=== PATIENT | male | born 1965 | race Caucasian/White ===

== ENCOUNTER 2017-03-12 02:18 | Emergency (ER) | payer MEDICAID ==
[~2017-03-12] VITALS: Ht 170.2 cm; Wt 90.7 kg
[2017-03-12] MEDS ORDERED: ATENOLOL50 MG ORAL (02:27)
--- NOTE | 2017-03-12 02:27 | Emergency Room Report ---
History of Present Illness General Chief Complaint: Chest Pain Source: Patient, EMS Present Illness HPI Is a 51-year-old male who has a history of alcohol abuse. He also said he has a history of SVT with frequent occurrence. Has been to the hospital multiple times. He presents with chief complaint of chest pain in SVT. He said he is having SVT now he rated moderate show he is in sinus rhythm. Pain is sharp. No syncope. No diaphoresis. No exertional component. He is allergic to aspirin. Is not on any medication. Allergies: Coded Allergies: ASPIRIN (Verified Allergy, Unknown, 03/12/17) Patient History Past Medical History: see triage record, old chart reviewed Past Surgical History: other Pertinent Family History: none Social History: Reports: alcohol use Immunizations: other Reviewed Nursing Documentation: PMH: Agreed, PSxH: Agreed Review of Systems Eye: Denies: eye pain, blurred vision ENT: Denies: ear pain, nose congestion, throat swelling Respiratory: Denies: cough, shortness of breath Cardiovascular: Reports: chest pain, palpitations Gastrointestinal: Denies: abdominal pain, diarrhea, nausea, vomiting Musculoskeletal: Denies: back pain, joint pain Skin: Denies: rash Neurological: Denies: headache, numbness Endocrine: Denies: increased thirst, increased urine Hematologic/Lymphatic: Denies: easy bruising All Other Systems: negative except mentioned in HPI Physical Exam Vital Signs Date Time Temp Pulse Resp B/P (MAP) Pulse Ox O2 Delivery O2 Flow Rate FiO2 03/12/17 02:17 98.4 99 18 145/70 99 Room Air vitals with high blood pressure Sp02 EP Interpretation: reviewed, normal General Appearance: well appearing, no apparent distress, alert, other - unkempted Head: normocephalic, atraumatic Eyes: bilateral eye PERRL, bilateral eye EOMI ENT: hearing grossly normal, normal pharynx Neck: full range of motion, supple, no meningismus Respiratory: chest non-tender, lungs clear, normal breath sounds Cardiovascular #1: regular rate, rhythm, no murmur Gastrointestinal: normal bowel sounds, non tender, no mass, no organomegaly, no bruit, non-distended Musculoskeletal: back normal, gait/station normal, normal range of motion Psychiatric: mood/affect normal Skin: warm/dry Medical Decision Making Diagnostic Impression: Primary Impression: Chest pain Qualified Codes: R07.9 - Chest pain, unspecified Additional Impressions: Alcohol abuse Palpitations ER Course Patient with atypical chest pain and palpitation. We'll put him on a beta durga. No evidence of ACS, PE, dissection to name a few. EKG Diagnostic Results Rate: normal Rhythm: NSR ST Segments: no acute changes Rhythm Strip Diag. Results Rhythm Strip Time: 02:26 EP Interpretation: yes Rate: 90 Rhythm: NSR, no PVC's, no ectopy Last Vital Signs Date Time Temp Pulse Resp B/P (MAP) Pulse Ox O2 Delivery O2 Flow Rate FiO2 03/12/17 02:17 98.4 99 18 145/70 99 Room Air Status: improved Disposition: HOME, SELF-CARE Condition: Stable Scripts Atenolol* (TENORMIN*) 50 Mg Tablet 25 MG ORAL DAILY, #30 TAB Prov: ALINE GOLD M.D. 03/12/17 Patient Instructions: Nonspecific Chest Pain Additional Instructions: Take your medication. Followup with your Dr. in 7 days. If symptom worsen. ALINE GOLD M.D. Mar 12, 2017 02:27
[2017-03-12 02:38] VITALS: BP 141/82
[2017-03-12 03:57] VITALS: BP 132/80
[2017-03-12 04:04] VITALS: BP 132/80
--- NOTE | 2017-03-22 13:58 | Cardiology Report ---
APPROVED REPORT EKG Measurement Heart [id number] Normal sinus rhythm Right bundle branch block Abnormal ECG
[2017-04-11] MEDS ORDERED: UNOBMED (01:13)
== END 2017-03-12 04:09 | disposition home or self-care (01) ==
LOC: EDBD 02:18 → EMR 03:22
DX: R07.89 Other chest pain (principal); R00.2 Palpitations; F10.10 Alcohol abuse, uncomplicated; Z88.6 Allergy status to analgesic agent
CPT/HCPCS: 84484; 93005; 99283

== ENCOUNTER 2017-03-16 01:23 | Emergency (ER) | payer MEDICAID ==
[~2017-03-16] VITALS: Ht 172.7 cm; Wt 113.4 kg
[~2017-03-16 01:23] MED LIST: ATENOLOL50 MG ORAL
[2017-03-16 01:52] VITALS: BP 148/76
--- NOTE | 2017-03-16 01:58 | Emergency Room Report ---
History of Present Illness General Chief Complaint: Palpitations Source: Patient Present Illness HPI Is a 51-year-old male who is homeless. Also history of alcohol abuse. He presents with chief complaint of SVT. He said he get frequent SVT. He told EMS that he had a CT. Per EMS heart rate was in the 60s. Patient denies any fever chills denies any nausea vomiting. Last alcohol was earlier today. EMS said they found a beer can next to him. No other complaint. per EMS, this is a frequent complaint. He's been to [facility] multiple times. Allergies: Coded Allergies: ASPIRIN (Verified Allergy, Unknown, 03/12/17) Patient History Past Medical History: see triage record, old chart reviewed Past Surgical History: none Pertinent Family History: none Social History: Reports: alcohol use Immunizations: other Reviewed Nursing Documentation: PMH: Agreed, PSxH: Agreed Review of Systems Eye: Denies: eye pain, blurred vision ENT: Denies: ear pain, nose congestion, throat swelling Respiratory: Denies: cough, shortness of breath Cardiovascular: Reports: palpitations, Denies: chest pain Gastrointestinal: Denies: abdominal pain, diarrhea, nausea, vomiting Musculoskeletal: Denies: back pain, joint pain Skin: Denies: rash Neurological: Denies: headache, numbness Endocrine: Denies: increased thirst, increased urine Hematologic/Lymphatic: Denies: easy bruising All Other Systems: negative except mentioned in HPI Physical Exam Vital Signs Date Time Temp Pulse Resp B/P (MAP) Pulse Ox O2 Delivery O2 Flow Rate FiO2 03/16/17 01:23 98.1 63 16 150/80 95 Room Air vitals normal Sp02 EP Interpretation: reviewed, normal General Appearance: well appearing, no apparent distress, alert, other - Unkempt Head: normocephalic, atraumatic Eyes: bilateral eye PERRL, bilateral eye EOMI ENT: hearing grossly normal, normal pharynx Neck: full range of motion, supple, no meningismus Respiratory: chest non-tender, lungs clear, normal breath sounds Cardiovascular #1: regular rate, rhythm, no murmur Gastrointestinal: normal bowel sounds, non tender, no mass, no organomegaly, no bruit, non-distended Musculoskeletal: back normal, gait/station normal, normal range of motion Psychiatric: mood/affect normal Skin: warm/dry Medical Decision Making Diagnostic Impression: Primary Impression: Palpitations ER Course Patient presents with chief complaint of SVT. He's been in sinus rhythm here. No evidence of SVT. I suspect is more anxiety related. We'll discharge home. Last Vital Signs Date Time Temp Pulse Resp B/P (MAP) Pulse Ox O2 Delivery O2 Flow Rate FiO2 03/16/17 01:52 98.1 80 18 148/76 97 Room Air Status: unchanged Disposition: HOME, SELF-CARE Condition: Stable Patient Instructions: Palpitations Additional Instructions: followup with your DrYuriy in 7 days. Return if worse. ALINE GOLD M.D. Mar 16, 2017 01:58
[2017-03-16 02:17] VITALS: BP 143/70
== END 2017-03-16 02:19 | disposition home or self-care (01) ==
LOC: EDBD 01:23 → EMR 01:25
DX: R00.2 Palpitations (principal); Z88.6 Allergy status to analgesic agent; F10.10 Alcohol abuse, uncomplicated; Z59.0 Homelessness
CPT/HCPCS: 99283

== ENCOUNTER 2017-04-08 10:25 | Emergency (ER) | payer MEDICAID ==
[~2017-04-08] VITALS: Ht 175.3 cm; Wt 99.8 kg
[2017-04-08 10:33] VITALS: BP 115/88
[2017-04-08] MEDS ORDERED: LORazepam Inj 2mg/ml 1ml IM ONE (11:15)
--- NOTE | 2017-04-08 11:59 | Diagnostic Imaging Report ---
Indications: Seizures Technique: Spiral acquisitions obtained through the brain. Angled axial and coronal 5 x 5 mm slices were reconstructed. Total dose length product 1534.43 mGycm. CTDI vol(s) 70.38 mGy. Dose reduction achieved using automated exposure control Comparison: None. Findings: There is some image degradation due to motion artifact at the skull bases. No acute intracranial hemorrhage or edema, mass effect, or midline shift. There is very mild prominence to the ventricles and extra axial CSF spaces. Intact calvarium. Visualized orbits and sinuses are unremarkable. Impression: Mild cerebral volume loss, somewhat out of proportion to patient's age Negative for acute intracranial bleed or mass effect. The CT scanner at [facility] is accredited by the [employer] and the scans are performed using protocols designed to limit radiation exposure to as low as reasonably achievable to attain images of sufficient resolution adequate for diagnostic evaluation.
[2017-04-08 12:46] VITALS: BP 101/67
[2017-04-08 14:00] VITALS: BP 103/64
[2017-04-08 15:30] VITALS: BP 113/72
--- NOTE | 2017-04-08 21:35 | Emergency Room Report ---
History of Present Illness General Chief Complaint: Seizure Source: EMS (Rehan Chanel M.D.) Source: Patient (DAYNA NAGEL M.D.) Present Illness HPI 51-year-old male presents ED for evaluation. Patient brought in by EMS. witnessed seizure today. Patient is well-known EMS. Notes history of alcohol abuse. Upon arrival patient is lethargic, sleeping. No signs of distress. Unable to provide any additional history. No other aggravating or relieving factors. No other associated symptoms (DAYNA NAGEL M.D.) Allergies: Coded Allergies: ASPIRIN (Verified Allergy, Unknown, 03/12/17) Patient History Past Medical History: none Past Surgical History: none Pertinent Family History: none Social History: Reports: alcohol use, Denies: smoking, drug use Immunizations: UTD Reviewed Nursing Documentation: PMH: Agreed, PSxH: Agreed (DAYNA NAGEL M.D.) Nursing Documentation-PMH Past Medical History: No History, Except For Hx Seizures: Yes (Rehan Chanel M.D.) Review of Systems All Other Systems: limited (DAYNA NAGEL M.D.) Physical Exam Vital Signs Date Time Temp Pulse Resp B/P (MAP) Pulse Ox O2 Delivery O2 Flow Rate FiO2 04/08/17 10:21 97.4 66 16 112/96 99 Room Air 97.3 (Rehan Chanel M.D.) Sp02 EP Interpretation: reviewed, normal General Appearance: no apparent distress, GCS 15, non-toxic, lethargic, obese Head: normocephalic, atraumatic Eyes: bilateral eye normal inspection, bilateral eye PERRL ENT: hearing grossly normal, normal pharynx, no angioedema, normal voice Neck: full range of motion, supple/symm/no masses Respiratory: chest non-tender, lungs clear, normal breath sounds, speaking full sentences Cardiovascular #1: regular rate, rhythm, no edema Cardiovascular #2: 2+ carotid (R), 2+ carotid (L), 2+ radial (R), 2+ radial (L) , 2+ dorsalis pedis (R), 2+ dorsalis pedis (L) Gastrointestinal: normal bowel sounds, non tender, soft, non-distended, no guarding, no rebound Rectal: deferred Genitourinary: normal inspection, no CVA tenderness Musculoskeletal: back normal, gait/station normal, normal range of motion, non- tender Neurologic: other - lethargic Psychiatric: other - lethargic Reflexes: 3+ bicep (R), 3+ bicep (L), 3+ tricep (R), 3+ tricep (L), 3+ knee (R) , 3+ knee (L) Skin: normal color, no rash, warm/dry, well hydrated Lymphatic: no adenopathy (DAYNA NAGEL M.D.) Medical Decision Making Diagnostic Impression: Primary Impression: Alcohol intoxication Qualified Codes: F10.920 - Alcohol use, unspecified with intoxication, uncomplicated Additional Impressions: Seizure Body lice ER Course Please see above note by Dr. Nagel. Patient allowed to sleep. Found to have body lice by RNs. Elimite ordered and applied. Evaluated fully by me as he requests a crutch to help him. He states he has never been on antiseizure medication. States he uses alcohol daily and gets shaky if not drinking. He states he is unsteady on his feet and needs a crutch. Denies back pain or injury, prior stroke of other condition causing weakness. No tremor when examined. No lethargy. Unsteady gait but in a manner in which the patient prevents himself from falling. Strength 5/5 LE. Sensory fully intact. Cerebellar intact. Patient given Thiamine IM. Provided with crutches. No signs of withdrawal at this time. Requests to leave ED. Patient stable for outpatient observation and treatment. (Rehan Chanel M.D.) ER Course Hospital Course 51-year-old male presents to ED status post EtOH intoxication. seizure Clinical course Patient placed on stretcher. After initial history and physical I ordered CT head. Given Ativan here at patient appears somewhat tremulous. Likely alcohol withdrawal. CT head negative Patient allowed to sleep. My assessment shows no evidence of SI/HI requiring psychiatric evaluation. Patient allowed to rest in now awake alert oriented x3. ambulating without difficulty. Diagnosis - ETOH intoxication, seizure stable and discharged to home. Followup with PMD. Return to ED if symptoms recur or worsen (DAYNA NAGEL M.D.) CT/MRI/US Diagnostic Results CT/MRI/US Diagnostic Results : Imaging Test Ordered: CT Head Impression no acute process (DAYNA NAGEL M.D.) Last Vital Signs Date Time Temp Pulse Resp B/P (MAP) Pulse Ox O2 Delivery O2 Flow Rate FiO2 04/08/17 22:20 78 14 115/70 100 04/08/17 15:30 Room Air 04/08/17 14:00 98.1 98.1 Status: improved (Rehan Chanel M.D.) Status: improved (DAYNA NAGEL M.D.) Disposition: HOME, SELF-CARE Condition: Improved Scripts Multivitamins* (MULTIVITAMINS*) 1 Each Tablet 1 TAB ORAL DAILY, #60 TAB 0 Refills Prov: Rehan Chanel M.D. 04/08/17 Permethrin* (ELIMITE*) 60 Gm Cream..g. 1 APPLIC TOPIC ONCE, #60 GM 0 Refills Apply cream from head to toe in 1 week; leave on for 8-14 hours before washing off with water Prov: Rehan Chanel M.D. 04/08/17 Referrals: NOT CHOSEN PRISCILLA/,REFERRING (PCP) Rehan Chanel M.D. Apr 08, 2017 21:34 DAYNA NAGEL M.D. Apr 09, 2017 06:53
[2017-04-08] MEDS ORDERED: MULTIVITAMINS1 EAC2 ORAL (21:37)
[2017-04-08] MEDS ORDERED: PERMETHRIN60 GM TOPIC (21:37)
[2017-04-08 22:20] VITALS: BP 115/70
[2017-04-09] MEDS ORDERED: Thiamine HCl 100mg/ml 2 ml Inj IM SCH (09:00)
[2017-04-11] MEDS ORDERED: UNOBMED (01:13)
== END 2017-04-08 22:00 | disposition home or self-care (01) ==
LOC: EDBD 10:25 → EMR 10:45
DX: F10.129 Alcohol abuse with intoxication, unspecified (principal); G40.909 Epilepsy, unspecified, not intractable, without status epilepticus; B85.1 Pediculosis due to Pediculus humanus corporis; Z88.6 Allergy status to analgesic agent
CPT/HCPCS: 70450; 96372; 99284

== ENCOUNTER 2017-04-11 01:16 | Inpatient (IN) | payer MEDICAID ==
[~2017-04-11] VITALS: Ht 170.2 cm; Wt 112.5 kg
[2017-04-11] VITALS (26 sets, daily range): BP systolic 82–124; BP diastolic 43–97
[~2017-04-11 01:16] MED LIST changes: +MULTIVITAMINS1 EAC2 ORAL; +PERMETHRIN60 GM TOPIC; +UNOBMED
[2017-04-11] MEDS ORDERED: LORazepam Inj 2mg/ml 1ml IV ONE ×2 (02:00→05:00)
[2017-04-11 02:02] LABS: HEMATOCRIT 39.1 % (42.0-52.0); HEMOGLOBIN 13.7 G/DL (14.2-18.0); MEAN CORPUSCULAR VOLUME 103 FL (80-99); PLATELET COUNT 141 K/UL (150-450); RED CELL DISTRIBUTION WIDTH 12.7 % (11.6-14.8)
[2017-04-11 02:03] LABS: WHITE BLOOD COUNT 22.8 K/UL (4.8-10.8)
[2017-04-11 02:14] LABS: ANION GAP 27 mmol/L (5-15); BLOOD UREA NITROGEN 77 mg/dL (7-18); CARBON DIOXIDE 22 MMOL/L (21-32); CHLORIDE 100 MMOL/L (98-107); CREATININE 5.3 MG/DL (0.55-1.30); POTASSIUM 4.1 MMOL/L (3.5-5.1); SODIUM 149 MMOL/L (136-145)
[2017-04-11] MEDS ORDERED: Haloperidol 5mg/ml Inj IM ONE (02:15)
[2017-04-11] MEDS ORDERED: DiphenhydrAMINE 50mg/ml Inj IVP ONE (02:15)
[2017-04-11 02:26] LABS: ALANINE AMINOTRANSFERASE 299 U/L (12-78); ALBUMIN 2.8 G/DL (3.4-5.0); ALBUMIN/GLOBULIN RATIO 0.7 (1.0-2.7); ALKALINE PHOSPHATASE 291 U/L (46-116); ASPARTATE AMINO TRANSFERASE 464 U/L (15-37)
[2017-04-11 02:27] LABS: BILIRUBIN,DIRECT 12.5 MG/DL (0.0-0.3)
--- NOTE | 2017-04-11 02:32 | Emergency Room Report ---
History of Present Illness General Chief Complaint: Altered Level of Consciousness Source: EMS Present Illness HPI 59-year-old male, unknown past medical history, found on street. EMS reportedly has seen the patient on the street, he was drinking, para cans everywhere. A bystander called 911 in the evening, he was brought into the ER. Patient only moaning, not cooperating, agitated. No history is able to be obtained Allergies: Coded Allergies: No Known Allergies (Unverified , 04/11/17) Patient History Past Medical History: see triage record Past Surgical History: none Pertinent Family History: none Reviewed Nursing Documentation: PMH: Agreed, PSxH: Agreed Review of Systems All Other Systems: limited Physical Exam Sp02 EP Interpretation: reviewed, normal General Appearance: other - Very disheveled middle-aged male, moaning, not cooperative Head: normocephalic, atraumatic Eyes: bilateral eye normal inspection, bilateral eye PERRL, bilateral eye EOMI ENT: normal pharynx Neck: supple, no meningismus Respiratory: lungs clear, normal breath sounds, no respiratory distress, no retraction, no wheezing, chest symmetrical Cardiovascular #1: regular rate, rhythm, normal capillary refill, bradycardia Cardiovascular #2: 2+ radial (R), 2+ radial (L) Gastrointestinal: other - soft, no grimace deep palpation Genitourinary: no CVA tenderness Musculoskeletal: normal inspection, back normal, normal range of motion, non- tender Neurologic: other - moans and moves ext spont. not ff commands Psychiatric: other - altered Skin: other - +lice/mites on entire body with rash Procedures Critical Care Time Critical Care Time 40 minutes of CC time 59-year-old male, altered, found in street VS: bradycardiac, hypothermic Airway patent. Not hypoxic. PLAN: IV access, labs, lactate, troponin, Blood/Urine Cx, Abx, IVF Anticipate admission to ICU CC time also includes review of labs, review of EMR, discussion with family and paperwork from SNF, d/w hospitalist CC could include dosing of pressors, additional Abx CC time does not include procedures Lumbar Puncture Consent: Emergent Location: L4-L5 Anesthesia: 1% Lidocaine Volume Anesthetic (ccs): 2 Prep: bedadine Needle Size: 2 1/2 CSF: clear Post-Procedure: recumbent position Attempts: One Complications: none Patient Tolerated: Well Medical Decision Making Diagnostic Impression: Primary Impression: Altered level of consciousness Additional Impressions: Elevated LFTs Hyperbilirubinemia Renal failure Bradycardia Hypothermia Severe sepsis UTI (urinary tract infection) Lice infestation ER Course 59-year-old male, unknown past medical history presenting with altered mental status DDX: Intoxication Electrolyte disturbance, ACS, infection, UTI, pneumonia Plan: Obtain labs, ua, EKG, CXR CT head ER course: Patient is moaning, agitated, Ativan given haldol benadryl given patient as unable to obtain labs/imaging found to have elevated LFTs, hyperbilirubinemia multiple lice found in axilla/clothes of patient WBC 22 - broad spec abx given to patient lactate elevated --- given 2L fluid CT head negative LP performed - clear colored csf pt also with severe hypothermia - blankets and bairhugger placed on patient. has been bradycardic but normal BP although patient has been altered, he has been protecting his airway -- not hypoxic, not tachypneic. Sepsis Re-examination Time: 5 AM VS: Temp 86 HR 55 BP 91/49 RR 15 CVS: RRR Respiratory: Lungs clear bilaterally Peripheral pulses: 2+ radial Capillary refill: <2 seconds Skin exam: warm, dry, no rash, not mottled Signed out to Dr Black -pls follow up CSF results. already got abx. Disposition: Patient is to be admitted to ICU D/W hospitalist Dr Wyman covering Dr berrios Please note that this Emergency Department Report was dictated using [employer] professor technology software, occasionally this can lead to erroneous entry secondary to interpretation by the dictation equipment. EKG Diagnostic Results EP Interpretation: Yes Rate: bradycardic Rhythm: NSR ST Segments: sinus bradycardia, T wave inversion in V ASA given to patient: No Rhythm Strip EP Interpretation: Yes Rate: 50 Rhythm: NSR, no PVCs, no ectopy Chest X-ray CXR: Ordered: Yes 1 view Indication: Altered mental status EP interpretation: Yes Interpretation: very rotated No consolidation, no effusion, no PTX, no acute cardiopulmonary disease Impression: No acute disease Electronically signed by Penny Gibson MD Laboratory Tests Test 04/11/17 01:30 04/11/17 02:30 04/11/17 03:00 04/11/17 03:20 White Blood Count 22.8 K/UL (4.8-10.8) *H Red Blood Count 3.80 M/UL (4.70-6.10) L Hemoglobin 13.7 G/DL (14.2-18.0) L Hematocrit 39.1 % (42.0-52.0) L Mean Corpuscular Volume 103 FL (80-99) H Mean Corpuscular Hemoglobin 36.0 PG (27.0-31.0) H Mean Corpuscular Hemoglobin Concent 35.0 G/DL (32.0-36.0) Red Cell Distribution Width 12.7 % (11.6-14.8) Platelet Count 141 K/UL (150-450) L Mean Platelet Volume 11.2 FL (6.5-10.1) H Neutrophils (%) (Auto) % (45.0-75.0) Lymphocytes (%) (Auto) % (20.0-45.0) Monocytes (%) (Auto) % (1.0-10.0) Eosinophils (%) (Auto) % (0.0-3.0) Basophils (%) (Auto) % (0.0-2.0) Differential Total Cells Counted 100 Neutrophils % (Manual) 86 % (45-75) H Lymphocytes % (Manual) 7 % (20-45) L Monocytes % (Manual) 7 % (1-10) Eosinophils % (Manual) 0 % (0-3) Basophils % (Manual) 0 % (0-2) Band Neutrophils 0 % (0-8) Platelet Estimate Decreased L Platelet Morphology Normal Anisocytosis 1+ Macrocytosis 1+ Prothrombin Time 13.1 SEC (9.30-11.50) H Prothrombin Time INR 1.2 (0.9-1.1) H PTT 26 SEC (23-33) Sodium Level 149 MMOL/L (136-145) H Potassium Level 4.1 MMOL/L (3.5-5.1) Chloride Level 100 MMOL/L (98-107) Carbon Dioxide Level 22 MMOL/L (21-32) Anion Gap 27 mmol/L (5-15) H Blood Urea Nitrogen 77 mg/dL (7-18) H Creatinine 5.3 MG/DL (0.55-1.30) H Estimate Glomerular Filtration Rate 11.1 mL/min (>60) Glucose Level 122 MG/DL (74-106) H Calcium Level 11.0 MG/DL (8.5-10.1) H Total Bilirubin 16.0 MG/DL (0.2-1.0) H Direct Bilirubin 12.5 MG/DL (0.0-0.3) H Aspartate Amino Transferase (AST) 464 U/L (15-37) H Alanine Aminotransferase (ALT) 299 U/L (12-78) H Alkaline Phosphatase 291 U/L (46-116) H Total Creatine Kinase 324 U/L (26-308) H Troponin I 0.000 ng/mL (0.000-0.056) Pro-B-Type Natriuretic Peptide 180 pg/mL (0-125) H Total Protein 6.9 G/DL (6.4-8.2) Albumin 2.8 G/DL (3.4-5.0) L Globulin 4.1 g/dL Albumin/Globulin Ratio 0.7 (1.0-2.7) L Salicylates Level < 0.2 ug/mL (2.8-20) L Acetaminophen Level < 2 MCG/ML (10-30) L Serum Alcohol < 3 mg/dL Lactic Acid Level 14.20 mmol/L (0.66-2.22) H Ammonia 27 umol/L (11-32) Urine Color Brown Urine Appearance Slightly cloudy Urine pH 5 (4.5-8.0) Urine Specific [place] 1.020 (1.005-1.035) Urine Protein 2+ (NEGATIVE) H Urine Glucose (UA) 1+ (NEGATIVE) H Urine Ketones 1+ (NEGATIVE) H Urine Occult Blood 3+ (NEGATIVE) H Urine Nitrite Negative (NEGATIVE) Urine Bilirubin 3+ (NEGATIVE) H Urine Ictotest Negative Urine Urobilinogen 12 MG/DL (0.0-1.0) H Urine Leukocyte Esterase 1+ (NEGATIVE) H Urine RBC 2-4 /HPF (0 - 0) H Urine WBC 10-15 /HPF (0 - 0) H Urine Squamous Epithelial Cells Moderate /LPF (NONE/OCC) H Urine Amorphous Sediment Few /LPF (NONE) H Urine Bacteria Moderate /HPF (NONE) H Urine Hyaline Casts 2-4 /LPF (NONE) H Urine Mucus Few /LPF (NONE/OCC) H Urine Opiates Screen Negative (NEGATIVE) Urine Barbiturates Screen Negative (NEGATIVE) Phencyclidine (PCP) Screen Negative (NEGATIVE) Urine Amphetamines Screen Negative (NEGATIVE) Urine Benzodiazepines Screen Negative (NEGATIVE) Urine Cocaine Screen Negative (NEGATIVE) Urine Marijuana (THC) Screen Negative (NEGATIVE) Test 04/11/17 05:20 04/11/17 05:40 04/11/17 14:35 04/11/17 18:30 Lactic Acid Level 6.10 mmol/L (0.66-2.22) H 3.90 mmol/L (0.66-2.22) H CSF Appearance Clear CSF Color Yellowish CSF WBC 0 /CU MM (0-5) CSF RBC 124 /CU MM CSF Neutrophils % % CSF Lymphocytes % % CSF Monocytes % % CSF Crenated Cells 0 % CSF Glucose 84 mg/dL (50-80) H CSF Total Protein 52 MG/DL (15-45) H White Blood Count 9.7 K/UL (4.8-10.8) # Red Blood Count 2.57 M/UL (4.70-6.10) L Hemoglobin 9.3 G/DL (14.2-18.0) #L Hematocrit 25.3 % (42.0-52.0) #L Mean Corpuscular Volume 99 FL (80-99) Mean Corpuscular Hemoglobin 36.3 PG (27.0-31.0) H Mean Corpuscular Hemoglobin Concent 36.8 G/DL (32.0-36.0) H Red Cell Distribution Width 12.1 % (11.6-14.8) Platelet Count 100 K/UL (150-450) L Mean Platelet Volume 11.7 FL (6.5-10.1) H Neutrophils (%) (Auto) % (45.0-75.0) Lymphocytes (%) (Auto) % (20.0-45.0) Monocytes (%) (Auto) % (1.0-10.0) Eosinophils (%) (Auto) % (0.0-3.0) Basophils (%) (Auto) % (0.0-2.0) Differential Total Cells Counted 100 Neutrophils % (Manual) 88 % (45-75) H Lymphocytes % (Manual) 4 % (20-45) L Monocytes % (Manual) 1 % (1-10) Eosinophils % (Manual) 0 % (0-3) Basophils % (Manual) 0 % (0-2) Band Neutrophils 7 % (0-8) Nucleated Red Blood Cells 7 /100 WBC Platelet Estimate Decreased L Platelet Morphology Normal Polychromasia 1+ Macrocytosis 1+ Erythrocyte Sedimentation Rate 65 MM/HR (0-20) H Urine Color Brown Urine Appearance Cloudy Urine pH 5 (4.5-8.0) Urine Specific [place] 1.020 (1.005-1.035) Urine Protein 2+ (NEGATIVE) H Urine Glucose (UA) 1+ (NEGATIVE) H Urine Ketones 1+ (NEGATIVE) H Urine Occult Blood 3+ (NEGATIVE) H Urine Nitrite Negative (NEGATIVE) Urine Bilirubin 3+ (NEGATIVE) H Urine Ictotest Positive Urine Urobilinogen 8 MG/DL (0.0-1.0) H Urine Leukocyte Esterase 1+ (NEGATIVE) H Urine RBC 0-2 /HPF (0 - 0) H Urine WBC 15-20 /HPF (0 - 0) H Urine Squamous Epithelial Cells Moderate /LPF (NONE/OCC) H Urine Amorphous Sediment Few /LPF (NONE) H Urine Bacteria Many /HPF (NONE) H Urine Eosinophils None seen Urine Osmolality 384 mOsm/kg (429-449) L Urine Random Sodium 17 MEQ/L (20-110) L Urine Random Chloride 27 mmol/L (55-125) L Urine Potassium Timed 54 mmol/L (12-62) Sodium Level 150 MMOL/L (136-145) H Potassium Level 2.2 MMOL/L (3.5-5.1) *L Chloride Level 108 MMOL/L (98-107) H Carbon Dioxide Level 26 MMOL/L (21-32) Anion Gap 15 mmol/L (5-15) Blood Urea Nitrogen 69 mg/dL (7-18) H Creatinine 4.5 MG/DL (0.55-1.30) H Estimate Glomerular Filtration Rate 13.4 mL/min (>60) Glucose Level 110 MG/DL (74-106) H Osmolality 324 mOsm/kg (297-317) H Uric Acid 16.2 MG/DL (2.6-7.2) H Calcium Level 7.9 MG/DL (8.5-10.1) #L Phosphorus Level 6.0 MG/DL (2.5-4.9) H Magnesium Level 2.0 MG/DL (1.8-2.4) Total Bilirubin 11.2 MG/DL (0.2-1.0) H Direct Bilirubin 9.2 MG/DL (0.0-0.3) H Gamma Glutamyl Transpeptidase 828 U/L (5-85) H Aspartate Amino Transferase (AST) 339 U/L (15-37) H Alanine Aminotransferase (ALT) 189 U/L (12-78) H Alkaline Phosphatase 167 U/L (46-116) H Lactate Dehydrogenase 399 U/L (81-234) H Total Creatine Kinase 216 U/L (26-308) C-Reactive Protein, Quantitative 9.3 mg/dL (0.00-0.90) H Total Protein 4.8 G/DL (6.4-8.2) #L Albumin 2.3 G/DL (3.4-5.0) L Globulin 2.5 g/dL Albumin/Globulin Ratio 0.9 (1.0-2.7) L Free Thyroxine 0.98 NG/DL (0.76-1.46) Test 04/12/17 03:45 White Blood Count 12.0 K/UL (4.8-10.8) H Red Blood Count 2.54 M/UL (4.70-6.10) L Hemoglobin 9.0 G/DL (14.2-18.0) L Hematocrit 24.9 % (42.0-52.0) L Mean Corpuscular Volume 98 FL (80-99) Mean Corpuscular Hemoglobin 35.4 PG (27.0-31.0) H Mean Corpuscular Hemoglobin Concent 36.2 G/DL (32.0-36.0) H Red Cell Distribution Width 12.5 % (11.6-14.8) Platelet Count 108 K/UL (150-450) L Mean Platelet Volume 12.0 FL (6.5-10.1) H Neutrophils (%) (Auto) % (45.0-75.0) Lymphocytes (%) (Auto) % (20.0-45.0) Monocytes (%) (Auto) % (1.0-10.0) Eosinophils (%) (Auto) % (0.0-3.0) Basophils (%) (Auto) % (0.0-2.0) Neutrophils % (Manual) Pending Lymphocytes % (Manual) Pending Platelet Estimate Pending Platelet Morphology Pending Sodium Level 144 MMOL/L (136-145) Potassium Level 2.7 MMOL/L (3.5-5.1) *L Chloride Level 104 MMOL/L (98-107) Carbon Dioxide Level 24 MMOL/L (21-32) Anion Gap 15 mmol/L (5-15) Blood Urea Nitrogen 69 mg/dL (7-18) H Creatinine 5.2 MG/DL (0.55-1.30) H Estimate Glomerular Filtration Rate 11.4 mL/min (>60) Glucose Level 216 MG/DL (74-106) #H Lactic Acid Level 2.80 mmol/L (0.66-2.22) H Uric Acid 15.7 MG/DL (2.6-7.2) H Calcium Level 7.1 MG/DL (8.5-10.1) L Phosphorus Level 4.7 MG/DL (2.5-4.9) Magnesium Level 1.5 MG/DL (1.8-2.4) L Total Bilirubin 11.3 MG/DL (0.2-1.0) H Direct Bilirubin 9.4 MG/DL (0.0-0.3) H Gamma Glutamyl Transpeptidase 682 U/L (5-85) H Aspartate Amino Transferase (AST) 313 U/L (15-37) H Alanine Aminotransferase (ALT) 166 U/L (12-78) H Alkaline Phosphatase 144 U/L (46-116) H Total Creatine Kinase 307 U/L (26-308) Troponin I 0.007 ng/mL (0.000-0.056) Pro-B-Type Natriuretic Peptide 1734 pg/mL (0-125) H Total Protein 4.6 G/DL (6.4-8.2) L Albumin 1.9 G/DL (3.4-5.0) L Globulin 2.7 g/dL Albumin/Globulin Ratio 0.7 (1.0-2.7) L Triglycerides Level 244 MG/DL (30-150) H Cholesterol Level 160 MG/DL (< 200) LDL Cholesterol 127 mg/dL (<100) H HDL Cholesterol 8 MG/DL (40-60) L Cholesterol/HDL Ratio 20.0 (3.3-4.4) H Vitamin B12 Level 6440 PG/ML (193-986) H Thyroid Stimulating Hormone (TSH) 1.104 uiU/mL (0.358-3.740) CT/MRI/US Diagnostic Results CT/MRI/US Diagnostic Results : Imaging Test Ordered: CT head Impression CT HEAD: There is no evidence of acute intracranial hemorrhage or mass effect. No midline shift. Ventricular volumes are within normal limits. No abnormal extra-axial fluid collections. No acute osseous abnormality. Paranasal sinuses and mastoid air cells are normally pneumatized. Disposition: ADMITTED INPATIENT Condition: Critical Penny Gibson M.D. Apr 11, 2017 02:32
[2017-04-11 02:45] LABS: INR 1.2 (0.9-1.1)
[2017-04-11] MEDS ORDERED: Piperacillin/Tazobactam 3.375 GM in NS 55 ML IV ONE (03:30)
[2017-04-11] MEDS ORDERED: Vancomycin 1.5gm/D5W 250ml 250 ML IVPB ONE (03:30)
[2017-04-11] MEDS ORDERED: Zosyn 3.375gm inj ONE (03:40)
[2017-04-11 03:41] LABS: APPEARANCE,URINE SLIGHTLY CLOUDY; BILIRUBIN, URINE 3+ (NEGATIVE); COLOR,URINE BROWN; GLUCOSE, URINE (UA) 1+ (NEGATIVE); KETONES,URINE 1+ (NEGATIVE); LEUKOCYTE ESTERASE ,URINE 1+ (NEGATIVE); NITRITE,URINE NEGATIVE (NEGATIVE); PH,URINE 5 (4.5-8.0); PROTEIN,URINE 2+ (NEGATIVE); UROBILINOGEN,URINE 12 MG/DL (0.0-1.0)
[2017-04-11 06:17] LABS: CREATINE KINASE 324 U/L (26-308)
--- NOTE | 2017-04-11 07:57 | Emergency Room Report ---
History of Present Illness General Chief Complaint: Altered Level of Consciousness Source: EMS Present Illness Allergies: Coded Allergies: No Known Allergies (Unverified , 04/11/17) Physical Exam Vital Signs Date Time Temp Pulse Resp B/P (MAP) Pulse Ox O2 Delivery O2 Flow Rate FiO2 04/11/17 02:00 65 12 110/62 99 04/11/17 03:00 85.2 85.2 04/11/17 07:14 Room Air Procedures Critical Care Time Critical Care Time CC time 60min Critical care time endorsed for this patient for sepsis, septic shock, renal/ liver failure Please note, patient remained in the ED for 4 hours of my ED shift because of staff shortage in the ER and required constant monitoring and evaluation. Critical care time includes review of laboratory tests, imaging, review of EMR, review of paperwork from SNF (if available), discussion with patient and family (if available), review of code status/POLS (if available). Critical care time also likely includes assessment of fluid status, stabilization of vital signs, assessing volume responsiveness, considering of pressors. Critical care time does not include any procedures which are documented elsewhere in this EMR. Medical Decision Making Diagnostic Impression: Primary Impression: Altered level of consciousness Additional Impressions: Lice infestation Bradycardia Hyperbilirubinemia Hypothermia Severe sepsis Renal failure Elevated LFTs UTI (urinary tract infection) Hypotension ER Course Received signout from Dr Gibson at 615am Patient's BP continued to trend downward BP 82/63, however MAP >65 Bradycardia improved with increased temp - now ~60HR Received 2 L NS but no fluid output so far [place] was not placed however no urine incontinence noted Will place [place], give additional fluid Likely profoundly dehydrated. has put out only 270cc in 7 hours after 3L NS patient still very dehydrated Will give additional 2L LR As of 1027am, BP 122/97, HR 67 after 5 total L of IVF Rhythm Strip Diag. Results EP Interpretation: yes Rate: 59 Rhythm: NSR, no PVC's, no ectopy Last Vital Signs Date Time Temp Pulse Resp B/P (MAP) Pulse Ox O2 Delivery O2 Flow Rate FiO2 04/11/17 07:46 88.0 57 14 92/63 100 Room Air 88.0 Status: improved Disposition: ADMITTED INPATIENT Condition: Critical Referrals: NOT CHOSEN IPA/,REFERRING (PCP) CELESTINO NASSAR M.D. Apr 11, 2017 07:57
--- NOTE | 2017-04-11 08:09 | Diagnostic Imaging Report ---
Indication: Altered mental status Technique: Continuous helical CT scanning of the head was performed without intravenous contrast material. Axial and coronal 5 mm sections were generated. Dose: Total Dose Length Product - DLP [address] Dose Index - CTDIvol(s) 70.38 mGy. Automated exposure control was utilized for dose reduction. Comparison:None. Findings: The ventricular system is normal in size and configuration. Is mild prominence of cortical sulci. There is no shift of midline structures. No abnormal extra-axial fluid collections are noted. There is no evidence of intracerebral bleeding. No other abnormal high or low density areas are noted within the brain. Impression: Normal atrophy. Otherwise normal CT scan of the head without contrast material. The above report is concordant with preliminary reading by [facility] with minor difference. The CT scanner at [facility] is accredited by the [employer] and the scans are performed using protocols designed to limit radiation exposure to as low as reasonably achievable to attain images of sufficient resolution adequate for diagnostic evaluation.
--- NOTE | 2017-04-11 09:16 | Diagnostic Imaging Report ---
Indication: Chest pain Technique: XRAY Chest 1v Comparison: None. Findings: The patient has taken a poor inspiration and is considerably rotated. The cardiomediastinal silhouette is normal. The lungs are clear. There is no evidence of pleural fluid. The bony structures are unremarkable. Impression: Poor inspiratory rotated chest. Otherwise grossly negative.
[2017-04-11] MEDS ORDERED: LR 1000ml 1,000 ML IV STA ×2 (09:18→09:19)
[2017-04-11] MEDS ORDERED: D5 1/2NS 1,000 ML IV SCH (10:00)
[2017-04-11] MEDS ORDERED: Albuterol/Ipratropium 3ml neb HHN PRN (10:30)
[2017-04-11] MEDS ORDERED: Miralax 17gm pkt ORAL PRN (10:30)
[2017-04-11] MEDS ORDERED: Nitroglycerin Subl 0.4mg tab SL PRN (10:30)
[2017-04-11] MEDS ORDERED: Morphine Sulfate 2mg/ml Inj IVP PRN (10:30)
[2017-04-11] MEDS: Cefepime HCl 2 GM in D5W 110 ML IV SCH (11:45)
--- NOTE | 2017-04-11 11:47 | Consultation ---
Consult Note Consult Note asked to eval for renal failure 59-year-old male, unknown past medical history, found on street. EMS reportedly has seen the patient on the street, he was drinking, para cans everywhere. A bystander called 911 in the evening, he was brought into the ER. Patient only moaning, not cooperating, agitated. No history is able to be obtained seen in ER Discussed with MD and RN data reviewed examined + Ascitis Assessment/Plan Acute renal failure ? Underlying CKD Low BP , Septic Shock Acute encephalopathy Lice infestation High LFTs and Jaundice HypoThermia UTI Fluids Protonix Antibiotics NPO Monitor renal parameters avoid Nephrotoxics ANTON LIZAMA Apr 11, 2017 11:47
[2017-04-11] MEDS ORDERED: Pantoprazole Inj IVP ONE (12:00)
[2017-04-11] MEDS ORDERED: Hydromorphone 0.5mg/0.5ml inj IVP PRN (12:00)
[2017-04-11] MEDS ORDERED: Haloperidol 5mg/ml Inj IM PRN (12:00)
[2017-04-11] MEDS: D5NS 1,000 ML IV SCH ×2 (12:14→18:54)
--- NOTE | 2017-04-11 12:24 | Infectious Diseases Prog Note ---
Assessment/Plan Assessment/Plan Full consult dictated: A) 1) sepsis, shock, leukocytosis, hypothermia, ? uti, ams 2) doubt meningitis with 0 wbc on LP 3) chest x-ray negative P) 1) zosyn and vancomycin 2) check cultures, labs and chest x-ray 3) may need further imagin 4) thank you Subjective Allergies: Coded Allergies: No Known Allergies (Unverified , 04/11/17) Objective Vital Signs Last 24 Hour Vital Signs Date Time Temp Pulse Resp B/P (MAP) Pulse Ox O2 Delivery O2 Flow Rate FiO2 04/11/17 11:43 91.1 80 22 94/48 96 Room Air 91.1 04/11/17 10:42 91.1 70 21 124/96 99 Room Air 91.1 04/11/17 10:13 91.1 66 17 122/97 99 Room Air 91.1 04/11/17 10:03 91.1 66 19 95/60 98 Room Air 91.1 04/11/17 09:37 91.1 76 25 95/60 99 Room Air 91.1 04/11/17 09:04 88.0 57 19 94/55 99 Room Air 88.0 04/11/17 08:26 88.0 57 12 82/63 100 Room Air 88.0 04/11/17 07:46 88.0 57 14 92/63 100 Room Air 88.0 04/11/17 07:14 88.0 51 14 95/63 100 Room Air 88.0 04/11/17 06:10 86.2 50 15 103/80 100 86.2 04/11/17 05:00 85.9 44 15 91/49 10 85.9 04/11/17 04:00 85.8 52 13 100/58 99 85.8 04/11/17 03:00 85.2 58 14 105/61 99 85.2 04/11/17 02:00 65 12 110/62 99 Height (Feet): 5 Height (Inches): 7.00 Weight (Pounds): 160 Microbiology Date/Time Source Procedure Growth Status 04/11/17 05:40 Cerebral Spinal Fluid Gram Stain - Final Resulted 04/11/17 05:40 Cerebral Spinal Fluid CSF Culture Pending Resulted Laboratory Tests Test 04/11/17 01:30 04/11/17 02:30 04/11/17 03:00 04/11/17 03:20 White Blood Count 22.8 K/UL (4.8-10.8) *H Red Blood Count 3.80 M/UL (4.70-6.10) L Hemoglobin 13.7 G/DL (14.2-18.0) L Hematocrit 39.1 % (42.0-52.0) L Mean Corpuscular Volume 103 FL (80-99) H Mean Corpuscular Hemoglobin 36.0 PG (27.0-31.0) H Mean Corpuscular Hemoglobin Concent 35.0 G/DL (32.0-36.0) Red Cell Distribution Width 12.7 % (11.6-14.8) Platelet Count 141 K/UL (150-450) L Mean Platelet Volume 11.2 FL (6.5-10.1) H Neutrophils (%) (Auto) % (45.0-75.0) Lymphocytes (%) (Auto) % (20.0-45.0) Monocytes (%) (Auto) % (1.0-10.0) Eosinophils (%) (Auto) % (0.0-3.0) Basophils (%) (Auto) % (0.0-2.0) Differential Total Cells Counted 100 Neutrophils % (Manual) 86 % (45-75) H Lymphocytes % (Manual) 7 % (20-45) L Monocytes % (Manual) 7 % (1-10) Eosinophils % (Manual) 0 % (0-3) Basophils % (Manual) 0 % (0-2) Band Neutrophils 0 % (0-8) Platelet Estimate Decreased L Platelet Morphology Normal Anisocytosis 1+ Macrocytosis 1+ Prothrombin Time 13.1 SEC (9.30-11.50) H Prothromb Time International Ratio 1.2 (0.9-1.1) H Activated Partial Thromboplast Time 26 SEC (23-33) Sodium Level 149 MMOL/L (136-145) H Potassium Level 4.1 MMOL/L (3.5-5.1) Chloride Level 100 MMOL/L (98-107) Carbon Dioxide Level 22 MMOL/L (21-32) Anion Gap 27 mmol/L (5-15) H Blood Urea Nitrogen 77 mg/dL (7-18) H Creatinine 5.3 MG/DL (0.55-1.30) H Estimat Glomerular Filtration Rate 11.1 mL/min (>60) Glucose Level 122 MG/DL (74-106) H Calcium Level 11.0 MG/DL (8.5-10.1) H Total Bilirubin 16.0 MG/DL (0.2-1.0) H Direct Bilirubin 12.5 MG/DL (0.0-0.3) H Aspartate Amino Transf (AST/SGOT) 464 U/L (15-37) H Alanine Aminotransferase (ALT/SGPT) 299 U/L (12-78) H Alkaline Phosphatase 291 U/L (46-116) H Total Creatine Kinase 324 U/L (26-308) H Troponin I 0.000 ng/mL (0.000-0.056) Pro-B-Type Natriuretic Peptide 180 pg/mL (0-125) H Total Protein 6.9 G/DL (6.4-8.2) Albumin 2.8 G/DL (3.4-5.0) L Globulin 4.1 g/dL Albumin/Globulin Ratio 0.7 (1.0-2.7) L Salicylates Level < 0.2 ug/mL (2.8-20) L Acetaminophen Level < 2 MCG/ML (10-30) L Serum Alcohol < 3 mg/dL Lactic Acid Level 14.20 mmol/L (0.66-2.22) H Ammonia 27 umol/L (11-32) Urine Color Brown Urine Appearance Slightly cloudy Urine pH 5 (4.5-8.0) Urine Specific [place] 1.020 (1.005-1.035) Urine Protein 2+ (NEGATIVE) H Urine Glucose (UA) 1+ (NEGATIVE) H Urine Ketones 1+ (NEGATIVE) H Urine Occult Blood 3+ (NEGATIVE) H Urine Nitrite Negative (NEGATIVE) Urine Bilirubin 3+ (NEGATIVE) H Urine Ictotest Negative Urine Urobilinogen 12 MG/DL (0.0-1.0) H Urine Leukocyte Esterase 1+ (NEGATIVE) H Urine RBC 2-4 /HPF (0 - 0) H Urine WBC 10-15 /HPF (0 - 0) H Urine Squamous Epithelial Cells Moderate /LPF (NONE/OCC) H Urine Amorphous Sediment Few /LPF (NONE) H Urine Bacteria Moderate /HPF (NONE) H Urine Hyaline Casts 2-4 /LPF (NONE) H Urine Mucus Few /LPF (NONE/OCC) H Urine Opiates Screen Negative (NEGATIVE) Urine Barbiturates Screen Negative (NEGATIVE) Phencyclidine (PCP) Screen Negative (NEGATIVE) Urine Amphetamines Screen Negative (NEGATIVE) Urine Benzodiazepines Screen Negative (NEGATIVE) Urine Cocaine Screen Negative (NEGATIVE) Urine Marijuana (THC) Screen Negative (NEGATIVE) Test 04/11/17 05:20 04/11/17 05:40 Lactic Acid Level 6.10 mmol/L (0.66-2.22) H CSF Appearance Clear CSF Color Yellowish CSF WBC 0 /CU MM (0-5) CSF RBC 124 /CU MM CSF Neutrophils % % CSF Lymphocytes % % CSF Monocytes % % CSF Crenated Cells 0 % CSF Glucose 84 mg/dL (50-80) H CSF Total Protein 52 MG/DL (15-45) H Current Medications Medications (Trade) Dose Ordered Sig/Jocelyne Route PRN Reason Start Time Stop Time Status Last Admin Dose Admin Acetaminophen (Tylenol) 650 mg Q4H PRN ORAL fever>100.5 04/11/17 10:30 05/11/17 10:29 Albumin Human 500 ml @ 0 mls/hr Q0M ONCE IV 04/11/17 12:30 04/11/17 12:31 04/11/17 12:15 Albuterol/ Ipratropium (Albuterol/ Ipratropium) 3 ml Q4H PRN HHN Shortness of Breath 04/11/17 10:30 04/16/17 10:29 Cefepime HCl 2 gm/ Dextrose 110 ml @ 220 mls/hr DAILY IV 04/11/17 12:00 04/18/17 11:59 04/11/17 11:45 Dextrose (Dextrose 50%) STAT PRN IV Hypoglycemia 04/11/17 10:30 05/11/17 10:29 Dextrose/Sodium Chloride 1,000 ml @ 150 mls/hr Q6H40M IV 04/11/17 12:00 05/11/17 11:59 04/11/17 12:14 Haloperidol Lactate (Haldol) 5 mg Q4H PRN IM Agitation 04/11/17 12:00 05/11/17 11:59 Heparin Sodium (Porcine) (Heparin 5000 units/ml) 5,000 units EVERY 12 HOURS SUBQ 04/11/17 21:00 05/11/17 20:59 Hydromorphone HCl (Dilaudid) 0.5 mg Q4H PRN IVP For Pain 04/11/17 12:00 04/18/17 11:59 Nitroglycerin (Ntg) 0.4 mg Q5M PRN SL Prn Chest Pain 04/11/17 10:30 05/11/17 10:29 Ondansetron HCl (Zofran) 4 mg Q6H PRN IVP Nausea & Vomiting 04/11/17 10:30 05/11/17 10:29 Vancomycin HCl (Vanco rx to dose) 1 ea DAILY PRN MISC . 04/11/17 11:30 05/11/17 11:29 NAHUN SAGE Apr 11, 2017 12:24
[2017-04-11] MEDS: LR 1000ml 1,000 ML IV SCH ×3 (14:00→17:51)
[2017-04-11 15:00] LABS: HEMATOCRIT 25.3 % (42.0-52.0); HEMOGLOBIN 9.3 G/DL (14.2-18.0); MEAN CORPUSCULAR VOLUME 99 FL (80-99); PLATELET COUNT 100 K/UL (150-450); RED BLOOD COUNT 2.57 M/UL (4.70-6.10); RED CELL DISTRIBUTION WIDTH 12.1 % (11.6-14.8); WHITE BLOOD COUNT 9.7 K/UL (4.8-10.8)
[2017-04-11 15:17] LABS: APPEARANCE,URINE CLOUDY; BILIRUBIN, URINE 3+ (NEGATIVE); COLOR,URINE BROWN; GLUCOSE, URINE (UA) 1+ (NEGATIVE); KETONES,URINE 1+ (NEGATIVE); LEUKOCYTE ESTERASE ,URINE 1+ (NEGATIVE); NITRITE,URINE NEGATIVE (NEGATIVE); PH,URINE 5 (4.5-8.0); PROTEIN,URINE 2+ (NEGATIVE); UROBILINOGEN,URINE 8 MG/DL (0.0-1.0)
--- NOTE | 2017-04-11 15:19 | Cardiac Electrophysiology PN ---
Subjective Subjective [id number] Objective Last 24 Hour Vital Signs Date Time Temp Pulse Resp B/P (MAP) Pulse Ox O2 Delivery O2 Flow Rate FiO2 04/11/17 14:56 97.7 94 29 97/50 99 Room Air 97.7 04/11/17 13:57 97.7 95 34 84/43 97 Room Air 97.7 04/11/17 12:28 91.1 86 23 88/48 99 Room Air 91.1 04/11/17 11:43 91.1 80 22 94/48 96 Room Air 91.1 04/11/17 10:42 91.1 70 21 124/96 99 Room Air 91.1 04/11/17 10:13 91.1 66 17 122/97 99 Room Air 91.1 04/11/17 10:03 91.1 66 19 95/60 98 Room Air 91.1 04/11/17 09:37 91.1 76 25 95/60 99 Room Air 91.1 04/11/17 09:04 88.0 57 19 94/55 99 Room Air 88.0 04/11/17 08:26 88.0 57 12 82/63 100 Room Air 88.0 04/11/17 07:46 88.0 57 14 92/63 100 Room Air 88.0 04/11/17 07:14 88.0 51 14 95/63 100 Room Air 88.0 04/11/17 06:10 86.2 50 15 103/80 100 86.2 04/11/17 05:00 85.9 44 15 91/49 10 85.9 04/11/17 04:00 85.8 52 13 100/58 99 85.8 04/11/17 03:00 85.2 58 14 105/61 99 85.2 04/11/17 02:00 65 12 110/62 99 Intake and Output 04/10/17 04/11/17 19:00 07:00 Intake Total 2305 ml Output Total 75 ml Balance 2230 ml Intake IV Total 2305 ml Output Urine Total 75 ml Laboratory Tests Test 04/11/17 01:30 04/11/17 02:30 04/11/17 03:00 04/11/17 03:20 White Blood Count 22.8 K/UL (4.8-10.8) *H Red Blood Count 3.80 M/UL (4.70-6.10) L Hemoglobin 13.7 G/DL (14.2-18.0) L Hematocrit 39.1 % (42.0-52.0) L Mean Corpuscular Volume 103 FL (80-99) H Mean Corpuscular Hemoglobin 36.0 PG (27.0-31.0) H Mean Corpuscular Hemoglobin Concent 35.0 G/DL (32.0-36.0) Red Cell Distribution Width 12.7 % (11.6-14.8) Platelet Count 141 K/UL (150-450) L Mean Platelet Volume 11.2 FL (6.5-10.1) H Neutrophils (%) (Auto) % (45.0-75.0) Lymphocytes (%) (Auto) % (20.0-45.0) Monocytes (%) (Auto) % (1.0-10.0) Eosinophils (%) (Auto) % (0.0-3.0) Basophils (%) (Auto) % (0.0-2.0) Differential Total Cells Counted 100 Neutrophils % (Manual) 86 % (45-75) H Lymphocytes % (Manual) 7 % (20-45) L Monocytes % (Manual) 7 % (1-10) Eosinophils % (Manual) 0 % (0-3) Basophils % (Manual) 0 % (0-2) Band Neutrophils 0 % (0-8) Platelet Estimate Decreased L Platelet Morphology Normal Anisocytosis 1+ Macrocytosis 1+ Prothrombin Time 13.1 SEC (9.30-11.50) H Prothromb Time International Ratio 1.2 (0.9-1.1) H Activated Partial Thromboplast Time 26 SEC (23-33) Sodium Level 149 MMOL/L (136-145) H Potassium Level 4.1 MMOL/L (3.5-5.1) Chloride Level 100 MMOL/L (98-107) Carbon Dioxide Level 22 MMOL/L (21-32) Anion Gap 27 mmol/L (5-15) H Blood Urea Nitrogen 77 mg/dL (7-18) H Creatinine 5.3 MG/DL (0.55-1.30) H Estimat Glomerular Filtration Rate 11.1 mL/min (>60) Glucose Level 122 MG/DL (74-106) H Calcium Level 11.0 MG/DL (8.5-10.1) H Total Bilirubin 16.0 MG/DL (0.2-1.0) H Direct Bilirubin 12.5 MG/DL (0.0-0.3) H Aspartate Amino Transf (AST/SGOT) 464 U/L (15-37) H Alanine Aminotransferase (ALT/SGPT) 299 U/L (12-78) H Alkaline Phosphatase 291 U/L (46-116) H Total Creatine Kinase 324 U/L (26-308) H Troponin I 0.000 ng/mL (0.000-0.056) Pro-B-Type Natriuretic Peptide 180 pg/mL (0-125) H Total Protein 6.9 G/DL (6.4-8.2) Albumin 2.8 G/DL (3.4-5.0) L Globulin 4.1 g/dL Albumin/Globulin Ratio 0.7 (1.0-2.7) L Salicylates Level < 0.2 ug/mL (2.8-20) L Acetaminophen Level < 2 MCG/ML (10-30) L Serum Alcohol < 3 mg/dL Lactic Acid Level 14.20 mmol/L (0.66-2.22) H Ammonia 27 umol/L (11-32) Urine Color Brown Urine Appearance Slightly cloudy Urine pH 5 (4.5-8.0) Urine Specific [place] 1.020 (1.005-1.035) Urine Protein 2+ (NEGATIVE) H Urine Glucose (UA) 1+ (NEGATIVE) H Urine Ketones 1+ (NEGATIVE) H Urine Occult Blood 3+ (NEGATIVE) H Urine Nitrite Negative (NEGATIVE) Urine Bilirubin 3+ (NEGATIVE) H Urine Ictotest Negative Urine Urobilinogen 12 MG/DL (0.0-1.0) H Urine Leukocyte Esterase 1+ (NEGATIVE) H Urine RBC 2-4 /HPF (0 - 0) H Urine WBC 10-15 /HPF (0 - 0) H Urine Squamous Epithelial Cells Moderate /LPF (NONE/OCC) H Urine Amorphous Sediment Few /LPF (NONE) H Urine Bacteria Moderate /HPF (NONE) H Urine Hyaline Casts 2-4 /LPF (NONE) H Urine Mucus Few /LPF (NONE/OCC) H Urine Opiates Screen Negative (NEGATIVE) Urine Barbiturates Screen Negative (NEGATIVE) Phencyclidine (PCP) Screen Negative (NEGATIVE) Urine Amphetamines Screen Negative (NEGATIVE) Urine Benzodiazepines Screen Negative (NEGATIVE) Urine Cocaine Screen Negative (NEGATIVE) Urine Marijuana (THC) Screen Negative (NEGATIVE) Test 04/11/17 05:20 04/11/17 05:40 04/11/17 14:35 Lactic Acid Level 6.10 mmol/L (0.66-2.22) H CSF Appearance Clear CSF Color Yellowish CSF WBC 0 /CU MM (0-5) CSF RBC 124 /CU MM CSF Neutrophils % % CSF Lymphocytes % % CSF Monocytes % % CSF Crenated Cells 0 % CSF Glucose 84 mg/dL (50-80) H CSF Total Protein 52 MG/DL (15-45) H White Blood Count Pending Red Blood Count Pending Hemoglobin Pending Hematocrit Pending Mean Corpuscular Volume Pending Mean Corpuscular Hemoglobin Pending Mean Corpuscular Hemoglobin Concent Pending Red Cell Distribution Width Pending Platelet Count Pending Mean Platelet Volume Pending Neutrophils (%) (Auto) Pending Lymphocytes (%) (Auto) Pending Monocytes (%) (Auto) Pending Eosinophils (%) (Auto) Pending Basophils (%) (Auto) Pending Erythrocyte Sedimentation Rate Pending Urine Color Pending Urine Appearance Pending Urine pH Pending Urine Specific [place] Pending Urine Protein Pending Urine Glucose (UA) Pending Urine Ketones Pending Urine Occult Blood Pending Urine Nitrite Pending Urine Bilirubin Pending Urine Urobilinogen Pending Urine Leukocyte Esterase Pending Urine RBC Pending Urine WBC Pending Urine Squamous Epithelial Cells Pending Urine Bacteria Pending Urine Eosinophils Pending Urine Osmolality Pending Urine Random Sodium Pending Urine Random Chloride Pending Urine Potassium Timed Pending Sodium Level Pending Potassium Level Pending Chloride Level Pending Carbon Dioxide Level Pending Blood Urea Nitrogen Pending Creatinine Pending Estimat Glomerular Filtration Rate Pending Glucose Level Pending Osmolality Pending Uric Acid Pending Calcium Level Pending Phosphorus Level Pending Magnesium Level Pending Total Bilirubin Pending Gamma Glutamyl Transpeptidase Pending Aspartate Amino Transf (AST/SGOT) Pending Alanine Aminotransferase (ALT/SGPT) Pending Alkaline Phosphatase Pending Lactate Dehydrogenase Pending Total Creatine Kinase Pending C-Reactive Protein, Quantitative Pending Total Protein Pending Albumin Pending Globulin Pending Free Thyroxine Pending Microbiology Date/Time Source Procedure Growth Status 04/11/17 05:40 Cerebral Spinal Fluid Gram Stain - Final Resulted 2/25/18 05:40 Cerebral Spinal Fluid CSF Culture Pending Resulted ERIC CLAYTON Apr 11, 2017 15:19
[2017-04-11 15:36] LABS: ALANINE AMINOTRANSFERASE 189 U/L (12-78); ALBUMIN 2.3 G/DL (3.4-5.0); ALBUMIN/GLOBULIN RATIO 0.9 (1.0-2.7); ALKALINE PHOSPHATASE 167 U/L (46-116); ANION GAP 15 mmol/L (5-15); ASPARTATE AMINO TRANSFERASE 339 U/L (15-37); BILIRUBIN,TOTAL 11.2 MG/DL (0.2-1.0); BLOOD UREA NITROGEN 69 mg/dL (7-18); CALCIUM 7.9 MG/DL (8.5-10.1); CARBON DIOXIDE 26 MMOL/L (21-32); CHLORIDE 108 MMOL/L (98-107); CREATINE KINASE 216 U/L (26-308); CREATININE 4.5 MG/DL (0.55-1.30); PHOSPHORUS 5.8 MG/DL (2.5-4.9); SODIUM 150 MMOL/L (136-145)
[2017-04-11 15:39] LABS: POTASSIUM 2.2 MMOL/L (3.5-5.1)
[2017-04-11 15:41] LABS: BILIRUBIN,DIRECT 9.2 MG/DL (0.0-0.3)
--- NOTE | 2017-04-11 15:50 | Cardiology Report ---
APPROVED REPORT EKG Measurement Heart [id number] VA 134P [id number] Marked sinus bradycardia Nonspecific intraventricular block Possible Right ventricular hypertrophy Lateral infarct, age undetermined T wave abnormality, consider inferior ischemia T wave abnormality, consider anterior ischemia Abnormal ECG
[2017-04-11] MEDS ORDERED: Potassium Chloride 10 MEQ in NS 110 ML IVPB SCH (16:00)
--- NOTE | 2017-04-11 16:50 | History & Physical ---
History and Physical History & Physicial Patient seen and examined. Full H&P to follow. CT head negative. LP negative. Assessment: - septic shock with multiorgan failure - altered mental status - pediculosis capitus - UTI - homelessness Plan: ID and cardiology consulted. Pulmonology consulted for ICU management. continue IV abx f/u blood cultures, urine culture. continue IVF, maintain MAP > 65. pressors/ albumin prn. Transfer to ICU. keep in isolation. Marissa Sosa N.P. Apr 11, 2017 16:50
--- NOTE | 2017-04-11 19:15 | Consultation ---
DATE OF CONSULTATION: 04/11/2017 CARDIOLOGY CONSULTATION CONSULTING PHYSICIAN: Donato Alexis M.D. REFERRING PHYSICIAN: Guillermo Pina M.D. REASON FOR CONSULTATION: Bradycardia and hypotension. HISTORY OF PRESENT ILLNESS: The patient is a 59-year-old male with unknown past medical history, found on the street. The EMS found the patient on the street he was drinking. A bystander called 911 and he was brought to the emergency room. The patient was only moaning and was not cooperative, and was agitated. Subsequently in the emergency room, the patient underwent lumbar puncture, was evaluated by Dr. Lezama from ID perspective, and it was felt that meningitis was unlikely. In the emergency room, the patient was bradycardic with heart rate of 44 and was hypothermic. The patient also had T-wave abnormalities suggestive of inferior and anterior wall ischemia. PAST MEDICAL HISTORY: Unknown. MEDICATIONS: Unknown. SOCIAL HISTORY: The patient was found on the street. No further information is available. FAMILY HISTORY: Unknown. REVIEW OF SYSTEMS: Cannot be obtained as the patient is still altered in the emergency room. PHYSICAL EXAMINATION: VITAL SIGNS: Blood pressure was 84/43 and currently 97/50, pulse is 94, respirations 29, and temperature is 97.2 and initially was 91.1. HEAD AND NECK: Shows no JVD. LUNGS: Coarse rhonchi. CARDIOVASCULAR: Shows regular S1 and S2 with no gallop. ABDOMEN: Soft. EXTREMITIES: A 1+ pitting edema. LABORATORY DATA: Show white count of 22.8, hemoglobin is 13.7, hematocrit 39.1, and platelet count 141,000. BNP is 130. Lactic acid is 14. Sodium 149, potassium 4.1, BUN of 77, creatinine 5.3, and glucose of 122. Troponin is negative. ASSESSMENT AND PLAN: 1. Bradycardia. The heart rate is improved. Most likely, secondary to hypothermia and sepsis. 2. Ischemia on the EKG. Repeat EKG and get an echocardiogram and completely rule out [place] protocol. 3. Sepsis with white count of 23,000, on IV antibiotic per Dr. Lezama. 4. Altered mental status. LP was performed. Meningitis unlikely per Dr. Lezama. It is of note that the patient's serum alcohol, acetaminophen, and salicylate was negative. Urine-tox screen was also negative. 5. Renal failure. BUN of 77 and creatinine 5.3, already evaluated by Dr. Duval. 6. Septic shock. Currently, the patient's blood pressure is ranging in the 90s, currently off pressors. 7. Lice infestation. 8. UTI. Thank you very much for allowing me to participate in the care of this patient. Please do not hesitate to contact me for any questions regarding my evaluation. Donato Alexis M.D. DR: Analy JOB#: [id number] CC:
--- NOTE | 2017-04-11 20:56 | Pulmonolgy Critical Care Note ---
Critical Care - Asmt/Plan Problems: (1) Multiple organ failure (2) Severe sepsis (3) Hypothermia (4) Renal failure (5) Hypotension (6) Alcohol abuse Respiratory: monitor respiratory rate, adjust FIO2 Cardiac: continue to monitor HR/BP Renal: F/U I&O, keep IV fluid Infectious Disease: check cultures Gastrointestinal: hold feedings Endocrine: monitor blood sugar Hematologic: monitor H/H, transfuse if hgb<8.5 Neurologic: PRN Ativan, PRN Morphine, keep patient comfortable Notes Reviewed: cardio Discussed with: nurses, consultants, other Critical Care - Objective Last 24 Hour Vital Signs Date Time Temp Pulse Resp B/P (MAP) Pulse Ox O2 Delivery O2 Flow Rate FiO2 04/11/17 20:35 83 04/11/17 20:00 83 04/11/17 19:21 96.6 80 21 106/54 100 Room Air 96.6 04/11/17 18:46 96.6 83 22 102/58 97 Room Air 96.6 04/11/17 17:45 96.6 84 22 106/66 98 Room Air 96.6 04/11/17 17:22 97.7 86 23 88/48 99 Room Air 97.7 04/11/17 15:53 97.7 90 22 110/50 97 Room Air 97.7 04/11/17 14:56 97.7 94 29 97/50 99 Room Air 97.7 04/11/17 13:57 97.7 95 34 84/43 97 Room Air 97.7 04/11/17 12:28 91.1 86 23 88/48 99 Room Air 91.1 04/11/17 11:43 91.1 80 22 94/48 96 Room Air 91.1 04/11/17 10:42 91.1 70 21 124/96 99 Room Air 91.1 04/11/17 10:13 91.1 66 17 122/97 99 Room Air 91.1 04/11/17 10:03 91.1 66 19 95/60 98 Room Air 91.1 04/11/17 09:37 91.1 76 25 95/60 99 Room Air 91.1 04/11/17 09:04 88.0 57 19 94/55 99 Room Air 88.0 04/11/17 08:26 88.0 57 12 82/63 100 Room Air 88.0 04/11/17 07:46 88.0 57 14 92/63 100 Room Air 88.0 04/11/17 07:14 88.0 51 14 95/63 100 Room Air 88.0 04/11/17 06:10 86.2 50 15 103/80 100 86.2 04/11/17 05:00 85.9 44 15 91/49 10 85.9 04/11/17 04:00 85.8 52 13 100/58 99 85.8 04/11/17 03:00 85.2 58 14 105/61 99 85.2 04/11/17 02:00 65 12 110/62 99 Status: obtunded Condition: critical HEENT: atraumatic Lungs: rales Heart: HR/BP unstable Abdomen: soft, active bowel sounds Extremities: no C/C/E, edema Decubiti: stage Micro: Microbiology Date/Time Source Procedure Growth Status 04/11/17 05:40 Cerebral Spinal Fluid Gram Stain - Final Resulted 04/11/17 05:40 Cerebral Spinal Fluid CSF Culture Pending Resulted Accucheck: 161 Critical Care - Subjective ROS Limited/Unobtainable: Yes ICU Day: 1 Interval Events: 59-year-old male, unknown past medical history, found on street. EMS reportedly has seen the patient on the street, he was drinking, para cans everywhere. A bystander called 911 in the evening, he was brought into the ER. Patient only moaning, not cooperating, agitated. He was hypothermic, in renal and liver failure. I&O: Intake and Output 04/10/17 04/11/17 19:00 07:00 Intake Total 2305 ml Output Total 75 ml Balance 2230 ml Intake IV Total 2305 ml Output Urine Total 75 ml BECK CEDENO Apr 11, 2017 20:49
[2017-04-11] MEDS: Heparin 5000 units/ml inj SUBQ SCH (21:00)
[2017-04-11] MEDS ORDERED: Cefepime HCl 2 GM in D5W 110 ML IV SCH (21:00)
[2017-04-11] MEDS ORDERED: Potassium Chloride 40 MEQ in Sodium Chloride 500ML 550 ML IVPB ONE (22:00)
--- NOTE | 2017-04-11 23:29 | History and Physical ---
History of Present Illness General Date patient seen: Apr 11, 2017 Time patient seen: 16:55 Reason for Hospitalization: Altered Level of Consciousness Present Illness HPI male approximately in his 60s was brought in from the streets by EMS for altered mental status. Patient was noted to have beer cans around him on the street. Patient was noted to be severely hypothermic with temp of 88 deg F. Also was noted to be hypotensive with systolic 80s and bradycardic in the 50s. CXR was unremarkable and UA was minimally remarkable for UTI. Urine tox and ethanol level were unremarkable. Lactic acid was 14 upon admission and WBC 22. Cr 5 and AST/ALT enzymes elevated. Patient was also noted to have lice infestation. Patient was started on IVF, empiric IV antibiotics, and albumin infusion to support blood pressure given no central line for pressors at this time. Patient remains acutely altered and only responds to painful stimuli. Allergies: Coded Allergies: No Known Allergies (Unverified , 04/11/17) Medication History Miscellaneous Medications Unable to Obtain Medications (Unable To Obtain Meds), (Reported) Patient History Limited by: medical condition History Provided By: Medical Record, EMS Healthcare decision maker N Resuscitation status Advanced Directive on File Review of Systems ROS Narrative unable to be obtained due to medical condition Physical Exam General Appearance: other - altered, responsive to painful stimuli, groans and open eyes occasionally HEENT: normocephalic, atraumatic, other - [place] pupils, nonreactive Neck: non-tender, normal alignment, supple Respiratory/Chest: chest wall non-tender, lungs clear, normal breath sounds Cardiovascular/Chest: normal peripheral pulses, normal rate, regular rhythm Abdomen: normal bowel sounds, non tender, soft Neurologic: other - no motor deficits. responds to painful stimuli Last 24 Hour Vital Signs Date Time Temp Pulse Resp B/P (MAP) Pulse Ox O2 Delivery O2 Flow Rate FiO2 04/11/17 23:00 96 18 104/51 95 Room Air 04/11/17 22:00 87 15 97/54 97 Room Air 04/11/17 21:00 81 16 94/54 97 Room Air 04/11/17 20:35 83 04/11/17 20:00 95.6 83 18 91/53 97 Room Air 95.6 04/11/17 20:00 83 04/11/17 19:21 96.6 80 21 106/54 100 Room Air 96.6 04/11/17 18:46 96.6 83 22 102/58 97 Room Air 96.6 04/11/17 17:45 96.6 84 22 106/66 98 Room Air 96.6 04/11/17 17:22 97.7 86 23 88/48 99 Room Air 97.7 04/11/17 15:53 97.7 90 22 110/50 97 Room Air 97.7 04/11/17 14:56 97.7 94 29 97/50 99 Room Air 97.7 04/11/17 13:57 97.7 95 34 84/43 97 Room Air 97.7 04/11/17 12:28 91.1 86 23 88/48 99 Room Air 91.1 04/11/17 11:43 91.1 80 22 94/48 96 Room Air 91.1 04/11/17 10:42 91.1 70 21 124/96 99 Room Air 91.1 04/11/17 10:13 91.1 66 17 122/97 99 Room Air 91.1 04/11/17 10:03 91.1 66 19 95/60 98 Room Air 91.1 04/11/17 09:37 91.1 76 25 95/60 99 Room Air 91.1 04/11/17 09:04 88.0 57 19 94/55 99 Room Air 88.0 04/11/17 08:26 88.0 57 12 82/63 100 Room Air 88.0 04/11/17 07:46 88.0 57 14 92/63 100 Room Air 88.0 04/11/17 07:14 88.0 51 14 95/63 100 Room Air 88.0 04/11/17 06:10 86.2 50 15 103/80 100 86.2 04/11/17 05:00 85.9 44 15 91/49 10 85.9 04/11/17 04:00 85.8 52 13 100/58 99 85.8 04/11/17 03:00 85.2 58 14 105/61 99 85.2 04/11/17 02:00 65 12 110/62 99 Intake and Output 04/10/17 04/11/17 19:00 07:00 Intake Total 2305 ml Output Total 75 ml Balance 2230 ml Intake IV Total 2305 ml Output Urine Total 75 ml Laboratory Tests Test 04/11/17 01:30 04/11/17 02:30 04/11/17 03:00 04/11/17 03:20 White Blood Count 22.8 K/UL (4.8-10.8) *H Red Blood Count 3.80 M/UL (4.70-6.10) L Hemoglobin 13.7 G/DL (14.2-18.0) L Hematocrit 39.1 % (42.0-52.0) L Mean Corpuscular Volume 103 FL (80-99) H Mean Corpuscular Hemoglobin 36.0 PG (27.0-31.0) H Mean Corpuscular Hemoglobin Concent 35.0 G/DL (32.0-36.0) Red Cell Distribution Width 12.7 % (11.6-14.8) Platelet Count 141 K/UL (150-450) L Mean Platelet Volume 11.2 FL (6.5-10.1) H Neutrophils (%) (Auto) % (45.0-75.0) Lymphocytes (%) (Auto) % (20.0-45.0) Monocytes (%) (Auto) % (1.0-10.0) Eosinophils (%) (Auto) % (0.0-3.0) Basophils (%) (Auto) % (0.0-2.0) Differential Total Cells Counted 100 Neutrophils % (Manual) 86 % (45-75) H Lymphocytes % (Manual) 7 % (20-45) L Monocytes % (Manual) 7 % (1-10) Eosinophils % (Manual) 0 % (0-3) Basophils % (Manual) 0 % (0-2) Band Neutrophils 0 % (0-8) Platelet Estimate Decreased L Platelet Morphology Normal Anisocytosis 1+ Macrocytosis 1+ Prothrombin Time 13.1 SEC (9.30-11.50) H Prothromb Time International Ratio 1.2 (0.9-1.1) H Activated Partial Thromboplast Time 26 SEC (23-33) Sodium Level 149 MMOL/L (136-145) H Potassium Level 4.1 MMOL/L (3.5-5.1) Chloride Level 100 MMOL/L (98-107) Carbon Dioxide Level 22 MMOL/L (21-32) Anion Gap 27 mmol/L (5-15) H Blood Urea Nitrogen 77 mg/dL (7-18) H Creatinine 5.3 MG/DL (0.55-1.30) H Estimat Glomerular Filtration Rate 11.1 mL/min (>60) Glucose Level 122 MG/DL (74-106) H Calcium Level 11.0 MG/DL (8.5-10.1) H Total Bilirubin 16.0 MG/DL (0.2-1.0) H Direct Bilirubin 12.5 MG/DL (0.0-0.3) H Aspartate Amino Transf (AST/SGOT) 464 U/L (15-37) H Alanine Aminotransferase (ALT/SGPT) 299 U/L (12-78) H Alkaline Phosphatase 291 U/L (46-116) H Total Creatine Kinase 324 U/L (26-308) H Troponin I 0.000 ng/mL (0.000-0.056) Pro-B-Type Natriuretic Peptide 180 pg/mL (0-125) H Total Protein 6.9 G/DL (6.4-8.2) Albumin 2.8 G/DL (3.4-5.0) L Globulin 4.1 g/dL Albumin/Globulin Ratio 0.7 (1.0-2.7) L Salicylates Level < 0.2 ug/mL (2.8-20) L Acetaminophen Level < 2 MCG/ML (10-30) L Serum Alcohol < 3 mg/dL Lactic Acid Level 14.20 mmol/L (0.66-2.22) H Ammonia 27 umol/L (11-32) Urine Color Brown Urine Appearance Slightly cloudy Urine pH 5 (4.5-8.0) Urine Specific [place] 1.020 (1.005-1.035) Urine Protein 2+ (NEGATIVE) H Urine Glucose (UA) 1+ (NEGATIVE) H Urine Ketones 1+ (NEGATIVE) H Urine Occult Blood 3+ (NEGATIVE) H Urine Nitrite Negative (NEGATIVE) Urine Bilirubin 3+ (NEGATIVE) H Urine Ictotest Negative Urine Urobilinogen 12 MG/DL (0.0-1.0) H Urine Leukocyte Esterase 1+ (NEGATIVE) H Urine RBC 2-4 /HPF (0 - 0) H Urine WBC 10-15 /HPF (0 - 0) H Urine Squamous Epithelial Cells Moderate /LPF (NONE/OCC) H Urine Amorphous Sediment Few /LPF (NONE) H Urine Bacteria Moderate /HPF (NONE) H Urine Hyaline Casts 2-4 /LPF (NONE) H Urine Mucus Few /LPF (NONE/OCC) H Urine Opiates Screen Negative (NEGATIVE) Urine Barbiturates Screen Negative (NEGATIVE) Phencyclidine (PCP) Screen Negative (NEGATIVE) Urine Amphetamines Screen Negative (NEGATIVE) Urine Benzodiazepines Screen Negative (NEGATIVE) Urine Cocaine Screen Negative (NEGATIVE) Urine Marijuana (THC) Screen Negative (NEGATIVE) Test 04/11/17 05:20 04/11/17 05:40 04/11/17 14:35 04/11/17 18:30 Lactic Acid Level 6.10 mmol/L (0.66-2.22) H 3.90 mmol/L (0.66-2.22) H CSF Appearance Clear CSF Color Yellowish CSF WBC 0 /CU MM (0-5) CSF RBC 124 /CU MM CSF Neutrophils % % CSF Lymphocytes % % CSF Monocytes % % CSF Crenated Cells 0 % CSF Glucose 84 mg/dL (50-80) H CSF Total Protein 52 MG/DL (15-45) H White Blood Count 9.7 K/UL (4.8-10.8) # Red Blood Count 2.57 M/UL (4.70-6.10) L Hemoglobin 9.3 G/DL (14.2-18.0) #L Hematocrit 25.3 % (42.0-52.0) #L Mean Corpuscular Volume 99 FL (80-99) Mean Corpuscular Hemoglobin 36.3 PG (27.0-31.0) H Mean Corpuscular Hemoglobin Concent 36.8 G/DL (32.0-36.0) H Red Cell Distribution Width 12.1 % (11.6-14.8) Platelet Count 100 K/UL (150-450) L Mean Platelet Volume 11.7 FL (6.5-10.1) H Neutrophils (%) (Auto) % (45.0-75.0) Lymphocytes (%) (Auto) % (20.0-45.0) Monocytes (%) (Auto) % (1.0-10.0) Eosinophils (%) (Auto) % (0.0-3.0) Basophils (%) (Auto) % (0.0-2.0) Differential Total Cells Counted 100 Neutrophils % (Manual) 88 % (45-75) H Lymphocytes % (Manual) 4 % (20-45) L Monocytes % (Manual) 1 % (1-10) Eosinophils % (Manual) 0 % (0-3) Basophils % (Manual) 0 % (0-2) Band Neutrophils 7 % (0-8) Nucleated Red Blood Cells 7 /100 WBC Platelet Estimate Decreased L Platelet Morphology Normal Polychromasia 1+ Macrocytosis 1+ Erythrocyte Sedimentation Rate 65 MM/HR (0-20) H Urine Color Brown Urine Appearance Cloudy Urine pH 5 (4.5-8.0) Urine Specific [place] 1.020 (1.005-1.035) Urine Protein 2+ (NEGATIVE) H Urine Glucose (UA) 1+ (NEGATIVE) H Urine Ketones 1+ (NEGATIVE) H Urine Occult Blood 3+ (NEGATIVE) H Urine Nitrite Negative (NEGATIVE) Urine Bilirubin 3+ (NEGATIVE) H Urine Ictotest Positive Urine Urobilinogen 8 MG/DL (0.0-1.0) H Urine Leukocyte Esterase 1+ (NEGATIVE) H Urine RBC 0-2 /HPF (0 - 0) H Urine WBC 15-20 /HPF (0 - 0) H Urine Squamous Epithelial Cells Moderate /LPF (NONE/OCC) H Urine Amorphous Sediment Few /LPF (NONE) H Urine Bacteria Many /HPF (NONE) H Urine Eosinophils None seen Urine Osmolality 384 mOsm/kg (429-449) L Urine Random Sodium 17 MEQ/L (20-110) L Urine Random Chloride 27 mmol/L (55-125) L Urine Potassium Timed 54 mmol/L (12-62) Sodium Level 150 MMOL/L (136-145) H Potassium Level 2.2 MMOL/L (3.5-5.1) *L Chloride Level 108 MMOL/L (98-107) H Carbon Dioxide Level 26 MMOL/L (21-32) Anion Gap 15 mmol/L (5-15) Blood Urea Nitrogen 69 mg/dL (7-18) H Creatinine 4.5 MG/DL (0.55-1.30) H Estimat Glomerular Filtration Rate 13.4 mL/min (>60) Glucose Level 110 MG/DL (74-106) H Osmolality 324 mOsm/kg (297-317) H Uric Acid 16.2 MG/DL (2.6-7.2) H Calcium Level 7.9 MG/DL (8.5-10.1) #L Phosphorus Level 6.0 MG/DL (2.5-4.9) H Magnesium Level 2.0 MG/DL (1.8-2.4) Total Bilirubin 11.2 MG/DL (0.2-1.0) H Direct Bilirubin 9.2 MG/DL (0.0-0.3) H Gamma Glutamyl Transpeptidase 828 U/L (5-85) H Aspartate Amino Transf (AST/SGOT) 339 U/L (15-37) H Alanine Aminotransferase (ALT/SGPT) 189 U/L (12-78) H Alkaline Phosphatase 167 U/L (46-116) H Lactate Dehydrogenase 399 U/L (81-234) H Total Creatine Kinase 216 U/L (26-308) C-Reactive Protein, Quantitative 9.3 mg/dL (0.00-0.90) H Total Protein 4.8 G/DL (6.4-8.2) #L Albumin 2.3 G/DL (3.4-5.0) L Globulin 2.5 g/dL Albumin/Globulin Ratio 0.9 (1.0-2.7) L Free Thyroxine 0.98 NG/DL (0.76-1.46) Microbiology Date/Time Source Procedure Growth Status 04/11/17 05:40 Cerebral Spinal Fluid Gram Stain - Final Resulted 04/11/17 05:40 Cerebral Spinal Fluid CSF Culture Pending Resulted Height (Feet): 5 Height (Inches): 7.00 Weight (Pounds): 160 Medications Current Medications Medications (Trade) Dose Ordered Sig/Jocelyne Route PRN Reason Start Time Stop Time Status Last Admin Dose Admin Acetaminophen (Tylenol) 650 mg Q4H PRN ORAL fever>100.5 04/11/17 10:30 05/11/17 10:29 Albuterol/ Ipratropium (Albuterol/ Ipratropium) 3 ml Q4H PRN HHN Shortness of Breath 04/11/17 10:30 04/16/17 10:29 Cefepime HCl 2 gm/ Dextrose 110 ml @ 220 mls/hr DAILY IV 04/11/17 12:00 04/18/17 11:59 04/11/17 11:45 Dextrose (Dextrose 50%) STAT PRN IV Hypoglycemia 04/11/17 10:30 05/11/17 10:29 Dextrose/Sodium Chloride 1,000 ml @ 150 mls/hr Q6H40M IV 04/11/17 12:00 05/11/17 11:59 04/11/17 18:54 Haloperidol Lactate (Haldol) 5 mg Q4H PRN IM Agitation 04/11/17 12:00 05/11/17 11:59 Heparin Sodium (Porcine) (Heparin 5000 units/ml) 5,000 units EVERY 12 HOURS SUBQ 04/11/17 21:00 05/11/17 20:59 Hydromorphone HCl (Dilaudid) 0.5 mg Q4H PRN IVP For Pain 04/11/17 12:00 04/18/17 11:59 Metronidazole 100 ml @ 100 mls/hr Q8HR IVPB 04/11/17 14:00 04/18/17 13:59 04/11/17 14:00 Nitroglycerin (Ntg) 0.4 mg Q5M PRN SL Prn Chest Pain 04/11/17 10:30 05/11/17 10:29 Ondansetron HCl (Zofran) 4 mg Q6H PRN IVP Nausea & Vomiting 04/11/17 10:30 05/11/17 10:29 Potassium Chloride 40 meq/ Sodium Chloride 570 ml @ 142.5 mls/ hr ONCE ONCE IVPB 04/11/17 22:00 04/12/17 01:59 Vancomycin HCl (Vanco rx to dose) 1 ea DAILY PRN MISC . 04/11/17 11:30 05/11/17 11:29 Assessment/Plan Problem List: (1) Altered level of consciousness ICD Codes: R40.4 - Transient alteration of awareness SNOMED: 5576500 (2) Elevated LFTs ICD Codes: R79.89 - Other specified abnormal findings of blood chemistry SNOMED: 995657717, 939911014 (3) Bradycardia ICD Codes: R00.1 - Bradycardia, unspecified SNOMED: 34932753 (4) Hypothermia ICD Codes: T68.XXXA - Hypothermia, initial encounter SNOMED: 027817841 (5) Renal failure ICD Codes: N19 - Unspecified kidney failure SNOMED: 11828767 (6) UTI (urinary tract infection) ICD Codes: N39.0 - Urinary tract infection, site not specified SNOMED: 09480845 (7) Lice infestation ICD Codes: B85.2 - Pediculosis, unspecified SNOMED: 322909217 (8) Hypotension ICD Codes: I95.9 - Hypotension, unspecified SNOMED: 13363089 (9) Severe sepsis ICD Codes: A41.9 - Sepsis, unspecified organism; R65.20 - Severe sepsis without septic shock SNOMED: 71643406 (10) Hyperbilirubinemia ICD Codes: E80.6 - Other disorders of bilirubin metabolism SNOMED: 16763421 Status: not improved Assessment/Plan Admit to ICU keep in isolation pulmonology, cardiology, ID, nephrology consulted IV vancomycin and zosyn (04/11 - ) CT head negative. LP unremarkable continue warming measures to keep temp 36-38 deg C IVF pressors prn to keep MAP > 65 f/u blood and urine cultures trend Cr trend LFTs consider CT a/p Discussed with all consultants involved and RN Total time spent: 70 min >50% in care and coordination Marissa Sosa N.P. Apr 11, 2017 23:29
[2017-04-12] VITALS (24 sets, daily range): BP systolic 90–112; BP diastolic 40–69
[2017-04-12] MEDS ORDERED: Vancomycin 1 GM in D5W 275 ML IV SCH (00:30)
[2017-04-12] MEDS: D5NS 1,000 ML IV SCH ×3 (01:36→11:38)
[2017-04-12 04:05] LABS: HEMATOCRIT 24.9 % (42.0-52.0); MEAN CORPUSCULAR VOLUME 98 FL (80-99); PLATELET COUNT 108 K/UL (150-450); RED BLOOD COUNT 2.54 M/UL (4.70-6.10); RED CELL DISTRIBUTION WIDTH 12.5 % (11.6-14.8)
[2017-04-12 04:28] LABS: CREATINE KINASE 307 U/L (26-308); GAMMA GLUTAMYL TRANSPEPTIDASE 682 U/L (5-85); PHOSPHORUS 4.7 MG/DL (2.5-4.9)
[2017-04-12 04:34] LABS: ALANINE AMINOTRANSFERASE 166 U/L (12-78); ALBUMIN 1.9 G/DL (3.4-5.0); ALBUMIN/GLOBULIN RATIO 0.7 (1.0-2.7); ALKALINE PHOSPHATASE 144 U/L (46-116); ANION GAP 15 mmol/L (5-15); ASPARTATE AMINO TRANSFERASE 313 U/L (15-37); BILIRUBIN,TOTAL 11.3 MG/DL (0.2-1.0); BLOOD UREA NITROGEN 69 mg/dL (7-18); CALCIUM 7.1 MG/DL (8.5-10.1); CARBON DIOXIDE 24 MMOL/L (21-32); CHLORIDE 104 MMOL/L (98-107); CHOLESTEROL 160 MG/DL (< 200); CREATININE 5.2 MG/DL (0.55-1.30); HDL CHOLESTEROL 8 MG/DL (40-60); SODIUM 144 MMOL/L (136-145); TRIGLYCERIDES 244 MG/DL (30-150)
[2017-04-12 04:35] LABS: POTASSIUM 2.7 MMOL/L (3.5-5.1)
[2017-04-12 04:40] LABS: BILIRUBIN,DIRECT 9.4 MG/DL (0.0-0.3)
[2017-04-12] MEDS ORDERED: Hydrocortisone 100mg Inj IV ONE (07:00)
[2017-04-12] MEDS ORDERED: Haloperidol 5mg/ml Inj IM PRN (08:00)
[2017-04-12 08:09] LABS: % IRON SATURATION 62 % (15-50); IRON 62 ug/dL (50-175); TOTAL IRON BINDING CAPACITY 100 ug/dL (250-450)
[2017-04-12] MEDS: Pantoprazole Inj IVP SCH ×2 (08:17→20:33)
[2017-04-12] MEDS: Heparin 5000 units/ml inj SUBQ SCH ×2 (08:18→20:34)
[2017-04-12 08:26] LABS: FERRITIN > 2000 NG/ML (8-388)
[2017-04-12] MEDS ORDERED: Potassium Chloride 30 MEQ in Sodium Chloride 500ML 550 ML IVPB ONE (08:30)
[2017-04-12] MEDS: Cefepime HCl 2 GM in D5W 110 ML IV SCH (09:00)
[2017-04-12] MEDS ORDERED: Vitamin D 50,000 units cap ORAL SCH (09:00)
[2017-04-12] MEDS ORDERED: Cefepime HCl 2 GM in NS 110 ML IV SCH (09:00)
--- NOTE | 2017-04-12 10:18 | Diagnostic Imaging Report ---
Indication:Elevated Bun and Creatinine. Technique: Grayscale and duplex Doppler imaging of the kidneys performed. Comparison: None Findings: Study is limited by body habitus. The size, contour, and echogenicity of both kidneys are within normal limits. Right kidney 11.8 cm. Left kidney 10 seen. There is no hydronephrosis. The IVC and urinary bladder are unremarkable. IMPRESSION: Negative study. Somewhat limited evaluation
--- NOTE | 2017-04-12 10:21 | Pulmonolgy Critical Care Note ---
Critical Care - Asmt/Plan Problems: (1) Multiple organ failure (2) Severe sepsis (3) Hypothermia (4) Renal failure (5) Hypotension (6) Alcohol abuse Respiratory: monitor respiratory rate, adjust FIO2, CXR Cardiac: continue to monitor HR/BP Renal: F/U I&O, keep IV fluid Infectious Disease: check cultures Gastrointestinal: hold feedings Endocrine: monitor blood sugar Hematologic: monitor H/H, transfuse if hgb<8.5 Neurologic: PRN Morphine, keep patient comfortable Affect: PRN ativan Prophylaxis: Protonix Disposition: keep in ICU Notes Reviewed: cardio, renal Discussed with: nurses, consultants Critical Care - Objective Last 24 Hour Vital Signs Date Time Temp Pulse Resp B/P (MAP) Pulse Ox O2 Delivery O2 Flow Rate FiO2 04/12/17 07:00 99 28 106/40 95 Room Air 04/12/17 06:00 98 31 103/46 97 Room Air 04/12/17 05:00 100 29 95/51 96 Room Air 04/12/17 04:00 100 04/12/17 04:00 98.9 100 30 94/58 96 Room Air 98.9 04/12/17 03:00 100 32 92/47 95 Room Air 04/12/17 02:00 100 16 98/44 95 Room Air 04/12/17 01:00 100 18 91/47 96 Room Air 04/12/17 00:00 96 04/12/17 00:00 99.6 96 15 112/43 97 Room Air 99.6 04/11/17 23:00 96 18 104/51 95 Room Air 04/11/17 22:00 87 15 97/54 97 Room Air 04/11/17 21:00 81 16 94/54 97 Room Air 04/11/17 20:35 83 04/11/17 20:00 95.6 83 18 91/53 97 Room Air 95.6 04/11/17 20:00 83 04/11/17 19:55 96.6 80 21 106/54 100 Room Air 96.6 04/11/17 19:21 96.6 80 21 106/54 100 Room Air 96.6 04/11/17 18:46 96.6 83 22 102/58 97 Room Air 96.6 04/11/17 17:45 96.6 84 22 106/66 98 Room Air 96.6 04/11/17 17:22 97.7 86 23 88/48 99 Room Air 97.7 04/11/17 15:53 97.7 90 22 110/50 97 Room Air 97.7 04/11/17 14:56 97.7 94 29 97/50 99 Room Air 97.7 04/11/17 13:57 97.7 95 34 84/43 97 Room Air 97.7 04/11/17 12:28 91.1 86 23 88/48 99 Room Air 91.1 04/11/17 11:43 91.1 80 22 94/48 96 Room Air 91.1 04/11/17 10:42 91.1 70 21 124/96 99 Room Air 91.1 Status: obtunded Condition: critical HEENT: atraumatic Lungs: clear Heart: HR/BP stable Abdomen: soft, non-tender, active bowel sounds Extremities: edema Micro: Microbiology Date/Time Source Procedure Growth Status 04/11/17 02:45 Blood Blood Culture - Preliminary NO GROWTH AFTER 24 HOURS Resulted 04/11/17 02:30 Blood Blood Culture - Preliminary NO GROWTH AFTER 24 HOURS Resulted 04/11/17 05:40 Cerebral Spinal Fluid Gram Stain - Final Resulted 04/11/17 05:40 Cerebral Spinal Fluid CSF Culture Pending Resulted 04/11/17 14:35 Indwelling Cath Urine Culture - Preliminary NO GROWTH Resulted 04/11/17 03:20 Urine,Clean Catch Urine Culture - Preliminary Resulted Accucheck: 279 Critical Care - Subjective I&O: Intake and Output 04/11/17 04/12/17 19:00 07:00 Intake Total 5960 ml 3570.0 ml Output Total 250 ml 65 ml Balance 5710 ml 3505.0 ml Intake IV Total 5960 ml 3570.0 ml Output Urine Total 250 ml 65 ml CXR: no infiltrate Labs: Laboratory Tests Test 04/11/17 14:35 04/11/17 18:30 04/12/17 03:45 White Blood Count 9.7 K/UL (4.8-10.8) # 12.0 K/UL (4.8-10.8) H Red Blood Count 2.57 M/UL (4.70-6.10) L 2.54 M/UL (4.70-6.10) L Hemoglobin 9.3 G/DL (14.2-18.0) #L 9.0 G/DL (14.2-18.0) L Hematocrit 25.3 % (42.0-52.0) #L 24.9 % (42.0-52.0) L Mean Corpuscular Volume 99 FL (80-99) 98 FL (80-99) Mean Corpuscular Hemoglobin 36.3 PG (27.0-31.0) H 35.4 PG (27.0-31.0) H Mean Corpuscular Hemoglobin Concent 36.8 G/DL (32.0-36.0) H 36.2 G/DL (32.0-36.0) H Red Cell Distribution Width 12.1 % (11.6-14.8) 12.5 % (11.6-14.8) Platelet Count 100 K/UL (150-450) L 108 K/UL (150-450) L Mean Platelet Volume 11.7 FL (6.5-10.1) H 12.0 FL (6.5-10.1) H Neutrophils (%) (Auto) % (45.0-75.0) % (45.0-75.0) Lymphocytes (%) (Auto) % (20.0-45.0) % (20.0-45.0) Monocytes (%) (Auto) % (1.0-10.0) % (1.0-10.0) Eosinophils (%) (Auto) % (0.0-3.0) % (0.0-3.0) Basophils (%) (Auto) % (0.0-2.0) % (0.0-2.0) Differential Total Cells Counted 100 100 Neutrophils % (Manual) 88 % (45-75) H 92 % (45-75) H Lymphocytes % (Manual) 4 % (20-45) L 3 % (20-45) L Monocytes % (Manual) 1 % (1-10) 2 % (1-10) Eosinophils % (Manual) 0 % (0-3) 0 % (0-3) Basophils % (Manual) 0 % (0-2) 0 % (0-2) Band Neutrophils 7 % (0-8) 3 % (0-8) Nucleated Red Blood Cells 7 /100 WBC Platelet Estimate Decreased L Decreased L Platelet Morphology Normal Normal Polychromasia 1+ 1+ Macrocytosis 1+ Erythrocyte Sedimentation Rate 65 MM/HR (0-20) H Urine Color Brown Urine Appearance Cloudy Urine pH 5 (4.5-8.0) Urine Specific [place] 1.020 (1.005-1.035) Urine Protein 2+ (NEGATIVE) H Urine Glucose (UA) 1+ (NEGATIVE) H Urine Ketones 1+ (NEGATIVE) H Urine Occult Blood 3+ (NEGATIVE) H Urine Nitrite Negative (NEGATIVE) Urine Bilirubin 3+ (NEGATIVE) H Urine Ictotest Positive Urine Urobilinogen 8 MG/DL (0.0-1.0) H Urine Leukocyte Esterase 1+ (NEGATIVE) H Urine RBC 0-2 /HPF (0 - 0) H Urine WBC 15-20 /HPF (0 - 0) H Urine Squamous Epithelial Cells Moderate /LPF (NONE/OCC) H Urine Amorphous Sediment Few /LPF (NONE) H Urine Bacteria Many /HPF (NONE) H Urine Eosinophils None seen Urine Osmolality 384 mOsm/kg (429-449) L Urine Random Sodium 17 MEQ/L (20-110) L Urine Random Chloride 27 mmol/L (55-125) L Urine Potassium Timed 54 mmol/L (12-62) Sodium Level 150 MMOL/L (136-145) H 144 MMOL/L (136-145) Potassium Level 2.2 MMOL/L (3.5-5.1) *L 2.7 MMOL/L (3.5-5.1) *L Chloride Level 108 MMOL/L (98-107) H 104 MMOL/L (98-107) Carbon Dioxide Level 26 MMOL/L (21-32) 24 MMOL/L (21-32) Anion Gap 15 mmol/L (5-15) 15 mmol/L (5-15) Blood Urea Nitrogen 69 mg/dL (7-18) H 69 mg/dL (7-18) H Creatinine 4.5 MG/DL (0.55-1.30) H 5.2 MG/DL (0.55-1.30) H Estimat Glomerular Filtration Rate 13.4 mL/min (>60) 11.4 mL/min (>60) Glucose Level 110 MG/DL (74-106) H 216 MG/DL (74-106) #H Osmolality 324 mOsm/kg (297-317) H Uric Acid 16.2 MG/DL (2.6-7.2) H 15.7 MG/DL (2.6-7.2) H Calcium Level 7.9 MG/DL (8.5-10.1) #L 7.1 MG/DL (8.5-10.1) L Phosphorus Level 6.0 MG/DL (2.5-4.9) H 4.7 MG/DL (2.5-4.9) Magnesium Level 2.0 MG/DL (1.8-2.4) 1.5 MG/DL (1.8-2.4) L Total Bilirubin 11.2 MG/DL (0.2-1.0) H 11.3 MG/DL (0.2-1.0) H Direct Bilirubin 9.2 MG/DL (0.0-0.3) H 9.4 MG/DL (0.0-0.3) H Gamma Glutamyl Transpeptidase 828 U/L (5-85) H 682 U/L (5-85) H Aspartate Amino Transf (AST/SGOT) 339 U/L (15-37) H 313 U/L (15-37) H Alanine Aminotransferase (ALT/SGPT) 189 U/L (12-78) H 166 U/L (12-78) H Alkaline Phosphatase 167 U/L (46-116) H 144 U/L (46-116) H Lactate Dehydrogenase 399 U/L (81-234) H Total Creatine Kinase 216 U/L (26-308) 307 U/L (26-308) C-Reactive Protein, Quantitative 9.3 mg/dL (0.00-0.90) H 16.0 mg/dL (0.00-0.90) H Total Protein 4.8 G/DL (6.4-8.2) #L 4.6 G/DL (6.4-8.2) L Albumin 2.3 G/DL (3.4-5.0) L 1.9 G/DL (3.4-5.0) L Globulin 2.5 g/dL 2.7 g/dL Albumin/Globulin Ratio 0.9 (1.0-2.7) L 0.7 (1.0-2.7) L Free Thyroxine 0.98 NG/DL (0.76-1.46) Lactic Acid Level 3.90 mmol/L (0.66-2.22) H 2.80 mmol/L (0.66-2.22) H Hypochromasia 2+ Anisocytosis 1+ Spherocytes 2+ Iron Level 62 ug/dL (50-175) Total Iron Binding Capacity 100 ug/dL (250-450) L Percent Iron Saturation 62 % (15-50) H Unsaturated Iron Binding 38 ug/dL (112-346) L Ferritin > 2000 NG/ML (8-388) H Troponin I 0.007 ng/mL (0.000-0.056) Pro-B-Type Natriuretic Peptide 1734 pg/mL (0-125) H Triglycerides Level 244 MG/DL (30-150) H Cholesterol Level 160 MG/DL (< 200) LDL Cholesterol 127 mg/dL (<100) H HDL Cholesterol 8 MG/DL (40-60) L Cholesterol/HDL Ratio 20.0 (3.3-4.4) H Vitamin B12 Level 6440 PG/ML (193-986) H Folate 2.7 NG/ML (8.6-58.9) L Thyroid Stimulating Hormone (TSH) 1.104 uiU/mL (0.358-3.740) BECK CEDENO Apr 12, 2017 10:21
--- NOTE | 2017-04-12 10:44 | Nephrology Progress Note ---
Assessment/Plan Problem List: (1) Severe sepsis (2) Hypotension (3) Renal failure (4) Hypothermia (5) Elevated LFTs (6) Hyperbilirubinemia Assessment Acute renal failure ? Underlying CKD Low BP , Septic Shock Acute encephalopathy Lice infestation High LFTs and Jaundice HypoThermia UTI Plan steroids- Fluids Protonix Antibiotics NPO Monitor renal parameters avoid Nephrotoxics Objective Objective Last 24 Hour Vital Signs Date Time Temp Pulse Resp B/P (MAP) Pulse Ox O2 Delivery O2 Flow Rate FiO2 04/12/17 10:00 99 20 90/49 95 Room Air 04/12/17 09:00 98.7 100 25 102/45 95 Room Air 98.7 04/12/17 08:00 99 28 110/43 95 Room Air 04/12/17 08:00 96 04/12/17 07:00 99 28 106/40 95 Room Air 04/12/17 06:00 98 31 103/46 97 Room Air 04/12/17 05:00 100 29 95/51 96 Room Air 04/12/17 04:00 100 04/12/17 04:00 98.9 100 30 94/58 96 Room Air 98.9 04/12/17 03:00 100 32 92/47 95 Room Air 04/12/17 02:00 100 16 98/44 95 Room Air 04/12/17 01:00 100 18 91/47 96 Room Air 04/12/17 00:00 96 04/12/17 00:00 99.6 96 15 112/43 97 Room Air 99.6 04/11/17 23:00 96 18 104/51 95 Room Air 04/11/17 22:00 87 15 97/54 97 Room Air 04/11/17 21:00 81 16 94/54 97 Room Air 04/11/17 20:35 83 04/11/17 20:00 95.6 83 18 91/53 97 Room Air 95.6 04/11/17 20:00 83 04/11/17 19:55 96.6 80 21 106/54 100 Room Air 96.6 04/11/17 19:21 96.6 80 21 106/54 100 Room Air 96.6 04/11/17 18:46 96.6 83 22 102/58 97 Room Air 96.6 04/11/17 17:45 96.6 84 22 106/66 98 Room Air 96.6 04/11/17 17:22 97.7 86 23 88/48 99 Room Air 97.7 04/11/17 15:53 97.7 90 22 110/50 97 Room Air 97.7 04/11/17 14:56 97.7 94 29 97/50 99 Room Air 97.7 04/11/17 13:57 97.7 95 34 84/43 97 Room Air 97.7 04/11/17 12:28 91.1 86 23 88/48 99 Room Air 91.1 04/11/17 11:43 91.1 80 22 94/48 96 Room Air 91.1 Intake and Output 04/11/17 04/12/17 19:00 07:00 Intake Total 5960 ml 3570.0 ml Output Total 250 ml 65 ml Balance 5710 ml 3505.0 ml Intake IV Total 5960 ml 3570.0 ml Output Urine Total 250 ml 65 ml Laboratory Tests 04/11/17 14:35: White Blood Count 9.7#, Red Blood Count 2.57L, Hemoglobin 9.3#L, Hematocrit 25.3 #L, Mean Corpuscular Volume 99, Mean Corpuscular Hemoglobin 36.3H, Mean Corpuscular Hemoglobin Concent 36.8H, Red Cell Distribution Width 12.1, Platelet Count 100L, Mean Platelet Volume 11.7H, Neutrophils (%) (Auto) , Lymphocytes (%) (Auto) , Monocytes (%) (Auto) , Eosinophils (%) (Auto) , Basophils (%) (Auto) , Differential Total Cells Counted 100, Neutrophils % ( Manual) 88H, Lymphocytes % (Manual) 4L, Monocytes % (Manual) 1, Eosinophils % ( Manual) 0, Basophils % (Manual) 0, Band Neutrophils 7, Nucleated Red Blood Cells 7, Platelet Estimate DecreasedL, Platelet Morphology Normal, Polychromasia 1+, Macrocytosis 1+, Erythrocyte Sedimentation Rate 65H, Urine Color Brown, Urine Appearance Cloudy, Urine pH 5, Urine Specific [place] 1.020, Urine Protein 2+H, Urine Glucose (UA) 1+H, Urine Ketones 1+H, Urine Occult Blood 3+H, Urine Nitrite Negative, Urine Bilirubin 3+H, Urine Ictotest Positive , Urine Urobilinogen 8H, Urine Leukocyte Esterase 1+H, Urine RBC 0-2H, Urine WBC 15-20H, Urine Squamous Epithelial Cells ModerateH, Urine Amorphous Sediment FewH, Urine Bacteria ManyH, Urine Eosinophils None seen, Urine Osmolality 384L, Urine Random Sodium 17L, Urine Random Chloride 27L, Urine Potassium Timed 54, Sodium Level 150H, Potassium Level 2.2*L, Chloride Level 108H, Carbon Dioxide Level 26, Anion Gap 15, Blood Urea Nitrogen 69H, Creatinine 4.5H, Estimat Glomerular Filtration Rate 13.4, Glucose Level 110H, Osmolality 324H, Uric Acid 16.2H, Calcium Level 7.9#L, Phosphorus Level 6.0H, Magnesium Level 2.0, Total Bilirubin 11.2H, Direct Bilirubin 9.2H, Gamma Glutamyl Transpeptidase 828H, Aspartate Amino Transf (AST/SGOT) 339H, Alanine Aminotransferase (ALT/SGPT) 189H , Alkaline Phosphatase 167H, Lactate Dehydrogenase 399H, Total Creatine Kinase 216, C-Reactive Protein, Quantitative 9.3H, Total Protein 4.8#L, Albumin 2.3L, Globulin 2.5, Albumin/Globulin Ratio 0.9L, Free Thyroxine 0.98 04/11/17 18:30: Lactic Acid Level 3.90H 04/12/17 03:45: White Blood Count 12.0H, Red Blood Count 2.54L, Hemoglobin 9.0L, Hematocrit 24.9L, Mean Corpuscular Volume 98, Mean Corpuscular Hemoglobin 35.4H, Mean Corpuscular Hemoglobin Concent 36.2H, Red Cell Distribution Width 12.5, Platelet Count 108L, Mean Platelet Volume 12.0H, Neutrophils (%) (Auto) , Lymphocytes (%) (Auto) , Monocytes (%) (Auto) , Eosinophils (%) (Auto) , Basophils (%) (Auto) , Differential Total Cells Counted 100, Neutrophils % ( Manual) 92H, Lymphocytes % (Manual) 3L, Monocytes % (Manual) 2, Eosinophils % ( Manual) 0, Basophils % (Manual) 0, Band Neutrophils 3, Platelet Estimate DecreasedL, Platelet Morphology Normal, Polychromasia 1+, Sodium Level 144, Potassium Level 2.7*L, Chloride Level 104, Carbon Dioxide Level 24, Anion Gap 15 , Blood Urea Nitrogen 69H, Creatinine 5.2H, Estimat Glomerular Filtration Rate 11.4, Glucose Level 216#H, Uric Acid 15.7H, Calcium Level 7.1L, Phosphorus Level 4.7, Magnesium Level 1.5L, Total Bilirubin 11.3H, Direct Bilirubin 9.4H, Gamma Glutamyl Transpeptidase 682H, Aspartate Amino Transf (AST/SGOT) 313H, Alanine Aminotransferase (ALT/SGPT) 166H, Alkaline Phosphatase 144H, Total Creatine Kinase 307, C-Reactive Protein, Quantitative 16.0H, Total Protein 4.6L , Albumin 1.9L, Globulin 2.7, Albumin/Globulin Ratio 0.7L, Lactic Acid Level 2.80H, Hypochromasia 2+, Anisocytosis 1+, Spherocytes 2+, Iron Level 62, Total Iron Binding Capacity 100L, Percent Iron Saturation 62H, Unsaturated Iron Binding 38L, Ferritin > 2000H, Troponin I 0.007, Pro-B-Type Natriuretic Peptide 1734H, Triglycerides Level 244H, Cholesterol Level 160, LDL Cholesterol 127H, HDL Cholesterol 8L, Cholesterol/HDL Ratio 20.0H, Vitamin B12 Level 6440H, Folate 2.7L, Thyroid Stimulating Hormone (TSH) 1.104 Height (Feet): 5 Height (Inches): 7.00 Weight (Pounds): 233 General Appearance: no apparent distress Cardiovascular: tachycardia Respiratory/Chest: decreased breath sounds Abdomen: distended ANTON LIZAMA Apr 12, 2017 10:43
[2017-04-12] MEDS ORDERED: Solu-MEDROL 125mg Inj IVP ONE (10:45)
[2017-04-12 11:01] LABS: ANION GAP 14 mmol/L (5-15); BLOOD UREA NITROGEN 71 mg/dL (7-18); CALCIUM 6.8 MG/DL (8.5-10.1); CARBON DIOXIDE 23 MMOL/L (21-32); CHLORIDE 106 MMOL/L (98-107); CREATININE 5.8 MG/DL (0.55-1.30); POTASSIUM 2.8 MMOL/L (3.5-5.1); SODIUM 144 MMOL/L (136-145)
--- NOTE | 2017-04-12 12:58 | Diagnostic Imaging Report ---
Indication: Dyspnea Comparison: 04/11/2017 A single view chest radiograph was obtained. Findings: Lung volumes are low with basilar densities probably atelectasis. Pulmonary vascularity is mildly prominent. Heart size is slightly accentuated. IMPRESSION: No acute disease suspected accounting for lung volumes. Basilar atelectasis
--- NOTE | 2017-04-12 13:34 | Cardiac Electrophysiology PN ---
Assessment/Plan Assessment/Plan 1. Bradycardia. Due to hypothermia and sepsis. Resolved. 2. Ischemia on the EKG. Echocardiogram pending. 3. Sepsis with white count of 23,000, on IV antibiotic per Dr. Lezama. 4. Altered mental status. LP was performed. Meningitis unlikely per Dr. Lezama. It is of note that the patient's serum alcohol, acetaminophen, and salicylate was negative. Urine-tox screen was also negative. 5. Renal failure. BUN of 77 and creatinine 5.3, FU by Dr. Duval. 6. Septic shock. Currently, the patient's blood pressure is ranging in the 90s, Remains off pressors. 7. Lice infestation. 8. UTI. DW RN Subjective Subjective In ICU. Off pressors. In SR. In isolation. Told me his name is Hari Smith( couldn't spell it) Objective Last 24 Hour Vital Signs Date Time Temp Pulse Resp B/P (MAP) Pulse Ox O2 Delivery O2 Flow Rate FiO2 04/12/17 13:00 95 20 100/48 98 Room Air 04/12/17 12:00 98.0 99 25 108/55 99 Room Air 98.0 04/12/17 12:00 95 04/12/17 11:00 94 20 102/57 96 Room Air 04/12/17 10:00 99 20 90/49 95 Room Air 04/12/17 09:00 98.7 100 25 102/45 95 Room Air 98.7 04/12/17 08:00 99 28 110/43 95 Room Air 04/12/17 08:00 96 04/12/17 07:00 99 28 106/40 95 Room Air 04/12/17 06:00 98 31 103/46 97 Room Air 04/12/17 05:00 100 29 95/51 96 Room Air 04/12/17 04:00 100 04/12/17 04:00 98.9 100 30 94/58 96 Room Air 98.9 04/12/17 03:00 100 32 92/47 95 Room Air 04/12/17 02:00 100 16 98/44 95 Room Air 04/12/17 01:00 100 18 91/47 96 Room Air 04/12/17 00:00 96 04/12/17 00:00 99.6 96 15 112/43 97 Room Air 99.6 04/11/17 23:00 96 18 104/51 95 Room Air 04/11/17 22:00 87 15 97/54 97 Room Air 04/11/17 21:00 81 16 94/54 97 Room Air 04/11/17 20:35 83 04/11/17 20:00 95.6 83 18 91/53 97 Room Air 95.6 04/11/17 20:00 83 04/11/17 19:55 96.6 80 21 106/54 100 Room Air 96.6 04/11/17 19:21 96.6 80 21 106/54 100 Room Air 96.6 04/11/17 18:46 96.6 83 22 102/58 97 Room Air 96.6 04/11/17 17:45 96.6 84 22 106/66 98 Room Air 96.6 04/11/17 17:22 97.7 86 23 88/48 99 Room Air 97.7 04/11/17 15:53 97.7 90 22 110/50 97 Room Air 97.7 04/11/17 14:56 97.7 94 29 97/50 99 Room Air 97.7 04/11/17 13:57 97.7 95 34 84/43 97 Room Air 97.7 Intake and Output 04/11/17 04/12/17 19:00 07:00 Intake Total 5960 ml 3570.0 ml Output Total 250 ml 65 ml Balance 5710 ml 3505.0 ml Intake IV Total 5960 ml 3570.0 ml Output Urine Total 250 ml 65 ml Laboratory Tests Test 04/11/17 14:35 04/11/17 18:30 04/12/17 03:45 04/12/17 10:00 White Blood Count 9.7 K/UL (4.8-10.8) # 12.0 K/UL (4.8-10.8) H Red Blood Count 2.57 M/UL (4.70-6.10) L 2.54 M/UL (4.70-6.10) L Hemoglobin 9.3 G/DL (14.2-18.0) #L 9.0 G/DL (14.2-18.0) L Hematocrit 25.3 % (42.0-52.0) #L 24.9 % (42.0-52.0) L Mean Corpuscular Volume 99 FL (80-99) 98 FL (80-99) Mean Corpuscular Hemoglobin 36.3 PG (27.0-31.0) H 35.4 PG (27.0-31.0) H Mean Corpuscular Hemoglobin Concent 36.8 G/DL (32.0-36.0) H 36.2 G/DL (32.0-36.0) H Red Cell Distribution Width 12.1 % (11.6-14.8) 12.5 % (11.6-14.8) Platelet Count 100 K/UL (150-450) L 108 K/UL (150-450) L Mean Platelet Volume 11.7 FL (6.5-10.1) H 12.0 FL (6.5-10.1) H Neutrophils (%) (Auto) % (45.0-75.0) % (45.0-75.0) Lymphocytes (%) (Auto) % (20.0-45.0) % (20.0-45.0) Monocytes (%) (Auto) % (1.0-10.0) % (1.0-10.0) Eosinophils (%) (Auto) % (0.0-3.0) % (0.0-3.0) Basophils (%) (Auto) % (0.0-2.0) % (0.0-2.0) Differential Total Cells Counted 100 100 Neutrophils % (Manual) 88 % (45-75) H 92 % (45-75) H Lymphocytes % (Manual) 4 % (20-45) L 3 % (20-45) L Monocytes % (Manual) 1 % (1-10) 2 % (1-10) Eosinophils % (Manual) 0 % (0-3) 0 % (0-3) Basophils % (Manual) 0 % (0-2) 0 % (0-2) Band Neutrophils 7 % (0-8) 3 % (0-8) Nucleated Red Blood Cells 7 /100 WBC Platelet Estimate Decreased L Decreased L Platelet Morphology Normal Normal Polychromasia 1+ 1+ Macrocytosis 1+ Erythrocyte Sedimentation Rate 65 MM/HR (0-20) H Urine Color Brown Urine Appearance Cloudy Urine pH 5 (4.5-8.0) Urine Specific [place] 1.020 (1.005-1.035) Urine Protein 2+ (NEGATIVE) H Urine Glucose (UA) 1+ (NEGATIVE) H Urine Ketones 1+ (NEGATIVE) H Urine Occult Blood 3+ (NEGATIVE) H Urine Nitrite Negative (NEGATIVE) Urine Bilirubin 3+ (NEGATIVE) H Urine Ictotest Positive Urine Urobilinogen 8 MG/DL (0.0-1.0) H Urine Leukocyte Esterase 1+ (NEGATIVE) H Urine RBC 0-2 /HPF (0 - 0) H Urine WBC 15-20 /HPF (0 - 0) H Urine Squamous Epithelial Cells Moderate /LPF (NONE/OCC) H Urine Amorphous Sediment Few /LPF (NONE) H Urine Bacteria Many /HPF (NONE) H Urine Eosinophils None seen Urine Osmolality 384 mOsm/kg (429-449) L Urine Random Sodium 17 MEQ/L (20-110) L Urine Random Chloride 27 mmol/L (55-125) L Urine Potassium Timed 54 mmol/L (12-62) Sodium Level 150 MMOL/L (136-145) H 144 MMOL/L (136-145) 144 MMOL/L (136-145) Potassium Level 2.2 MMOL/L (3.5-5.1) *L 2.7 MMOL/L (3.5-5.1) *L 2.8 MMOL/L (3.5-5.1) L Chloride Level 108 MMOL/L (98-107) H 104 MMOL/L (98-107) 106 MMOL/L (98-107) Carbon Dioxide Level 26 MMOL/L (21-32) 24 MMOL/L (21-32) 23 MMOL/L (21-32) Anion Gap 15 mmol/L (5-15) 15 mmol/L (5-15) 14 mmol/L (5-15) Blood Urea Nitrogen 69 mg/dL (7-18) H 69 mg/dL (7-18) H 71 mg/dL (7-18) H Creatinine 4.5 MG/DL (0.55-1.30) H 5.2 MG/DL (0.55-1.30) H 5.8 MG/DL (0.55-1.30) H Estimat Glomerular Filtration Rate 13.4 mL/min (>60) 11.4 mL/min (>60) 10.0 mL/min (>60) Glucose Level 110 MG/DL (74-106) H 216 MG/DL (74-106) #H 268 MG/DL (74-106) H Osmolality 324 mOsm/kg (297-317) H Uric Acid 16.2 MG/DL (2.6-7.2) H 15.7 MG/DL (2.6-7.2) H Calcium Level 7.9 MG/DL (8.5-10.1) #L 7.1 MG/DL (8.5-10.1) L 6.8 MG/DL (8.5-10.1) L Phosphorus Level 6.0 MG/DL (2.5-4.9) H 4.7 MG/DL (2.5-4.9) Magnesium Level 2.0 MG/DL (1.8-2.4) 1.5 MG/DL (1.8-2.4) L Total Bilirubin 11.2 MG/DL (0.2-1.0) H 11.3 MG/DL (0.2-1.0) H Direct Bilirubin 9.2 MG/DL (0.0-0.3) H 9.4 MG/DL (0.0-0.3) H Gamma Glutamyl Transpeptidase 828 U/L (5-85) H 682 U/L (5-85) H Aspartate Amino Transf (AST/SGOT) 339 U/L (15-37) H 313 U/L (15-37) H Alanine Aminotransferase (ALT/SGPT) 189 U/L (12-78) H 166 U/L (12-78) H Alkaline Phosphatase 167 U/L (46-116) H 144 U/L (46-116) H Lactate Dehydrogenase 399 U/L (81-234) H Total Creatine Kinase 216 U/L (26-308) 307 U/L (26-308) C-Reactive Protein, Quantitative 9.3 mg/dL (0.00-0.90) H 16.0 mg/dL (0.00-0.90) H Total Protein 4.8 G/DL (6.4-8.2) #L 4.6 G/DL (6.4-8.2) L Albumin 2.3 G/DL (3.4-5.0) L 1.9 G/DL (3.4-5.0) L Globulin 2.5 g/dL 2.7 g/dL Albumin/Globulin Ratio 0.9 (1.0-2.7) L 0.7 (1.0-2.7) L Free Thyroxine 0.98 NG/DL (0.76-1.46) Lactic Acid Level 3.90 mmol/L (0.66-2.22) H 2.80 mmol/L (0.66-2.22) H 2.40 mmol/L (0.66-2.22) H Hypochromasia 2+ Anisocytosis 1+ Spherocytes 2+ Iron Level 62 ug/dL (50-175) Total Iron Binding Capacity 100 ug/dL (250-450) L Percent Iron Saturation 62 % (15-50) H Unsaturated Iron Binding 38 ug/dL (112-346) L Ferritin > 2000 NG/ML (8-388) H Troponin I 0.007 ng/mL (0.000-0.056) Pro-B-Type Natriuretic Peptide 1734 pg/mL (0-125) H Triglycerides Level 244 MG/DL (30-150) H Cholesterol Level 160 MG/DL (< 200) LDL Cholesterol 127 mg/dL (<100) H HDL Cholesterol 8 MG/DL (40-60) L Cholesterol/HDL Ratio 20.0 (3.3-4.4) H Vitamin B12 Level 6440 PG/ML (193-986) H Folate 2.7 NG/ML (8.6-58.9) L Thyroid Stimulating Hormone (TSH) 1.104 uiU/mL (0.358-3.740) Test 04/12/17 12:00 Lactic Acid Level 2.40 mmol/L (0.66-2.22) H Microbiology Date/Time Source Procedure Growth Status 04/11/17 02:45 Blood Blood Culture - Preliminary NO GROWTH AFTER 24 HOURS Resulted 04/11/17 02:30 Blood Blood Culture - Preliminary NO GROWTH AFTER 24 HOURS Resulted 04/11/17 05:40 Cerebral Spinal Fluid Gram Stain - Final Resulted 04/11/17 05:40 Cerebral Spinal Fluid CSF Culture - Preliminary NO GROWTH AFTER 24 HOURS Resulted 04/11/17 14:35 Indwelling Cath Urine Culture - Preliminary NO GROWTH Resulted 04/11/17 03:20 Urine,Clean Catch Urine Culture - Preliminary Resulted Objective HEAD AND NECK: Shows no JVD. LUNGS: Coarse rhonchi. CARDIOVASCULAR: Shows regular S1 and S2 with no gallop. ABDOMEN: Soft. EXTREMITIES: A 1+ pitting edema. ERIC CLAYTON Apr 12, 2017 13:33
[2017-04-12] MEDS ORDERED: Hydrocortisone 100mg Inj IV SCH (14:00)
[2017-04-12] MEDS ORDERED: Tubing IV Secondary IV ONE ×2 (14:58→15:30)
[2017-04-12] MEDS ORDERED: D5NS 1000ml IV ONE ×2 (14:58→15:30)
[2017-04-12] MEDS ORDERED: NS 275ml ONE (14:58)
--- NOTE | 2017-04-12 18:25 | Infectious Diseases Prog Note ---
Assessment/Plan Assessment/Plan Full consult dictated: A) 1) sepsis, shock, leukocytosis, hypothermia, ? uti, am, chest x-ray negative 2) doubt meningitis with 0 wbc on LP 3) chest x-ray negative P) 1) vancomycin, cefepime and flagyl 2) check cultures, labs and chest x-ray 3) may need further imagin 4) d/w Dr. Tai Subjective Allergies: Coded Allergies: ASPIRIN (Verified Allergy, Unknown, 03/12/17) Objective Vital Signs Last 24 Hour Vital Signs Date Time Temp Pulse Resp B/P (MAP) Pulse Ox O2 Delivery O2 Flow Rate FiO2 04/12/17 16:00 96 04/12/17 16:00 98.4 99 25 98/61 99 Room Air 98.4 04/12/17 15:00 99 25 102/60 99 Room Air 04/12/17 14:00 99 25 99/55 99 Room Air 04/12/17 13:00 95 20 100/48 98 Room Air 04/12/17 12:00 98.0 99 25 108/55 99 Room Air 98.0 04/12/17 12:00 95 04/12/17 11:00 94 20 102/57 96 Room Air 04/12/17 10:00 99 20 90/49 95 Room Air 04/12/17 09:00 98.7 100 25 102/45 95 Room Air 98.7 04/12/17 08:00 99 28 110/43 95 Room Air 04/12/17 08:00 96 04/12/17 07:00 99 28 106/40 95 Room Air 04/12/17 06:00 98 31 103/46 97 Room Air 04/12/17 05:00 100 29 95/51 96 Room Air 04/12/17 04:00 100 04/12/17 04:00 98.9 100 30 94/58 96 Room Air 98.9 04/12/17 03:00 100 32 92/47 95 Room Air 04/12/17 02:00 100 16 98/44 95 Room Air 04/12/17 01:00 100 18 91/47 96 Room Air 04/12/17 00:00 96 04/12/17 00:00 99.6 96 15 112/43 97 Room Air 99.6 04/11/17 23:00 96 18 104/51 95 Room Air 04/11/17 22:00 87 15 97/54 97 Room Air 04/11/17 21:00 81 16 94/54 97 Room Air 04/11/17 20:35 83 04/11/17 20:00 95.6 83 18 91/53 97 Room Air 95.6 04/11/17 20:00 83 04/11/17 19:55 96.6 80 21 106/54 100 Room Air 96.6 04/11/17 19:21 96.6 80 21 106/54 100 Room Air 96.6 04/11/17 18:46 96.6 83 22 102/58 97 Room Air 96.6 Height (Feet): 5 Height (Inches): 7.00 Weight (Pounds): 233 Microbiology Date/Time Source Procedure Growth Status 04/11/17 02:45 Blood Blood Culture - Preliminary NO GROWTH AFTER 24 HOURS Resulted 04/11/17 02:30 Blood Blood Culture - Preliminary NO GROWTH AFTER 24 HOURS Resulted 04/11/17 05:40 Cerebral Spinal Fluid Gram Stain - Final Resulted 04/11/17 05:40 Cerebral Spinal Fluid CSF Culture - Preliminary NO GROWTH AFTER 24 HOURS Resulted 04/11/17 14:35 Indwelling Cath Urine Culture - Preliminary NO GROWTH Resulted 04/11/17 03:20 Urine,Clean Catch Urine Culture - Preliminary Resulted Laboratory Tests Test 04/11/17 18:30 04/12/17 03:45 04/12/17 10:00 04/12/17 12:00 Lactic Acid Level 3.90 mmol/L (0.66-2.22) H 2.80 mmol/L (0.66-2.22) H 2.40 mmol/L (0.66-2.22) H 2.40 mmol/L (0.66-2.22) H White Blood Count 12.0 K/UL (4.8-10.8) H Red Blood Count 2.54 M/UL (4.70-6.10) L Hemoglobin 9.0 G/DL (14.2-18.0) L Hematocrit 24.9 % (42.0-52.0) L Mean Corpuscular Volume 98 FL (80-99) Mean Corpuscular Hemoglobin 35.4 PG (27.0-31.0) H Mean Corpuscular Hemoglobin Concent 36.2 G/DL (32.0-36.0) H Red Cell Distribution Width 12.5 % (11.6-14.8) Platelet Count 108 K/UL (150-450) L Mean Platelet Volume 12.0 FL (6.5-10.1) H Neutrophils (%) (Auto) % (45.0-75.0) Lymphocytes (%) (Auto) % (20.0-45.0) Monocytes (%) (Auto) % (1.0-10.0) Eosinophils (%) (Auto) % (0.0-3.0) Basophils (%) (Auto) % (0.0-2.0) Differential Total Cells Counted 100 Neutrophils % (Manual) 92 % (45-75) H Lymphocytes % (Manual) 3 % (20-45) L Monocytes % (Manual) 2 % (1-10) Eosinophils % (Manual) 0 % (0-3) Basophils % (Manual) 0 % (0-2) Band Neutrophils 3 % (0-8) Platelet Estimate Decreased L Platelet Morphology Normal Polychromasia 1+ Hypochromasia 2+ Anisocytosis 1+ Spherocytes 2+ Sodium Level 144 MMOL/L (136-145) 144 MMOL/L (136-145) Potassium Level 2.7 MMOL/L (3.5-5.1) *L 2.8 MMOL/L (3.5-5.1) L Chloride Level 104 MMOL/L (98-107) 106 MMOL/L (98-107) Carbon Dioxide Level 24 MMOL/L (21-32) 23 MMOL/L (21-32) Anion Gap 15 mmol/L (5-15) 14 mmol/L (5-15) Blood Urea Nitrogen 69 mg/dL (7-18) H 71 mg/dL (7-18) H Creatinine 5.2 MG/DL (0.55-1.30) H 5.8 MG/DL (0.55-1.30) H Estimat Glomerular Filtration Rate 11.4 mL/min (>60) 10.0 mL/min (>60) Glucose Level 216 MG/DL (74-106) #H 268 MG/DL (74-106) H Uric Acid 15.7 MG/DL (2.6-7.2) H Calcium Level 7.1 MG/DL (8.5-10.1) L 6.8 MG/DL (8.5-10.1) L Phosphorus Level 4.7 MG/DL (2.5-4.9) Magnesium Level 1.5 MG/DL (1.8-2.4) L Iron Level 62 ug/dL (50-175) Total Iron Binding Capacity 100 ug/dL (250-450) L Percent Iron Saturation 62 % (15-50) H Unsaturated Iron Binding 38 ug/dL (112-346) L Ferritin > 2000 NG/ML (8-388) H Total Bilirubin 11.3 MG/DL (0.2-1.0) H Direct Bilirubin 9.4 MG/DL (0.0-0.3) H Gamma Glutamyl Transpeptidase 682 U/L (5-85) H Aspartate Amino Transf (AST/SGOT) 313 U/L (15-37) H Alanine Aminotransferase (ALT/SGPT) 166 U/L (12-78) H Alkaline Phosphatase 144 U/L (46-116) H Total Creatine Kinase 307 U/L (26-308) Troponin I 0.007 ng/mL (0.000-0.056) C-Reactive Protein, Quantitative 16.0 mg/dL (0.00-0.90) H Pro-B-Type Natriuretic Peptide 1734 pg/mL (0-125) H Total Protein 4.6 G/DL (6.4-8.2) L Albumin 1.9 G/DL (3.4-5.0) L Globulin 2.7 g/dL Albumin/Globulin Ratio 0.7 (1.0-2.7) L Triglycerides Level 244 MG/DL (30-150) H Cholesterol Level 160 MG/DL (< 200) LDL Cholesterol 127 mg/dL (<100) H HDL Cholesterol 8 MG/DL (40-60) L Cholesterol/HDL Ratio 20.0 (3.3-4.4) H Vitamin B12 Level 6440 PG/ML (193-986) H Folate 2.7 NG/ML (8.6-58.9) L Thyroid Stimulating Hormone (TSH) 1.104 uiU/mL (0.358-3.740) Test 04/12/17 16:45 Lactic Acid Level 2.30 mmol/L (0.66-2.22) H Current Medications Medications (Trade) Dose Ordered Sig/Jocelyne Route PRN Reason Start Time Stop Time Status Last Admin Dose Admin Acetaminophen (Tylenol) 650 mg Q4H PRN ORAL fever>100.5 04/11/17 10:30 05/11/17 10:29 Albuterol/ Ipratropium (Albuterol/ Ipratropium) 3 ml Q4H PRN HHN Shortness of Breath 04/11/17 10:30 04/16/17 10:29 Cefepime HCl 2 gm/ Dextrose 110 ml @ 220 mls/hr DAILY IV 04/11/17 12:00 04/18/17 23:59 04/12/17 09:00 Dextrose (Dextrose 50%) STAT PRN IV Hypoglycemia 04/11/17 10:30 05/11/17 10:29 Dextrose/Sodium Chloride 1,000 ml @ 75 mls/hr [id number] IV 04/12/17 12:00 05/12/17 11:59 04/12/17 11:38 Haloperidol Lactate (Haldol) 2 mg Q4H PRN IM Agitation 04/12/17 08:00 05/12/17 07:59 Heparin Sodium (Porcine) (Heparin 5000 units/ml) 5,000 units EVERY 12 HOURS SUBQ 04/11/17 21:00 05/11/17 20:59 Methylprednisolone Sodium Succinate (Solu-MEDROL) 60 mg EVERY 12 HOURS IVP 04/12/17 21:00 05/12/17 20:59 Metronidazole 100 ml @ 100 mls/hr Q8HR IVPB 04/11/17 14:00 04/18/17 13:59 04/12/17 14:00 Ondansetron HCl (Zofran) 4 mg Q6H PRN IVP Nausea & Vomiting 04/11/17 10:30 05/11/17 10:29 Pantoprazole (Protonix) 40 mg EVERY 12 HOURS IVP 04/12/17 09:00 05/12/17 08:59 04/12/17 08:17 Vancomycin HCl (Vanco rx to dose) 1 ea DAILY PRN MISC . 04/11/17 11:30 05/11/17 11:29 NAHUN SAGE Apr 12, 2017 18:25
[2017-04-12] MEDS: Solu-MEDROL 125mg Inj IVP SCH (20:33)
--- NOTE | 2017-04-12 23:00 | Consultation ---
DATE OF CONSULTATION: 04/12/2017 INFECTIOUS DISEASES CONSULTATION CONSULTING PHYSICIAN: Refugio Lezama M.D. ATTENDING PHYSICIAN: Lee Tai M.D. REFERRING PHYSICIAN: Lee Tai M.D. REASON FOR CONSULTATION: Sepsis shock, possible UTI, leukocytosis. PATIENT'S CHIEF COMPLAINT COMING TO THE HOSPITAL: Sepsis, shock, altered mental status, and renal failure. HISTORY OF PRESENT ILLNESS: This is a 51-year-old male, who is in the ICU at [facility]. The patient could not give any history. The patient came in with septic shock with low blood pressure. Systolic blood pressure was in the 80s. The patient has severe sepsis and leukocytosis. Workup shows possible UTI. Chest x-ray is negative. Cultures are pending. Question if the patient had meningitis, however, CSF had 0 white cells. CSF culture is negative at this point. Infectious Disease consultation is requested for antibiotic management. The patient is currently on vancomycin, cefepime, and Flagyl in the ICU. Case was discussed with Dr. Tai. PAST MEDICAL HISTORY: The patient is in renal failure. He has got anemia. He has essentially unknown past medical history. He does have a history of ETOH use and dependency, it looks like ETOH use. He came in with hypothermia. MEDICATIONS: Upon reviewing the MAR, he is on the following medications. He is on vancomycin, cefepime, and Flagyl. He is getting KCl. He is on IV fluids, getting magnesium, acetaminophen, DuoNeb, Restoril, haloperidol or Haldol that is p.r.n. for agitation. He is on heparin, methylprednisolone, Zofran, and pantoprazole. He was given Elimite. He is on Restoril. ALLERGIES: Aspirin. SOCIAL HISTORY: Positive for ETOH, unclear about smoking. No IV drug abuse per the records. FAMILY HISTORY: Noncontributory. REVIEW OF SYSTEMS: GENERAL: The patient has a Ventura. He has generalized weakness, poorly responsive. HEAD AND NECK: Cannot assess. CARDIAC: Upon reviewing the MAR, I do not see that he is on pressors. GASTROINTESTINAL: No nausea, vomiting, or diarrhea. GENITOURINARY: He has a Ventura. PULMONARY: No significant congestion, short of breath, hemoptysis, or secretions. SKIN: No rash. I believe he had lice when he came in, but no evidence of scabies. NEUROLOGIC: No seizures. EXTREMITIES: Could not assess. PHYSICAL EXAMINATION: VITAL SIGNS: Temperature is 98.4 degrees, pulse rate 99, respiratory rate 25, blood pressure 98/61, saturation 96% on admission, pulse rate was as high as 100, and systolic blood pressure was in the 80s on a consistent basis. GENERAL: Lethargic, weak. HEAD AND NECK: Oral exam, no thrush. Eye exam, no icterus. LUNGS: Bilateral rhonchi, but no obvious rales. HEART: Regular. No rubs, gallop, or murmur. ABDOMEN: Soft. Positive bowel sounds. GENITOURINARY: He has a Ventura. Urine is slightly cloudy. SKIN: He had lice per the RN, however, no other maculopapular rash noted. MUSCULOSKELETAL: No effusion. Legs without cellulitis. PERIPHERAL VASCULAR: No cyanosis. LINES: Line sites without phlebitis. NEUROLOGIC: Poorly responsive. Generalized weakness. LABORATORY DATA: Laboratory data as follows. White count 12.0, hemoglobin 9.0, platelet count is 108,000, and white count as high as 22.8 on admission. Creatinine is 5.8. LFTs were noted. UA had 1+ leukocyte esterase and 10 to 15 white blood cells. Urine culture is pending. Blood cultures are negative. CSF culture is negative. CSF fluid analysis has 0 white cells and 124 RBCs. CSF culture is negative. Blood cultures are negative. IMAGING STUDIES: Chest x-ray showed no active disease. ASSESSMENT AND PLAN: 1. The patient has sepsis with shock and hypothermia, came in with temperature 91.0 degrees. The patient also had leukocytosis in addition to septic shock and hypothermia. The patient has systemic inflammatory response syndrome criteria. Questionable the patient has urinary tract infection. Chest x-ray is negative. The patient has altered mental status. Continue vancomycin, cefepime, and Flagyl. Check final cultures and laboratories. Chest x-ray was negative. I doubt he has meningitis with 0 white cells. CSF culture is negative. Continue vancomycin, cefepime, and Flagyl. Continue supportive measures in ICU care. 2. Acute renal failure, elevated creatinine. 3. Anemia. 4. Ethyl alcohol dependency. 5. Anemia. 6. Allergy to aspirin. 7. Social history positive for ethyl alcohol. 8. Family history noncontributory. 9. MAR was noted. 10. Case discussed with RN. 11. Case discussed with Dr. Tai. 12. Continue treatment per primary consultants. 13. Overall poor prognosis. Refugio Lezama M.D. DR: Honorio JOB#: [id number] CC:
[2017-04-13] VITALS (15 sets, daily range): BP systolic 106–124; BP diastolic 62–80
[2017-04-13] MEDS: D5NS 1,000 ML IV SCH ×3 (01:35→18:25)
[2017-04-13 06:05] LABS: HEMATOCRIT 27.9 % (42.0-52.0); HEMOGLOBIN 9.7 G/DL (14.2-18.0); MEAN CORPUSCULAR VOLUME 100 FL (80-99); PLATELET COUNT 127 K/UL (150-450); RED BLOOD COUNT 2.78 M/UL (4.70-6.10); RED CELL DISTRIBUTION WIDTH 13.5 % (11.6-14.8); WHITE BLOOD COUNT 16.2 K/UL (4.8-10.8)
[2017-04-13 06:32] LABS: AMMONIA 27 umol/L (11-32)
[2017-04-13 06:41] LABS: CREATINE KINASE 384 U/L (26-308); GAMMA GLUTAMYL TRANSPEPTIDASE 634 U/L (5-85); PHOSPHORUS 3.7 MG/DL (2.5-4.9)
[2017-04-13 07:01] LABS: ALANINE AMINOTRANSFERASE 140 U/L (12-78); ALBUMIN 2.3 G/DL (3.4-5.0); ALBUMIN/GLOBULIN RATIO 0.7 (1.0-2.7); ALKALINE PHOSPHATASE 144 U/L (46-116); ANION GAP 19 mmol/L (5-15); ASPARTATE AMINO TRANSFERASE 200 U/L (15-37); BILIRUBIN,TOTAL 12.9 MG/DL (0.2-1.0); BLOOD UREA NITROGEN 84 mg/dL (7-18); CALCIUM 6.8 MG/DL (8.5-10.1); CARBON DIOXIDE 20 MMOL/L (21-32); CHLORIDE 105 MMOL/L (98-107); CREATININE 6.6 MG/DL (0.55-1.30); POTASSIUM 2.8 MMOL/L (3.5-5.1); SODIUM 143 MMOL/L (136-145)
[2017-04-13 07:03] LABS: BILIRUBIN,DIRECT 10.3 MG/DL (0.0-0.3)
[2017-04-13] MEDS: Cefepime HCl 2 GM in D5W 110 ML IV SCH (08:34)
[2017-04-13] MEDS: Solu-MEDROL 125mg Inj IVP SCH (08:34)
[2017-04-13] MEDS: Pantoprazole Inj IVP SCH ×2 (08:34→20:57)
[2017-04-13] MEDS: Heparin 5000 units/ml inj SUBQ SCH ×2 (08:34→20:57)
[2017-04-13] MEDS ORDERED: Vancomycin 1250mg/D5W 250ml IVPB ONE (09:00)
--- NOTE | 2017-04-13 09:06 | Pulmonolgy Critical Care Note ---
Critical Care - Asmt/Plan Problems: (1) Multiple organ failure (2) Severe sepsis (3) Hypothermia (4) Renal failure (5) Hypotension (6) Alcohol abuse Respiratory: monitor respiratory rate, adjust FIO2, CXR Cardiac: continue to monitor HR/BP Renal: F/U I&O, keep IV fluid Infectious Disease: check cultures Gastrointestinal: continue feedings/current rate Endocrine: check TSH, continue sliding scale insulin Hematologic: monitor H/H, transfuse if hgb<8.5 Neurologic: PRN Morphine, keep patient comfortable Prophylaxis: Protonix Notes Reviewed: cardio, renal Discussed with: nurses, consultants, case linerexecutive meeting manager - Objective Last 24 Hour Vital Signs Date Time Temp Pulse Resp B/P (MAP) Pulse Ox O2 Delivery O2 Flow Rate FiO2 04/13/17 08:00 86 04/13/17 08:00 98.2 90 19 112/75 98 Room Air 98.2 04/13/17 07:00 87 20 115/67 100 Room Air 04/13/17 06:00 88 20 114/62 98 Room Air 04/13/17 05:00 83 19 106/63 98 Room Air 04/13/17 04:00 98.5 86 21 111/77 96 Room Air 98.5 04/13/17 03:39 92 04/13/17 03:00 90 18 124/72 98 Room Air 04/13/17 02:00 86 18 120/80 97 Room Air 04/13/17 01:00 85 18 112/71 97 Room Air 04/13/17 00:00 98.1 85 22 114/63 98 Room Air 98.1 04/13/17 00:00 94 04/12/17 23:00 87 22 109/69 98 Room Air 04/12/17 22:00 86 22 104/64 98 Room Air 04/12/17 21:00 89 23 105/63 98 Room Air 04/12/17 20:00 98.0 92 22 105/66 97 Room Air 98.0 04/12/17 20:00 94 04/12/17 19:00 96 22 98/58 98 Room Air 04/12/17 18:00 95 23 109/57 95 Room Air 04/12/17 17:00 97 24 105/55 99 Room Air 04/12/17 16:00 96 04/12/17 16:00 98.4 99 25 98/61 99 Room Air 98.4 04/12/17 15:00 99 25 102/60 99 Room Air 04/12/17 14:00 99 25 99/55 99 Room Air 04/12/17 13:00 95 20 100/48 98 Room Air 04/12/17 12:00 98.0 99 25 108/55 99 Room Air 98.0 04/12/17 12:00 95 04/12/17 11:00 94 20 102/57 96 Room Air 04/12/17 10:00 99 20 90/49 95 Room Air Status: awake Condition: critical HEENT: atraumatic Neck: full ROM Heart: HR/BP stable Abdomen: soft, active bowel sounds Extremities: no C/C/E Decubiti: location Micro: Microbiology Date/Time Source Procedure Growth Status 04/11/17 02:45 Blood Blood Culture - Preliminary NO GROWTH AFTER 48 HOURS Resulted 04/11/17 02:30 Blood Blood Culture - Preliminary NO GROWTH AFTER 48 HOURS Resulted 04/11/17 05:40 Cerebral Spinal Fluid Gram Stain - Final Resulted 04/11/17 05:40 Cerebral Spinal Fluid CSF Culture - Preliminary NO GROWTH AFTER 48 HOURS Resulted 04/11/17 07:07 Nasal Nares MRSA Culture - Final NO METHICILLIN RESISTANT STAPH AUREUS... Complete 04/11/17 14:35 Indwelling Cath Urine Culture - Preliminary NO GROWTH AFTER 24 HOURS Resulted 04/11/17 03:20 Urine,Clean Catch Urine Culture - Preliminary Streptococcus Species Resulted 04/11/17 07:07 Rectum VRE Culture - Final NO VANCOMYCIN RESISTANT ENTEROCOCCUS ... Complete Accucheck: 279 Critical Care - Subjective ROS Limited/Unobtainable: No ICU Day: 3 Intubation Day: 3 Interval Events: mental status improved Drips: d5 NS 75 cc/hour I&O: Intake and Output 04/12/17 04/13/17 19:00 07:00 Intake Total 1235 ml 1100 ml Output Total 55 ml 465 ml Balance 1180 ml 635 ml Intake IV Total 1235 ml 1100 ml Output Urine Total 55 ml 465 ml CXR: no change Labs: Laboratory Tests Test 04/12/17 10:00 04/12/17 12:00 04/12/17 16:45 04/13/17 05:15 Sodium Level 144 MMOL/L (136-145) 143 MMOL/L (136-145) Potassium Level 2.8 MMOL/L (3.5-5.1) L 2.8 MMOL/L (3.5-5.1) L Chloride Level 106 MMOL/L (98-107) 105 MMOL/L (98-107) Carbon Dioxide Level 23 MMOL/L (21-32) 20 MMOL/L (21-32) L Anion Gap 14 mmol/L (5-15) 19 mmol/L (5-15) H Blood Urea Nitrogen 71 mg/dL (7-18) H 84 mg/dL (7-18) H Creatinine 5.8 MG/DL (0.55-1.30) H 6.6 MG/DL (0.55-1.30) H Estimat Glomerular Filtration Rate 10.0 mL/min (>60) 8.9 mL/min (>60) Glucose Level 268 MG/DL (74-106) H 394 MG/DL (74-106) #H Lactic Acid Level 2.40 mmol/L (0.66-2.22) H 2.40 mmol/L (0.66-2.22) H 2.30 mmol/L (0.66-2.22) H Calcium Level 6.8 MG/DL (8.5-10.1) L 6.8 MG/DL (8.5-10.1) L White Blood Count 16.2 K/UL (4.8-10.8) H Red Blood Count 2.78 M/UL (4.70-6.10) L Hemoglobin 9.7 G/DL (14.2-18.0) L Hematocrit 27.9 % (42.0-52.0) L Mean Corpuscular Volume 100 FL (80-99) H Mean Corpuscular Hemoglobin 34.8 PG (27.0-31.0) H Mean Corpuscular Hemoglobin Concent 34.7 G/DL (32.0-36.0) Red Cell Distribution Width 13.5 % (11.6-14.8) Platelet Count 127 K/UL (150-450) L Mean Platelet Volume 10.5 FL (6.5-10.1) H Neutrophils (%) (Auto) % (45.0-75.0) Lymphocytes (%) (Auto) % (20.0-45.0) Monocytes (%) (Auto) % (1.0-10.0) Eosinophils (%) (Auto) % (0.0-3.0) Basophils (%) (Auto) % (0.0-2.0) Differential Total Cells Counted 100 Neutrophils % (Manual) 94 % (45-75) H Lymphocytes % (Manual) 4 % (20-45) L Monocytes % (Manual) 1 % (1-10) Eosinophils % (Manual) 0 % (0-3) Basophils % (Manual) 0 % (0-2) Band Neutrophils 1 % (0-8) Platelet Estimate Decreased L Platelet Morphology Normal Hypochromasia 2+ Spherocytes 2+ Uric Acid 15.5 MG/DL (2.6-7.2) H Phosphorus Level 3.7 MG/DL (2.5-4.9) Magnesium Level 2.1 MG/DL (1.8-2.4) Total Bilirubin 12.9 MG/DL (0.2-1.0) H Direct Bilirubin 10.3 MG/DL (0.0-0.3) H Gamma Glutamyl Transpeptidase 634 U/L (5-85) H Aspartate Amino Transf (AST/SGOT) 200 U/L (15-37) H Alanine Aminotransferase (ALT/SGPT) 140 U/L (12-78) H Alkaline Phosphatase 144 U/L (46-116) H Ammonia 27 umol/L (11-32) Total Creatine Kinase 384 U/L (26-308) H Troponin I 0.058 ng/mL (0.000-0.056) Pro-B-Type Natriuretic Peptide 2849 pg/mL (0-125) H Total Protein 5.6 G/DL (6.4-8.2) L Albumin 2.3 G/DL (3.4-5.0) L Globulin 3.3 g/dL Albumin/Globulin Ratio 0.7 (1.0-2.7) L Random Vancomycin Level 11.4 ug/mL BECK CEDENO Apr 13, 2017 09:06
--- NOTE | 2017-04-13 09:23 | Pulmonolgy Critical Care Note ---
Critical Care - Asmt/Plan Problems: (1) Multiple organ failure (2) Severe sepsis (3) Hypothermia (4) Renal failure (5) Hypotension (6) Alcohol abuse Respiratory: monitor respiratory rate, adjust FIO2, CXR Renal: F/U I&O Infectious Disease: check cultures Gastrointestinal: continue feedings/current rate, hold feedings Endocrine: check TSH, check HgA1C Hematologic: monitor H/H, transfuse if hgb<8.5 Neurologic: keep patient comfortable Prophylaxis: Heparin Notes Reviewed: cardio Discussed with: nurses, consultants, correctional case records supervisormanager critical care unit - Objective Last 24 Hour Vital Signs Date Time Temp Pulse Resp B/P (MAP) Pulse Ox O2 Delivery O2 Flow Rate FiO2 04/13/17 08:00 86 04/13/17 08:00 98.2 90 19 112/75 98 Room Air 98.2 04/13/17 07:00 87 20 115/67 100 Room Air 04/13/17 06:00 88 20 114/62 98 Room Air 04/13/17 05:00 83 19 106/63 98 Room Air 04/13/17 04:00 98.5 86 21 111/77 96 Room Air 98.5 04/13/17 03:39 92 04/13/17 03:00 90 18 124/72 98 Room Air 04/13/17 02:00 86 18 120/80 97 Room Air 04/13/17 01:00 85 18 112/71 97 Room Air 04/13/17 00:00 98.1 85 22 114/63 98 Room Air 98.1 04/13/17 00:00 94 04/12/17 23:00 87 22 109/69 98 Room Air 04/12/17 22:00 86 22 104/64 98 Room Air 04/12/17 21:00 89 23 105/63 98 Room Air 04/12/17 20:00 98.0 92 22 105/66 97 Room Air 98.0 04/12/17 20:00 94 04/12/17 19:00 96 22 98/58 98 Room Air 04/12/17 18:00 95 23 109/57 95 Room Air 04/12/17 17:00 97 24 105/55 99 Room Air 04/12/17 16:00 96 04/12/17 16:00 98.4 99 25 98/61 99 Room Air 98.4 04/12/17 15:00 99 25 102/60 99 Room Air 04/12/17 14:00 99 25 99/55 99 Room Air 04/12/17 13:00 95 20 100/48 98 Room Air 04/12/17 12:00 98.0 99 25 108/55 99 Room Air 98.0 04/12/17 12:00 95 04/12/17 11:00 94 20 102/57 96 Room Air 04/12/17 10:00 99 20 90/49 95 Room Air Status: awake Condition: critical HEENT: atraumatic Neck: full ROM Lungs: clear Heart: HR/BP unstable Abdomen: soft, active bowel sounds Micro: Microbiology Date/Time Source Procedure Growth Status 04/11/17 02:45 Blood Blood Culture - Preliminary NO GROWTH AFTER 48 HOURS Resulted 04/11/17 02:30 Blood Blood Culture - Preliminary NO GROWTH AFTER 48 HOURS Resulted 04/11/17 05:40 Cerebral Spinal Fluid Gram Stain - Final Resulted 04/11/17 05:40 Cerebral Spinal Fluid CSF Culture - Preliminary NO GROWTH AFTER 48 HOURS Resulted 04/11/17 07:07 Nasal Nares MRSA Culture - Final NO METHICILLIN RESISTANT STAPH AUREUS... Complete 04/11/17 14:35 Indwelling Cath Urine Culture - Preliminary NO GROWTH AFTER 24 HOURS Resulted 04/11/17 03:20 Urine,Clean Catch Urine Culture - Preliminary Streptococcus Species Resulted 04/11/17 07:07 Rectum VRE Culture - Final NO VANCOMYCIN RESISTANT ENTEROCOCCUS ... Complete Accucheck: 279 Critical Care - Subjective ROS Limited/Unobtainable: No ICU Day: 3 Interval Events: mental status improving Condition: critical I&O: Intake and Output 04/12/17 04/13/17 19:00 07:00 Intake Total 1235 ml 1100 ml Output Total 55 ml 465 ml Balance 1180 ml 635 ml Intake IV Total 1235 ml 1100 ml Output Urine Total 55 ml 465 ml CXR: pending BECK CEDENO Apr 13, 2017 09:23
--- NOTE | 2017-04-13 11:07 | Wound Care Consultation ---
Wound Assessment Wound Assessment #1: Wound Number: 1 Wound Present on Admission: Yes New Wound: No Status Change of Wound: No Wound Location Body Site Modif: mid Wound Location Body Site: other - Sacrococcygeal Wound Type: pressure ulcer Torey Test: Does not Torey Pressure Ulcer Stage: Unstageable Wound Thickness: Full Thickness Wound Length: 7.0 Wound Width: 2.0 Wound Depth: utd Percent of Wound Ricketts/Red: 40 Percent of Wound Bed Yellow/Wh: 60 Wound Drainage Description: Serosanguineous Wound Drainage Amount: Scant Wound Drainage Odor: None/Absent Tissue Surrounding Wound: Macerated Wound General Appearance: Reddened - yellow, Draining Wound Assessment #2: Wound Number: 2 Wound Present on Admission: Yes New Wound: No Status Change of Wound: No Wound Location Body Site Modif: left, anterior Wound Location Body Site: knee Traumatic Injury Wounds: Abrasion Wound Length: 3.0 Wound Width: 3.0 Percent of Wound Ricketts/Red: 100 Wound Drainage Amount: None Wound Drainage Odor: None/Absent Tissue Surrounding Wound: Erythemic Wound General Appearance: Reddened Wound Assessment #3: Wound Number: 3 Wound Present on Admission: Yes New Wound: No Status Change of Wound: No Wound Location Body Site Modif: right, anterior Wound Location Body Site: knee Wound Type: traumatic injury - redness Torey Test: Does not Torey Percent of Wound Ricketts/Red: 100 Wound Drainage Amount: None Wound Drainage Odor: None/Absent Tissue Surrounding Wound: Intact Wound General Appearance: Reddened Wound Comment #1 Sacrococcygeal unstageable pressure ulcer #2 Left anterior knee abrasion #3 Right anterior Knee Redness Recommendation -Local wound care per protocol -Keep clean and dry -Optimize nutrition -Turn and reposition -Heel protector on both heels -Offload both heels -Low air loss mattress -Assess and f/u accordingly for any changes PRETTY FELIPE RN Apr 13, 2017 11:07
--- NOTE | 2017-04-13 12:09 | Nephrology Progress Note ---
Assessment/Plan Problem List: (1) Severe sepsis (2) Hypotension (3) Renal failure Assessment: acute on chronic (4) Hypothermia (5) Elevated LFTs (6) Hyperbilirubinemia Assessment Acute renal failure ? Underlying CKD Low BP , Septic Shock Acute encephalopathy Lice infestation High LFTs and Jaundice HypoThermia UTI Plan steroids- Fluids Protonix Antibiotics NPO Monitor renal parameters avoid Nephrotoxics folate Ergocalciferol Echo 55% EjFx Subjective ROS Limited/Unobtainable: No Constitutional: Reports: malaise Objective Objective Last 24 Hour Vital Signs Date Time Temp Pulse Resp B/P (MAP) Pulse Ox O2 Delivery O2 Flow Rate FiO2 04/13/17 11:00 89 17 110/72 99 Room Air 04/13/17 10:00 90 18 106/70 99 Room Air 04/13/17 09:00 88 20 108/67 99 Room Air 04/13/17 08:00 86 04/13/17 08:00 98.2 90 19 112/75 98 Room Air 98.2 04/13/17 07:00 87 20 115/67 100 Room Air 04/13/17 06:00 88 20 114/62 98 Room Air 04/13/17 05:00 83 19 106/63 98 Room Air 04/13/17 04:00 98.5 86 21 111/77 96 Room Air 98.5 04/13/17 03:39 92 04/13/17 03:00 90 18 124/72 98 Room Air 04/13/17 02:00 86 18 120/80 97 Room Air 04/13/17 01:00 85 18 112/71 97 Room Air 04/13/17 00:00 98.1 85 22 114/63 98 Room Air 98.1 04/13/17 00:00 94 04/12/17 23:00 87 22 109/69 98 Room Air 04/12/17 22:00 86 22 104/64 98 Room Air 04/12/17 21:00 89 23 105/63 98 Room Air 04/12/17 20:00 98.0 92 22 105/66 97 Room Air 98.0 04/12/17 20:00 94 04/12/17 19:00 96 22 98/58 98 Room Air 04/12/17 18:00 95 23 109/57 95 Room Air 04/12/17 17:00 97 24 105/55 99 Room Air 04/12/17 16:00 96 04/12/17 16:00 98.4 99 25 98/61 99 Room Air 98.4 04/12/17 15:00 99 25 102/60 99 Room Air 04/12/17 14:00 99 25 99/55 99 Room Air 04/12/17 13:00 95 20 100/48 98 Room Air Intake and Output 04/12/17 04/13/17 19:00 07:00 Intake Total 1235 ml 1100 ml Output Total 55 ml 465 ml Balance 1180 ml 635 ml Intake IV Total 1235 ml 1100 ml Output Urine Total 55 ml 465 ml Laboratory Tests 04/12/17 16:45: Lactic Acid Level 2.30H 04/13/17 05:15: White Blood Count 16.2H, Red Blood Count 2.78L, Hemoglobin 9.7L, Hematocrit 27.9L, Mean Corpuscular Volume 100H, Mean Corpuscular Hemoglobin 34.8H, Mean Corpuscular Hemoglobin Concent 34.7, Red Cell Distribution Width 13.5, Platelet Count 127L, Mean Platelet Volume 10.5H, Neutrophils (%) (Auto) , Lymphocytes (% ) (Auto) , Monocytes (%) (Auto) , Eosinophils (%) (Auto) , Basophils (%) (Auto) , Differential Total Cells Counted 100, Neutrophils % (Manual) 94H, Lymphocytes % (Manual) 4L, Monocytes % (Manual) 1, Eosinophils % (Manual) 0, Basophils % ( Manual) 0, Band Neutrophils 1, Platelet Estimate DecreasedL, Platelet Morphology Normal, Hypochromasia 2+, Spherocytes 2+, Sodium Level 143, Potassium Level 2.8L, Chloride Level 105, Carbon Dioxide Level 20L, Anion Gap 19H, Blood Urea Nitrogen 84H, Creatinine 6.6H, Estimat Glomerular Filtration Rate 8.9, Glucose Level 394#H, Uric Acid 15.5H, Calcium Level 6.8L, Phosphorus Level 3.7, Magnesium Level 2.1, Total Bilirubin 12.9H, Direct Bilirubin 10.3H, Gamma Glutamyl Transpeptidase 634H, Aspartate Amino Transf (AST/SGOT) 200H, Alanine Aminotransferase (ALT/SGPT) 140H, Alkaline Phosphatase 144H, Ammonia 27 , Total Creatine Kinase 384H, Troponin I 0.058H, Pro-B-Type Natriuretic Peptide 2849H, Total Protein 5.6L, Albumin 2.3L, Globulin 3.3, Albumin/Globulin Ratio 0.7L, Random Vancomycin Level 11.4 Height (Feet): 5 Height (Inches): 7.00 Weight (Pounds): 236 General Appearance: no apparent distress Cardiovascular: tachycardia Respiratory/Chest: decreased breath sounds Abdomen: distended ANTON LIZAMA Apr 13, 2017 12:09
[2017-04-13] MEDS ORDERED: Vitamin D 50,000 units cap ORAL SCH (13:00)
[2017-04-13] MEDS: Nitroglycerin Patch 0.4mg TDERMAL SCH ×2 (13:51→16:23)
[2017-04-13] MEDS ORDERED: Potassium Chloride 30 MEQ in Sodium Chloride 500ML 550 ML IVPB ONE ×2 (14:00→17:45)
--- NOTE | 2017-04-13 16:31 | Diagnostic Imaging Report ---
Indication:Abdominal pain Technique: Grayscale and duplex Doppler imaging of the abdomen performed. Comparison: None Findings: The exam is limited because of the large body habitus. There is no obvious liver surface nodularity appreciated. The liver is echogenic and enlarged measuring about 23 cm. No biliary ductal dilatation is identified. The gallbladder is unremarkable. CBD is 4 mm. The pancreas and aorta are not seen. Kidneys are only partially visualized and appear grossly unremarkable. There is no hydronephrosis or obvious free fluid. The spleen is borderline enlarged measuring 13 cm. IMPRESSION: Hepatomegaly with fatty infiltration. Borderline splenomegaly. Limited evaluation as discussed
--- NOTE | 2017-04-13 16:35 | Cardiac Electrophysiology PN ---
Assessment/Plan Assessment/Plan 1. Bradycardia. Due to hypothermia and sepsis. Resolved. 2. Inferolateral Ischemia on the EKG and now elevated troponin. Could be due to demand ischemia. Needs close cardiology follow up and repeat troponins and ECG. Echocardiogram EF55% 3. Sepsis with white count of 23,000, on IV antibiotic per Dr. Lezama. 4. Altered mental status. LP was performed. Meningitis unlikely per Dr. Lezama. Serum alcohol, acetaminophen, and salicylate was negative. Urine-tox screen was also negative. 5. Renal failure. BUN of 77 and creatinine 5.3, FU by Dr. Duval. Creatinine now 6 6. S/P Septic shock. 7. Lice infestation. 8. UTI. HANNAH RN and Dr. Loera and Dr Tai At request of Dr Tai who now has become the primary, I will sign off the case Subjective Subjective Transferred to [facility]. More alert. Still full code. RN at bedside Objective Last 24 Hour Vital Signs Date Time Temp Pulse Resp B/P (MAP) Pulse Ox O2 Delivery O2 Flow Rate FiO2 04/13/17 14:15 97.1 85 23 110/74 97 Room Air 97.1 85 04/13/17 12:00 96.8 83 20 108/65 98 Room Air 96.8 04/13/17 11:00 89 17 110/72 99 Room Air 04/13/17 10:00 90 18 106/70 99 Room Air 04/13/17 09:00 88 20 108/67 99 Room Air 04/13/17 08:00 86 04/13/17 08:00 98.2 90 19 112/75 98 Room Air 98.2 04/13/17 07:00 87 20 115/67 100 Room Air 04/13/17 06:00 88 20 114/62 98 Room Air 04/13/17 05:00 83 19 106/63 98 Room Air 04/13/17 04:00 98.5 86 21 111/77 96 Room Air 98.5 04/13/17 03:39 92 04/13/17 03:00 90 18 124/72 98 Room Air 04/13/17 02:00 86 18 120/80 97 Room Air 04/13/17 01:00 85 18 112/71 97 Room Air 04/13/17 00:00 98.1 85 22 114/63 98 Room Air 98.1 2/27/18 00:00 94 04/12/17 23:00 87 22 109/69 98 Room Air 04/12/17 22:00 86 22 104/64 98 Room Air 04/12/17 21:00 89 23 105/63 98 Room Air 04/12/17 20:00 98.0 92 22 105/66 97 Room Air 98.0 04/12/17 20:00 94 04/12/17 19:00 96 22 98/58 98 Room Air 04/12/17 18:00 95 23 109/57 95 Room Air 04/12/17 17:00 97 24 105/55 99 Room Air Intake and Output 04/12/17 04/13/17 19:00 07:00 Intake Total 1235 ml 1100 ml Output Total 55 ml 465 ml Balance 1180 ml 635 ml Intake IV Total 1235 ml 1100 ml Output Urine Total 55 ml 465 ml Laboratory Tests Test 04/12/17 16:45 04/13/17 05:15 Lactic Acid Level 2.30 mmol/L (0.66-2.22) H White Blood Count 16.2 K/UL (4.8-10.8) H Red Blood Count 2.78 M/UL (4.70-6.10) L Hemoglobin 9.7 G/DL (14.2-18.0) L Hematocrit 27.9 % (42.0-52.0) L Mean Corpuscular Volume 100 FL (80-99) H Mean Corpuscular Hemoglobin 34.8 PG (27.0-31.0) H Mean Corpuscular Hemoglobin Concent 34.7 G/DL (32.0-36.0) Red Cell Distribution Width 13.5 % (11.6-14.8) Platelet Count 127 K/UL (150-450) L Mean Platelet Volume 10.5 FL (6.5-10.1) H Neutrophils (%) (Auto) % (45.0-75.0) Lymphocytes (%) (Auto) % (20.0-45.0) Monocytes (%) (Auto) % (1.0-10.0) Eosinophils (%) (Auto) % (0.0-3.0) Basophils (%) (Auto) % (0.0-2.0) Differential Total Cells Counted 100 Neutrophils % (Manual) 94 % (45-75) H Lymphocytes % (Manual) 4 % (20-45) L Monocytes % (Manual) 1 % (1-10) Eosinophils % (Manual) 0 % (0-3) Basophils % (Manual) 0 % (0-2) Band Neutrophils 1 % (0-8) Platelet Estimate Decreased L Platelet Morphology Normal Hypochromasia 2+ Spherocytes 2+ Sodium Level 143 MMOL/L (136-145) Potassium Level 2.8 MMOL/L (3.5-5.1) L Chloride Level 105 MMOL/L (98-107) Carbon Dioxide Level 20 MMOL/L (21-32) L Anion Gap 19 mmol/L (5-15) H Blood Urea Nitrogen 84 mg/dL (7-18) H Creatinine 6.6 MG/DL (0.55-1.30) H Estimat Glomerular Filtration Rate 8.9 mL/min (>60) Glucose Level 394 MG/DL (74-106) #H Uric Acid 15.5 MG/DL (2.6-7.2) H Calcium Level 6.8 MG/DL (8.5-10.1) L Phosphorus Level 3.7 MG/DL (2.5-4.9) Magnesium Level 2.1 MG/DL (1.8-2.4) Total Bilirubin 12.9 MG/DL (0.2-1.0) H Direct Bilirubin 10.3 MG/DL (0.0-0.3) H Gamma Glutamyl Transpeptidase 634 U/L (5-85) H Aspartate Amino Transf (AST/SGOT) 200 U/L (15-37) H Alanine Aminotransferase (ALT/SGPT) 140 U/L (12-78) H Alkaline Phosphatase 144 U/L (46-116) H Ammonia 27 umol/L (11-32) Total Creatine Kinase 384 U/L (26-308) H Troponin I 0.058 ng/mL (0.000-0.056) Pro-B-Type Natriuretic Peptide 2849 pg/mL (0-125) H Total Protein 5.6 G/DL (6.4-8.2) L Albumin 2.3 G/DL (3.4-5.0) L Globulin 3.3 g/dL Albumin/Globulin Ratio 0.7 (1.0-2.7) L Random Vancomycin Level 11.4 ug/mL Microbiology Date/Time Source Procedure Growth Status 04/11/17 02:45 Blood Blood Culture - Preliminary NO GROWTH AFTER 48 HOURS Resulted 04/11/17 02:30 Blood Blood Culture - Preliminary NO GROWTH AFTER 48 HOURS Resulted 04/11/17 05:40 Cerebral Spinal Fluid Gram Stain - Final Resulted 04/11/17 05:40 Cerebral Spinal Fluid CSF Culture - Preliminary NO GROWTH AFTER 48 HOURS Resulted 04/11/17 07:07 Nasal Nares MRSA Culture - Final NO METHICILLIN RESISTANT STAPH AUREUS... Complete 04/11/17 14:35 Indwelling Cath Urine Culture - Preliminary NO GROWTH AFTER 24 HOURS Resulted 04/11/17 03:20 Urine,Clean Catch Urine Culture - Preliminary Streptococcus Species Resulted 04/11/17 07:07 Rectum VRE Culture - Final NO VANCOMYCIN RESISTANT ENTEROCOCCUS ... Complete Objective HEAD AND NECK: No JVD. LUNGS: Coarse rhonchi. CARDIOVASCULAR: Regular S1 and S2 with no gallop. ABDOMEN: Soft. EXTREMITIES: A 1+ pitting edema. ERIC CLAYTON Apr 13, 2017 16:35
[2017-04-13] MEDS ORDERED: Albuterol/Ipratropium 3ml neb HHN PRN (18:00)
[2017-04-13] MEDS ORDERED: Haloperidol 5mg/ml Inj IM PRN (18:00)
[2017-04-14] VITALS: BP 117/64
[2017-04-14] MEDS: D5NS 1,000 ML IV SCH (05:49)
[2017-04-14 08:06] VITALS: BP 132/76
[2017-04-14] MEDS: Cefepime HCl 1 GM in NS 55 ML IVPB SCH ×2 (09:00→14:25)
[2017-04-14] MEDS: Pantoprazole Inj IVP SCH (09:00)
[2017-04-14] MEDS ORDERED: Cefepime HCl 1 GM in NS 55 ML IVPB SCH (09:00)
[2017-04-14] MEDS ORDERED: Solu-MEDROL 125mg Inj IVP SCH ×2 (09:00)
[2017-04-14] MEDS: Heparin 5000 units/ml inj SUBQ SCH ×2 (09:00→21:00)
[2017-04-14 09:38] LABS: HEMATOCRIT 26.9 % (42.0-52.0); HEMOGLOBIN 9.5 G/DL (14.2-18.0); MEAN CORPUSCULAR VOLUME 101 FL (80-99); PLATELET COUNT 119 K/UL (150-450); RED BLOOD COUNT 2.67 M/UL (4.70-6.10); RED CELL DISTRIBUTION WIDTH 14.1 % (11.6-14.8); WHITE BLOOD COUNT 11.4 K/UL (4.8-10.8)
--- NOTE | 2017-04-14 09:48 | Diagnostic Imaging Report ---
Indication: Dyspnea Technique: One view of the chest Comparison: none Findings: Contrast from recent video swallowing study seen within the stomach. Suboptimal inspiration with low lung volumes. There is bilateral basilar subsegmental atelectasis. Generalized mild interstitial prominence may be due to crowding of the bronchovascular markings due to the low lung volumes. The heart size is normal Impression: Hypoventilatory exam. Bilateral basilar atelectasis Mild interstitial disease not excludable Other findings as noted
[2017-04-14 11:01] LABS: ALANINE AMINOTRANSFERASE 118 U/L (12-78); ALBUMIN 2.2 G/DL (3.4-5.0); ALBUMIN/GLOBULIN RATIO 0.6 (1.0-2.7); ALKALINE PHOSPHATASE 150 U/L (46-116); ANION GAP 18 mmol/L (5-15); ASPARTATE AMINO TRANSFERASE 115 U/L (15-37); BILIRUBIN,TOTAL 12.2 MG/DL (0.2-1.0); BLOOD UREA NITROGEN 92 mg/dL (7-18); CALCIUM 6.8 MG/DL (8.5-10.1); CARBON DIOXIDE 21 MMOL/L (21-32); CHLORIDE 111 MMOL/L (98-107); CREATININE 5.3 MG/DL (0.55-1.30); SODIUM 150 MMOL/L (136-145)
[2017-04-14 11:08] LABS: POTASSIUM 2.6 MMOL/L (3.5-5.1)
[2017-04-14] MEDS ORDERED: Haloperidol 5mg/ml Inj IM ONE (11:36)
[2017-04-14] MEDS ORDERED: DiphenhydrAMINE 50mg/ml Inj IM ONE (11:36)
[2017-04-14] MEDS ORDERED: LORazepam Inj 2mg/ml 1ml IM ONE (11:36)
[2017-04-14 11:53] LABS: BILIRUBIN,DIRECT 9.7 MG/DL (0.0-0.3)
[2017-04-14 12:02] LABS: PHOSPHORUS 3.3 MG/DL (2.5-4.9)
--- NOTE | 2017-04-14 12:38 | Nephrology Progress Note ---
Assessment/Plan Problem List: (1) Severe sepsis (2) Hypotension (3) Renal failure Assessment: acute on chronic (4) Hypothermia (5) Elevated LFTs (6) Hyperbilirubinemia Assessment Acute renal failure Cr lowering ? Underlying CKD Low BP , Septic Shock Acute encephalopathy Lice infestation High LFTs and Jaundice HypoThermia UTI Plan steroids- Fluids Antibiotics NPO Monitor renal parameters avoid Nephrotoxics folate Ergocalciferol Echo 55% EjFx discussed dialysis - refuses- ability to make decisions?? Subjective ROS Limited/Unobtainable: No Constitutional: Reports: malaise Objective Objective Last 24 Hour Vital Signs Date Time Temp Pulse Resp B/P (MAP) Pulse Ox O2 Delivery O2 Flow Rate FiO2 04/14/17 08:06 97.7 84 21 132/76 99 Room Air 97.7 04/14/17 00:00 97.3 85 23 117/64 96 97.3 04/13/17 20:00 97.7 87 22 108/69 95 97.7 04/13/17 16:23 110/74 04/13/17 14:15 97.1 85 23 110/74 97 Room Air 97.1 85 Intake and Output 04/13/17 04/14/17 19:00 07:00 Intake Total 815 ml 1150 ml Output Total 1680 ml Balance -865 ml 1150 ml Intake Oral 480 ml 200 ml IV Total 335 ml 950 ml Output Urine Total 1680 ml Laboratory Tests 04/14/17 09:10: White Blood Count 11.4H, Red Blood Count 2.67L, Hemoglobin 9.5L, Hematocrit 26.9L, Mean Corpuscular Volume 101H, Mean Corpuscular Hemoglobin 35.5H, Mean Corpuscular Hemoglobin Concent 35.3, Red Cell Distribution Width 14.1, Platelet Count 119L, Mean Platelet Volume 10.7H, Neutrophils (%) (Auto) , Lymphocytes (% ) (Auto) , Monocytes (%) (Auto) , Eosinophils (%) (Auto) , Basophils (%) (Auto) , Differential Total Cells Counted 100, Neutrophils % (Manual) 95H, Lymphocytes % (Manual) 3L, Monocytes % (Manual) 0L, Eosinophils % (Manual) 0, Basophils % ( Manual) 0, Band Neutrophils 2, Platelet Estimate DecreasedL, Platelet Morphology Normal, Macrocytosis 1+, Sodium Level 150H, Potassium Level 2.6*L, Chloride Level 111H, Carbon Dioxide Level 21, Anion Gap 18H, Blood Urea Nitrogen 92H, Creatinine 5.3H, Estimat Glomerular Filtration Rate 11.5, Glucose Level 505#*H, Lactic Acid Level 2.30H, Uric Acid 14.0H, Calcium Level 6.8L, Phosphorus Level 3.3, Magnesium Level 1.9, Total Bilirubin 12.2H, Direct Bilirubin 9.7H, Aspartate Amino Transf (AST/SGOT) 115H, Alanine Aminotransferase (ALT/SGPT) 118H, Alkaline Phosphatase 150H, Troponin I 0.017, Pro-B-Type Natriuretic Peptide 2253H, Total Protein 5.6L, Albumin 2.2L, Globulin 3.4, Albumin/Globulin Ratio 0.6L Height (Feet): 5 Height (Inches): 7.00 Weight (Pounds): 235 General Appearance: agitated Cardiovascular: regular rhythm Respiratory/Chest: decreased breath sounds Abdomen: distended ANTON LIZAMA Apr 14, 2017 12:38
[2017-04-14] MEDS ORDERED: Haloperidol 5mg/ml Inj IM PRN (13:00)
[2017-04-14] MEDS ORDERED: LORazepam Inj 2mg/ml 1ml IV PRN (13:00)
[2017-04-14] MEDS: Nitroglycerin Patch 0.4mg TDERMAL SCH (13:41)
[2017-04-14] MEDS ORDERED: Levemir Flexpen SUBQ SCH ×2 (13:45→21:00)
[2017-04-14] MEDS: D5 1/2NS w/KCl 40meq 1000ml 1,000 ML IV SCH (14:10)
--- NOTE | 2017-04-14 14:11 | Cardiology Report ---
APPROVED REPORT EXAM: Two-dimensional and M-mode echocardiogram with Doppler and color Doppler. INDICATION Arrhythmia M-Mode DIMENSIONS Aortic Root2.9 (2.0-3.7cm) Aortic Cusp Exc.1.6 (1.5-2.0cm) Technically difficult study due to poor acoustical windows. M-mode measurements not obtainable due to cardiac structure. Normal left ventricular chamber size, systolic function and wall motion. Left ventricular ejection fraction estimated to be 55-60%. No evidence of left ventricular hypertrophy. No evidence of pericardial or pleural effusion. All other cardiac chamber sizes are within normal limits. Focal aortic valve sclerosis with adequate cusp excursion. Normal mitral valve leaflets with normal excursion. Mild mitral annulus and aortic root calcification. Pulmonic valve not well visualized. Normal tricuspid valve structure. IVC is not obtainable. A color flow and spectral Doppler study was performed and revealed: No aortic regurgitation. No mitral regurgitation. Mitral diastolic function not obtainable due to arrhythmia. Trace tricuspid regurgitation. Tricuspid systolic velocities suggests peak right ventricular systolic pressure of 25mmHg
--- NOTE | 2017-04-14 15:01 | General Progress Note ---
Assessment/Plan Status: unchanged Assessment/Plan Covering fro Dr Segal: (1) Severe sepsis (2) Hypotension (3) Renal failure (4) Hypothermia (5) Elevated LFTs (6) Hyperbilirubinemia Plan: Cardiology, Nephrology services notes are reviewed current management Subjective Allergies: Coded Allergies: ASPIRIN (Verified Allergy, Unknown, 03/12/17) Objective Last 24 Hour Vital Signs Date Time Temp Pulse Resp B/P (MAP) Pulse Ox O2 Delivery O2 Flow Rate FiO2 04/14/17 13:41 132/76 04/14/17 08:06 97.7 84 21 132/76 99 Room Air 97.7 04/14/17 00:00 97.3 85 23 117/64 96 97.3 04/13/17 20:00 97.7 87 22 108/69 95 97.7 04/13/17 16:23 110/74 Intake and Output 04/13/17 04/14/17 19:00 07:00 Intake Total 815 ml 1150 ml Output Total 1680 ml Balance -865 ml 1150 ml Intake Oral 480 ml 200 ml IV Total 335 ml 950 ml Output Urine Total 1680 ml Laboratory Tests 04/14/17 09:10: White Blood Count 11.4H, Red Blood Count 2.67L, Hemoglobin 9.5L, Hematocrit 26.9L, Mean Corpuscular Volume 101H, Mean Corpuscular Hemoglobin 35.5H, Mean Corpuscular Hemoglobin Concent 35.3, Red Cell Distribution Width 14.1, Platelet Count 119L, Mean Platelet Volume 10.7H, Neutrophils (%) (Auto) , Lymphocytes (% ) (Auto) , Monocytes (%) (Auto) , Eosinophils (%) (Auto) , Basophils (%) (Auto) , Differential Total Cells Counted 100, Neutrophils % (Manual) 95H, Lymphocytes % (Manual) 3L, Monocytes % (Manual) 0L, Eosinophils % (Manual) 0, Basophils % ( Manual) 0, Band Neutrophils 2, Platelet Estimate DecreasedL, Platelet Morphology Normal, Macrocytosis 1+, Sodium Level 150H, Potassium Level 2.6*L, Chloride Level 111H, Carbon Dioxide Level 21, Anion Gap 18H, Blood Urea Nitrogen 92H, Creatinine 5.3H, Estimat Glomerular Filtration Rate 11.5, Glucose Level 505#*H, Lactic Acid Level 2.30H, Uric Acid 14.0H, Calcium Level 6.8L, Phosphorus Level 3.3, Magnesium Level 1.9, Total Bilirubin 12.2H, Direct Bilirubin 9.7H, Aspartate Amino Transf (AST/SGOT) 115H, Alanine Aminotransferase (ALT/SGPT) 118H, Alkaline Phosphatase 150H, Troponin I 0.017, C -Reactive Protein, Quantitative 43.0H, Pro-B-Type Natriuretic Peptide 2253H, Total Protein 5.6L, Albumin 2.2L, Globulin 3.4, Albumin/Globulin Ratio 0.6L 04/14/17 12:40: Lactic Acid Level 3.30H Height (Feet): 5 Height (Inches): 7.00 Weight (Pounds): 235 [place] MD Apr 14, 2017 15:01
[2017-04-14] MEDS: NovoLOG Insulin Flexpen SUBQ SCH ×3 (16:52→23:04)
--- NOTE | 2017-04-14 17:17 | Consultation ---
DATE OF CONSULTATION: 04/14/2017 HISTORY OF PRESENT ILLNESS: The patient is a 51-year-old male with a history of urinary tract infection, septic shock, and unknown psychiatric disorder, who has been admitted to the hospital due to altered mental status. The patient became more agitated and disorganized today. The patient has been refusing the dialysis. During the evaluation, the patient is unable to understand, process, communicate, or appreciate the informations given to him in regards to his medical condition. He was also agitated and hitting at the staff. Therefore, he received a cocktail shot, Haldol, Benadryl, and Ativan. PAST PSYCHIATRIC HISTORY: Unknown. The patient is unable to provide any history. PAST MEDICAL HISTORY: Significant for seizure, renal failure, liver failure, sepsis, and liver cirrhosis. ALLERGIES: Aspirin. SUBSTANCE ABUSE HISTORY: Positive for alcohol dependence. MENTAL STATUS EXAMINATION: The patient is alert and oriented times self, yelling, screaming, and has psychomotor agitation. Mood is agitated. Affect is flat. Thought process, there is a paucity of thought content. Thought content, no suicidal or homicidal ideations. The patient is delusional. Insight and judgment is non-existent. ASSESSMENT: [place] I Alcohol dependence and agitation. The patient is also suffering from encephalopathy due to general medical condition. [place] II Deferred. [place] III As above. [place] IV High. [place] V Global assessment of functioning is 20. PLAN: 1. The patient received a shot. Continue the sitter. 2. The patient will be continued on Haldol p.r.n., which will be increased to 5 q.6. 3. We will continue to follow and readjust the medications. Aly De Santiago M.D. DR: KELL JOB#: [id number] CC:
[2017-04-14] MEDS: Levemir Flexpen SUBQ SCH (19:36)
[2017-04-14 20:00] VITALS: BP 100/64
--- NOTE | 2017-04-14 22:10 | Infectious Diseases Prog Note ---
Assessment/Plan Assessment/Plan ASSESSMENT AND PLAN: 1. sepsis, shock, hypothermia, leukocytosis, strep uti, etoh, liver failure - clinically improved - change abx to rocephin and flagyl - check labs 2. Acute renal failure, elevated creatinine. 3. Anemia. 4. Ethyl alcohol dependency. 5. Anemia. 6. Allergy to aspirin. 7. Social history positive for ethyl alcohol. 8. Family history noncontributory. 9. MAR was noted. 10. Case discussed with RN. 11. Case discussed with Dr. Tai. 12. Continue treatment per primary consultants. 13. Overall poor prognosis. Subjective Constitutional: Reports: other - more alert , Denies: fever Respiratory: Denies: shortness of breath Cardiovascular: Denies: chest pain Gastrointestinal/Abdominal: Denies: nausea, vomiting, diarrhea Genitourinary: Reports: other - + woodard Neurologic: Denies: headache Psychiatric: Denies: depression Skin: Denies: rash Hematologic: Denies: bleeding Musculoskeletal: Denies: pain Allergies: Coded Allergies: ASPIRIN (Verified Allergy, Unknown, 03/12/17) Objective Vital Signs Last 24 Hour Vital Signs Date Time Temp Pulse Resp B/P (MAP) Pulse Ox O2 Delivery O2 Flow Rate FiO2 04/14/17 20:20 Nasal Cannula 2.0 28 04/14/17 20:20 78 18 Nasal Cannula 2.0 28 04/14/17 20:20 99 Nasal Cannula 2.0 28 04/14/17 20:00 97.7 85 22 100/64 100 97.7 04/14/17 13:41 132/76 04/14/17 08:06 97.7 84 21 132/76 99 Room Air 97.7 04/14/17 00:00 97.3 85 23 117/64 96 97.3 Height (Feet): 5 Height (Inches): 7.00 Weight (Pounds): 235 General Appearance: no acute distress, other - more responsive HEENT: normocephalic, atraumatic, mucous membranes moist, EOMI, supple, no JVD , other - + icterus Respiratory/Chest: lungs clear, normal breath sounds, no respiratory distress, no accessory muscle use Cardiovascular: normal rate, regular rhythm, no gallop/murmur, no JVD Abdomen: normal bowel sounds, soft, non tender, no organomegaly, non distended Genitourinary: other - + woodard - urine slt cloudy Extremities: no cyanosis Skin: no rash 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 Complete 04/11/17 14:35 Indwelling Cath Urine Culture - Final NO GROWTH AFTER 48 HOURS Complete 04/11/17 23:00 Rectum VRE Culture - Final NO VANCOMYCIN RESISTANT ENTEROCOCCUS ... Complete Microbiology Date/Time Source Procedure Growth Status 04/11/17 23:00 Nasal Nares MRSA Culture - Final NO METHICILLIN RESISTANT STAPH AUREUS... Complete 04/11/17 23:00 Rectum VRE Culture - Final NO VANCOMYCIN RESISTANT ENTEROCOCCUS ... Complete Laboratory Tests Test 04/14/17 09:10 04/14/17 12:40 White Blood Count 11.4 K/UL (4.8-10.8) H Red Blood Count 2.67 M/UL (4.70-6.10) L Hemoglobin 9.5 G/DL (14.2-18.0) L Hematocrit 26.9 % (42.0-52.0) L Mean Corpuscular Volume 101 FL (80-99) H Mean Corpuscular Hemoglobin 35.5 PG (27.0-31.0) H Mean Corpuscular Hemoglobin Concent 35.3 G/DL (32.0-36.0) Red Cell Distribution Width 14.1 % (11.6-14.8) Platelet Count 119 K/UL (150-450) L Mean Platelet Volume 10.7 FL (6.5-10.1) H Neutrophils (%) (Auto) % (45.0-75.0) Lymphocytes (%) (Auto) % (20.0-45.0) Monocytes (%) (Auto) % (1.0-10.0) Eosinophils (%) (Auto) % (0.0-3.0) Basophils (%) (Auto) % (0.0-2.0) Differential Total Cells Counted 100 Neutrophils % (Manual) 95 % (45-75) H Lymphocytes % (Manual) 3 % (20-45) L Monocytes % (Manual) 0 % (1-10) L Eosinophils % (Manual) 0 % (0-3) Basophils % (Manual) 0 % (0-2) Band Neutrophils 2 % (0-8) Platelet Estimate Decreased L Platelet Morphology Normal Macrocytosis 1+ Sodium Level 150 MMOL/L (136-145) H Potassium Level 2.6 MMOL/L (3.5-5.1) *L Chloride Level 111 MMOL/L (98-107) H Carbon Dioxide Level 21 MMOL/L (21-32) Anion Gap 18 mmol/L (5-15) H Blood Urea Nitrogen 92 mg/dL (7-18) H Creatinine 5.3 MG/DL (0.55-1.30) H Estimat Glomerular Filtration Rate 11.5 mL/min (>60) Glucose Level 505 MG/DL (74-106) #*H Lactic Acid Level 2.30 mmol/L (0.66-2.22) H 3.30 mmol/L (0.66-2.22) H Uric Acid 14.0 MG/DL (2.6-7.2) H Calcium Level 6.8 MG/DL (8.5-10.1) L Phosphorus Level 3.3 MG/DL (2.5-4.9) Magnesium Level 1.9 MG/DL (1.8-2.4) Total Bilirubin 12.2 MG/DL (0.2-1.0) H Direct Bilirubin 9.7 MG/DL (0.0-0.3) H Aspartate Amino Transf (AST/SGOT) 115 U/L (15-37) H Alanine Aminotransferase (ALT/SGPT) 118 U/L (12-78) H Alkaline Phosphatase 150 U/L (46-116) H Troponin I 0.017 ng/mL (0.000-0.056) C-Reactive Protein, Quantitative 43.0 mg/dL (0.00-0.90) H Pro-B-Type Natriuretic Peptide 2253 pg/mL (0-125) H Total Protein 5.6 G/DL (6.4-8.2) L Albumin 2.2 G/DL (3.4-5.0) L Globulin 3.4 g/dL Albumin/Globulin Ratio 0.6 (1.0-2.7) L Current Medications Medications (Trade) Dose Ordered Sig/Jocelyne Route PRN Reason Start Time Stop Time Status Last Admin Dose Admin Acetaminophen (Tylenol) 650 mg Q4H PRN ORAL fever>100.5 04/13/17 18:30 05/11/17 10:29 Albuterol/ Ipratropium (Albuterol/ Ipratropium) 3 ml Q4H PRN HHN Shortness of Breath 04/13/17 18:00 04/16/17 17:59 Allopurinol (Allopurinol) 300 mg DAILY ORAL 04/15/17 09:00 05/15/17 08:59 Cefepime HCl 1 gm/ Sodium Chloride 55 ml @ 110 mls/hr DAILY IVPB 04/14/17 09:00 04/21/17 08:59 04/14/17 14:25 Dextrose (Dextrose 50%) STAT PRN IV Hypoglycemia 04/14/17 13:30 05/14/17 13:29 Dextrose/ Electrolytes 1,000 ml @ 75 mls/hr [id number] IV 04/14/17 14:00 05/14/17 13:59 04/14/17 14:10 Ergocalciferol (Drisdol) 50,000 intlu QWEEK ORAL 04/20/17 09:00 05/13/17 08:59 Folic Acid (Folate) 5 mg DAILY ORAL 04/14/17 09:00 05/13/17 12:59 Haloperidol Lactate (Haldol) 5 mg Q6H PRN IM Agitation 04/14/17 13:00 05/14/17 12:59 Heparin Sodium (Porcine) (Heparin 5000 units/ml) 5,000 units EVERY 12 HOURS SUBQ 04/13/17 21:00 05/11/17 20:59 Insulin Aspart (NovoLOG) BEFORE MEALS AND HS SUBQ 04/14/17 16:30 05/14/17 16:29 04/14/17 16:52 Insulin Aspart (NovoLOG) 15 units NOVOTIAC SUBQ 04/14/17 18:30 05/14/17 18:29 04/14/17 19:37 Insulin Detemir (Levemir) 23 units BID SUBQ 04/14/17 18:30 05/14/17 18:29 04/14/17 19:36 Lansoprazole (Prevacid) 30 mg BID ORAL 04/14/17 18:00 05/14/17 17:59 Lorazepam (Ativan 2mg/ml 1ml) 1 mg Q6H PRN IV For Anxiety 04/14/17 13:00 04/21/17 12:59 Methylprednisolone Sodium Succinate (Solu-MEDROL) 40 mg DAILY IVP 04/15/17 09:00 05/15/17 08:59 Metronidazole 100 ml @ 100 mls/hr Q8HR IVPB 04/13/17 22:00 04/18/17 13:59 04/14/17 14:33 Nitroglycerin (Ntg) 1 patch Q24H TDERMAL 04/14/17 13:00 05/13/17 12:59 04/14/17 13:41 Ondansetron HCl (Zofran) 4 mg Q6H PRN IVP Nausea & Vomiting 04/13/17 18:00 05/11/17 17:59 Quetiapine Fumarate (SEROquel) 25 mg Q12HR ORAL 04/14/17 13:30 05/14/17 13:29 Vancomycin HCl (Vanco rx to dose) 1 ea DAILY PRN MISC . 04/14/17 09:00 05/11/17 11:29 NAHUN SAGE Apr 14, 2017 22:10
[2017-04-14] MEDS ORDERED: cefTRIAXone 1 GM in D5W 50 ML IVPB SCH (22:15)
[2017-04-15] VITALS: BP 112/64
[2017-04-15] MEDS: cefTRIAXone 1 GM in NS 55 ML IVPB SCH ×2 (00:24→23:44)
[2017-04-15 04:00] VITALS: BP 128/70
[2017-04-15] MEDS: D5 1/2NS w/KCl 40meq 1000ml 1,000 ML IV SCH (05:38)
[2017-04-15] MEDS: NovoLOG Insulin Flexpen SUBQ SCH ×7 (06:05→21:50)
[2017-04-15 08:00] VITALS: BP 132/70
[2017-04-15] MEDS: Heparin 5000 units/ml inj SUBQ SCH ×2 (09:00→21:00)
[2017-04-15] MEDS: Levemir Flexpen SUBQ SCH ×2 (09:00→18:29)
[2017-04-15] MEDS ORDERED: Levemir Flexpen SUBQ SCH (09:00)
[2017-04-15] MEDS: Solu-MEDROL 125mg Inj IVP SCH (10:22)
[2017-04-15 12:00] VITALS: BP 139/76
--- NOTE | 2017-04-15 12:05 | Neurology Progress Note ---
Interim History Interim History ROS Limited/Unobtainable: No Objective Physical Exam Last Vital Signs Date Time Temp Pulse Resp B/P (MAP) Pulse Ox O2 Delivery O2 Flow Rate FiO2 04/15/17 08:00 97.7 83 20 132/70 99 97.7 04/15/17 06:36 Nasal Cannula 2.0 04/14/17 20:20 28 Laboratory Tests Test 04/14/17 12:40 Lactic Acid Level 3.30 mmol/L (0.66-2.22) H Impression/Recommendations Problems: (1) encephalopathy,toxic metabolic (2) r/o nonconvulsive sz activity (3) Multiple organ failure (4) Liver cirrhosis (5) UTI (urinary tract infection) Status: unchanged Recommendations # [id number] PADMINI CUEVAS Apr 15, 2017 12:05
[2017-04-15 13:18] LABS: HEMATOCRIT 28.2 % (42.0-52.0); HEMOGLOBIN 9.9 G/DL (14.2-18.0); MEAN CORPUSCULAR VOLUME 100 FL (80-99); PLATELET COUNT 99 K/UL (150-450); RED BLOOD COUNT 2.83 M/UL (4.70-6.10); RED CELL DISTRIBUTION WIDTH 13.8 % (11.6-14.8); WHITE BLOOD COUNT 12.7 K/UL (4.8-10.8)
[2017-04-15 13:27] LABS: INR 1.4 (0.9-1.1)
[2017-04-15 13:34] LABS: ALANINE AMINOTRANSFERASE 126 U/L (12-78); ALBUMIN/GLOBULIN RATIO 0.6 (1.0-2.7); ALKALINE PHOSPHATASE 168 U/L (46-116); ANION GAP 13 mmol/L (5-15); ASPARTATE AMINO TRANSFERASE 136 U/L (15-37); BILIRUBIN,TOTAL 10.9 MG/DL (0.2-1.0); BLOOD UREA NITROGEN 79 mg/dL (7-18); CALCIUM 6.9 MG/DL (8.5-10.1); CARBON DIOXIDE 24 MMOL/L (21-32); CHLORIDE 124 MMOL/L (98-107); CREATININE 3.9 MG/DL (0.55-1.30); PHOSPHORUS 2.7 MG/DL (2.5-4.9); POTASSIUM 2.9 MMOL/L (3.5-5.1)
[2017-04-15 13:35] LABS: SODIUM 162 MMOL/L (136-145)
[2017-04-15 13:41] LABS: BILIRUBIN,DIRECT 8.8 MG/DL (0.0-0.3)
[2017-04-15] MEDS ORDERED: Thiamine HCl 100 MG in NS 55 ML IVPB SCH (14:00)
--- NOTE | 2017-04-15 14:21 | Pulmonology Progress Note ---
Assessment/Plan Problems: (1) Multiple organ failure (2) encephalopathy,toxic metabolic (3) Liver cirrhosis (4) Renal failure Assessment/Plan improving slightly check electrolytes might not need HD Subjective ROS Limited/Unobtainable: No Constitutional: Reports: no symptoms HEENT: Repors: no symptoms Respiratory: Reports: no symptoms Allergies: Coded Allergies: ASPIRIN (Verified Allergy, Unknown, 03/12/17) Objective Last 24 Hour Vital Signs Date Time Temp Pulse Resp B/P (MAP) Pulse Ox O2 Delivery O2 Flow Rate FiO2 04/15/17 12:00 97.3 81 20 139/76 98 97.3 04/15/17 08:00 97.7 83 20 132/70 99 97.7 04/15/17 06:36 Nasal Cannula 2.0 04/15/17 06:36 99 Nasal Cannula 2.0 04/15/17 06:36 88 16 Nasal Cannula 2.0 04/15/17 04:00 97.4 82 20 128/70 99 Nasal Cannula 2.0 97.4 04/15/17 00:00 97.7 85 20 112/64 98 97.7 04/14/17 20:20 Nasal Cannula 2.0 28 04/14/17 20:20 78 18 Nasal Cannula 2.0 28 04/14/17 20:20 99 Nasal Cannula 2.0 28 04/14/17 20:00 97.7 85 22 100/64 100 97.7 Intake and Output 04/14/17 04/15/17 19:00 07:00 Intake Total 525 ml 655 ml Output Total 1800 ml 1250 ml Balance -1275 ml -595 ml IV Total 525 ml 655 ml Output Urine Total 1800 ml 1250 ml # Voids 2 General Appearance: WD/WN HEENT: normocephalic, atraumatic Respiratory/Chest: chest wall non-tender, lungs clear Cardiovascular: normal peripheral pulses, normal rate Lymphatic: no neck adenopathy Laboratory Tests 04/15/17 12:50: White Blood Count 12.7H, Red Blood Count 2.83L, Hemoglobin 9.9L, Hematocrit 28.2L, Mean Corpuscular Volume 100H, Mean Corpuscular Hemoglobin 35.1H, Mean Corpuscular Hemoglobin Concent 35.2, Red Cell Distribution Width 13.8, Platelet Count 99L, Mean Platelet Volume 9.3, Neutrophils (%) (Auto) , Lymphocytes (%) ( Auto) , Monocytes (%) (Auto) , Eosinophils (%) (Auto) , Basophils (%) (Auto) , Differential Total Cells Counted 100, Neutrophils % (Manual) 95H, Lymphocytes % (Manual) 2L, Monocytes % (Manual) 3, Eosinophils % (Manual) 0, Basophils % ( Manual) 0, Band Neutrophils 0, Platelet Estimate DecreasedL, Platelet Morphology Normal, Macrocytosis 1+, Prothrombin Time 15.0H, Prothromb Time International Ratio 1.4H, Activated Partial Thromboplast Time 34H, Sodium Level 162*H, Potassium Level 2.9L, Chloride Level 124H, Carbon Dioxide Level 24, Anion Gap 13, Blood Urea Nitrogen 79H, Creatinine 3.9H, Estimat Glomerular Filtration Rate 16.3, Glucose Level 96#, Hemoglobin A1c 8.0H, Uric Acid 12.6H, Calcium Level 6.9L, Phosphorus Level 2.7, Magnesium Level 1.7L, Total Bilirubin 10.9H, Direct Bilirubin 8.8H, Aspartate Amino Transf (AST/SGOT) 136H, Alanine Aminotransferase (ALT/SGPT) 126H, Alkaline Phosphatase 168H, Ammonia 109H, Pro-B -Type Natriuretic Peptide 1066H, Total Protein 5.5L, Albumin 2.0L, Globulin 3.5 , Albumin/Globulin Ratio 0.6L Current Medications Medications (Trade) Dose Ordered Sig/Jocelyne Route PRN Reason Start Time Stop Time Status Last Admin Dose Admin Acetaminophen (Tylenol) 650 mg Q4H PRN ORAL fever>100.5 04/13/17 18:30 05/11/17 10:29 Albuterol/ Ipratropium (Albuterol/ Ipratropium) 3 ml Q4H PRN HHN Shortness of Breath 04/13/17 18:00 04/16/17 17:59 Allopurinol (Allopurinol) 300 mg DAILY ORAL 04/15/17 09:00 05/15/17 08:59 04/15/17 10:14 Ceftriaxone Sodium 1 gm/ Sodium Chloride 55 ml @ 110 mls/hr Q24H IVPB 04/15/17 00:15 04/22/17 00:14 04/15/17 00:24 Dextrose 1,000 ml @ 100 mls/hr Q10H IV 04/15/17 14:15 05/15/17 14:14 Dextrose (Dextrose 50%) STAT PRN IV Hypoglycemia 04/14/17 13:30 05/14/17 13:29 04/15/17 05:59 Ergocalciferol (Drisdol) 50,000 intlu QWEEK ORAL 04/20/17 09:00 05/13/17 08:59 Folic Acid (Folate) 5 mg DAILY ORAL 04/14/17 09:00 05/13/17 12:59 04/15/17 10:14 Haloperidol Lactate (Haldol) 5 mg Q6H PRN IM Agitation 04/14/17 13:00 05/14/17 12:59 Heparin Sodium (Porcine) (Heparin 5000 units/ml) 5,000 units EVERY 12 HOURS SUBQ 04/13/17 21:00 05/11/17 20:59 Insulin Aspart (NovoLOG) BEFORE MEALS AND HS SUBQ 04/14/17 16:30 05/14/17 16:29 04/14/17 23:04 Insulin Aspart (NovoLOG) 15 units NOVOTIAC SUBQ 04/14/17 18:30 05/14/17 18:29 04/14/17 19:37 Insulin Detemir (Levemir) 23 units BID SUBQ 04/14/17 18:30 05/14/17 18:29 04/14/17 19:36 Lansoprazole (Prevacid) 30 mg BID ORAL 04/14/17 18:00 05/14/17 17:59 04/15/17 10:14 Lorazepam (Ativan 2mg/ml 1ml) 1 mg Q6H PRN IV For Anxiety 04/14/17 13:00 04/21/17 12:59 Methylprednisolone Sodium Succinate (Solu-MEDROL) 40 mg DAILY IVP 04/15/17 09:00 05/15/17 08:59 04/15/17 10:22 Metronidazole 100 ml @ 100 mls/hr Q12HR IVPB 04/15/17 09:00 04/22/17 08:59 04/15/17 10:13 Nitroglycerin (Ntg) 1 patch Q24H TDERMAL 04/14/17 13:00 05/13/17 12:59 04/14/17 13:41 Ondansetron HCl (Zofran) 4 mg Q6H PRN IVP Nausea & Vomiting 04/13/17 18:00 05/11/17 17:59 Potassium Chloride 40 meq/ Dextrose 520 ml @ 130 mls/hr ONCE ONCE IVPB 04/15/17 15:00 04/15/17 18:59 Quetiapine Fumarate (SEROquel) 25 mg Q12HR ORAL 04/14/17 13:30 05/14/17 13:29 04/15/17 10:13 Thiamine HCl 100 mg/Sodium Chloride 56 ml @ 112 mls/hr Q24H IVPB 04/15/17 14:00 05/15/17 13:59 BECK CEDENO Apr 15, 2017 14:21
[2017-04-15] MEDS ORDERED: Thiamine HCl 100mg/ml 2 ml Inj ONE (14:37)
[2017-04-15] MEDS: Nitroglycerin Patch 0.4mg TDERMAL SCH (14:46)
[2017-04-15 16:00] VITALS: BP 132/75
--- NOTE | 2017-04-15 16:53 | Nephrology Progress Note ---
Assessment/Plan Problem List: (1) Severe sepsis (2) Hypotension (3) Renal failure Assessment: acute on chronic (4) Hypothermia (5) Elevated LFTs (6) Hyperbilirubinemia Assessment Acute renal failure Cr lowering ? Underlying CKD Low BP , Septic Shock Acute encephalopathy Lice infestation High LFTs and Jaundice HypoThermia UTI Plan steroids- Fluids D5w KCL IV Antibiotics NPO Monitor renal parameters avoid Nephrotoxics folate Ergocalciferol Echo 55% EjFx discussed dialysis - refuses- ability to make decisions?? Subjective ROS Limited/Unobtainable: No Constitutional: Reports: malaise, weakness Objective Objective Last 24 Hour Vital Signs Date Time Temp Pulse Resp B/P (MAP) Pulse Ox O2 Delivery O2 Flow Rate FiO2 04/15/17 16:00 97.3 85 20 132/75 98 97.3 04/15/17 14:46 139/76 04/15/17 12:00 97.3 81 20 139/76 98 97.3 04/15/17 08:00 97.7 83 20 132/70 99 97.7 04/15/17 06:36 Nasal Cannula 2.0 04/15/17 06:36 99 Nasal Cannula 2.0 04/15/17 06:36 88 16 Nasal Cannula 2.0 04/15/17 04:00 97.4 82 20 128/70 99 Nasal Cannula 2.0 97.4 04/15/17 00:00 97.7 85 20 112/64 98 97.7 04/14/17 20:20 Nasal Cannula 2.0 28 04/14/17 20:20 78 18 Nasal Cannula 2.0 28 04/14/17 20:20 99 Nasal Cannula 2.0 28 04/14/17 20:00 97.7 85 22 100/64 100 97.7 Intake and Output 04/14/17 04/15/17 19:00 07:00 Intake Total 525 ml 655 ml Output Total 1800 ml 1250 ml Balance -1275 ml -595 ml IV Total 525 ml 655 ml Output Urine Total 1800 ml 1250 ml # Voids 2 Laboratory Tests 04/15/17 12:50: White Blood Count 12.7H, Red Blood Count 2.83L, Hemoglobin 9.9L, Hematocrit 28.2L, Mean Corpuscular Volume 100H, Mean Corpuscular Hemoglobin 35.1H, Mean Corpuscular Hemoglobin Concent 35.2, Red Cell Distribution Width 13.8, Platelet Count 99L, Mean Platelet Volume 9.3, Neutrophils (%) (Auto) , Lymphocytes (%) ( Auto) , Monocytes (%) (Auto) , Eosinophils (%) (Auto) , Basophils (%) (Auto) , Differential Total Cells Counted 100, Neutrophils % (Manual) 95H, Lymphocytes % (Manual) 2L, Monocytes % (Manual) 3, Eosinophils % (Manual) 0, Basophils % ( Manual) 0, Band Neutrophils 0, Platelet Estimate DecreasedL, Platelet Morphology Normal, Macrocytosis 1+, Prothrombin Time 15.0H, Prothromb Time International Ratio 1.4H, Activated Partial Thromboplast Time 34H, Sodium Level 162*H, Potassium Level 2.9L, Chloride Level 124H, Carbon Dioxide Level 24, Anion Gap 13, Blood Urea Nitrogen 79H, Creatinine 3.9H, Estimat Glomerular Filtration Rate 16.3, Glucose Level 96#, Hemoglobin A1c 8.0H, Uric Acid 12.6H, Calcium Level 6.9L, Phosphorus Level 2.7, Magnesium Level 1.7L, Total Bilirubin 10.9H, Direct Bilirubin 8.8H, Aspartate Amino Transf (AST/SGOT) 136H, Alanine Aminotransferase (ALT/SGPT) 126H, Alkaline Phosphatase 168H, Ammonia 109H, Pro-B -Type Natriuretic Peptide 1066H, Total Protein 5.5L, Albumin 2.0L, Globulin 3.5 , Albumin/Globulin Ratio 0.6L Height (Feet): 5 Height (Inches): 7.00 Weight (Pounds): 237 General Appearance: no apparent distress, lethargic EENT: scleral icterus Respiratory/Chest: decreased breath sounds Abdomen: distended Objective edema ANTON LIZAMA Apr 15, 2017 16:53
--- NOTE | 2017-04-15 20:30 | Consultation ---
DATE OF CONSULTATION: 04/15/2017 ADDENDUM REFERRING PHYSICIAN: Lee Tai M.D. DISCUSSION: The patient has the patient has persistent verbal unresponsiveness with fluctuating level of consciousness, most likely related to significant underlying metabolic derangement in the setting of sepsis. With a history of previous seizure disorder and observed occasional intermittent generalized jerks, assessment with EEG will be requested. I will request the patient's treatment to include thiamine 100 mg daily. Continue with a sedation as necessary to address the issue of delirium. Continue with symptomatic treatment. Grayson Lisa Mcbride DR: JOHN JOB#: [id number] CC:
[2017-04-15 21:00] VITALS: BP 113/68
--- NOTE | 2017-04-15 21:00 | Progress Note ---
DATE: 04/15/2017 SUBJECTIVE: The patient is calm and asleep, was agitated all night. Poor insight and judgment into his mental condition. MENTAL STATUS EXAMINATION: The patient is alert and oriented times self, place, and situation he is in. Mood is agitated. Affect is constricted, congruent with mood. Thought process is concrete. Thought content, no suicidal or homicidal ideation. ASSESSMENT: 1. Schizophrenia, chronic paranoid type. 2. Encephalopathy. PLAN: We will continue the current medications. Provide the patient with supportive therapy and reality orientation. Aly De Santiago M.D. DR: SAJI JOB#: [id number] CC:
--- NOTE | 2017-04-15 22:03 | General Progress Note ---
Assessment/Plan Problem List: (1) Diabetes mellitus out of control ICD Codes: E11.65 - Type 2 diabetes mellitus with hyperglycemia SNOMED: 29810085, 525443676 (2) Altered level of consciousness ICD Codes: R40.4 - Transient alteration of awareness SNOMED: 7637875 (3) Elevated LFTs ICD Codes: R79.89 - Other specified abnormal findings of blood chemistry SNOMED: 200791804, 636462931 (4) Lice infestation ICD Codes: B85.2 - Pediculosis, unspecified SNOMED: 632076168 (5) Liver cirrhosis ICD Codes: K74.60 - Unspecified cirrhosis of liver SNOMED: 18302803 Assessment/Plan reduce Levemir to 14 units bid reduce Novolog to 6 units ac tid continue NISS Subjective ROS Limited/Unobtainable: Yes Allergies: Coded Allergies: ASPIRIN (Verified Allergy, Unknown, 03/12/17) Subjective events noted - interval notes reviewed Objective Last 24 Hour Vital Signs Date Time Temp Pulse Resp B/P (MAP) Pulse Ox O2 Delivery O2 Flow Rate FiO2 04/15/17 21:00 97.1 91 20 113/68 98 97.1 04/15/17 16:00 97.3 85 20 132/75 98 97.3 04/15/17 14:46 139/76 04/15/17 12:00 97.3 81 20 139/76 98 97.3 04/15/17 08:00 97.7 83 20 132/70 99 97.7 04/15/17 06:36 Nasal Cannula 2.0 04/15/17 06:36 99 Nasal Cannula 2.0 04/15/17 06:36 88 16 Nasal Cannula 2.0 04/15/17 04:00 97.4 82 20 128/70 99 Nasal Cannula 2.0 97.4 04/15/17 00:00 97.7 85 20 112/64 98 97.7 Intake and Output 04/14/17 04/15/17 19:00 07:00 Intake Total 525 ml 655 ml Output Total 1800 ml 1250 ml Balance -1275 ml -595 ml IV Total 525 ml 655 ml Output Urine Total 1800 ml 1250 ml # Voids 2 Laboratory Tests 04/15/17 12:50: White Blood Count 12.7H, Red Blood Count 2.83L, Hemoglobin 9.9L, Hematocrit 28.2L, Mean Corpuscular Volume 100H, Mean Corpuscular Hemoglobin 35.1H, Mean Corpuscular Hemoglobin Concent 35.2, Red Cell Distribution Width 13.8, Platelet Count 99L, Mean Platelet Volume 9.3, Neutrophils (%) (Auto) , Lymphocytes (%) ( Auto) , Monocytes (%) (Auto) , Eosinophils (%) (Auto) , Basophils (%) (Auto) , Differential Total Cells Counted 100, Neutrophils % (Manual) 95H, Lymphocytes % (Manual) 2L, Monocytes % (Manual) 3, Eosinophils % (Manual) 0, Basophils % ( Manual) 0, Band Neutrophils 0, Platelet Estimate DecreasedL, Platelet Morphology Normal, Macrocytosis 1+, Prothrombin Time 15.0H, Prothromb Time International Ratio 1.4H, Activated Partial Thromboplast Time 34H, Sodium Level 162*H, Potassium Level 2.9L, Chloride Level 124H, Carbon Dioxide Level 24, Anion Gap 13, Blood Urea Nitrogen 79H, Creatinine 3.9H, Estimat Glomerular Filtration Rate 16.3, Glucose Level 96#, Hemoglobin A1c 8.0H, Uric Acid 12.6H, Calcium Level 6.9L, Phosphorus Level 2.7, Magnesium Level 1.7L, Total Bilirubin 10.9H, Direct Bilirubin 8.8H, Aspartate Amino Transf (AST/SGOT) 136H, Alanine Aminotransferase (ALT/SGPT) 126H, Alkaline Phosphatase 168H, Ammonia 109H, C- Reactive Protein, Quantitative 27.2H, Pro-B-Type Natriuretic Peptide 1066H, Total Protein 5.5L, Albumin 2.0L, Globulin 3.5, Albumin/Globulin Ratio 0.6L Height (Feet): 5 Height (Inches): 7.00 Weight (Pounds): 237 General Appearance: no apparent distress Neck: normal alignment Cardiovascular: normal rate Respiratory/Chest: decreased breath sounds Abdomen: normal bowel sounds Edema: 1+ Arm (L), 1+ Arm (R), 1+ Leg (L), 1+ Leg (R), 1+ Pedal (L), 1+ Pedal ( R), 1+ Generalized Objective Current Medications Medications (Trade) Dose Ordered Sig/Jocelyne Route PRN Reason Start Time Stop Time Status Last Admin Dose Admin Acetaminophen (Tylenol) 650 mg Q4H PRN ORAL fever>100.5 04/13/17 18:30 3/27/18 10:29 Albuterol/ Ipratropium (Albuterol/ Ipratropium) 3 ml Q4H PRN HHN Shortness of Breath 04/13/17 18:00 04/16/17 17:59 Allopurinol (Allopurinol) 300 mg DAILY ORAL 04/15/17 09:00 05/15/17 08:59 04/15/17 10:14 Ceftriaxone Sodium 1 gm/ Sodium Chloride 55 ml @ 110 mls/hr Q24H IVPB 04/15/17 00:15 04/22/17 00:14 04/15/17 00:24 Dextrose 1,000 ml @ 100 mls/hr Q10H IV 04/15/17 14:15 05/15/17 14:14 04/15/17 14:49 Dextrose (Dextrose 50%) STAT PRN IV Hypoglycemia 04/14/17 13:30 05/14/17 13:29 04/15/17 05:59 Ergocalciferol (Drisdol) 50,000 intlu QWEEK ORAL 04/20/17 09:00 05/13/17 08:59 Folic Acid (Folate) 5 mg DAILY ORAL 04/14/17 09:00 05/13/17 12:59 04/15/17 10:14 Haloperidol Lactate (Haldol) 5 mg Q6H PRN IM Agitation 04/14/17 13:00 05/14/17 12:59 Heparin Sodium (Porcine) (Heparin 5000 units/ml) 5,000 units EVERY 12 HOURS SUBQ 04/13/17 21:00 05/11/17 20:59 Insulin Aspart (NovoLOG) BEFORE MEALS AND HS SUBQ 04/14/17 16:30 05/14/17 16:29 04/15/17 21:50 Insulin Aspart (NovoLOG) 15 units NOVOTIAC SUBQ 04/14/17 18:30 05/14/17 18:29 04/14/17 19:37 Insulin Detemir (Levemir) 23 units BID SUBQ 04/14/17 18:30 05/14/17 18:29 04/15/17 18:29 Lansoprazole (Prevacid) 30 mg BID ORAL 04/14/17 18:00 05/14/17 17:59 04/15/17 10:14 Lorazepam (Ativan 2mg/ml 1ml) 1 mg Q6H PRN IV For Anxiety 04/14/17 13:00 04/21/17 12:59 Methylprednisolone Sodium Succinate (Solu-MEDROL) 40 mg DAILY IVP 04/15/17 09:00 05/15/17 08:59 04/15/17 10:22 Metronidazole 100 ml @ 100 mls/hr Q12HR IVPB 04/15/17 09:00 04/22/17 08:59 04/15/17 21:51 Nitroglycerin (Ntg) 1 patch Q24H TDERMAL 04/14/17 13:00 05/13/17 12:59 04/15/17 14:46 Ondansetron HCl (Zofran) 4 mg Q6H PRN IVP Nausea & Vomiting 04/13/17 18:00 05/11/17 17:59 Potassium Chloride (K-Dur) 20 meq TWICE A DAY ORAL 04/15/17 18:00 04/16/17 17:59 Quetiapine Fumarate (SEROquel) 25 mg Q12HR ORAL 04/14/17 13:30 05/14/17 13:29 04/15/17 10:13 Thiamine HCl 100 mg/Dextrose 56 ml @ 123.002 mls/hr Q24HRS IVPB 04/16/17 16:00 05/16/17 15:59 Item Value Date Time Bedside Blood Glucose 191 mg/dl H 04/15/17 2150 Bedside Blood Glucose 179 mg/dl H 04/15/17 1845 Bedside Blood Glucose 95 mg/dl 04/15/17 1150 Bedside Blood Glucose 83 mg/dl 04/15/17 0900 Bedside Blood Glucose 58 mg/dl L 04/15/17 0624 ROSALINDA VELASCO 1, 2018 22:03
--- NOTE | 2017-04-15 22:15 | Consultation ---
DATE OF CONSULTATION: 04/15/2017 NOTE: INCOMPLETE DICTATION NEUROLOGICAL CONSULTATION CONSULTING PHYSICIAN: Grayson Mcbride M.D. REQUESTING PHYSICIAN: Lee Tai M.D. HISTORY OF PRESENT ILLNESS: This is a 51-year-old man who is seen in neurological consultation to evaluate persistent changes in mental status. The patient was unable to provide with the history. This was compiled from medical records as well as my conversation with the medical staff. Known that the patient was brought by paramedics after he was found to be on the streets drinking, several cans around him. Bystander called 911 and he was brought to this hospital. He was moaning and groaning, but was not cooperative. He was quite agitated. He was admitted as a Hari Callejas. He was very disheveled and was not following commands. He on his entire body with skin rash. His EKG reveals an evidence of bradycardia, normal sinus rhythm, heart rate of 50. No PVC. No ectopies. Chest x-ray, no acute disease noted. Temperature on admission 86, heart rate of 55, blood pressure 91/49, and respiration rate of 15. The patient was given Ativan, Haldol, and Benadryl shot. His initial workup included CT scan of the brain. This was negative. Spinal tap was obtained. No evidence of meningeal lymphoma. While in the emergency room, he was placed in heating blankets. There was no evidence of hypoxia. There was no evidence of tachypnea. His initial laboratory work included an electrolyte panel with sodium 149, elevated anion gap of 27, BUN of 77, creatinine 5.3, calcium 11.0, elevated total bilirubin 16.0, and direct bilirubin 12.5 with AST 464, ALT 299, and alkaline phosphatase 291. Elevated BNP 180. Normal troponin. B12, folate, and normal thyroid function. Elevated triglycerides of 244. Repeat BNP reflected elevation of 1734. Lactic acid 2.80 and uric acid 15.7. Normal ammonia level. Repeat calcium was 6.8. Blood sugar went up to 505. Potassium down to 2.6 and sodium 150. Toxicology panel was negative. Urinalysis, 10 to 15 WBCs, 1+ leukocyte esterase, 1+ ketones and 2+ protein. CSF study normal except total protein of 52. During further hospitalization, in the first three days, he was nonverbal, nonresponsive, becoming somewhat more responsive, but still agitated and restless in the last day or two. His ultrasound of the abdomen, hepatomegaly with fatty infiltration, borderline splenomegaly. Repeat chest x-ray, bilateral basilar atelectasis, mild interstitial disease not excluded hypoventilatory examination. A 2D echocardiogram, ejection fraction 55% to 60%. No mural thrombi noted. He is maintained on IV fluids and antibiotics. He is treated for underlying septic shock with hypothermia and leukocytosis and strep UTI and liver failure. Now with persistent unresponsiveness, he was referred for neurological opinion. He is described as refusing food and procedures. There is a sitter in the room for observation. PAST MEDICAL HISTORY: Unavailable. MEDICATIONS: Treatment prior to admission, presumably atenolol and multivitamin. Current treatment include IV fluids, antibiotics, subcutaneous heparin, insulin p.r.n., Solu-Medrol, lorazepam p.r.n., pantoprazole, Seroquel 25 mg b.i.d., allopurinol, and Haldol p.r.n. ALLERGIES: Aspirin. SOCIAL HISTORY: Presumably homeless with alcohol abuse. FAMILY HISTORY: Unavailable. REVIEW OF SYSTEMS: Unable to obtain due to the patient's status. The patient had a previous assessment at emergency room on 03/16/2017. He was complaining of also palpitation, documented to have a supraventricular tachycardia reporting that he has frequent episodes of SVT. He admitted having alcohol abuse. There was suggestion of previous seizure disorder, although patient was not on anticonvulsants. PHYSICAL EXAMINATION: GENERAL: Ill-appearing man, lying in bed, sitter at bedside. VITAL SIGNS: Now stable, blood pressure 132/70 and temperature 97.7 degrees. HEENT: Head, normocephalic. There is no evidence of trauma. Dry lips. Dark lips. NECK: Neck is rigid in all directions. MUSCULOSKELETAL: No deformities noted. SKIN: Fading rash noted. MENTAL STATUS: The patient appears to be asleep, but on stimulation he opened eyes, does not follow instructions, but with further stimulation, he was able to open and close eyes and mouth on command. He was nonverbal, moaning and groaning without good eye contact. CRANIAL NERVE II: Pupils both responding to light and accommodation. Eyes, icteric. Extraocular movement full range. CRANIAL NERVE V: Normal corneal responses. CRANIAL NERVE VII: No gross asymmetry. CRANIAL NERVE VIII: Grossly normal hearing. CRANIAL NERVES IX THROUGH XII: Tongue is in midline. Speech assessment obtained, allowed him to have a pureed diet. MOTOR EXAMINATION: Diffuse rigidity predominantly both upper extremities, resisting with a good strength. Deep tendon reflexes depressed bilaterally. Plantar responses are mute. SENSORY EXAMINATION: No response to pin stimulation. IMPRESSION: 1. Persistent severe toxic metabolic encephalopathy related to underlying hepatorenal syndrome and sepsis. 2. Acute on chronic renal failure. 3. Alcoholic liver disease. Grayson Mcbride M.D. DR: JOHN JOB#: [id number] CC:
[2017-04-16 04:00] VITALS: BP 116/68
[2017-04-16] MEDS: NovoLOG Insulin Flexpen SUBQ SCH ×6 (05:57→22:11)
[2017-04-16 08:21] VITALS: BP 118/68
[2017-04-16] MEDS: Heparin 5000 units/ml inj SUBQ SCH ×2 (09:00→21:00)
[2017-04-16] MEDS ORDERED: Levemir Flexpen SUBQ SCH (09:00)
[2017-04-16 10:07] LABS: HEMATOCRIT 26.9 % (42.0-52.0); HEMOGLOBIN 9.1 G/DL (14.2-18.0); MEAN CORPUSCULAR VOLUME 101 FL (80-99); PLATELET COUNT 86 K/UL (150-450); RED BLOOD COUNT 2.67 M/UL (4.70-6.10); RED CELL DISTRIBUTION WIDTH 14.1 % (11.6-14.8); WHITE BLOOD COUNT 10.8 K/UL (4.8-10.8)
[2017-04-16 10:14] LABS: ALANINE AMINOTRANSFERASE 104 U/L (12-78); ALBUMIN 1.8 G/DL (3.4-5.0); ALBUMIN/GLOBULIN RATIO 0.5 (1.0-2.7); ALKALINE PHOSPHATASE 173 U/L (46-116); ANION GAP 8 mmol/L (5-15); ASPARTATE AMINO TRANSFERASE 122 U/L (15-37); BILIRUBIN,TOTAL 9.1 MG/DL (0.2-1.0); BLOOD UREA NITROGEN 71 mg/dL (7-18); CALCIUM 6.7 MG/DL (8.5-10.1); CARBON DIOXIDE 27 MMOL/L (21-32); CHLORIDE 122 MMOL/L (98-107); CREATININE 3.2 MG/DL (0.55-1.30); PHOSPHORUS 3.5 MG/DL (2.5-4.9); POTASSIUM 3.8 MMOL/L (3.5-5.1); SODIUM 157 MMOL/L (136-145)
[2017-04-16] MEDS: Solu-MEDROL 125mg Inj IVP SCH (10:42)
--- NOTE | 2017-04-16 10:52 | Infectious Diseases Prog Note ---
Assessment/Plan Assessment/Plan ASSESSMENT AND PLAN: 1. sepsis, shock, hypothermia, leukocytosis, strep uti, etoh, liver failure - clinically improved, leukocytosis resolved - rocephin and flagyl x 5 days - check labs 2. Acute renal failure, elevated creatinine. 3. Anemia. 4. Ethyl alcohol dependency. 5. Anemia. 6. Allergy to aspirin. 7. Social history positive for ethyl alcohol. 8. Family history noncontributory. 9. MAR was noted. 10. Case discussed with RN. 11. Case discussed with Dr. Tai. 12. Continue treatment per primary consultants. 13. Overall poor prognosis. Subjective Constitutional: Reports: fatigue, other - more alert, Denies: fever Respiratory: Denies: shortness of breath Cardiovascular: Denies: chest pain Gastrointestinal/Abdominal: Denies: nausea, vomiting Genitourinary: Reports: other - + woodard Allergies: Coded Allergies: ASPIRIN (Verified Allergy, Unknown, 03/12/17) Objective Vital Signs Last 24 Hour Vital Signs Date Time Temp Pulse Resp B/P (MAP) Pulse Ox O2 Delivery O2 Flow Rate FiO2 04/16/17 08:21 98.2 95 16 118/68 96 Room Air 98.2 04/16/17 04:00 98.0 93 20 116/68 96 98.0 04/16/17 00:00 Nasal Cannula 2.0 04/15/17 21:00 97.1 91 20 113/68 98 97.1 04/15/17 20:00 Nasal Cannula 2.0 04/15/17 18:48 98 Nasal Cannula 2.0 28 04/15/17 18:48 Nasal Cannula 2.0 28 04/15/17 18:48 85 16 Nasal Cannula 2.0 04/15/17 16:00 97.3 85 20 132/75 98 97.3 04/15/17 14:46 139/76 04/15/17 12:00 97.3 81 20 139/76 98 97.3 Height (Feet): 5 Height (Inches): 7.00 Weight (Pounds): 241 General Appearance: no acute distress HEENT: normocephalic, atraumatic, EOMI, supple, other - + icterus Respiratory/Chest: lungs clear, normal breath sounds, no respiratory distress Cardiovascular: normal rate, regular rhythm, no gallop/murmur Abdomen: normal bowel sounds, soft, non tender Objective chest x-ray - no pna (report noted) us abdomen - fatty liver/hm Laboratory Tests Test 04/15/17 12:50 04/16/17 09:15 White Blood Count 12.7 K/UL (4.8-10.8) H 10.8 K/UL (4.8-10.8) Red Blood Count 2.83 M/UL (4.70-6.10) L 2.67 M/UL (4.70-6.10) L Hemoglobin 9.9 G/DL (14.2-18.0) L 9.1 G/DL (14.2-18.0) L Hematocrit 28.2 % (42.0-52.0) L 26.9 % (42.0-52.0) L Mean Corpuscular Volume 100 FL (80-99) H 101 FL (80-99) H Mean Corpuscular Hemoglobin 35.1 PG (27.0-31.0) H 34.0 PG (27.0-31.0) H Mean Corpuscular Hemoglobin Concent 35.2 G/DL (32.0-36.0) 33.7 G/DL (32.0-36.0) Red Cell Distribution Width 13.8 % (11.6-14.8) 14.1 % (11.6-14.8) Platelet Count 99 K/UL (150-450) L 86 K/UL (150-450) L Mean Platelet Volume 9.3 FL (6.5-10.1) 11.0 FL (6.5-10.1) H Neutrophils (%) (Auto) % (45.0-75.0) % (45.0-75.0) Lymphocytes (%) (Auto) % (20.0-45.0) % (20.0-45.0) Monocytes (%) (Auto) % (1.0-10.0) % (1.0-10.0) Eosinophils (%) (Auto) % (0.0-3.0) % (0.0-3.0) Basophils (%) (Auto) % (0.0-2.0) % (0.0-2.0) Differential Total Cells Counted 100 Neutrophils % (Manual) 95 % (45-75) H Pending Lymphocytes % (Manual) 2 % (20-45) L Pending Monocytes % (Manual) 3 % (1-10) Eosinophils % (Manual) 0 % (0-3) Basophils % (Manual) 0 % (0-2) Band Neutrophils 0 % (0-8) Platelet Estimate Decreased L Pending Platelet Morphology Normal Pending Macrocytosis 1+ Prothrombin Time 15.0 SEC (9.30-11.50) H Prothromb Time International Ratio 1.4 (0.9-1.1) H Activated Partial Thromboplast Time 34 SEC (23-33) H Sodium Level 162 MMOL/L (136-145) *H 157 MMOL/L (136-145) H Potassium Level 2.9 MMOL/L (3.5-5.1) L 3.8 MMOL/L (3.5-5.1) Chloride Level 124 MMOL/L (98-107) H 122 MMOL/L (98-107) H Carbon Dioxide Level 24 MMOL/L (21-32) 27 MMOL/L (21-32) Anion Gap 13 mmol/L (5-15) 8 mmol/L (5-15) Blood Urea Nitrogen 79 mg/dL (7-18) H 71 mg/dL (7-18) H Creatinine 3.9 MG/DL (0.55-1.30) H 3.2 MG/DL (0.55-1.30) H Estimat Glomerular Filtration Rate 16.3 mL/min (>60) 20.5 mL/min (>60) Glucose Level 96 MG/DL (74-106) # 145 MG/DL (74-106) H Hemoglobin A1c 8.0 % (4.3-6.0) H Uric Acid 12.6 MG/DL (2.6-7.2) H 10.8 MG/DL (2.6-7.2) H Calcium Level 6.9 MG/DL (8.5-10.1) L 6.7 MG/DL (8.5-10.1) L Phosphorus Level 2.7 MG/DL (2.5-4.9) 3.5 MG/DL (2.5-4.9) Magnesium Level 1.7 MG/DL (1.8-2.4) L 1.5 MG/DL (1.8-2.4) L Total Bilirubin 10.9 MG/DL (0.2-1.0) H 9.1 MG/DL (0.2-1.0) H Direct Bilirubin 8.8 MG/DL (0.0-0.3) H 7.0 MG/DL (0.0-0.3) H Aspartate Amino Transf (AST/SGOT) 136 U/L (15-37) H 122 U/L (15-37) H Alanine Aminotransferase (ALT/SGPT) 126 U/L (12-78) H 104 U/L (12-78) H Alkaline Phosphatase 168 U/L (46-116) H 173 U/L (46-116) H Ammonia 109 umol/L (11-32) H C-Reactive Protein, Quantitative 27.2 mg/dL (0.00-0.90) H Pro-B-Type Natriuretic Peptide 1066 pg/mL (0-125) H 633 pg/mL (0-125) H Total Protein 5.5 G/DL (6.4-8.2) L 5.3 G/DL (6.4-8.2) L Albumin 2.0 G/DL (3.4-5.0) L 1.8 G/DL (3.4-5.0) L Globulin 3.5 g/dL 3.5 g/dL Albumin/Globulin Ratio 0.6 (1.0-2.7) L 0.5 (1.0-2.7) L Current Medications Medications (Trade) Dose Ordered Sig/Jocelyne Route PRN Reason Start Time Stop Time Status Last Admin Dose Admin Acetaminophen (Tylenol) 650 mg Q4H PRN ORAL fever>100.5 04/13/17 18:30 05/11/17 10:29 Albuterol/ Ipratropium (Albuterol/ Ipratropium) 3 ml Q4H PRN HHN Shortness of Breath 04/13/17 18:00 04/16/17 17:59 Allopurinol (Allopurinol) 300 mg DAILY ORAL 04/15/17 09:00 05/15/17 08:59 04/15/17 10:14 Ceftriaxone Sodium 1 gm/ Sodium Chloride 55 ml @ 110 mls/hr Q24H IVPB 04/15/17 00:15 04/22/17 00:14 04/15/17 23:44 Dextrose 1,000 ml @ 100 mls/hr Q10H IV 04/15/17 14:15 05/15/17 14:14 04/16/17 10:44 Dextrose (Dextrose 50%) STAT PRN IV Hypoglycemia 04/14/17 13:30 05/14/17 13:29 04/15/17 05:59 Ergocalciferol (Drisdol) 50,000 intlu QWEEK ORAL 04/20/17 09:00 05/13/17 08:59 Folic Acid (Folate) 5 mg DAILY ORAL 04/14/17 09:00 05/13/17 12:59 04/15/17 10:14 Haloperidol Lactate (Haldol) 5 mg Q6H PRN IM Agitation 04/14/17 13:00 05/14/17 12:59 Heparin Sodium (Porcine) (Heparin 5000 units/ml) 5,000 units EVERY 12 HOURS SUBQ 04/13/17 21:00 05/11/17 20:59 Insulin Aspart (NovoLOG) BEFORE MEALS AND HS SUBQ 04/14/17 16:30 05/14/17 16:29 04/15/17 21:50 Insulin Aspart (NovoLOG) 6 units NOVOTIAC SUBQ 04/16/17 06:30 05/16/17 06:29 04/16/17 05:57 Insulin Detemir (Levemir) 14 units BID SUBQ 04/16/17 09:00 05/16/17 08:59 Lactulose (Cephulac) 30 gm THREE TIMES A DAY ORAL 04/16/17 13:00 05/16/17 12:59 Lansoprazole (Prevacid) 30 mg BID ORAL 04/14/17 18:00 05/14/17 17:59 04/15/17 10:14 Lorazepam (Ativan 2mg/ml 1ml) 1 mg Q6H PRN IV For Anxiety 04/14/17 13:00 04/21/17 12:59 Methylprednisolone Sodium Succinate (Solu-MEDROL) 40 mg DAILY IVP 04/15/17 09:00 05/15/17 08:59 04/16/17 10:42 Metronidazole 100 ml @ 100 mls/hr Q12HR IVPB 04/15/17 09:00 04/22/17 08:59 04/16/17 10:44 Nitroglycerin (Ntg) 1 patch Q24H TDERMAL 04/14/17 13:00 05/13/17 12:59 04/15/17 14:46 Ondansetron HCl (Zofran) 4 mg Q6H PRN IVP Nausea & Vomiting 04/13/17 18:00 05/11/17 17:59 Potassium Chloride (K-Dur) 20 meq TWICE A DAY ORAL 04/15/17 18:00 04/16/17 17:59 Quetiapine Fumarate (SEROquel) 25 mg Q12HR ORAL 04/14/17 13:30 05/14/17 13:29 04/15/17 10:13 Rifaximin (Xifaxan) 550 mg EVERY 12 HOURS ORAL 04/16/17 21:00 04/23/17 20:59 Thiamine HCl 100 mg/Dextrose 56 ml @ 123.002 mls/hr Q24HRS IVPB 04/16/17 16:00 05/16/17 15:59 NAHUN SAGE 2, 2018 10:52
[2017-04-16 11:04] VITALS: BP 117/67
--- NOTE | 2017-04-16 12:22 | Pulmonology Progress Note ---
Assessment/Plan Assessment/Plan ASSESSMENT persistent acute toxic metabolic encephalopathy ( due to hepatorenal syndrome, sepsis) acute hepatic encephalopathy acute renal failure alcoholic liver disease with liver cirrhosis Multiple organ failure sepsis with shock UTI with Strep elevated troponin single episode, liekly due to renal failure ETOH abuse DOOC anemia schizophrenia sacrococcyx unstageable pressure ulcer POA PLAN OF CARE [facility] floor persistent encephalopathy ( multifactorial, including hepatorenal syndrome, sepsis, now high ammonia) tox screen negative , LP negative CT head no acute IC pathology neuro eval and recommendations appreciated abx ID follows urine cx + Strep blood cx negative nephro follows creat trending down replace lytes as needed, avoid nephrotoxic renal US negative ? underlying CKD cardio follows for elevated troponin ECHO with pEF55% per cardio possible demand ischemia given elevated troponin and inferolateral ischemia on ECG however all other troponin negative, likely due to renal failure psych follows , psych meds regimen optimized GI eval appreciated started on lactulose and Rifaximin Thiamine and Folic acid Dobbhoff inserted, strict aspiration precautions, started TF stool OB monitor HH, transfuse prn anemia w/up noted trend LFT, ammonia hep panel endo follows, since not eating Levemir and premeal insulin stopped, continue SSI closely monitor BS with start of TF, may need to resume scheduled insulin [id number], not at goal wound care as per wound nurse recs DVT GI prophylaxis supportive care case discussed and evaluated by supervising physician Subjective Allergies: Coded Allergies: ASPIRIN (Verified Allergy, Unknown, 03/12/17) All Systems: reviewed and negative except above Subjective remains encephalopathic ammonia high creta trending down not eating Objective Last 24 Hour Vital Signs Date Time Temp Pulse Resp B/P (MAP) Pulse Ox O2 Delivery O2 Flow Rate FiO2 04/16/17 11:04 98.2 84 15 117/67 96 Nasal Cannula 98.2 04/16/17 08:21 98.2 95 16 118/68 96 Room Air 98.2 04/16/17 04:00 98.0 93 20 116/68 96 98.0 04/16/17 00:00 Nasal Cannula 2.0 04/15/17 21:00 97.1 91 20 113/68 98 97.1 04/15/17 20:00 Nasal Cannula 2.0 04/15/17 18:48 98 Nasal Cannula 2.0 28 04/15/17 18:48 Nasal Cannula 2.0 28 04/15/17 18:48 85 16 Nasal Cannula 2.0 04/15/17 16:00 97.3 85 20 132/75 98 97.3 04/15/17 14:46 139/76 Intake and Output 04/15/17 04/16/17 19:00 07:00 Intake Total 100 ml 1155 ml Output Total 1900 ml Balance -1800 ml 1155 ml IV Total 100 ml 1155 ml Output Urine Total 1900 ml General Appearance: other - somnolent, arousable HEENT: normocephalic, atraumatic Respiratory/Chest: decreased breath sounds Cardiovascular: normal rate Abdomen: soft, non tender - disgtended Extremities: pedal pulses normal, other - trace edema BLE Skin: other - sacrococcyx decub Neurologic/Psychiatric: other - somnolent, arousable, moves all extremities Laboratory Tests 04/15/17 12:50: White Blood Count 12.7H, Red Blood Count 2.83L, Hemoglobin 9.9L, Hematocrit 28.2L, Mean Corpuscular Volume 100H, Mean Corpuscular Hemoglobin 35.1H, Mean Corpuscular Hemoglobin Concent 35.2, Red Cell Distribution Width 13.8, Platelet Count 99L, Mean Platelet Volume 9.3, Neutrophils (%) (Auto) , Lymphocytes (%) ( Auto) , Monocytes (%) (Auto) , Eosinophils (%) (Auto) , Basophils (%) (Auto) , Differential Total Cells Counted 100, Neutrophils % (Manual) 95H, Lymphocytes % (Manual) 2L, Monocytes % (Manual) 3, Eosinophils % (Manual) 0, Basophils % ( Manual) 0, Band Neutrophils 0, Platelet Estimate DecreasedL, Platelet Morphology Normal, Macrocytosis 1+, Prothrombin Time 15.0H, Prothromb Time International Ratio 1.4H, Activated Partial Thromboplast Time 34H, Sodium Level 162*H, Potassium Level 2.9L, Chloride Level 124H, Carbon Dioxide Level 24, Anion Gap 13, Blood Urea Nitrogen 79H, Creatinine 3.9H, Estimat Glomerular Filtration Rate 16.3, Glucose Level 96#, Hemoglobin A1c 8.0H, Uric Acid 12.6H, Calcium Level 6.9L, Phosphorus Level 2.7, Magnesium Level 1.7L, Total Bilirubin 10.9H, Direct Bilirubin 8.8H, Aspartate Amino Transf (AST/SGOT) 136H, Alanine Aminotransferase (ALT/SGPT) 126H, Alkaline Phosphatase 168H, Ammonia 109H, C- Reactive Protein, Quantitative 27.2H, Pro-B-Type Natriuretic Peptide 1066H, Total Protein 5.5L, Albumin 2.0L, Globulin 3.5, Albumin/Globulin Ratio 0.6L 04/16/17 09:15: White Blood Count 10.8, Red Blood Count 2.67L, Hemoglobin 9.1L, Hematocrit 26.9L , Mean Corpuscular Volume 101H, Mean Corpuscular Hemoglobin 34.0H, Mean Corpuscular Hemoglobin Concent 33.7, Red Cell Distribution Width 14.1, Platelet Count 86L, Mean Platelet Volume 11.0H, Neutrophils (%) (Auto) , Lymphocytes (%) (Auto) , Monocytes (%) (Auto) , Eosinophils (%) (Auto) , Basophils (%) (Auto) , Differential Total Cells Counted 100, Neutrophils % (Manual) 88H, Lymphocytes % (Manual) 10L, Monocytes % (Manual) 2, Eosinophils % (Manual) 0, Basophils % ( Manual) 0, Band Neutrophils 0, Platelet Estimate DecreasedL, Platelet Morphology Normal, Macrocytosis 1+, Sodium Level 157H, Potassium Level 3.8, Chloride Level 122H, Carbon Dioxide Level 27, Anion Gap 8, Blood Urea Nitrogen 71H, Creatinine 3.2H, Estimat Glomerular Filtration Rate 20.5, Glucose Level 145H, Uric Acid 10.8H, Calcium Level 6.7L, Phosphorus Level 3.5, Magnesium Level 1.5L, Total Bilirubin 9.1H, Direct Bilirubin 7.0H, Aspartate Amino Transf (AST/SGOT) 122H, Alanine Aminotransferase (ALT/SGPT) 104H, Alkaline Phosphatase 173H, Pro-B-Type Natriuretic Peptide 633H, Total Protein 5.3L, Albumin 1.8L, Globulin 3.5, Albumin/Globulin Ratio 0.5L, Hypochromasia 1+, Anisocytosis 1+ Current Medications Medications (Trade) Dose Ordered Sig/Jocelyne Route PRN Reason Start Time Stop Time Status Last Admin Dose Admin Acetaminophen (Tylenol) 650 mg Q4H PRN ORAL fever>100.5 04/13/17 18:30 05/11/17 10:29 Albuterol/ Ipratropium (Albuterol/ Ipratropium) 3 ml Q4H PRN HHN Shortness of Breath 04/13/17 18:00 04/16/17 17:59 Allopurinol (Allopurinol) 300 mg DAILY ORAL 04/15/17 09:00 05/15/17 08:59 04/15/17 10:14 Ceftriaxone Sodium 1 gm/ Sodium Chloride 55 ml @ 110 mls/hr Q24H IVPB 04/15/17 00:15 04/22/17 00:14 04/15/17 23:44 Dextrose 1,000 ml @ 100 mls/hr Q10H IV 04/15/17 14:15 05/15/17 14:14 04/16/17 10:44 Dextrose (Dextrose 50%) STAT PRN IV Hypoglycemia 04/14/17 13:30 05/14/17 13:29 04/15/17 05:59 Ergocalciferol (Drisdol) 50,000 intlu QWEEK ORAL 04/20/17 09:00 05/13/17 08:59 Folic Acid (Folate) 5 mg DAILY ORAL 04/14/17 09:00 05/13/17 12:59 04/15/17 10:14 Haloperidol Lactate (Haldol) 5 mg Q6H PRN IM Agitation 04/14/17 13:00 05/14/17 12:59 Heparin Sodium (Porcine) (Heparin 5000 units/ml) 5,000 units EVERY 12 HOURS SUBQ 04/13/17 21:00 05/11/17 20:59 Insulin Aspart (NovoLOG) BEFORE MEALS AND HS SUBQ 04/14/17 16:30 05/14/17 16:29 04/15/17 21:50 Insulin Aspart (NovoLOG) 6 units NOVOTIAC SUBQ 04/16/17 06:30 05/16/17 06:29 04/16/17 05:57 Insulin Detemir (Levemir) 14 units BID SUBQ 04/16/17 09:00 05/16/17 08:59 Lactulose (Cephulac) 30 gm THREE TIMES A DAY ORAL 04/16/17 13:00 05/16/17 12:59 Lansoprazole (Prevacid) 30 mg BID ORAL 04/14/17 18:00 05/14/17 17:59 04/15/17 10:14 Lorazepam (Ativan 2mg/ml 1ml) 1 mg Q6H PRN IV For Anxiety 04/14/17 13:00 04/21/17 12:59 Magnesium Sulfate 100 ml @ 100 mls/hr Q1H IVPB 04/16/17 12:00 04/16/17 13:59 Methylprednisolone Sodium Succinate (Solu-MEDROL) 40 mg DAILY IVP 04/15/17 09:00 05/15/17 08:59 04/16/17 10:42 Metronidazole 100 ml @ 100 mls/hr Q12HR IVPB 04/15/17 09:00 04/22/17 08:59 04/16/17 10:44 Nitroglycerin (Ntg) 1 patch Q24H TDERMAL 04/14/17 13:00 05/13/17 12:59 04/15/17 14:46 Ondansetron HCl (Zofran) 4 mg Q6H PRN IVP Nausea & Vomiting 04/13/17 18:00 05/11/17 17:59 Potassium Chloride (K-Dur) 20 meq TWICE A DAY ORAL 04/15/17 18:00 04/16/17 17:59 Quetiapine Fumarate (SEROquel) 25 mg Q12HR ORAL 04/14/17 13:30 05/14/17 13:29 04/15/17 10:13 Rifaximin (Xifaxan) 550 mg EVERY 12 HOURS ORAL 04/16/17 21:00 04/23/17 20:59 Thiamine HCl 100 mg/Dextrose 56 ml @ 123.002 mls/hr Q24HRS IVPB 04/16/17 16:00 05/16/17 15:59 Sagar AvilesKyung love NP Apr 16, 2017 12:22
[2017-04-16] MEDS: Lactulose 20gm/30ml UDC ORAL SCH ×3 (13:00→17:20)
[2017-04-16] MEDS: Nitroglycerin Patch 0.4mg TDERMAL SCH (13:06)
--- NOTE | 2017-04-16 13:57 | Diagnostic Imaging Report ---
Indication: Enteric tube placement Comparison: None A single view chest radiograph was obtained. Findings: There is a weighted feeding tube projected over the mid body of the stomach. IMPRESSION: Feeding tube tip within the body of the stomach.
--- NOTE | 2017-04-16 14:21 | GI Initial Consult Note ---
History of Present Illness General Date patient seen: Apr 16, 2017 Time patient seen: 14:12 Reason for Hospitalization: Altered Level of Consciousness Referring physician: BECK HORTON Reason for Consultation: CIRRHOSIS Present Illness HPI male approximately in his 60s was brought in from the streets by EMS for altered mental status. Patient was noted to have beer cans around him on the street. Patient was noted to be severely hypothermic with temp of 88 deg F. Also was noted to be hypotensive with systolic 80s and bradycardic in the 50s. CXR was unremarkable and UA was minimally remarkable for UTI. Urine tox and ethanol level were unremarkable. Lactic acid was 14 upon admission and WBC 22. Cr 5 and AST/ALT enzymes elevated. Patient was also noted to have lice infestation. Patient was started on IVF, empiric IV antibiotics, and albumin infusion to support blood pressure given no central line for pressors at this time. Patient remains acutely altered and only responds to painful stimuli. GI consulted for liver cirrhosis. ROS limited, all medical history obtained from chart. Pt seen, AMS NAD able to awake but non coherent. Sitter by bedside. Patient presents with anemia, AMS, abnormal LFTs, elevated CRP, elevated ammonia levels. Unknown history of endoscopy / colonoscopy. Per RN report, patient unable to swallow or have any PO intake for the past few days. Home Meds Active Scripts Multivitamins* (MULTIVITAMINS*) 1 Each Tablet, 1 TAB ORAL DAILY, #60 TAB 0 Refills Prov:Rehan Chanel M.D. 04/08/17 Permethrin* (ELIMITE*) 60 Gm Cream..g., 1 APPLIC TOPIC ONCE, #60 GM 0 Refills Apply cream from head to toe in 1 week; leave on for 8-14 hours before washing off with water Prov:Rehan Chanel M.D. 04/08/17 Atenolol* (TENORMIN*) 50 Mg Tablet, 25 MG ORAL DAILY, #30 TAB Prov:ALINE GOLD M.D. 03/12/17 Reported Medications Unable to Obtain Medications (UNABLE TO OBTAIN MEDS) Ea Ea 04/11/17 Med list reviewed/reconciled: Yes Allergies: Coded Allergies: ASPIRIN (Verified Allergy, Unknown, 03/12/17) Patient History Limited by: medical condition History Provided By: Medical Record PMH Narrative Miscellaneous Medications Unable to Obtain Medications (Unable To Obtain Meds), (Reported) Patient History Limited by: medical condition History Provided By: Medical Record, EMS Review of Systems All Other Systems: limited Physical Exam Vital Signs Date Time Temp Pulse Resp B/P (MAP) Pulse Ox O2 Delivery O2 Flow Rate FiO2 04/12/17 07:00 99 28 106/40 95 Room Air 04/12/17 09:00 98.7 98.7 04/14/17 20:20 2.0 28 Sp02 EP Interpretation: reviewed, normal Labs Laboratory Tests Test 04/16/17 09:15 White Blood Count 10.8 K/UL (4.8-10.8) Red Blood Count 2.67 M/UL (4.70-6.10) L Hemoglobin 9.1 G/DL (14.2-18.0) L Hematocrit 26.9 % (42.0-52.0) L Mean Corpuscular Volume 101 FL (80-99) H Mean Corpuscular Hemoglobin 34.0 PG (27.0-31.0) H Mean Corpuscular Hemoglobin Concent 33.7 G/DL (32.0-36.0) Red Cell Distribution Width 14.1 % (11.6-14.8) Platelet Count 86 K/UL (150-450) L Mean Platelet Volume 11.0 FL (6.5-10.1) H Neutrophils (%) (Auto) % (45.0-75.0) Lymphocytes (%) (Auto) % (20.0-45.0) Monocytes (%) (Auto) % (1.0-10.0) Eosinophils (%) (Auto) % (0.0-3.0) Basophils (%) (Auto) % (0.0-2.0) Differential Total Cells Counted 100 Neutrophils % (Manual) 88 % (45-75) H Lymphocytes % (Manual) 10 % (20-45) L Monocytes % (Manual) 2 % (1-10) Eosinophils % (Manual) 0 % (0-3) Basophils % (Manual) 0 % (0-2) Band Neutrophils 0 % (0-8) Platelet Estimate Decreased L Platelet Morphology Normal Hypochromasia 1+ Anisocytosis 1+ Macrocytosis 1+ Sodium Level 157 MMOL/L (136-145) H Potassium Level 3.8 MMOL/L (3.5-5.1) Chloride Level 122 MMOL/L (98-107) H Carbon Dioxide Level 27 MMOL/L (21-32) Anion Gap 8 mmol/L (5-15) Blood Urea Nitrogen 71 mg/dL (7-18) H Creatinine 3.2 MG/DL (0.55-1.30) H Estimat Glomerular Filtration Rate 20.5 mL/min (>60) Glucose Level 145 MG/DL (74-106) H Uric Acid 10.8 MG/DL (2.6-7.2) H Calcium Level 6.7 MG/DL (8.5-10.1) L Phosphorus Level 3.5 MG/DL (2.5-4.9) Magnesium Level 1.5 MG/DL (1.8-2.4) L Total Bilirubin 9.1 MG/DL (0.2-1.0) H Direct Bilirubin 7.0 MG/DL (0.0-0.3) H Aspartate Amino Transf (AST/SGOT) 122 U/L (15-37) H Alanine Aminotransferase (ALT/SGPT) 104 U/L (12-78) H Alkaline Phosphatase 173 U/L (46-116) H Pro-B-Type Natriuretic Peptide 633 pg/mL (0-125) H Total Protein 5.3 G/DL (6.4-8.2) L Albumin 1.8 G/DL (3.4-5.0) L Globulin 3.5 g/dL Albumin/Globulin Ratio 0.5 (1.0-2.7) L General Appearance: well appearing, no apparent distress, lethargic Head: normocephalic EENT: PERRL/EOMI, normal ENT inspection Neck: supple Respiratory: normal breath sounds, no respiratory distress Cardiovascular: normal rate Gastrointestinal: normal inspection, non tender, soft, normal bowel sounds, non -distended Rectal: deferred Genitourinary: deferred Musculoskeletal: normal inspection, back normal Neurologic: alert, responsive Skin: normal inspection, no rash, warm/dry, palpation normal, well hydrated Lymphatic: normal inspection, no adenopathy Current Medications Current Medications Medications (Trade) Dose Ordered Sig/Jocelyne Route PRN Reason Start Time Stop Time Status Last Admin Dose Admin Acetaminophen (Tylenol) 650 mg Q4H PRN ORAL fever>100.5 04/13/17 18:30 05/11/17 10:29 Albuterol/ Ipratropium (Albuterol/ Ipratropium) 3 ml Q4H PRN HHN Shortness of Breath 04/13/17 18:00 04/16/17 17:59 Allopurinol (Allopurinol) 300 mg DAILY ORAL 04/15/17 09:00 05/15/17 08:59 04/15/17 10:14 Ceftriaxone Sodium 1 gm/ Sodium Chloride 55 ml @ 110 mls/hr Q24H IVPB 04/15/17 00:15 04/22/17 00:14 04/15/17 23:44 Dextrose 1,000 ml @ 100 mls/hr Q10H IV 04/15/17 14:15 05/15/17 14:14 04/16/17 10:44 Dextrose (Dextrose 50%) STAT PRN IV Hypoglycemia 04/14/17 13:30 05/14/17 13:29 04/15/17 05:59 Ergocalciferol (Drisdol) 50,000 intlu QWEEK ORAL 04/20/17 09:00 05/13/17 08:59 Folic Acid (Folate) 5 mg DAILY ORAL 04/14/17 09:00 05/13/17 12:59 04/15/17 10:14 Haloperidol Lactate (Haldol) 5 mg Q6H PRN IM Agitation 04/14/17 13:00 05/14/17 12:59 Heparin Sodium (Porcine) (Heparin 5000 units/ml) 5,000 units EVERY 12 HOURS SUBQ 04/13/17 21:00 05/11/17 20:59 Insulin Aspart (NovoLOG) BEFORE MEALS AND HS SUBQ 04/14/17 16:30 05/14/17 16:29 04/15/17 21:50 Insulin Aspart (NovoLOG) 6 units NOVOTIAC SUBQ 04/16/17 06:30 05/16/17 06:29 04/16/17 05:57 Insulin Detemir (Levemir) 14 units BID SUBQ 04/16/17 09:00 05/16/17 08:59 Lactulose (Cephulac) 30 gm THREE TIMES A DAY ORAL 04/16/17 13:00 05/16/17 12:59 Lansoprazole (Prevacid) 30 mg BID ORAL 04/14/17 18:00 05/14/17 17:59 04/15/17 10:14 Lorazepam (Ativan 2mg/ml 1ml) 1 mg Q6H PRN IV For Anxiety 04/14/17 13:00 04/21/17 12:59 Methylprednisolone Sodium Succinate (Solu-MEDROL) 40 mg DAILY IVP 04/15/17 09:00 05/15/17 08:59 04/16/17 10:42 Metronidazole 100 ml @ 100 mls/hr Q12HR IVPB 04/15/17 09:00 04/22/17 08:59 04/16/17 10:44 Nitroglycerin (Ntg) 1 patch Q24H TDERMAL 04/14/17 13:00 05/13/17 12:59 04/16/17 13:06 Ondansetron HCl (Zofran) 4 mg Q6H PRN IVP Nausea & Vomiting 04/13/17 18:00 05/11/17 17:59 Potassium Chloride (K-Dur) 20 meq TWICE A DAY ORAL 04/15/17 18:00 04/16/17 17:59 Quetiapine Fumarate (SEROquel) 25 mg Q12HR ORAL 04/14/17 13:30 05/14/17 13:29 04/15/17 10:13 Rifaximin (Xifaxan) 550 mg EVERY 12 HOURS ORAL 04/16/17 21:00 04/23/17 20:59 Thiamine HCl 100 mg/Dextrose 56 ml @ 123.002 mls/hr Q24HRS IVPB 04/16/17 16:00 05/16/17 15:59 GI: Plan Problems: (1) Alcohol abuse (2) Body lice (3) Liver cirrhosis (4) Lice infestation (5) Multiple organ failure (6) Elevated LFTs (7) Alcohol intoxication Plan Discriminant function calculated = 27.5 points >> Good Prognosis. (Discriminant Function> 32 points indicates poor prognosis and patient may benefit from glucocorticoid therapy.) dobhoff placed, imaging placement confirmed. NGTFs per RD lactulose + Xifaxan, repeat ammonia levels OB stool r/o GI bleed for possible EV trend LFTs DM mgmt ppi prn transfusions fu labs Discussed with Dr. Ramirez. Thank you for this patient referral, we will follow. Lianne Gold N.P. Apr 16, 2017 14:21
--- NOTE | 2017-04-16 15:23 | Diagnostic Imaging Report ---
Indication: Dysphasia Procedure and findings: Real-time fluoroscopic imaging performed in a lateral projection in conjunction with the speech pathologist evaluation. Variable consistencies of barium given per mouth. Findings: Significant abnormalities of both oral and pharyngeal phases of swallowing are demonstrated. Total fluoroscopic time 281 seconds. Trace laryngeal penetration noted with thin liquids and nectar. No aspiration identified. Abnormal video swallow. Please refer to speech pathology evaluation for more information.
--- NOTE | 2017-04-16 15:44 | General Progress Note ---
Assessment/Plan Problem List: (1) Diabetes mellitus out of control ICD Codes: E11.65 - Type 2 diabetes mellitus with hyperglycemia SNOMED: 54722880, 719329971 (2) Altered level of consciousness ICD Codes: R40.4 - Transient alteration of awareness SNOMED: 1341106 (3) Elevated LFTs ICD Codes: R79.89 - Other specified abnormal findings of blood chemistry SNOMED: 016746372, 509512583 (4) Lice infestation ICD Codes: B85.2 - Pediculosis, unspecified SNOMED: 197987266 (5) Liver cirrhosis ICD Codes: K74.60 - Unspecified cirrhosis of liver SNOMED: 13273528 Assessment/Plan patient is not eating not on TF DC scheduled Levemir and meal time Novolog continue NISS Subjective ROS Limited/Unobtainable: Yes Allergies: Coded Allergies: ASPIRIN (Verified Allergy, Unknown, 03/12/17) Subjective events noted - interval notes reviewed lethargic NGT in place not on TF Objective Last 24 Hour Vital Signs Date Time Temp Pulse Resp B/P (MAP) Pulse Ox O2 Delivery O2 Flow Rate FiO2 04/16/17 13:06 117/67 04/16/17 11:04 98.2 84 15 117/67 96 Nasal Cannula 98.2 04/16/17 09:06 Nasal Cannula 2.0 28 04/16/17 09:05 98 Nasal Cannula 2.0 28 04/16/17 09:04 92 18 Nasal Cannula 2.0 04/16/17 08:21 98.2 95 16 118/68 96 Room Air 98.2 04/16/17 04:00 98.0 93 20 116/68 96 98.0 04/16/17 00:00 Nasal Cannula 2.0 04/15/17 21:00 97.1 91 20 113/68 98 97.1 04/15/17 20:00 Nasal Cannula 2.0 04/15/17 18:48 98 Nasal Cannula 2.0 28 04/15/17 18:48 Nasal Cannula 2.0 28 04/15/17 18:48 85 16 Nasal Cannula 2.0 04/15/17 16:00 97.3 85 20 132/75 98 97.3 Intake and Output 04/15/17 04/16/17 19:00 07:00 Intake Total 100 ml 1155 ml Output Total 1900 ml Balance -1800 ml 1155 ml IV Total 100 ml 1155 ml Output Urine Total 1900 ml Laboratory Tests 04/16/17 09:15: White Blood Count 10.8, Red Blood Count 2.67L, Hemoglobin 9.1L, Hematocrit 26.9L , Mean Corpuscular Volume 101H, Mean Corpuscular Hemoglobin 34.0H, Mean Corpuscular Hemoglobin Concent 33.7, Red Cell Distribution Width 14.1, Platelet Count 86L, Mean Platelet Volume 11.0H, Neutrophils (%) (Auto) , Lymphocytes (%) (Auto) , Monocytes (%) (Auto) , Eosinophils (%) (Auto) , Basophils (%) (Auto) , Differential Total Cells Counted 100, Neutrophils % (Manual) 88H, Lymphocytes % (Manual) 10L, Monocytes % (Manual) 2, Eosinophils % (Manual) 0, Basophils % ( Manual) 0, Band Neutrophils 0, Platelet Estimate DecreasedL, Platelet Morphology Normal, Hypochromasia 1+, Anisocytosis 1+, Macrocytosis 1+, Sodium Level 157H, Potassium Level 3.8, Chloride Level 122H, Carbon Dioxide Level 27, Anion Gap 8, Blood Urea Nitrogen 71H, Creatinine 3.2H, Estimat Glomerular Filtration Rate 20.5, Glucose Level 145H, Uric Acid 10.8H, Calcium Level 6.7L, Phosphorus Level 3.5, Magnesium Level 1.5L, Total Bilirubin 9.1H, Direct Bilirubin 7.0H, Aspartate Amino Transf (AST/SGOT) 122H, Alanine Aminotransferase (ALT/SGPT) 104H, Alkaline Phosphatase 173H, Pro-B-Type Natriuretic Peptide 633H, Total Protein 5.3L, Albumin 1.8L, Globulin 3.5, Albumin/Globulin Ratio 0.5L Height (Feet): 5 Height (Inches): 7.00 Weight (Pounds): 241 General Appearance: lethargic Neck: normal alignment Cardiovascular: regular rhythm Respiratory/Chest: decreased breath sounds Abdomen: normal bowel sounds Pelvis: normal external exam Edema: 1+ Arm (L), 1+ Arm (R), 1+ Leg (L), 1+ Leg (R), 1+ Pedal (L), 1+ Pedal ( R), 1+ Generalized Objective Current Medications Medications (Trade) Dose Ordered Sig/Jocelyne Route PRN Reason Start Time Stop Time Status Last Admin Dose Admin Acetaminophen (Tylenol) 650 mg Q4H PRN ORAL fever>100.5 04/13/17 18:30 05/11/17 10:29 Albuterol/ Ipratropium (Albuterol/ Ipratropium) 3 ml Q4H PRN HHN Shortness of Breath 04/13/17 18:00 04/16/17 17:59 Allopurinol (Allopurinol) 300 mg DAILY ORAL 04/15/17 09:00 05/15/17 08:59 04/15/17 10:14 Ceftriaxone Sodium 1 gm/ Sodium Chloride 55 ml @ 110 mls/hr Q24H IVPB 04/15/17 00:15 04/22/17 00:14 04/15/17 23:44 Dextrose 1,000 ml @ 100 mls/hr Q10H IV 04/15/17 14:15 05/15/17 14:14 04/16/17 10:44 Dextrose (Dextrose 50%) STAT PRN IV Hypoglycemia 04/14/17 13:30 05/14/17 13:29 04/15/17 05:59 Ergocalciferol (Drisdol) 50,000 intlu QWEEK ORAL 04/20/17 09:00 05/13/17 08:59 Folic Acid (Folate) 5 mg DAILY ORAL 04/14/17 09:00 05/13/17 12:59 04/15/17 10:14 Haloperidol Lactate (Haldol) 5 mg Q6H PRN IM Agitation 04/14/17 13:00 05/14/17 12:59 Heparin Sodium (Porcine) (Heparin 5000 units/ml) 5,000 units EVERY 12 HOURS SUBQ 04/13/17 21:00 05/11/17 20:59 Insulin Aspart (NovoLOG) BEFORE MEALS AND HS SUBQ 04/14/17 16:30 05/14/17 16:29 04/15/17 21:50 Insulin Aspart (NovoLOG) 6 units NOVOTIAC SUBQ 04/16/17 06:30 05/16/17 06:29 04/16/17 05:57 Insulin Detemir (Levemir) 14 units BID SUBQ 04/16/17 09:00 05/16/17 08:59 Lactulose (Cephulac) 30 gm THREE TIMES A DAY ORAL 04/16/17 13:00 05/16/17 12:59 Lansoprazole (Prevacid) 30 mg BID ORAL 04/14/17 18:00 05/14/17 17:59 04/15/17 10:14 Lorazepam (Ativan 2mg/ml 1ml) 1 mg Q6H PRN IV For Anxiety 04/14/17 13:00 04/21/17 12:59 Methylprednisolone Sodium Succinate (Solu-MEDROL) 40 mg DAILY IVP 04/15/17 09:00 05/15/17 08:59 04/16/17 10:42 Metronidazole 100 ml @ 100 mls/hr Q12HR IVPB 04/15/17 09:00 04/22/17 08:59 04/16/17 10:44 Nitroglycerin (Ntg) 1 patch Q24H TDERMAL 04/14/17 13:00 05/13/17 12:59 04/16/17 13:06 Ondansetron HCl (Zofran) 4 mg Q6H PRN IVP Nausea & Vomiting 04/13/17 18:00 05/11/17 17:59 Potassium Chloride (K-Dur) 20 meq TWICE A DAY ORAL 04/15/17 18:00 04/16/17 17:59 Quetiapine Fumarate (SEROquel) 25 mg Q12HR ORAL 04/14/17 13:30 05/14/17 13:29 04/15/17 10:13 Rifaximin (Xifaxan) 550 mg EVERY 12 HOURS ORAL 04/16/17 21:00 04/23/17 20:59 Thiamine HCl 100 mg/Dextrose 56 ml @ 123.002 mls/hr Q24HRS IVPB 04/16/17 16:00 05/16/17 15:59 Item Value Date Time Bedside Blood Glucose 119 mg/dl 04/16/17 1139 Bedside Blood Glucose 119 mg/dl 04/16/17 0900 Bedside Blood Glucose 165 mg/dl H 04/16/17 0615 Bedside Blood Glucose 191 mg/dl H 04/15/17 2150 Bedside Blood Glucose 179 mg/dl H 04/15/17 1845 Bedside Blood Glucose 95 mg/dl 04/15/17 1150 ROSALINDA VELASCO 2, 2018 15:44
[2017-04-16 15:50] VITALS: BP 133/85
[2017-04-16 15:52] VITALS: BP 133/85
[2017-04-16] MEDS ORDERED: Thiamine HCl 100 MG in D5W 55 ML IVPB SCH (16:00)
--- NOTE | 2017-04-16 16:05 | Nephrology Progress Note ---
Assessment/Plan Problem List: (1) Severe sepsis (2) Hypotension (3) Renal failure Assessment: acute on chronic (4) Hypothermia (5) Elevated LFTs (6) Hyperbilirubinemia Assessment Acute renal failure Cr lowering ? Underlying CKD Low BP , Septic Shock Acute encephalopathy Lice infestation High LFTs and Jaundice HypoThermia UTI Plan steroids- Fluids D5w Antibiotics NPO Monitor renal parameters avoid Nephrotoxics folate Ergocalciferol Echo 55% EjFx discussed dialysis - refuses- ability to make decisions?? Subjective ROS Limited/Unobtainable: No Constitutional: Reports: malaise Objective Objective Last 24 Hour Vital Signs Date Time Temp Pulse Resp B/P (MAP) Pulse Ox O2 Delivery O2 Flow Rate FiO2 04/16/17 15:52 99.6 101 20 133/85 95 Nasal Cannula 99.6 04/16/17 13:06 117/67 04/16/17 11:04 98.2 84 15 117/67 96 Nasal Cannula 98.2 04/16/17 09:06 Nasal Cannula 2.0 28 04/16/17 09:05 98 Nasal Cannula 2.0 28 04/16/17 09:04 92 18 Nasal Cannula 2.0 04/16/17 08:21 98.2 95 16 118/68 96 Room Air 98.2 04/16/17 04:00 98.0 93 20 116/68 96 98.0 04/16/17 00:00 Nasal Cannula 2.0 04/15/17 21:00 97.1 91 20 113/68 98 97.1 04/15/17 20:00 Nasal Cannula 2.0 04/15/17 18:48 98 Nasal Cannula 2.0 28 04/15/17 18:48 Nasal Cannula 2.0 28 04/15/17 18:48 85 16 Nasal Cannula 2.0 Intake and Output 04/15/17 04/16/17 19:00 07:00 Intake Total 100 ml 1155 ml Output Total 1900 ml Balance -1800 ml 1155 ml IV Total 100 ml 1155 ml Output Urine Total 1900 ml Laboratory Tests 04/16/17 09:15: White Blood Count 10.8, Red Blood Count 2.67L, Hemoglobin 9.1L, Hematocrit 26.9L , Mean Corpuscular Volume 101H, Mean Corpuscular Hemoglobin 34.0H, Mean Corpuscular Hemoglobin Concent 33.7, Red Cell Distribution Width 14.1, Platelet Count 86L, Mean Platelet Volume 11.0H, Neutrophils (%) (Auto) , Lymphocytes (%) (Auto) , Monocytes (%) (Auto) , Eosinophils (%) (Auto) , Basophils (%) (Auto) , Differential Total Cells Counted 100, Neutrophils % (Manual) 88H, Lymphocytes % (Manual) 10L, Monocytes % (Manual) 2, Eosinophils % (Manual) 0, Basophils % ( Manual) 0, Band Neutrophils 0, Platelet Estimate DecreasedL, Platelet Morphology Normal, Hypochromasia 1+, Anisocytosis 1+, Macrocytosis 1+, Sodium Level 157H, Potassium Level 3.8, Chloride Level 122H, Carbon Dioxide Level 27, Anion Gap 8, Blood Urea Nitrogen 71H, Creatinine 3.2H, Estimat Glomerular Filtration Rate 20.5, Glucose Level 145H, Uric Acid 10.8H, Calcium Level 6.7L, Phosphorus Level 3.5, Magnesium Level 1.5L, Total Bilirubin 9.1H, Direct Bilirubin 7.0H, Aspartate Amino Transf (AST/SGOT) 122H, Alanine Aminotransferase (ALT/SGPT) 104H, Alkaline Phosphatase 173H, Pro-B-Type Natriuretic Peptide 633H, Total Protein 5.3L, Albumin 1.8L, Globulin 3.5, Albumin/Globulin Ratio 0.5L Height (Feet): 5 Height (Inches): 7.00 Weight (Pounds): 241 General Appearance: no apparent distress EENT: scleral icterus Cardiovascular: tachycardia Respiratory/Chest: decreased breath sounds Abdomen: distended Objective edema ANTON LIZAMA Apr 16, 2017 16:05
[2017-04-16 20:00] VITALS: BP 93/56
[2017-04-16] MEDS ORDERED: Depakote ER 500mg tab ORAL SCH (21:00)
--- NOTE | 2017-04-16 22:15 | Progress Note ---
DATE: 04/16/2017 NOTE: INCOMPLETE DICTATION SUBJECTIVE: The patient is calm and manageable. No behavior issues. The patient is . Aly De Santiago M.D. DR: RADU JOB#: [id number] CC:
--- NOTE | 2017-04-16 23:00 | Progress Note ---
DATE: 04/16/2017 SUBJECTIVE: The patient has been agitated earlier, has been using profanity, and abusive towards the staff. Calm during my evaluation, asleep, on one-to-one. MENTAL STATUS EXAMINATION: The patient is still confused and disoriented. Mood is agitated at times. Affect is flat. Thought process, there is a paucity of thought content. Thought content, positive for delusions. Insight and judgment is nonexistent. ASSESSMENT: 1. Schizophrenia by history. 2. Encephalopathy. PLAN: 1. We will discontinue the sitter at this time. 2. We will continue monitor. 3. Increase antipsychotics and provide the patient with supportive therapy and reality orientation. Aly De Santiago M.D. DR: ANGELA JOB#: [id number] CC:
[2017-04-17] VITALS (22 sets, daily range): BP systolic 79–110; BP diastolic 39–69
[2017-04-17] MEDS: cefTRIAXone 1 GM in NS 55 ML IVPB SCH (00:06)
[2017-04-17] MEDS: NovoLOG Insulin Flexpen SUBQ SCH ×3 (06:20→15:49)
[2017-04-17 07:17] LABS: HEMATOCRIT 24.6 % (42.0-52.0); HEMOGLOBIN 8.6 G/DL (14.2-18.0); MEAN CORPUSCULAR VOLUME 103 FL (80-99); PLATELET COUNT 59 K/UL (150-450); RED BLOOD COUNT 2.39 M/UL (4.70-6.10); RED CELL DISTRIBUTION WIDTH 15.1 % (11.6-14.8); WHITE BLOOD COUNT 7.9 K/UL (4.8-10.8)
[2017-04-17 07:39] LABS: PHOSPHORUS 3.3 MG/DL (2.5-4.9)
[2017-04-17 07:47] LABS: ALANINE AMINOTRANSFERASE 90 U/L (12-78); ALBUMIN 1.6 G/DL (3.4-5.0); ALBUMIN/GLOBULIN RATIO 0.5 (1.0-2.7); ALKALINE PHOSPHATASE 196 U/L (46-116); ANION GAP 12 mmol/L (5-15); ASPARTATE AMINO TRANSFERASE 159 U/L (15-37); BILIRUBIN,TOTAL 9.8 MG/DL (0.2-1.0); BLOOD UREA NITROGEN 93 mg/dL (7-18); CALCIUM 6.9 MG/DL (8.5-10.1); CARBON DIOXIDE 25 MMOL/L (21-32); CHLORIDE 121 MMOL/L (98-107); CREATININE 5.3 MG/DL (0.55-1.30); POTASSIUM 3.3 MMOL/L (3.5-5.1); SODIUM 158 MMOL/L (136-145)
[2017-04-17 07:49] LABS: BILIRUBIN,DIRECT 8.3 MG/DL (0.0-0.3)
--- NOTE | 2017-04-17 08:34 | Pulmonology Progress Note ---
Subjective Allergies: Coded Allergies: ASPIRIN (Verified Allergy, Unknown, 03/12/17) Subjective Objective Last 24 Hour Vital Signs Date Time Temp Pulse Resp B/P (MAP) Pulse Ox O2 Delivery O2 Flow Rate FiO2 04/17/17 07:54 109 16 Non-Rebreather 15.0 100 04/17/17 07:10 Nasal Cannula 2.0 28 04/17/17 07:10 85 Nasal Cannula 2.0 28 04/17/17 07:00 103.8 109 20 85/44 94 Non-Rebreather 15.0 103.8 04/17/17 06:19 103.0 04/17/17 04:00 103.5 111 20 95/53 83 Nasal Cannula 5.0 103.5 04/17/17 01:19 102.9 04/17/17 00:00 102.9 107 21 110/52 95 Nasal Cannula 2.0 102.9 04/16/17 20:00 101.3 110 24 93/56 95 101.3 04/16/17 19:20 97 Nasal Cannula 2.0 28 04/16/17 19:20 Nasal Cannula 2.0 28 04/16/17 19:20 72 18 Nasal Cannula 2.0 04/16/17 15:52 99.6 101 20 133/85 95 Nasal Cannula 99.6 04/16/17 13:06 117/67 04/16/17 11:04 98.2 84 15 117/67 96 Nasal Cannula 98.2 04/16/17 09:06 Nasal Cannula 2.0 28 04/16/17 09:05 98 Nasal Cannula 2.0 28 04/16/17 09:04 92 18 Nasal Cannula 2.0 Intake and Output 04/16/17 04/17/17 19:00 07:00 Intake Total 700 ml Output Total 800 ml Balance 700 ml -800 ml IV Total 700 ml Output Urine Total 800 ml Laboratory Tests 04/16/17 09:15: White Blood Count 10.8, Red Blood Count 2.67L, Hemoglobin 9.1L, Hematocrit 26.9L , Mean Corpuscular Volume 101H, Mean Corpuscular Hemoglobin 34.0H, Mean Corpuscular Hemoglobin Concent 33.7, Red Cell Distribution Width 14.1, Platelet Count 86L, Mean Platelet Volume 11.0H, Neutrophils (%) (Auto) , Lymphocytes (%) (Auto) , Monocytes (%) (Auto) , Eosinophils (%) (Auto) , Basophils (%) (Auto) , Differential Total Cells Counted 100, Neutrophils % (Manual) 88H, Lymphocytes % (Manual) 10L, Monocytes % (Manual) 2, Eosinophils % (Manual) 0, Basophils % ( Manual) 0, Band Neutrophils 0, Platelet Estimate DecreasedL, Platelet Morphology Normal, Hypochromasia 1+, Anisocytosis 1+, Macrocytosis 1+, Sodium Level 157H, Potassium Level 3.8, Chloride Level 122H, Carbon Dioxide Level 27, Anion Gap 8, Blood Urea Nitrogen 71H, Creatinine 3.2H, Estimat Glomerular Filtration Rate 20.5, Glucose Level 145H, Uric Acid 10.8H, Calcium Level 6.7L, Phosphorus Level 3.5, Magnesium Level 1.5L, Total Bilirubin 9.1H, Direct Bilirubin 7.0H, Aspartate Amino Transf (AST/SGOT) 122H, Alanine Aminotransferase (ALT/SGPT) 104H, Alkaline Phosphatase 173H, Pro-B-Type Natriuretic Peptide 633H, Total Protein 5.3L, Albumin 1.8L, Globulin 3.5, Albumin/Globulin Ratio 0.5L 04/17/17 06:45: White Blood Count 7.9, Red Blood Count 2.39L, Hemoglobin 8.6L, Hematocrit 24.6L , Mean Corpuscular Volume 103H, Mean Corpuscular Hemoglobin 35.9H, Mean Corpuscular Hemoglobin Concent 34.9, Red Cell Distribution Width 15.1H, Platelet Count 59L, Mean Platelet Volume 10.1, Neutrophils (%) (Auto) , Lymphocytes (%) (Auto) , Monocytes (%) (Auto) , Eosinophils (%) (Auto) , Basophils (%) (Auto) , Neutrophils % (Manual) [Pending], Lymphocytes % (Manual) [Pending], Platelet Estimate [Pending], Platelet Morphology [Pending], Sodium Level 158H, Potassium Level 3.3L, Chloride Level 121H, Carbon Dioxide Level 25, Anion Gap 12, Blood Urea Nitrogen 93H, Creatinine 5.3#H, Estimat Glomerular Filtration Rate 11.5, Glucose Level 134H, Uric Acid 13.7H, Calcium Level 6.9L, Phosphorus Level 3.3, Magnesium Level 2.0, Total Bilirubin 9.8H, Direct Bilirubin 8.3H, Aspartate Amino Transf (AST/SGOT) 159H, Alanine Aminotransferase (ALT/SGPT) 90H, Alkaline Phosphatase 196H, Pro-B-Type Natriuretic Peptide 799H, Total Protein 5.1L, Albumin 1.6L, Globulin 3.5, Albumin/Globulin Ratio 0.5L, Ammonia 73H, C-Reactive Protein, Quantitative 13.9H , Hepatitis A IgM Antibody [Pending], Hepatitis B Surface Antigen [Pending], Hepatitis B Core IgM Antibody [Pending], Hepatitis C Antibody [Pending] 04/17/17 07:15: Arterial Blood pH 7.290L, Arterial Blood Partial Pressure CO2 46.9H, Arterial Blood Partial Pressure O2 85.4, Arterial Blood HCO3 22.2, Arterial Blood Oxygen Saturation 93.8, Arterial Blood Base Excess -4.5, Renny Test Positive 04/17/17 07:40: Lactic Acid Level [Pending] Current Medications Medications (Trade) Dose Ordered Sig/Jocelyne Route PRN Reason Start Time Stop Time Status Last Admin Dose Admin Acetaminophen (Tylenol) 650 mg Q4H PRN ORAL fever>100.5 04/13/17 18:30 05/11/17 10:29 04/17/17 06:19 Allopurinol (Allopurinol) 300 mg DAILY ORAL 04/15/17 09:00 05/15/17 08:59 04/15/17 10:14 Ceftriaxone Sodium 1 gm/ Sodium Chloride 55 ml @ 110 mls/hr Q24H IVPB 04/15/17 00:15 04/22/17 00:14 04/17/17 00:06 Dextrose 1,000 ml @ 100 mls/hr Q10H IV 04/15/17 14:15 05/15/17 14:14 04/17/17 06:20 Dextrose (Dextrose 50%) STAT PRN IV Hypoglycemia 04/14/17 13:30 05/14/17 13:29 04/15/17 05:59 Divalproex Sodium (Depakote ER) 1,000 mg BEDTIME ORAL 04/16/17 21:00 05/16/17 20:59 04/16/17 22:10 Ergocalciferol (Drisdol) 50,000 intlu QWEEK ORAL 04/20/17 09:00 05/13/17 08:59 Folic Acid (Folate) 5 mg DAILY ORAL 04/14/17 09:00 05/13/17 12:59 04/15/17 10:14 Haloperidol Lactate (Haldol) 5 mg Q6H PRN IM Agitation 04/14/17 13:00 05/14/17 12:59 Heparin Sodium (Porcine) (Heparin 5000 units/ml) 5,000 units EVERY 12 HOURS SUBQ 04/13/17 21:00 05/11/17 20:59 Insulin Aspart (NovoLOG) BEFORE MEALS AND HS SUBQ 04/14/17 16:30 05/14/17 16:29 04/17/17 06:20 Lactulose (Cephulac) 30 gm THREE TIMES A DAY ORAL 04/16/17 13:00 05/16/17 12:59 04/16/17 17:20 Lansoprazole (Prevacid) 30 mg BID ORAL 04/14/17 18:00 05/14/17 17:59 04/16/17 17:20 Lorazepam (Ativan 2mg/ml 1ml) 1 mg Q6H PRN IV For Anxiety 04/14/17 13:00 04/21/17 12:59 Methylprednisolone Sodium Succinate (Solu-MEDROL) 40 mg DAILY IVP 04/15/17 09:00 05/15/17 08:59 04/16/17 10:42 Metronidazole 100 ml @ 100 mls/hr Q12HR IVPB 04/15/17 09:00 04/22/17 08:59 04/16/17 22:09 Nitroglycerin (Ntg) 1 patch Q24H TDERMAL 04/14/17 13:00 05/13/17 12:59 04/16/17 13:06 Ondansetron HCl (Zofran) 4 mg Q6H PRN IVP Nausea & Vomiting 04/13/17 18:00 05/11/17 17:59 Quetiapine Fumarate (SEROquel) 25 mg Q12HR ORAL 04/14/17 13:30 05/14/17 13:29 04/16/17 22:09 Rifaximin (Xifaxan) 550 mg EVERY 12 HOURS ORAL 04/16/17 21:00 04/23/17 20:59 04/16/17 22:09 Thiamine HCl 100 mg/Dextrose 56 ml @ 123.002 mls/hr Q24HRS IVPB 04/16/17 16:00 05/16/17 15:59 04/16/17 16:49 [place] ([facility])Kyung NP Apr 17, 2017 08:34
[2017-04-17] MEDS: Heparin 5000 units/ml inj SUBQ SCH ×2 (09:00→20:12)
[2017-04-17] MEDS ORDERED: Heparin 2000 units/Ns 1000ml INJ ONE (09:45)
[2017-04-17] MEDS ORDERED: Lidocaine 1% MPF 10mg/ml 5ml INJ ONE (09:45)
--- NOTE | 2017-04-17 10:24 | Nephrology Progress Note ---
Assessment/Plan Problem List: (1) Severe sepsis (2) Hypotension (3) Renal failure Assessment: acute on chronic (4) Hypothermia (5) Elevated LFTs (6) Hyperbilirubinemia Assessment Acute renal failure back in ICU Hypotensive ? Underlying CKD Low BP , Septic Shock Acute encephalopathy Lice infestation High LFTs and Jaundice HypoThermia UTI Plan steroids- Fluids D5w Antibiotics pressors NGT NPO Monitor renal parameters avoid Nephrotoxics folate Ergocalciferol Echo 55% EjFx ability to make decisions?? Subjective ROS Limited/Unobtainable: Yes Objective Objective Last 24 Hour Vital Signs Date Time Temp Pulse Resp B/P (MAP) Pulse Ox O2 Delivery O2 Flow Rate FiO2 04/17/17 07:54 109 16 Non-Rebreather 15.0 100 04/17/17 07:10 Nasal Cannula 2.0 28 04/17/17 07:10 85 Nasal Cannula 2.0 28 04/17/17 07:00 103.8 109 20 85/44 94 Non-Rebreather 15.0 103.8 04/17/17 06:19 103.0 04/17/17 04:00 103.5 111 20 95/53 83 Nasal Cannula 5.0 103.5 04/17/17 01:19 102.9 04/17/17 00:00 102.9 107 21 110/52 95 Nasal Cannula 2.0 102.9 04/16/17 20:00 101.3 110 24 93/56 95 101.3 04/16/17 19:20 97 Nasal Cannula 2.0 28 04/16/17 19:20 Nasal Cannula 2.0 28 04/16/17 19:20 72 18 Nasal Cannula 2.0 04/16/17 15:52 99.6 101 20 133/85 95 Nasal Cannula 99.6 04/16/17 13:06 117/67 04/16/17 11:04 98.2 84 15 117/67 96 Nasal Cannula 98.2 Intake and Output 04/16/17 04/17/17 19:00 07:00 Intake Total 700 ml 955 ml Output Total 800 ml Balance 700 ml 155 ml IV Total 700 ml 955 ml Output Urine Total 800 ml Laboratory Tests 04/17/17 06:45: White Blood Count 7.9, Red Blood Count 2.39L, Hemoglobin 8.6L, Hematocrit 24.6L , Mean Corpuscular Volume 103H, Mean Corpuscular Hemoglobin 35.9H, Mean Corpuscular Hemoglobin Concent 34.9, Red Cell Distribution Width 15.1H, Platelet Count 59L, Mean Platelet Volume 10.1, Neutrophils (%) (Auto) , Lymphocytes (%) (Auto) , Monocytes (%) (Auto) , Eosinophils (%) (Auto) , Basophils (%) (Auto) , Differential Total Cells Counted 100, Neutrophils % ( Manual) 90H, Lymphocytes % (Manual) 8L, Monocytes % (Manual) 2, Eosinophils % ( Manual) 0, Basophils % (Manual) 0, Band Neutrophils 0, Platelet Estimate DecreasedL, Platelet Morphology Normal, Hypochromasia 2+, Anisocytosis 1+, Macrocytosis 1+, Spherocytes 2+, Sodium Level 158H, Potassium Level 3.3L, Chloride Level 121H, Carbon Dioxide Level 25, Anion Gap 12, Blood Urea Nitrogen 93H, Creatinine 5.3#H, Estimat Glomerular Filtration Rate 11.5, Glucose Level 134H, Uric Acid 13.7H, Calcium Level 6.9L, Phosphorus Level 3.3, Magnesium Level 2.0, Total Bilirubin 9.8H, Direct Bilirubin 8.3H, Aspartate Amino Transf ( AST/SGOT) 159H, Alanine Aminotransferase (ALT/SGPT) 90H, Alkaline Phosphatase 196H, Ammonia 73H, C-Reactive Protein, Quantitative 13.9H, Pro-B-Type Natriuretic Peptide 799H, Total Protein 5.1L, Albumin 1.6L, Globulin 3.5, Albumin/Globulin Ratio 0.5L, Hepatitis A IgM Antibody [Pending], Hepatitis B Surface Antigen [Pending], Hepatitis B Core IgM Antibody [Pending], Hepatitis C Antibody [Pending] 04/17/17 07:15: Arterial Blood pH 7.290L, Arterial Blood Partial Pressure CO2 46.9H, Arterial Blood Partial Pressure O2 85.4, Arterial Blood HCO3 22.2, Arterial Blood Oxygen Saturation 93.8, Arterial Blood Base Excess -4.5, Renny Test Positive 04/17/17 07:40: Lactic Acid Level 1.70 Height (Feet): 5 Height (Inches): 7.00 Weight (Pounds): 239 General Appearance: lethargic Cardiovascular: tachycardia Respiratory/Chest: decreased breath sounds Abdomen: distended Objective edema ANTON LIZAMA Apr 17, 2017 10:24
--- NOTE | 2017-04-17 10:39 | Diagnostic Imaging Report ---
Indication: Dyspnea Comparison: April 16, 2017 A single view chest radiograph was obtained. Findings: Patchy infiltrate suspected in the left midlung. Please correlate clinically. Heart size is borderline enlarged. Lung volumes are low. There is basilar atelectasis as well. Small contrast noted in the stomach. There is a feeding tube present in the upper abdomen. IMPRESSION: Possible infiltrate left lung base. Please correlate clinically
[2017-04-17] MEDS: Lactulose 20gm/30ml UDC ORAL SCH ×3 (11:06→18:00)
--- NOTE | 2017-04-17 11:28 | Pulmonolgy Critical Care Note ---
Critical Care - Asmt/Plan Assessment/Plan: ASSESSMENT sepsis with shock acute hypoxemic RF requiring 100% BRM persistent acute toxic metabolic encephalopathy ( due to hepatorenal syndrome, sepsis) acute hepatic encephalopathy acute renal failure alcoholic liver disease with liver cirrhosis Multiple organ failure UTI with Strep elevated troponin single episode, likely due to renal failure ETOH abuse DOOC anemia schizophrenia sacrococcyx unstageable pressure ulcer POA PLAN OF CARE ICU care 500 cc bolus if BP not responding will need pressors-Levophed on standby surgeon to place urgently CL- notified on 100% NRM, ABG noted will try BiPAP fup with ABG and CXR in am cooling measures abx ID follows urine cx + Strep blood cx negative sputum cx , Venous Duplex BLE persistent encephalopathy ( multifactorial, including hepatorenal syndrome, sepsis, now high ammonia) tox screen negative , LP negative CT head no acute IC pathology neuro eval and recommendations appreciated nephro follows creat trending down replace lytes as needed, avoid nephrotoxic renal US negative ? underlying CKD cardio follows for elevated troponin ECHO with pEF55% per cardio possible demand ischemia given elevated troponin and inferolateral ischemia on ECG however all other troponin negative, likely due to renal failure psych follows , psych meds regimen optimized GI eval appreciated on lactulose and Rifaximin , Thiamine and Folic acid s/p Dobbhoff insertion 04/16, strict aspiration precautions, on TF stool OB monitor HH, transfuse prn anemia w/up noted trend LFT with trend up, check hep panel; ammonia still 73 endo follows, since not eating Levemir and premeal insulin stopped, continue SSI closely monitor BS with start of TF, may need to resume scheduled insulin [id number], not at goal wound care as per wound nurse recs DVT GI prophylaxis case discussed and evaluated by supervising physician Critical Care - Objective Last 24 Hour Vital Signs Date Time Temp Pulse Resp B/P (MAP) Pulse Ox O2 Delivery O2 Flow Rate FiO2 04/17/17 07:54 109 16 Non-Rebreather 15.0 100 04/17/17 07:10 Nasal Cannula 2.0 28 04/17/17 07:10 85 Nasal Cannula 2.0 28 04/17/17 07:00 103.8 109 20 85/44 94 Non-Rebreather 15.0 103.8 04/17/17 06:19 103.0 04/17/17 04:00 103.5 111 20 95/53 83 Nasal Cannula 5.0 103.5 04/17/17 01:19 102.9 04/17/17 00:00 102.9 107 21 110/52 95 Nasal Cannula 2.0 102.9 04/16/17 20:00 101.3 110 24 93/56 95 101.3 04/16/17 19:20 97 Nasal Cannula 2.0 28 04/16/17 19:20 Nasal Cannula 2.0 28 04/16/17 19:20 72 18 Nasal Cannula 2.0 04/16/17 15:52 99.6 101 20 133/85 95 Nasal Cannula 99.6 04/16/17 13:06 117/67 Objective: General Appearance: lethargic HEENT: normocephalic, atraumatic, 100% NRM, Dobbhoff in Respiratory/Chest: decreased breath sounds Cardiovascular: ST on tele Abdomen: soft, non tender - distended Extremities: pedal pulses normal, trace edema BLE Skin: sacrococcyx decub Neurologic/Psychiatric: lethargic Accucheck: 138 Critical Care - Subjective ROS Limited/Unobtainable: Yes 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 Kyung Keith NP (Vanchtein) Apr 17, 2017 11:28
--- NOTE | 2017-04-17 11:48 | Operative Note - PDOC ---
Operative Note Operative Note Date of Operation/Procedure: Apr 17, 2017 Pre-op Diagnosis: sepsis, hypotension, critically ill requiring pressors Procedure: left femoral central venous catheter insertion Operative Findings: consistent w/pre-op dx studies Surgeon: yolanda Anesthesia: local Specimen: none Complications: none Condition: stable Estimated Blood Loss: minimal Drains: none Implant(s) used?: Yes - left femoral triple lumen catheter Indications for Procedure 51 year old male in critical condition currently in ICU under medical care and management. hypotensive requiring urgent pressors, fluids, and resuscitation. Unfortunately patients condition is worsening and he is currently unable to consent for surgery. given urgent nature of condition and life saving measures two physician consent obtained for procedure. Description of Procedure The patient was lying in the supine position. All persons involved were shielded with hairnets, facemasks and sterile gowns. With sterile-gloved hands the left femoral area was thoroughly sponged with chlorhexidine and allowed to dry. The area was draped with the large disposable sterile field provided in the kit. The skin and subcutaneous tissues superficial to the left femoral vein was anesthetized with 5 mL of 1% lidocaine. The femoral artery was palpated and avoided. A finder needle was advanced at a 45-degree angle toward the inguinal ligament until the syringe was seen to fill with blood. The needle was then held in place while the guide wire was advanced. The needle was then removed. A skin dilator was advanced over the guidewire and removed, then the triple lumen catheter was advanced over the guide wire into proper position. The guide wire was removed and discarded. The ports were aspirated which showed good blood return indicating proper position into the vein and then carefully flushed with normal saline. The catheter was stabilized and sutured to the skin with 2-0 silk at 2 anchor ports. A sterile bio-occlusive dressing was placed over the catheter, including the insertion site. The patient tolerated the procedure well. Luis Enrique Taylor Apr 17, 2017 11:48
--- NOTE | 2017-04-17 12:15 | Consultation ---
History of Present Illness General Chief Complaint: Altered Level of Consciousness Referring physician: BECK HORTON Reason for Consultation: hypotension Present Illness HPI 51 year old male currently in ICU in critical condition. hypotensive, unresponsive, requiring pressors. please see H&P for admission details. surgery called to evaluate and assist with central venous access given patient requiring multiple medications and now pressors. Allergies: Coded Allergies: ASPIRIN (Verified Allergy, Unknown, 03/12/17) Medication History Scheduled Atenolol* (Tenormin*), 25 MG ORAL DAILY Multivitamins* (Multivitamins*), 1 TAB ORAL DAILY Permethrin* (Elimite*), 1 APPLIC TOPIC ONCE Miscellaneous Medications Unable to Obtain Medications (Unable To Obtain Meds), (Reported) Patient History History Provided By: Medical Record, PMD Healthcare decision maker N Resuscitation status Advanced Directive on File Past Medical/Surgical History Past Medical/Surgical History: (1) Seizure (2) Alcohol abuse (3) Hyperbilirubinemia (4) Altered level of consciousness (5) Elevated LFTs (6) Bradycardia (7) Hypothermia (8) Renal failure (9) UTI (urinary tract infection) (10) Hypotension (11) Lice infestation (12) Severe sepsis (13) Multiple organ failure (14) Liver cirrhosis (15) r/o nonconvulsive sz activity (16) encephalopathy,toxic metabolic (17) Diabetes mellitus out of control (18) Alcohol intoxication (19) Body lice Review of Systems ROS Narrative unable to obtain given patients current medical condition Physical Exam General Appearance: mild distress Lines, tubes and drains: peripheral HEENT: mucous membranes moist Neck: normal inspection Respiratory/Chest: crackles/rales Cardiovascular/Chest: tachycardia Abdomen: normal bowel sounds, soft Genitourinary/Rectal: normal genital exam Extremities: normal inspection Skin Exam: warm/dry Neurologic: unresponsiveness Last 24 Hour Vital Signs Date Time Temp Pulse Resp B/P (MAP) Pulse Ox O2 Delivery O2 Flow Rate FiO2 04/17/17 07:54 109 16 Non-Rebreather 15.0 100 04/17/17 07:10 Nasal Cannula 2.0 28 04/17/17 07:10 85 Nasal Cannula 2.0 28 04/17/17 07:00 103.8 109 20 85/44 94 Non-Rebreather 15.0 103.8 04/17/17 06:19 103.0 04/17/17 04:00 103.5 111 20 95/53 83 Nasal Cannula 5.0 103.5 04/17/17 01:19 102.9 04/17/17 00:00 102.9 107 21 110/52 95 Nasal Cannula 2.0 102.9 04/16/17 20:00 101.3 110 24 93/56 95 101.3 04/16/17 19:20 97 Nasal Cannula 2.0 28 04/16/17 19:20 Nasal Cannula 2.0 28 04/16/17 19:20 72 18 Nasal Cannula 2.0 04/16/17 15:52 99.6 101 20 133/85 95 Nasal Cannula 99.6 04/16/17 13:06 117/67 Intake and Output 04/16/17 04/17/17 19:00 07:00 Intake Total 700 ml 955 ml Output Total 800 ml Balance 700 ml 155 ml IV Total 700 ml 955 ml Output Urine Total 800 ml Laboratory Tests Test 04/17/17 06:45 04/17/17 07:15 04/17/17 07:40 04/17/17 08:00 White Blood Count 7.9 K/UL (4.8-10.8) Red Blood Count 2.39 M/UL (4.70-6.10) L Hemoglobin 8.6 G/DL (14.2-18.0) L Hematocrit 24.6 % (42.0-52.0) L Mean Corpuscular Volume 103 FL (80-99) H Mean Corpuscular Hemoglobin 35.9 PG (27.0-31.0) H Mean Corpuscular Hemoglobin Concent 34.9 G/DL (32.0-36.0) Red Cell Distribution Width 15.1 % (11.6-14.8) H Platelet Count 59 K/UL (150-450) L Mean Platelet Volume 10.1 FL (6.5-10.1) Neutrophils (%) (Auto) % (45.0-75.0) Lymphocytes (%) (Auto) % (20.0-45.0) Monocytes (%) (Auto) % (1.0-10.0) Eosinophils (%) (Auto) % (0.0-3.0) Basophils (%) (Auto) % (0.0-2.0) Differential Total Cells Counted 100 Neutrophils % (Manual) 90 % (45-75) H Lymphocytes % (Manual) 8 % (20-45) L Monocytes % (Manual) 2 % (1-10) Eosinophils % (Manual) 0 % (0-3) Basophils % (Manual) 0 % (0-2) Band Neutrophils 0 % (0-8) Platelet Estimate Decreased L Platelet Morphology Normal Hypochromasia 2+ Anisocytosis 1+ Macrocytosis 1+ Spherocytes 2+ Sodium Level 158 MMOL/L (136-145) H Potassium Level 3.3 MMOL/L (3.5-5.1) L Chloride Level 121 MMOL/L (98-107) H Carbon Dioxide Level 25 MMOL/L (21-32) Anion Gap 12 mmol/L (5-15) Blood Urea Nitrogen 93 mg/dL (7-18) H Creatinine 5.3 MG/DL (0.55-1.30) #H Estimat Glomerular Filtration Rate 11.5 mL/min (>60) Glucose Level 134 MG/DL (74-106) H Uric Acid 13.7 MG/DL (2.6-7.2) H Calcium Level 6.9 MG/DL (8.5-10.1) L Phosphorus Level 3.3 MG/DL (2.5-4.9) Magnesium Level 2.0 MG/DL (1.8-2.4) Total Bilirubin 9.8 MG/DL (0.2-1.0) H Direct Bilirubin 8.3 MG/DL (0.0-0.3) H Aspartate Amino Transf (AST/SGOT) 159 U/L (15-37) H Alanine Aminotransferase (ALT/SGPT) 90 U/L (12-78) H Alkaline Phosphatase 196 U/L (46-116) H Ammonia 73 umol/L (11-32) H C-Reactive Protein, Quantitative 13.9 mg/dL (0.00-0.90) H Pro-B-Type Natriuretic Peptide 799 pg/mL (0-125) H Total Protein 5.1 G/DL (6.4-8.2) L Albumin 1.6 G/DL (3.4-5.0) L Globulin 3.5 g/dL Albumin/Globulin Ratio 0.5 (1.0-2.7) L Hepatitis A IgM Antibody Pending Hepatitis B Surface Antigen Pending Hepatitis B Core IgM Antibody Pending Hepatitis C Antibody Pending Arterial Blood pH 7.290 (7.350-7.450) Arterial Blood Partial Pressure CO2 46.9 mmHg (35.0-45.0) H Arterial Blood Partial Pressure O2 85.4 mmHg (75.0-100.0) Arterial Blood HCO3 22.2 mmol/L (22.0-26.0) Arterial Blood Oxygen Saturation 93.8 % (92.0-98.0) Arterial Blood Base Excess -4.5 Renny Test Positive Lactic Acid Level 1.70 mmol/L (0.66-2.22) Stool Occult Blood Pending Height (Feet): 5 Height (Inches): 7.00 Weight (Pounds): 239 Medications Current Medications Medications (Trade) Dose Ordered Sig/Jocelyne Route PRN Reason Start Time Stop Time Status Last Admin Dose Admin Acetaminophen (Tylenol) 650 mg Q4H PRN ORAL fever>100.5 04/13/17 18:30 05/11/17 10:29 04/17/17 06:19 Allopurinol (Allopurinol) 300 mg DAILY ORAL 04/15/17 09:00 05/15/17 08:59 04/17/17 11:06 Ceftriaxone Sodium 1 gm/ Sodium Chloride 55 ml @ 110 mls/hr Q24H IVPB 04/15/17 00:15 04/22/17 00:14 04/17/17 00:06 Chlorhexidine Gluconate (Anika-Hex 2%) 1 applic DAILY@2000 TOPIC 04/17/17 20:00 05/17/17 19:59 Dextrose 1,000 ml @ 100 mls/hr Q10H IV 04/15/17 14:15 05/15/17 14:14 04/17/17 09:04 Dextrose (Dextrose 50%) STAT PRN IV Hypoglycemia 04/14/17 13:30 05/14/17 13:29 04/15/17 05:59 Ergocalciferol (Drisdol) 50,000 intlu QWEEK ORAL 04/20/17 09:00 05/13/17 08:59 Folic Acid (Folate) 5 mg DAILY ORAL 04/14/17 09:00 05/13/17 12:59 04/17/17 11:15 Haloperidol Lactate (Haldol) 5 mg Q6H PRN IM Agitation 04/14/17 13:00 05/14/17 12:59 Heparin Sodium (Porcine) (Heparin 5000 units/ml) 5,000 units EVERY 12 HOURS SUBQ 04/13/17 21:00 05/11/17 20:59 Insulin Aspart (NovoLOG) BEFORE MEALS AND HS SUBQ 04/14/17 16:30 05/14/17 16:29 04/17/17 11:54 Lactulose (Cephulac) 30 gm THREE TIMES A DAY ORAL 04/16/17 13:00 05/16/17 12:59 04/17/17 11:06 Lorazepam (Ativan 2mg/ml 1ml) 1 mg Q6H PRN IV For Anxiety 04/14/17 13:00 04/21/17 12:59 Methylprednisolone Sodium Succinate (Solu-MEDROL) 40 mg Q8HR IVP 04/17/17 14:00 05/15/17 08:59 Metronidazole 100 ml @ 100 mls/hr Q12HR IVPB 04/15/17 09:00 04/22/17 08:59 04/17/17 11:07 Nitroglycerin (Ntg) 1 patch Q24H TDERMAL 04/14/17 13:00 05/13/17 12:59 04/16/17 13:06 Norepinephrine Bitartrate 4 mg/ Dextrose 250 ml @ 0 mls/hr Q24H IV 04/17/17 10:00 05/17/17 09:59 Ondansetron HCl (Zofran) 4 mg Q6H PRN IVP Nausea & Vomiting 04/13/17 18:00 05/11/17 17:59 Rifaximin (Xifaxan) 550 mg EVERY 12 HOURS ORAL 04/16/17 21:00 04/23/17 20:59 04/17/17 11:14 Thiamine HCl 100 mg/Dextrose 56 ml @ 123.002 mls/hr Q24HRS IVPB 04/16/17 16:00 05/16/17 15:59 04/16/17 16:49 Assessment/Plan Problem List: (1) Severe sepsis Assessment & Plan: severe sepsis hypotension requiring pressors needs central venous access -unfortunately given condition cannot obtain consent for central line from patient and no available family. two physician consent obtained for procedure that is necessary. -left femoral triple lumen insertion without complication -okay to use line -thank you for this consult. will follow with recs. ICD Codes: A41.9 - Sepsis, unspecified organism; R65.20 - Severe sepsis without septic shock SNOMED: 12591637 Status: deteriorating AbdulkadirfrancdaisyLuis Enrique Apr 17, 2017 12:15
[2017-04-17] MEDS: Solu-MEDROL 40mg Inj IVP SCH ×2 (13:38→20:12)
[2017-04-17] MEDS: Nitroglycerin Patch 0.4mg TDERMAL SCH (13:39)
[2017-04-17] MEDS ORDERED: Thiamine HCl 100mg/ml 2 ml Inj ONE (15:36)
[2017-04-17] MEDS: Thiamine HCl 100 MG in NS 55 ML IVPB SCH (15:54)
--- NOTE | 2017-04-17 18:45 | Electroencephalogram ---
DATE OF PROCEDURE: 04/15/2017 ELECTROENCEPHALOGRAPHY REPORT ORDERING PHYSICIAN: Lee Tai M.D. HISTORY: This is a 51-year-old man with persistent unresponsiveness, suspected to have nonconvulsive seizure activity. Currently treated for liver cirrhosis, UTI, and multiorgan failure, maintained on vancomycin. During the recording, we described as being awake, drowsy, or asleep, becoming restless when awakened and poorly cooperative. Throughout the recording, background activity consistent of a mixture of 7 to 8 cycles per second with epochs of 6 to 7 cycles per second, low to medium voltage activities bilaterally. Photic stimulation from 3 to 32 Hz was done no significant changes, with developing EMG and eye movement artifacts. There was no significant asymmetry from [id number]. There were no spike or wave activities noted. IMPRESSION: Abnormal EEG in the presence of excessive diffuse slowing. COMMENT: Above abnormality indicated global cerebral dysfunction, which may relate to underlying toxic, metabolic, or diffuse structural lesions. Absence of paroxysmal event does not rule out seizure disorder. Grayson Mcbride M.D. DR: Missael JOB#: [id number] CC:
[2017-04-17] MEDS ORDERED: Dyna-Hex 2% Top Sol 2oz TOPIC SCH (20:00)
[2017-04-17] MEDS ORDERED: Dyna-Hex 2% Top Sol 2oz TOPIC ONE (21:30)
[2017-04-18] VITALS (27 sets, daily range): BP systolic 86–114; BP diastolic 54–75
[2017-04-18] MEDS: cefTRIAXone 1 GM in NS 55 ML IVPB SCH (00:15)
[2017-04-18] MEDS: NovoLOG Insulin Flexpen SUBQ SCH ×4 (00:20→18:23)
[2017-04-18] MEDS: Solu-MEDROL 40mg Inj IVP SCH ×3 (06:12→22:18)
[2017-04-18 07:26] LABS: HEMATOCRIT 26.9 % (42.0-52.0); MEAN CORPUSCULAR VOLUME 105 FL (80-99); PLATELET COUNT 51 K/UL (150-450); RED BLOOD COUNT 2.57 M/UL (4.70-6.10); RED CELL DISTRIBUTION WIDTH 15.3 % (11.6-14.8)
[2017-04-18 07:44] LABS: INR 1.7 (0.9-1.1)
[2017-04-18 08:02] LABS: ALANINE AMINOTRANSFERASE 87 U/L (12-78); ALBUMIN/GLOBULIN RATIO 0.6 (1.0-2.7); ALKALINE PHOSPHATASE 187 U/L (46-116); ANION GAP 12 mmol/L (5-15); ASPARTATE AMINO TRANSFERASE 120 U/L (15-37); BILIRUBIN,TOTAL 11.8 MG/DL (0.2-1.0); BLOOD UREA NITROGEN 111 mg/dL (7-18); CALCIUM 7.2 MG/DL (8.5-10.1); CARBON DIOXIDE 24 MMOL/L (21-32); CHLORIDE 114 MMOL/L (98-107); CREATININE 6.8 MG/DL (0.55-1.30); PHOSPHORUS 7.7 MG/DL (2.5-4.9); POTASSIUM 3.6 MMOL/L (3.5-5.1); SODIUM 150 MMOL/L (136-145)
--- NOTE | 2017-04-18 08:02 | General Progress Note ---
Assessment/Plan Problem List: (1) Diabetes mellitus out of control ICD Codes: E11.65 - Type 2 diabetes mellitus with hyperglycemia SNOMED: 58675969, 037778057 (2) Altered level of consciousness ICD Codes: R40.4 - Transient alteration of awareness SNOMED: 2259568 (3) Elevated LFTs ICD Codes: R79.89 - Other specified abnormal findings of blood chemistry SNOMED: 701445375, 202930657 (4) Lice infestation ICD Codes: B85.2 - Pediculosis, unspecified SNOMED: 409197377 (5) Liver cirrhosis ICD Codes: K74.60 - Unspecified cirrhosis of liver SNOMED: 15476710 Assessment/Plan patient is not eating no need for scheduled basal and bolus insulin continue NISS Subjective ROS Limited/Unobtainable: Yes Allergies: Coded Allergies: ASPIRIN (Verified Allergy, Unknown, 03/12/17) Subjective events noted - interval notes reviewed lethargic NGT in place on BiPAP transferred to ICU Objective Last 24 Hour Vital Signs Date Time Temp Pulse Resp B/P (MAP) Pulse Ox O2 Delivery O2 Flow Rate FiO2 04/18/17 07:09 68 23 97 Full Face 100 04/18/17 07:09 Bi-pap 100 04/18/17 07:08 98 Bi-pap 100 04/18/17 07:00 69 20 98/68 99 Bi-pap 100 04/18/17 06:00 62 20 99/65 99 Bi-pap 100 04/18/17 06:00 96/66 04/18/17 05:06 62 21 100 Full Face 100 04/18/17 05:00 105/67 04/18/17 05:00 65 20 104/66 99 Bi-pap 100 04/18/17 04:00 98.2 62 19 97/60 96 Bi-pap 100 98.2 04/18/17 04:00 94/58 04/18/17 04:00 74 04/18/17 03:20 70 16 99 Full Face 100 04/18/17 03:00 70 17 114/75 99 Bi-pap 100 04/18/17 03:00 114/75 04/18/17 02:00 64 18 113/73 98 Bi-pap 100 04/18/17 02:00 113/73 04/18/17 01:07 73 28 99 Full Face 100 04/18/17 01:00 95/60 3/4/18 01:00 71 18 95/60 98 Bi-pap 100 04/18/17 00:00 97.9 68 20 104/65 98 Bi-pap 100 97.9 04/18/17 00:00 104/65 04/17/17 23:08 76 17 95 Full Face 100 04/17/17 23:00 78 20 106/69 99 Non-Rebreather 15.0 04/17/17 23:00 102/64 04/17/17 22:00 72 16 92/60 99 Non-Rebreather 15.0 04/17/17 22:00 93/62 04/17/17 21:26 70 16 99 Full Face 100 04/17/17 21:00 69 16 95/59 99 Non-Rebreather 15.0 04/17/17 21:00 107/59 04/17/17 20:00 97/54 04/17/17 20:00 87 04/17/17 20:00 98.1 72 20 95/65 99 Bi-pap 100.0 98.1 04/17/17 20:00 98.3 72 18 95/55 98 Non-Rebreather 15.0 98.3 04/17/17 19:40 Bi-pap 100 04/17/17 19:40 96 Bi-pap 100 04/17/17 19:40 78 16 96 Full Face 100 04/17/17 19:00 124/59 04/17/17 19:00 81 17 99/61 92 Non-Rebreather 15.0 04/17/17 18:00 113/54 04/17/17 18:00 80 16 97/58 95 Non-Rebreather 15.0 04/17/17 17:00 81 18 106/60 94 Non-Rebreather 15.0 04/17/17 17:00 92/56 04/17/17 16:00 80 18 97/57 94 Non-Rebreather 15.0 04/17/17 16:00 92/56 04/17/17 16:00 77 04/17/17 15:00 91/57 04/17/17 15:00 83 15 93/56 94 Non-Rebreather 15.0 04/17/17 14:00 86 15 93/50 95 Non-Rebreather 15.0 04/17/17 13:45 87 14 92/47 95 Non-Rebreather 15.0 04/17/17 13:40 88/50 04/17/17 13:39 88/50 04/17/17 13:15 86 17 88/50 96 Non-Rebreather 15.0 04/17/17 13:00 98.2 86 17 90/55 97 Non-Rebreather 15.0 98.2 04/17/17 12:00 98.4 84 15 110/44 95 Non-Rebreather 15.0 98.4 04/17/17 12:00 89 04/17/17 11:00 99.6 90 17 89/47 95 Non-Rebreather 15.0 99.6 04/17/17 10:00 100.0 93 18 79/39 95 Non-Rebreather 15.0 100.0 04/17/17 10:00 110/52 04/17/17 09:00 101.8 101 20 83/40 95 Non-Rebreather 15.0 101.8 Intake and Output 04/17/17 04/18/17 19:00 07:00 Intake Total 1549.75 ml 1362.25 ml Balance 1549.75 ml 1362.25 ml IV Total 1549.75 ml 1302.25 ml Other 60 ml # Voids 210 145 # Bowel Movements 7 3 Laboratory Tests 04/17/17 23:09: Arterial Blood pH 7.200*L, Arterial Blood Partial Pressure CO2 53.0H, Arterial Blood Partial Pressure O2 133.2H, Arterial Blood HCO3 20.2L, Arterial Blood Oxygen Saturation 97.5, Arterial Blood Base Excess -7.7, Renny Test Positive 04/18/17 04:30: White Blood Count 12.0#H, Red Blood Count 2.57L, Hemoglobin 9.0L, Hematocrit 26.9L, Mean Corpuscular Volume 105H, Mean Corpuscular Hemoglobin 34.9H, Mean Corpuscular Hemoglobin Concent 33.3, Red Cell Distribution Width 15.3H, Platelet Count 51L, Mean Platelet Volume 10.8H, Neutrophils (%) (Auto) , Lymphocytes (%) (Auto) , Monocytes (%) (Auto) , Eosinophils (%) (Auto) , Basophils (%) (Auto) , Neutrophils % (Manual) [Pending], Lymphocytes % (Manual) [Pending], Prothrombin Time 17.4H, Prothromb Time International Ratio 1.7H, Activated Partial Thromboplast Time 39H, Sodium Level [Pending], Potassium Level [Pending], Chloride Level [Pending], Carbon Dioxide Level [Pending], Blood Urea Nitrogen [Pending], Creatinine [Pending], Estimat Glomerular Filtration Rate [Pending], Glucose Level [Pending], Uric Acid [Pending], Calcium Level [Pending], Phosphorus Level [Pending], Magnesium Level [Pending], Total Bilirubin [Pending], Aspartate Amino Transf (AST/SGOT) [Pending], Alanine Aminotransferase (ALT/SGPT) [Pending], Alkaline Phosphatase [Pending], Ammonia 49H, C-Reactive Protein, Quantitative [Pending], Pro-B-Type Natriuretic Peptide [Pending], Total Protein [Pending], Albumin [Pending], Globulin [Pending] Height (Feet): 5 Height (Inches): 7.00 Weight (Pounds): 241 General Appearance: moderate distress Neck: non-tender Cardiovascular: normal rate Respiratory/Chest: decreased breath sounds Abdomen: normal bowel sounds Edema: 1+ Arm (L), 1+ Arm (R), 1+ Leg (L), 1+ Leg (R), 1+ Pedal (L), 1+ Pedal ( R), 1+ Generalized Objective Current Medications Medications (Trade) Dose Ordered Sig/Jocelyne Route PRN Reason Start Time Stop Time Status Last Admin Dose Admin Acetaminophen (Tylenol) 650 mg Q4H PRN ORAL fever>100.5 04/13/17 18:30 05/11/17 10:29 04/17/17 06:19 Allopurinol (Allopurinol) 300 mg DAILY ORAL 04/15/17 09:00 05/15/17 08:59 04/17/17 11:06 Ceftriaxone Sodium 1 gm/ Sodium Chloride 55 ml @ 110 mls/hr Q24H IVPB 04/15/17 00:15 04/22/17 00:14 04/18/17 00:15 Dextrose 1,000 ml @ 100 mls/hr Q10H IV 04/15/17 14:15 05/15/17 14:14 04/18/17 06:47 Dextrose (Dextrose 50%) STAT PRN IV Hypoglycemia 04/14/17 13:30 05/14/17 13:29 04/15/17 05:59 Ergocalciferol (Drisdol) 50,000 intlu QWEEK ORAL 04/20/17 09:00 05/13/17 08:59 Folic Acid (Folate) 5 mg DAILY ORAL 04/14/17 09:00 05/13/17 12:59 04/17/17 11:15 Haloperidol Lactate (Haldol) 5 mg Q6H PRN IM Agitation 04/14/17 13:00 05/14/17 12:59 Heparin Sodium (Porcine) (Heparin 5000 units/ml) 5,000 units EVERY 12 HOURS SUBQ 04/13/17 21:00 05/11/17 20:59 Insulin Aspart (NovoLOG) EVERY 6 HOURS SUBQ 04/18/17 00:00 05/14/17 16:29 04/18/17 06:14 Lactulose (Cephulac) 30 gm THREE TIMES A DAY ORAL 04/16/17 13:00 05/16/17 12:59 04/17/17 18:00 Lorazepam (Ativan 2mg/ml 1ml) 1 mg Q6H PRN IV For Anxiety 04/14/17 13:00 04/21/17 12:59 Methylprednisolone Sodium Succinate (Solu-MEDROL) 40 mg Q8HR IVP 04/17/17 14:00 05/15/17 08:59 04/18/17 06:12 Metronidazole 100 ml @ 100 mls/hr Q12HR IVPB 04/15/17 09:00 04/22/17 08:59 04/17/17 20:12 Nitroglycerin (Ntg) 1 patch Q24H TDERMAL 04/14/17 13:00 05/13/17 12:59 04/17/17 13:39 Norepinephrine Bitartrate 4 mg/ Dextrose 250 ml @ 0 mls/hr Q24H IV 04/17/17 10:00 05/17/17 09:59 04/17/17 13:40 Ondansetron HCl (Zofran) 4 mg Q6H PRN IVP Nausea & Vomiting 04/13/17 18:00 05/11/17 17:59 Rifaximin (Xifaxan) 550 mg EVERY 12 HOURS ORAL 04/16/17 21:00 3/9/18 20:59 04/17/17 20:12 Thiamine HCl 100 mg/Sodium Chloride 56 ml @ 123.002 mls/hr Q24HRS IVPB 04/17/17 16:00 05/17/17 15:59 04/17/17 15:54 Item Value Date Time Bedside Blood Glucose 210 mg/dl H 04/18/17 0614 Bedside Blood Glucose 219 mg/dl H 04/18/17 0020 Bedside Blood Glucose 192 mg/dl H 04/17/17 1630 Bedside Blood Glucose 132 mg/dl H 04/17/17 1154 ROSALINDA VELASCO 4, 2018 08:02
[2017-04-18 08:10] LABS: BILIRUBIN,DIRECT 9.4 MG/DL (0.0-0.3)
[2017-04-18] MEDS: Heparin 5000 units/ml inj SUBQ SCH (09:00)
[2017-04-18] MEDS: Lactulose 20gm/30ml UDC ORAL SCH ×2 (09:37→18:17)
--- NOTE | 2017-04-18 10:16 | General Progress Note ---
Assessment/Plan Problem List: (1) Alcohol intoxication ICD Codes: F10.929 - Alcohol use, unspecified with intoxication, unspecified SNOMED: 21938900 (2) Diabetes mellitus out of control ICD Codes: E11.65 - Type 2 diabetes mellitus with hyperglycemia SNOMED: 76177780, 953827664 (3) Liver cirrhosis ICD Codes: K74.60 - Unspecified cirrhosis of liver SNOMED: 82138747 (4) Elevated LFTs ICD Codes: R79.89 - Other specified abnormal findings of blood chemistry SNOMED: 041921947, 847462309 (5) Altered level of consciousness ICD Codes: R40.4 - Transient alteration of awareness SNOMED: 2690765 Assessment/Plan dc heparin start NGTF repeat labs decrease lactulose to BID add xifaxan Subjective ROS Limited/Unobtainable: No Allergies: Coded Allergies: ASPIRIN (Verified Allergy, Unknown, 03/12/17) Objective Last 24 Hour Vital Signs Date Time Temp Pulse Resp B/P (MAP) Pulse Ox O2 Delivery O2 Flow Rate FiO2 04/18/17 09:15 63 17 98 Full Face 100 04/18/17 07:09 68 23 97 Full Face 100 04/18/17 07:09 Bi-pap 100 04/18/17 07:08 98 Bi-pap 100 04/18/17 07:00 69 20 98/68 99 Bi-pap 100 04/18/17 06:00 62 20 99/65 99 Bi-pap 100 04/18/17 06:00 96/66 04/18/17 05:06 62 21 100 Full Face 100 04/18/17 05:00 105/67 04/18/17 05:00 65 20 104/66 99 Bi-pap 100 04/18/17 04:00 98.2 62 19 97/60 96 Bi-pap 100 98.2 04/18/17 04:00 94/58 04/18/17 04:00 74 04/18/17 03:20 70 16 99 Full Face 100 04/18/17 03:00 70 17 114/75 99 Bi-pap 100 04/18/17 03:00 114/75 04/18/17 02:00 64 18 113/73 98 Bi-pap 100 04/18/17 02:00 113/73 04/18/17 01:07 73 28 99 Full Face 100 04/18/17 01:00 95/60 3/4/18 01:00 71 18 95/60 98 Bi-pap 100 04/18/17 00:00 97.9 68 20 104/65 98 Bi-pap 100 97.9 04/18/17 00:00 104/65 04/17/17 23:08 76 17 95 Full Face 100 04/17/17 23:00 78 20 106/69 99 Non-Rebreather 15.0 04/17/17 23:00 102/64 04/17/17 22:00 72 16 92/60 99 Non-Rebreather 15.0 04/17/17 22:00 93/62 04/17/17 21:26 70 16 99 Full Face 100 04/17/17 21:00 69 16 95/59 99 Non-Rebreather 15.0 04/17/17 21:00 107/59 04/17/17 20:00 97/54 04/17/17 20:00 87 04/17/17 20:00 98.1 72 20 95/65 99 Bi-pap 100.0 98.1 04/17/17 20:00 98.3 72 18 95/55 98 Non-Rebreather 15.0 98.3 04/17/17 19:40 Bi-pap 100 04/17/17 19:40 96 Bi-pap 100 04/17/17 19:40 78 16 96 Full Face 100 04/17/17 19:00 124/59 04/17/17 19:00 81 17 99/61 92 Non-Rebreather 15.0 04/17/17 18:00 113/54 04/17/17 18:00 80 16 97/58 95 Non-Rebreather 15.0 04/17/17 17:00 81 18 106/60 94 Non-Rebreather 15.0 04/17/17 17:00 92/56 04/17/17 16:00 80 18 97/57 94 Non-Rebreather 15.0 04/17/17 16:00 92/56 04/17/17 16:00 77 04/17/17 15:00 91/57 04/17/17 15:00 83 15 93/56 94 Non-Rebreather 15.0 04/17/17 14:00 86 15 93/50 95 Non-Rebreather 15.0 04/17/17 13:45 87 14 92/47 95 Non-Rebreather 15.0 04/17/17 13:40 88/50 04/17/17 13:39 88/50 04/17/17 13:15 86 17 88/50 96 Non-Rebreather 15.0 04/17/17 13:00 98.2 86 17 90/55 97 Non-Rebreather 15.0 98.2 04/17/17 12:00 98.4 84 15 110/44 95 Non-Rebreather 15.0 98.4 04/17/17 12:00 89 04/17/17 11:00 99.6 90 17 89/47 95 Non-Rebreather 15.0 99.6 Intake and Output 04/17/17 04/18/17 19:00 07:00 Intake Total 1549.75 ml 1362.25 ml Balance 1549.75 ml 1362.25 ml IV Total 1549.75 ml 1302.25 ml Other 60 ml # Voids 210 145 # Bowel Movements 7 3 Laboratory Tests 04/17/17 23:09: Arterial Blood pH 7.200*L, Arterial Blood Partial Pressure CO2 53.0H, Arterial Blood Partial Pressure O2 133.2H, Arterial Blood HCO3 20.2L, Arterial Blood Oxygen Saturation 97.5, Arterial Blood Base Excess -7.7, Renny Test Positive 04/18/17 04:00: Arterial Blood pH 7.248*L, Arterial Blood Partial Pressure CO2 42.2, Arterial Blood Partial Pressure O2 109.7H, Arterial Blood HCO3 18.0L, Arterial Blood Oxygen Saturation 97.3, Arterial Blood Base Excess -8.6, Renny Test Positive 04/18/17 04:30: White Blood Count 12.0#H, Red Blood Count 2.57L, Hemoglobin 9.0L, Hematocrit 26.9L, Mean Corpuscular Volume 105H, Mean Corpuscular Hemoglobin 34.9H, Mean Corpuscular Hemoglobin Concent 33.3, Red Cell Distribution Width 15.3H, Platelet Count 51L, Mean Platelet Volume 10.8H, Neutrophils (%) (Auto) , Lymphocytes (%) (Auto) , Monocytes (%) (Auto) , Eosinophils (%) (Auto) , Basophils (%) (Auto) , Differential Total Cells Counted 100, Neutrophils % ( Manual) 91H, Lymphocytes % (Manual) 7L, Monocytes % (Manual) 2, Eosinophils % ( Manual) 0, Basophils % (Manual) 0, Band Neutrophils 0, Platelet Estimate DecreasedL, Platelet Morphology Normal, Polychromasia 1+, Anisocytosis 1+, Macrocytosis 1+, Prothrombin Time 17.4H, Prothromb Time International Ratio 1.7H , Activated Partial Thromboplast Time 39H, Sodium Level 150H, Potassium Level 3.6, Chloride Level 114H, Carbon Dioxide Level 24, Anion Gap 12, Blood Urea Nitrogen 111H, Creatinine 6.8H, Estimat Glomerular Filtration Rate 8.6, Glucose Level 232H, Uric Acid 13.1H, Calcium Level 7.2L, Phosphorus Level 7.7H, Magnesium Level 2.3, Total Bilirubin 11.8H, Direct Bilirubin 9.4H, Aspartate Amino Transf (AST/SGOT) 120H, Alanine Aminotransferase (ALT/SGPT) 87H, Alkaline Phosphatase 187H, Ammonia 49H, C-Reactive Protein, Quantitative 21.2H, Pro-B- Type Natriuretic Peptide 2372H, Total Protein 5.5L, Albumin 2.0L, Globulin 3.5, Albumin/Globulin Ratio 0.6L Height (Feet): 5 Height (Inches): 7.00 Weight (Pounds): 241 General Appearance: lethargic EENT: normal ENT inspection Neck: supple Cardiovascular: normal rate Respiratory/Chest: decreased breath sounds Abdomen: normal bowel sounds, non tender, soft Extremities: non-tender BETH FREDERICK Apr 18, 2017 10:16
--- NOTE | 2017-04-18 10:59 | Pulmonolgy Critical Care Note ---
Critical Care - Asmt/Plan Assessment/Plan: ASSESSMENT sepsis with shock acute hypoxemic RF requiring 100% NRM and BiPAP persistent acute toxic metabolic encephalopathy ( due to hepatorenal syndrome, sepsis) acute hepatic encephalopathy acute renal failure-worsening alcoholic liver disease with liver cirrhosis Multiple organ failure UTI with Strep elevated troponin single episode, likely due to renal failure ETOH abuse DOOC anemia schizophrenia sacrococcyx unstageable pressure ulcer POA PLAN OF CARE ICU care hemodynamic support with Levophed CL placed urgently 04/17 by surgeon continue BiPAP hypercapnia resolved, but remains hypoxic fup with ABG and CXR in am CXR with Patchy bilateral infiltrates versus pulmonary edema, worse pulmonary edema likely due to worsening renal failure abx ID follows urine cx + Strep blood cx negative sputum cx , Venous Duplex BLE persistent encephalopathy ( multifactorial, including hepatorenal syndrome, sepsis, now high ammonia) tox screen negative , LP negative CT head no acute IC pathology neuro eval and recommendations appreciated nephro follows creat worse , CXR with pulm edema -need urgent HD surgeon contacted to place HD catheter to start HD replace lytes as needed, avoid nephrotoxic renal US negative ? underlying CKD cardio follows for elevated troponin ECHO with pEF55% per cardio possible demand ischemia given elevated troponin and inferolateral ischemia on ECG however all other troponin negative, likely due to renal failure psych follows , psych meds regimen optimized GI eval appreciated on lactulose and Rifaximin , Thiamine and Folic acid s/p Dobbhoff insertion 04/16, strict aspiration precautions, on TF stool OB monitor HH, transfuse prn anemia w/up noted trend LFT with trend up, check hep panel; ammonia still 73 endo follows, since not eating Levemir and premeal insulin stopped, continue SSI closely monitor BS with start of TF, may need to resume scheduled insulin [id number], not at goal wound care as per wound nurse recs DVT GI prophylaxis case discussed and evaluated by supervising physician Critical Care - Objective Last 24 Hour Vital Signs Date Time Temp Pulse Resp B/P (MAP) Pulse Ox O2 Delivery O2 Flow Rate FiO2 04/18/17 10:32 60 25 99 Full Face 100 04/18/17 10:00 63 19 96/67 99 Bi-pap 100 04/18/17 09:15 63 17 98 Full Face 100 04/18/17 09:00 62 17 103/68 97 Bi-pap 100 04/18/17 08:00 98.4 63 18 107/68 98 Bi-pap 100 98.4 04/18/17 08:00 74 04/18/17 07:09 68 23 97 Full Face 100 04/18/17 07:09 Bi-pap 100 04/18/17 07:08 98 Bi-pap 100 04/18/17 07:00 69 20 98/68 99 Bi-pap 100 04/18/17 06:00 62 20 99/65 99 Bi-pap 100 04/18/17 06:00 96/66 04/18/17 05:06 62 21 100 Full Face 100 04/18/17 05:00 105/67 04/18/17 05:00 65 20 104/66 99 Bi-pap 100 04/18/17 04:00 98.2 62 19 97/60 96 Bi-pap 100 98.2 04/18/17 04:00 94/58 04/18/17 04:00 74 04/18/17 03:20 70 16 99 Full Face 100 04/18/17 03:00 70 17 114/75 99 Bi-pap 100 04/18/17 03:00 114/75 04/18/17 02:00 64 18 113/73 98 Bi-pap 100 04/18/17 02:00 113/73 04/18/17 01:07 73 28 99 Full Face 100 04/18/17 01:00 95/60 04/18/17 01:00 71 18 95/60 98 Bi-pap 100 04/18/17 00:00 97.9 68 20 104/65 98 Bi-pap 100 97.9 04/18/17 00:00 104/65 04/17/17 23:08 76 17 95 Full Face 100 04/17/17 23:00 78 20 106/69 99 Non-Rebreather 15.0 04/17/17 23:00 102/64 04/17/17 22:00 72 16 92/60 99 Non-Rebreather 15.0 04/17/17 22:00 93/62 04/17/17 21:26 70 16 99 Full Face 100 04/17/17 21:00 69 16 95/59 99 Non-Rebreather 15.0 04/17/17 21:00 107/59 04/17/17 20:00 97/54 04/17/17 20:00 87 04/17/17 20:00 98.1 72 20 95/65 99 Bi-pap 100.0 98.1 04/17/17 20:00 98.3 72 18 95/55 98 Non-Rebreather 15.0 98.3 04/17/17 19:40 Bi-pap 100 04/17/17 19:40 96 Bi-pap 100 04/17/17 19:40 78 16 96 Full Face 100 04/17/17 19:00 124/59 04/17/17 19:00 81 17 99/61 92 Non-Rebreather 15.0 04/17/17 18:00 113/54 04/17/17 18:00 80 16 97/58 95 Non-Rebreather 15.0 04/17/17 17:00 81 18 106/60 94 Non-Rebreather 15.0 04/17/17 17:00 92/56 04/17/17 16:00 80 18 97/57 94 Non-Rebreather 15.0 04/17/17 16:00 92/56 04/17/17 16:00 77 04/17/17 15:00 91/57 04/17/17 15:00 83 15 93/56 94 Non-Rebreather 15.0 04/17/17 14:00 86 15 93/50 95 Non-Rebreather 15.0 04/17/17 13:45 87 14 92/47 95 Non-Rebreather 15.0 04/17/17 13:40 88/50 04/17/17 13:39 88/50 04/17/17 13:15 86 17 88/50 96 Non-Rebreather 15.0 04/17/17 13:00 98.2 86 17 90/55 97 Non-Rebreather 15.0 98.2 04/17/17 12:00 98.4 84 15 110/44 95 Non-Rebreather 15.0 98.4 04/17/17 12:00 89 04/17/17 11:00 99.6 90 17 89/47 95 Non-Rebreather 15.0 99.6 Objective: General Appearance: lethargic HEENT: normocephalic, atraumatic, BiPAP 15/5; Respiratory/Chest: decreased breath sounds Cardiovascular: ST on tele , BP unstable Abdomen: soft, non tender distended Extremities: pedal pulses normal, trace edema BLE Skin: sacrococcyx decub Neurologic/Psychiatric: lethargic Accucheck: 210 Critical Care - Subjective ROS Limited/Unobtainable: Yes Interval Events: remains critical on BiPAP started on pressors creat worse-6.8 Condition: critical IV Access: central - L femoral intact FI02: 100 Sputum Amount: None Fluids: D5W at 100 Drips: Levophed at 7.5 ml/hr I&O: Intake and Output 04/17/17 04/18/17 19:00 07:00 Intake Total 1549.75 ml 1362.25 ml Balance 1549.75 ml 1362.25 ml IV Total 1549.75 ml 1302.25 ml Other 60 ml # Voids 210 145 # Bowel Movements 7 3 CXR: Patchy bilateral infiltrates versus pulmonary edema. Lung disease appears worse Kyung Keith NP ([facility]) Apr 18, 2017 10:59
--- NOTE | 2017-04-18 12:12 | Diagnostic Imaging Report ---
Indication: Dyspnea Comparison: 04/17/2017 A single view chest radiograph was obtained. Findings: Patchy infiltrates demonstrated bilaterally. Worse compared to the previous study. Right pleural effusion is suspected currently. Enteric tube again noted. IMPRESSION: Patchy bilateral infiltrates versus pulmonary edema. Lung disease appears worse
--- NOTE | 2017-04-18 12:51 | Nephrology Progress Note ---
Assessment/Plan Problem List: (1) Severe sepsis (2) Hypotension (3) Renal failure Assessment: acute on chronic (4) Hypothermia (5) Elevated LFTs (6) Hyperbilirubinemia Assessment Acute renal failure back in ICU Hypotensive ? Underlying CKD Low BP , Septic Shock Acute encephalopathy Lice infestation High LFTs and Jaundice HypoThermia UTI Plan dialysis attempt steroids- Fluids D5w Antibiotics pressors NGT NPO Monitor renal parameters avoid Nephrotoxics folate Ergocalciferol Echo 55% EjFx ability to make decisions?? Subjective ROS Limited/Unobtainable: Yes Objective Objective Last 24 Hour Vital Signs Date Time Temp Pulse Resp B/P (MAP) Pulse Ox O2 Delivery O2 Flow Rate FiO2 04/18/17 12:00 65 04/18/17 12:00 61 17 103/58 99 Bi-pap 100 04/18/17 11:00 65 18 104/70 98 Bi-pap 100 04/18/17 10:32 60 25 99 Full Face 100 04/18/17 10:00 63 19 96/67 99 Bi-pap 100 04/18/17 09:15 63 17 98 Full Face 100 04/18/17 09:00 62 17 103/68 97 Bi-pap 100 04/18/17 08:00 98.4 63 18 107/68 98 Bi-pap 100 98.4 04/18/17 08:00 74 04/18/17 07:09 68 23 97 Full Face 100 04/18/17 07:09 Bi-pap 100 04/18/17 07:08 98 Bi-pap 100 04/18/17 07:00 69 20 98/68 99 Bi-pap 100 04/18/17 06:00 62 20 99/65 99 Bi-pap 100 04/18/17 06:00 96/66 04/18/17 05:06 62 21 100 Full Face 100 04/18/17 05:00 105/67 04/18/17 05:00 65 20 104/66 99 Bi-pap 100 04/18/17 04:00 98.2 62 19 97/60 96 Bi-pap 100 98.2 04/18/17 04:00 94/58 04/18/17 04:00 74 04/18/17 03:20 70 16 99 Full Face 100 04/18/17 03:00 70 17 114/75 99 Bi-pap 100 04/18/17 03:00 114/75 04/18/17 02:00 64 18 113/73 98 Bi-pap 100 04/18/17 02:00 113/73 04/18/17 01:07 73 28 99 Full Face 100 04/18/17 01:00 95/60 04/18/17 01:00 71 18 95/60 98 Bi-pap 100 04/18/17 00:00 97.9 68 20 104/65 98 Bi-pap 100 97.9 04/18/17 00:00 104/65 04/17/17 23:08 76 17 95 Full Face 100 04/17/17 23:00 78 20 106/69 99 Non-Rebreather 15.0 04/17/17 23:00 102/64 04/17/17 22:00 72 16 92/60 99 Non-Rebreather 15.0 04/17/17 22:00 93/62 04/17/17 21:26 70 16 99 Full Face 100 04/17/17 21:00 69 16 95/59 99 Non-Rebreather 15.0 04/17/17 21:00 107/59 04/17/17 20:00 97/54 04/17/17 20:00 87 04/17/17 20:00 98.1 72 20 95/65 99 Bi-pap 100.0 98.1 04/17/17 20:00 98.3 72 18 95/55 98 Non-Rebreather 15.0 98.3 04/17/17 19:40 Bi-pap 100 04/17/17 19:40 96 Bi-pap 100 04/17/17 19:40 78 16 96 Full Face 100 04/17/17 19:00 124/59 04/17/17 19:00 81 17 99/61 92 Non-Rebreather 15.0 04/17/17 18:00 113/54 04/17/17 18:00 80 16 97/58 95 Non-Rebreather 15.0 04/17/17 17:00 81 18 106/60 94 Non-Rebreather 15.0 04/17/17 17:00 92/56 04/17/17 16:00 80 18 97/57 94 Non-Rebreather 15.0 04/17/17 16:00 92/56 04/17/17 16:00 77 04/17/17 15:00 91/57 04/17/17 15:00 83 15 93/56 94 Non-Rebreather 15.0 04/17/17 14:00 86 15 93/50 95 Non-Rebreather 15.0 04/17/17 13:45 87 14 92/47 95 Non-Rebreather 15.0 04/17/17 13:40 88/50 04/17/17 13:39 88/50 04/17/17 13:15 86 17 88/50 96 Non-Rebreather 15.0 04/17/17 13:00 98.2 86 17 90/55 97 Non-Rebreather 15.0 98.2 Intake and Output 04/17/17 04/18/17 19:00 07:00 Intake Total 1549.75 ml 1362.25 ml Balance 1549.75 ml 1362.25 ml IV Total 1549.75 ml 1302.25 ml Other 60 ml # Voids 210 145 # Bowel Movements 7 3 Laboratory Tests 04/17/17 23:09: Arterial Blood pH 7.200*L, Arterial Blood Partial Pressure CO2 53.0H, Arterial Blood Partial Pressure O2 133.2H, Arterial Blood HCO3 20.2L, Arterial Blood Oxygen Saturation 97.5, Arterial Blood Base Excess -7.7, Renny Test Positive 04/18/17 04:00: Arterial Blood pH 7.248*L, Arterial Blood Partial Pressure CO2 42.2, Arterial Blood Partial Pressure O2 109.7H, Arterial Blood HCO3 18.0L, Arterial Blood Oxygen Saturation 97.3, Arterial Blood Base Excess -8.6, Renny Test Positive 04/18/17 04:30: White Blood Count 12.0#H, Red Blood Count 2.57L, Hemoglobin 9.0L, Hematocrit 26.9L, Mean Corpuscular Volume 105H, Mean Corpuscular Hemoglobin 34.9H, Mean Corpuscular Hemoglobin Concent 33.3, Red Cell Distribution Width 15.3H, Platelet Count 51L, Mean Platelet Volume 10.8H, Neutrophils (%) (Auto) , Lymphocytes (%) (Auto) , Monocytes (%) (Auto) , Eosinophils (%) (Auto) , Basophils (%) (Auto) , Differential Total Cells Counted 100, Neutrophils % ( Manual) 91H, Lymphocytes % (Manual) 7L, Monocytes % (Manual) 2, Eosinophils % ( Manual) 0, Basophils % (Manual) 0, Band Neutrophils 0, Platelet Estimate DecreasedL, Platelet Morphology Normal, Polychromasia 1+, Anisocytosis 1+, Macrocytosis 1+, Prothrombin Time 17.4H, Prothromb Time International Ratio 1.7H , Activated Partial Thromboplast Time 39H, Sodium Level 150H, Potassium Level 3.6, Chloride Level 114H, Carbon Dioxide Level 24, Anion Gap 12, Blood Urea Nitrogen 111H, Creatinine 6.8H, Estimat Glomerular Filtration Rate 8.6, Glucose Level 232H, Uric Acid 13.1H, Calcium Level 7.2L, Phosphorus Level 7.7H, Magnesium Level 2.3, Total Bilirubin 11.8H, Direct Bilirubin 9.4H, Aspartate Amino Transf (AST/SGOT) 120H, Alanine Aminotransferase (ALT/SGPT) 87H, Alkaline Phosphatase 187H, Ammonia 49H, C-Reactive Protein, Quantitative 21.2H, Pro-B- Type Natriuretic Peptide 2372H, Total Protein 5.5L, Albumin 2.0L, Globulin 3.5, Albumin/Globulin Ratio 0.6L Height (Feet): 5 Height (Inches): 7.00 Weight (Pounds): 241 General Appearance: mild distress EENT: scleral icterus Cardiovascular: tachycardia Respiratory/Chest: decreased breath sounds Abdomen: distended Objective edema ANTON LIZAMA Apr 18, 2017 12:51
[2017-04-18] MEDS: Nitroglycerin Patch 0.4mg TDERMAL SCH (13:35)
[2017-04-18] MEDS: Aluminum Hydroxide Gel Susp 15ml NG SCH ×2 (13:35→18:24)
--- NOTE | 2017-04-18 14:10 | Operative Note - PDOC ---
Operative Note Operative Note Pre-op Diagnosis: sepsis, acute renal failure Procedure: left subclavian HD catheter insertion Operative Findings: consistent w/pre-op dx studies Surgeon: yolanda Anesthesia: local Specimen: none Complications: none Condition: stable Estimated Blood Loss: minimal Drains: none Implant(s) used?: No Indications for Procedure 51 year old male in critical condition currently in ICU under medical care and management. hypotensive requiring urgent pressors, fluids, and resuscitation s/ p left femoral line placement yesterday. today worsening renal failure requiring urgent dialysis. HD catheter needed. Unfortunately patients condition is worsening and he is currently unable to consent for surgery. given urgent nature of condition and life saving measures two physician consent obtained for procedure. Description of Procedure The patient was lying in the supine position in Trendelenburg. All persons involved were shielded with hairnets,facemasks and sterile gowns. With sterile- gloved hands the left subclavian area was thoroughlyvsponged with chlorhexidine and allowed to dry. The area was draped with the large disposable sterile field provided in the kit. The skin and subcutaneous tissues superficial to the left subclavian vein was anesthetized with 5 mL of 1% lidocaine. A finder needle was advanced from deltopectoral groove until the syringe was seen to fill with venous blood. The needle was then held in place while the guide wire was advanced. The needle was then removed. A skin dilator was advanced over the guidewire and removed, then the HD catheter was advanced over the guide wire into proper position. The guide wire was removed and discarded. The ports were aspirated which showed good blood return indicating proper position into the vein and then carefully flushed with normal saline. The catheter was stabilized and sutured to the skin with 2-0 silk at 2 anchor ports. A sterile bio- occlusive dressing was placed over the catheter, including the insertion site. The patient tolerated the procedure well. Luis Enrique Taylor Apr 18, 2017 14:10
[2017-04-18] MEDS: Thiamine HCl 100 MG in NS 55 ML IVPB SCH (16:17)
[2017-04-18] MEDS ORDERED: NS 275ml ONE ×2 (16:55→18:25)
[2017-04-18] MEDS ORDERED: D5NS 1000ml IV ONE ×2 (16:55→18:19)
[2017-04-18] MEDS ORDERED: Tubing IV Secondary IV ONE ×4 (16:55→18:20)
[2017-04-18] MEDS ORDERED: NS 500ML ONE (18:25)
[2017-04-18] MEDS: Pantoprazole Inj IVP SCH (21:26)
[2017-04-19] VITALS (27 sets, daily range): BP systolic 81–108; BP diastolic 51–66
[2017-04-19] MEDS: Aluminum Hydroxide Gel Susp 15ml NG SCH ×4 (00:41→18:34)
[2017-04-19] MEDS: cefTRIAXone 1 GM in NS 55 ML IVPB SCH ×2 (00:41→23:59)
[2017-04-19] MEDS: NovoLOG Insulin Flexpen SUBQ SCH ×4 (00:43→18:36)
[2017-04-19] MEDS: Solu-MEDROL 40mg Inj IVP SCH ×3 (06:22→22:24)
[2017-04-19 07:34] LABS: HEMATOCRIT 26.4 % (42.0-52.0); MEAN CORPUSCULAR VOLUME 103 FL (80-99); PLATELET COUNT 46 K/UL (150-450); RED BLOOD COUNT 2.55 M/UL (4.70-6.10); RED CELL DISTRIBUTION WIDTH 15.2 % (11.6-14.8); WHITE BLOOD COUNT 8.7 K/UL (4.8-10.8)
--- NOTE | 2017-04-19 07:48 | General Progress Note ---
Assessment/Plan Problem List: (1) Diabetes mellitus out of control ICD Codes: E11.65 - Type 2 diabetes mellitus with hyperglycemia SNOMED: 94980762, 151540311 (2) Altered level of consciousness ICD Codes: R40.4 - Transient alteration of awareness SNOMED: 8978156 (3) Elevated LFTs ICD Codes: R79.89 - Other specified abnormal findings of blood chemistry SNOMED: 964027724, 471054655 (4) Lice infestation ICD Codes: B85.2 - Pediculosis, unspecified SNOMED: 935429117 (5) Liver cirrhosis ICD Codes: K74.60 - Unspecified cirrhosis of liver SNOMED: 77071589 Assessment/Plan add Levemir 6 units bid continue NISS Subjective ROS Limited/Unobtainable: Yes Allergies: Coded Allergies: ASPIRIN (Verified Allergy, Unknown, 03/12/17) Subjective events noted - interval notes reviewed lethargic NGT in place on BiPAP still in ICU Objective Last 24 Hour Vital Signs Date Time Temp Pulse Resp B/P (MAP) Pulse Ox O2 Delivery O2 Flow Rate FiO2 04/19/17 07:00 70 18 95/63 98 Bi-pap 60 04/19/17 06:00 71 18 101/58 98 Bi-pap 60 04/19/17 05:19 68 21 97 Full Face 50 04/19/17 05:00 74 20 81/58 98 Bi-pap 60 04/19/17 04:00 97.8 71 20 104/58 98 Bi-pap 70 97.8 04/19/17 04:00 72 04/19/17 03:12 70 26 98 Full Face 60 04/19/17 03:00 71 19 98/61 96 Bi-pap 70 04/19/17 02:30 67 20 100/58 96 Bi-pap 70 04/19/17 02:00 68 19 95/63 98 Bi-pap 70 04/19/17 01:30 66 18 108/61 98 Bi-pap 70 04/19/17 01:26 70 26 96 Full Face 70 04/19/17 01:00 68 20 96/64 98 Bi-pap 70 04/19/17 01:00 70 04/19/17 00:30 61 18 101/58 97 Bi-pap 70 04/19/17 00:00 61 04/19/17 00:00 97.9 61 18 104/59 97 Bi-pap 70 97.9 04/18/17 23:30 61 17 103/64 98 Bi-pap 70 04/18/17 23:28 80 04/18/17 23:26 61 21 99 Full Face 70 04/18/17 23:00 63 17 86/60 98 Bi-pap 80 04/18/17 22:30 64 19 102/56 98 Bi-pap 100 04/18/17 22:00 70 19 106/66 98 Bi-pap 100 04/18/17 21:30 64 18 95/61 98 Bi-pap 100 04/18/17 21:09 71 21 99 Full Face 80 04/18/17 21:00 71 18 101/63 99 Bi-pap 100 04/18/17 20:00 100 04/18/17 20:00 73 04/18/17 20:00 97.6 73 18 102/65 99 Bi-pap 100 97.6 04/18/17 19:31 100 04/18/17 19:28 100 Bi-pap 100 04/18/17 19:28 75 28 100 Full Face 100 04/18/17 19:28 Bi-pap 100 04/18/17 19:00 69 18 101/65 99 Bi-pap 100 04/18/17 19:00 101/65 04/18/17 18:00 65 18 94/63 99 Bi-pap 100 04/18/17 18:00 94/63 04/18/17 17:15 63 23 100 Full Face 100 04/18/17 17:00 67 18 94/65 99 Bi-pap 100 04/18/17 17:00 94/65 04/18/17 16:17 94/60 04/18/17 16:00 98.8 66 18 94/54 99 Bi-pap 100 98.8 04/18/17 16:00 62 04/18/17 15:00 95/65 04/18/17 15:00 65 17 95/60 99 Bi-pap 100 04/18/17 14:57 62 24 100 Full Face 100 04/18/17 14:00 97/67 04/18/17 14:00 64 13 99/63 99 Bi-pap 100 04/18/17 13:35 95/61 04/18/17 13:21 62 20 97 Full Face 100 04/18/17 13:00 92/58 04/18/17 13:00 98.6 63 20 92/54 99 Bi-pap 100 98.6 04/18/17 12:00 65 04/18/17 12:00 103/58 04/18/17 12:00 61 17 103/58 99 Bi-pap 100 04/18/17 11:00 104/70 04/18/17 11:00 65 18 104/70 98 Bi-pap 100 04/18/17 10:32 60 25 99 Full Face 100 04/18/17 10:00 63 19 96/67 99 Bi-pap 100 04/18/17 10:00 96/67 04/18/17 09:15 63 17 98 Full Face 100 04/18/17 09:00 103/68 04/18/17 09:00 62 17 103/68 97 Bi-pap 100 04/18/17 08:00 98.4 63 18 107/68 98 Bi-pap 100 98.4 04/18/17 08:00 107/68 04/18/17 08:00 74 Intake and Output 04/18/17 04/19/17 19:00 07:00 Intake Total 1203.5 ml 375 ml Output Total 1 ml Balance 1203.5 ml 374 ml Free Water 80 ml IV Total 1158.5 ml Tube Feeding 45 ml 295 ml Stool Total 1 ml # Voids 83 185 # Bowel Movements 5 5 Laboratory Tests 04/19/17 05:40: White Blood Count 8.7, Red Blood Count 2.55L, Hemoglobin 9.0L, Hematocrit 26.4L , Mean Corpuscular Volume 103H, Mean Corpuscular Hemoglobin 35.3H, Mean Corpuscular Hemoglobin Concent 34.2, Red Cell Distribution Width 15.2H, Platelet Count 46L, Mean Platelet Volume 10.3H, Neutrophils (%) (Auto) , Lymphocytes (%) (Auto) , Monocytes (%) (Auto) , Eosinophils (%) (Auto) , Basophils (%) (Auto) , Neutrophils % (Manual) [Pending], Lymphocytes % (Manual) [Pending], Platelet Estimate [Pending], Platelet Morphology [Pending], Prothrombin Time [Pending], Prothromb Time International Ratio [Pending], Sodium Level [Pending], Potassium Level [Pending], Chloride Level [Pending], Carbon Dioxide Level [Pending], Blood Urea Nitrogen [Pending], Creatinine [ Pending], Estimat Glomerular Filtration Rate [Pending], Glucose Level [Pending] , Calcium Level [Pending], Total Bilirubin [Pending], Aspartate Amino Transf ( AST/SGOT) [Pending], Alanine Aminotransferase (ALT/SGPT) [Pending], Alkaline Phosphatase [Pending], Ammonia [Pending], Total Protein [Pending], Albumin [ Pending], Globulin [Pending] Height (Feet): 5 Height (Inches): 7.00 Weight (Pounds): 246 General Appearance: lethargic Neck: normal alignment Cardiovascular: normal rate Respiratory/Chest: decreased breath sounds Abdomen: normal bowel sounds Edema: 1+ Arm (L), 1+ Arm (R), 1+ Leg (L), 1+ Leg (R), 1+ Pedal (L), 1+ Pedal ( R), 1+ Generalized Objective Current Medications Medications (Trade) Dose Ordered Sig/Jocelyne Route PRN Reason Start Time Stop Time Status Last Admin Dose Admin Acetaminophen (Tylenol) 650 mg Q4H PRN ORAL fever>100.5 04/13/17 18:30 05/11/17 10:29 04/17/17 06:19 Allopurinol (Allopurinol) 300 mg DAILY ORAL 04/15/17 09:00 05/15/17 08:59 04/18/17 09:36 Aluminum Hydroxide (Amphojel) 1,920 mg Q6HR NG 04/18/17 13:30 05/18/17 13:29 04/19/17 06:22 Ceftriaxone Sodium 1 gm/ Sodium Chloride 55 ml @ 110 mls/hr Q24H IVPB 04/15/17 00:15 04/22/17 00:14 04/19/17 00:41 Dextrose 1,000 ml @ 75 mls/hr [id number] IV 04/18/17 13:30 05/18/17 13:29 04/19/17 02:32 Dextrose (Dextrose 50%) STAT PRN IV Hypoglycemia 04/14/17 13:30 05/14/17 13:29 04/15/17 05:59 Ergocalciferol (Drisdol) 50,000 intlu QWEEK ORAL 04/20/17 09:00 05/13/17 08:59 Folic Acid (Folate) 5 mg DAILY ORAL 04/14/17 09:00 05/13/17 12:59 04/18/17 09:36 Haloperidol Lactate (Haldol) 5 mg Q6H PRN IM Agitation 04/14/17 13:00 05/14/17 12:59 Insulin Aspart (NovoLOG) EVERY 6 HOURS SUBQ 04/18/17 00:00 05/14/17 16:29 04/19/17 06:24 Lactulose (Cephulac) 30 gm BID ORAL 04/18/17 18:00 05/16/17 12:59 04/18/17 18:17 Lorazepam (Ativan 2mg/ml 1ml) 1 mg Q6H PRN IV For Anxiety 04/14/17 13:00 04/21/17 12:59 Methylprednisolone Sodium Succinate (Solu-MEDROL) 40 mg Q8HR IVP 04/17/17 14:00 05/15/17 08:59 04/19/17 06:22 Metronidazole 100 ml @ 100 mls/hr Q12HR IVPB 04/15/17 09:00 04/22/17 08:59 04/18/17 21:26 Nitroglycerin (Ntg) 1 patch Q24H TDERMAL 04/14/17 13:00 05/13/17 12:59 04/18/17 13:35 Norepinephrine Bitartrate 4 mg/ Dextrose 250 ml @ 0 mls/hr Q24H IV 04/17/17 10:00 05/17/17 09:59 04/17/17 13:40 Ondansetron HCl (Zofran) 4 mg Q6H PRN IVP Nausea & Vomiting 04/13/17 18:00 05/11/17 17:59 Pantoprazole (Protonix) 40 mg EVERY 12 HOURS IVP 04/18/17 21:00 05/18/17 20:59 04/18/17 21:26 Rifaximin (Xifaxan) 550 mg EVERY 12 HOURS ORAL 04/16/17 21:00 04/23/17 20:59 04/18/17 21:26 Thiamine HCl 100 mg/Sodium Chloride 56 ml @ 123.002 mls/hr Q24HRS IVPB 04/17/17 16:00 05/17/17 15:59 04/18/17 16:17 Item Value Date Time Bedside Blood Glucose 250 mg/dl H 04/19/17 0624 Bedside Blood Glucose 221 mg/dl H 04/19/17 0043 Bedside Blood Glucose 243 mg/dl H 04/18/17 1823 Bedside Blood Glucose 200 mg/dl H 04/18/17 1200 Bedside Blood Glucose 210 mg/dl H 04/18/17 0614 ROSALINDA VELASCO 5, 2018 07:48
[2017-04-19 07:59] LABS: AMMONIA 65 umol/L (11-32)
[2017-04-19 08:07] LABS: INR 1.9 (0.9-1.1)
[2017-04-19] MEDS: Pantoprazole Inj IVP SCH ×2 (08:31→20:40)
[2017-04-19] MEDS: Lactulose 20gm/30ml UDC ORAL SCH ×2 (08:33→18:35)
[2017-04-19 08:39] LABS: ALANINE AMINOTRANSFERASE 83 U/L (12-78); ALBUMIN 1.8 G/DL (3.4-5.0); ALBUMIN/GLOBULIN RATIO 0.5 (1.0-2.7); ALKALINE PHOSPHATASE 207 U/L (46-116); ANION GAP 19 mmol/L (5-15); ASPARTATE AMINO TRANSFERASE 107 U/L (15-37); BILIRUBIN,TOTAL 10.8 MG/DL (0.2-1.0); BLOOD UREA NITROGEN 127 mg/dL (7-18); CALCIUM 7.7 MG/DL (8.5-10.1); CARBON DIOXIDE 19 MMOL/L (21-32); CHLORIDE 113 MMOL/L (98-107); CREATININE 8.2 MG/DL (0.55-1.30); POTASSIUM 3.2 MMOL/L (3.5-5.1); SODIUM 151 MMOL/L (136-145)
[2017-04-19 08:43] LABS: BILIRUBIN,DIRECT 8.8 MG/DL (0.0-0.3)
--- NOTE | 2017-04-19 10:00 | Diagnostic Imaging Report ---
Indication: Post line placement Technique: One view of the chest Comparison: 5 hours earlier Findings: Interim placement of left subclavian central venous catheter, tip which projects at the level of the innominate venous confluence. Large right pleural effusion appears slightly smaller than on the prior study. Extensive and severe interstitial and airspace disease persists. There is a weighted enteric feeding tube again demonstrated. Contrast is again demonstrated within what is either stomach or splenic flexure of the colon, probably from swallowing study performed on 04/13/2017. There is no pneumothorax Impression: Satisfactory left subclavian central venous catheter placement. No radiographically evident complication. Slightly decreased right pleural fluid, since exam of earlier the same day Otherwise stable, findings as described
--- NOTE | 2017-04-19 10:31 | Pulmonolgy Critical Care Note ---
Critical Care - Asmt/Plan Problems: (1) Acute respiratory failure (2) Pulmonary edema (3) Multiple organ failure (4) Severe sepsis (5) Hypothermia (6) Renal failure (7) Hypotension (8) Alcohol abuse Respiratory: monitor respiratory rate, adjust FIO2, CXR Cardiac: continue to monitor HR/BP Renal: F/U I&O, keep IV fluid, other - dc iv fluid Infectious Disease: check cultures Gastrointestinal: hold feedings Endocrine: monitor blood sugar Hematologic: monitor H/H Neurologic: PRN Ativan Prophylaxis: Protonix Disposition: keep in ICU Notes Reviewed: corporate legal secretary, cardio Discussed with: nurses, consultants, 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 - Objective Last 24 Hour Vital Signs Date Time Temp Pulse Resp B/P (MAP) Pulse Ox O2 Delivery O2 Flow Rate FiO2 04/19/17 10:00 69 18 101/59 97 Bi-pap 55 04/19/17 09:00 73 21 101/62 95 Bi-pap 55 04/19/17 08:50 55 04/19/17 08:00 60 04/19/17 08:00 98.6 72 20 91/58 98 Bi-pap 60 98.6 04/19/17 07:44 80 26 95 Full Face 50 04/19/17 07:00 70 18 95/63 98 Bi-pap 60 04/19/17 06:00 71 18 101/58 98 Bi-pap 60 04/19/17 05:19 68 21 97 Full Face 50 04/19/17 05:00 74 20 81/58 98 Bi-pap 60 04/19/17 04:00 97.8 71 20 104/58 98 Bi-pap 70 97.8 04/19/17 04:00 72 04/19/17 03:12 70 26 98 Full Face 60 04/19/17 03:00 71 19 98/61 96 Bi-pap 70 04/19/17 02:30 67 20 100/58 96 Bi-pap 70 04/19/17 02:00 68 19 95/63 98 Bi-pap 70 04/19/17 01:30 66 18 108/61 98 Bi-pap 70 04/19/17 01:26 70 26 96 Full Face 70 04/19/17 01:00 68 20 96/64 98 Bi-pap 70 04/19/17 01:00 70 04/19/17 00:30 61 18 101/58 97 Bi-pap 70 04/19/17 00:00 61 04/19/17 00:00 97.9 61 18 104/59 97 Bi-pap 70 97.9 04/18/17 23:30 61 17 103/64 98 Bi-pap 70 04/18/17 23:28 80 04/18/17 23:26 61 21 99 Full Face 70 04/18/17 23:00 63 17 86/60 98 Bi-pap 80 04/18/17 22:30 64 19 102/56 98 Bi-pap 100 04/18/17 22:00 70 19 106/66 98 Bi-pap 100 04/18/17 21:30 64 18 95/61 98 Bi-pap 100 04/18/17 21:09 71 21 99 Full Face 80 04/18/17 21:00 71 18 101/63 99 Bi-pap 100 04/18/17 20:00 100 04/18/17 20:00 73 04/18/17 20:00 97.6 73 18 102/65 99 Bi-pap 100 97.6 04/18/17 19:31 100 04/18/17 19:28 100 Bi-pap 100 04/18/17 19:28 75 28 100 Full Face 100 04/18/17 19:28 Bi-pap 100 04/18/17 19:00 69 18 101/65 99 Bi-pap 100 04/18/17 19:00 101/65 04/18/17 18:00 65 18 94/63 99 Bi-pap 100 04/18/17 18:00 94/63 04/18/17 17:15 63 23 100 Full Face 100 04/18/17 17:00 67 18 94/65 99 Bi-pap 100 04/18/17 17:00 94/65 04/18/17 16:17 94/60 04/18/17 16:00 98.8 66 18 94/54 99 Bi-pap 100 98.8 04/18/17 16:00 62 04/18/17 15:00 95/65 04/18/17 15:00 65 17 95/60 99 Bi-pap 100 04/18/17 14:57 62 24 100 Full Face 100 04/18/17 14:00 97/67 04/18/17 14:00 64 13 99/63 99 Bi-pap 100 04/18/17 13:35 95/61 04/18/17 13:21 62 20 97 Full Face 100 04/18/17 13:00 92/58 04/18/17 13:00 98.6 63 20 92/54 99 Bi-pap 100 98.6 04/18/17 12:00 65 04/18/17 12:00 103/58 04/18/17 12:00 61 17 103/58 99 Bi-pap 100 04/18/17 11:00 104/70 04/18/17 11:00 65 18 104/70 98 Bi-pap 100 04/18/17 10:32 60 25 99 Full Face 100 Status: awake Condition: critical HEENT: atraumatic Lungs: clear Heart: HR/BP stable, HR/BP unstable, regular Abdomen: soft, non-tender, feeding tube Extremities: no C/C/E, edema Micro: Microbiology Date/Time Source Procedure Growth Status 04/17/17 15:00 Sputum Induced Gram Stain Pending Resulted 04/17/17 15:00 Sputum Culture - Preliminary Cynthia Albicans Resulted Accucheck: 250 Critical Care - Subjective ROS Limited/Unobtainable: Yes ICU Day: 3 Interval Events: on bipap, somnolent Condition: critical FI02: 55 Vent Support Breath Rate: 14 Vent Support Mode: BiLevel Sputum Amount: None Tube Feeding Amount: 30 I&O: Intake and Output 04/18/17 04/19/17 19:00 07:00 Intake Total 1203.5 ml 1312.5 ml Output Total 1 ml Balance 1203.5 ml 1311.5 ml Free Water 80 ml IV Total 1158.5 ml 937.5 ml Tube Feeding 45 ml 295 ml Stool Total 1 ml # Voids 83 185 # Bowel Movements 5 5 CXR: extensive edema, effusion Labs: Laboratory Tests Test 04/19/17 05:40 04/19/17 08:35 White Blood Count 8.7 K/UL (4.8-10.8) Red Blood Count 2.55 M/UL (4.70-6.10) L Hemoglobin 9.0 G/DL (14.2-18.0) L Hematocrit 26.4 % (42.0-52.0) L Mean Corpuscular Volume 103 FL (80-99) H Mean Corpuscular Hemoglobin 35.3 PG (27.0-31.0) H Mean Corpuscular Hemoglobin Concent 34.2 G/DL (32.0-36.0) Red Cell Distribution Width 15.2 % (11.6-14.8) H Platelet Count 46 K/UL (150-450) L Mean Platelet Volume 10.3 FL (6.5-10.1) H Neutrophils (%) (Auto) % (45.0-75.0) Lymphocytes (%) (Auto) % (20.0-45.0) Monocytes (%) (Auto) % (1.0-10.0) Eosinophils (%) (Auto) % (0.0-3.0) Basophils (%) (Auto) % (0.0-2.0) Differential Total Cells Counted 100 Neutrophils % (Manual) 93 % (45-75) H Lymphocytes % (Manual) 7 % (20-45) L Monocytes % (Manual) 0 % (1-10) L Eosinophils % (Manual) 0 % (0-3) Basophils % (Manual) 0 % (0-2) Band Neutrophils 0 % (0-8) Platelet Estimate Decreased L Platelet Morphology Normal Anisocytosis 1+ Macrocytosis 1+ Prothrombin Time 20.1 SEC (9.30-11.50) H Prothromb Time International Ratio 1.9 (0.9-1.1) H Sodium Level 151 MMOL/L (136-145) H Potassium Level 3.2 MMOL/L (3.5-5.1) L Chloride Level 113 MMOL/L (98-107) H Carbon Dioxide Level 19 MMOL/L (21-32) L Anion Gap 19 mmol/L (5-15) H Blood Urea Nitrogen 127 mg/dL (7-18) H Creatinine 8.2 MG/DL (0.55-1.30) H Estimat Glomerular Filtration Rate 6.9 mL/min (>60) Glucose Level 239 MG/DL (74-106) H Calcium Level 7.7 MG/DL (8.5-10.1) L Total Bilirubin 10.8 MG/DL (0.2-1.0) H Direct Bilirubin 8.8 MG/DL (0.0-0.3) H Aspartate Amino Transf (AST/SGOT) 107 U/L (15-37) H Alanine Aminotransferase (ALT/SGPT) 83 U/L (12-78) H Alkaline Phosphatase 207 U/L (46-116) H Ammonia 65 umol/L (11-32) H Total Protein 5.4 G/DL (6.4-8.2) L Albumin 1.8 G/DL (3.4-5.0) L Globulin 3.6 g/dL Albumin/Globulin Ratio 0.5 (1.0-2.7) L Arterial Blood pH 7.260 (7.350-7.450) Arterial Blood Partial Pressure CO2 37.9 mmHg (35.0-45.0) Arterial Blood Partial Pressure O2 118.7 mmHg (75.0-100.0) H Arterial Blood HCO3 16.8 mmol/L (22.0-26.0) L Arterial Blood Oxygen Saturation 96.9 % (92.0-98.0) Arterial Blood Base Excess -9.5 Renny Test Positive BECK CEDENO Apr 19, 2017 10:31
[2017-04-19] MEDS: Levemir Flexpen SUBQ SCH ×2 (10:37→18:36)
--- NOTE | 2017-04-19 10:59 | Nephrology Progress Note ---
Assessment/Plan Problem List: (1) Severe sepsis (2) Hypotension (3) Renal failure Assessment: acute on chronic (4) Hypothermia (5) Elevated LFTs (6) Hyperbilirubinemia Assessment Acute renal failure back in ICU Hypotensive ? Underlying CKD Low BP , Septic Shock Acute encephalopathy Lice infestation High LFTs and Jaundice HypoThermia UTI Plan dialysis attempt today + UF steroids- Fluids D5w Antibiotics pressors NGT NPO Monitor renal parameters avoid Nephrotoxics folate Ergocalciferol Echo 55% EjFx ability to make decisions?? Subjective ROS Limited/Unobtainable: Yes Objective Objective Last 24 Hour Vital Signs Date Time Temp Pulse Resp B/P (MAP) Pulse Ox O2 Delivery O2 Flow Rate FiO2 04/19/17 10:00 69 18 101/59 97 Bi-pap 55 04/19/17 10:00 101/59 04/19/17 09:19 69 24 97 Full Face 50 04/19/17 09:00 73 21 101/62 95 Bi-pap 55 04/19/17 08:50 55 04/19/17 08:00 60 04/19/17 08:00 98.6 72 20 91/58 98 Bi-pap 60 98.6 04/19/17 08:00 112 04/19/17 07:46 Bi-pap 100 04/19/17 07:44 80 26 95 Full Face 50 04/19/17 07:42 100 Bi-pap 60 04/19/17 07:00 70 18 95/63 98 Bi-pap 60 04/19/17 06:00 71 18 101/58 98 Bi-pap 60 04/19/17 05:19 68 21 97 Full Face 50 04/19/17 05:00 74 20 81/58 98 Bi-pap 60 04/19/17 04:00 97.8 71 20 104/58 98 Bi-pap 70 97.8 04/19/17 04:00 72 04/19/17 03:12 70 26 98 Full Face 60 04/19/17 03:00 71 19 98/61 96 Bi-pap 70 04/19/17 02:30 67 20 100/58 96 Bi-pap 70 04/19/17 02:00 68 19 95/63 98 Bi-pap 70 04/19/17 01:30 66 18 108/61 98 Bi-pap 70 04/19/17 01:26 70 26 96 Full Face 70 04/19/17 01:00 68 20 96/64 98 Bi-pap 70 04/19/17 01:00 70 04/19/17 00:30 61 18 101/58 97 Bi-pap 70 04/19/17 00:00 61 04/19/17 00:00 97.9 61 18 104/59 97 Bi-pap 70 97.9 04/18/17 23:30 61 17 103/64 98 Bi-pap 70 04/18/17 23:28 80 04/18/17 23:26 61 21 99 Full Face 70 04/18/17 23:00 63 17 86/60 98 Bi-pap 80 04/18/17 22:30 64 19 102/56 98 Bi-pap 100 04/18/17 22:00 70 19 106/66 98 Bi-pap 100 04/18/17 21:30 64 18 95/61 98 Bi-pap 100 04/18/17 21:09 71 21 99 Full Face 80 04/18/17 21:00 71 18 101/63 99 Bi-pap 100 04/18/17 20:00 100 04/18/17 20:00 73 04/18/17 20:00 97.6 73 18 102/65 99 Bi-pap 100 97.6 04/18/17 19:31 100 04/18/17 19:28 100 Bi-pap 100 04/18/17 19:28 75 28 100 Full Face 100 04/18/17 19:28 Bi-pap 100 04/18/17 19:00 69 18 101/65 99 Bi-pap 100 04/18/17 19:00 101/65 04/18/17 18:00 65 18 94/63 99 Bi-pap 100 04/18/17 18:00 94/63 04/18/17 17:15 63 23 100 Full Face 100 04/18/17 17:00 67 18 94/65 99 Bi-pap 100 04/18/17 17:00 94/65 04/18/17 16:17 94/60 04/18/17 16:00 98.8 66 18 94/54 99 Bi-pap 100 98.8 04/18/17 16:00 62 04/18/17 15:00 95/65 04/18/17 15:00 65 17 95/60 99 Bi-pap 100 04/18/17 14:57 62 24 100 Full Face 100 04/18/17 14:00 97/67 04/18/17 14:00 64 13 99/63 99 Bi-pap 100 04/18/17 13:35 95/61 04/18/17 13:21 62 20 97 Full Face 100 04/18/17 13:00 92/58 04/18/17 13:00 98.6 63 20 92/54 99 Bi-pap 100 98.6 04/18/17 12:00 65 04/18/17 12:00 103/58 04/18/17 12:00 61 17 103/58 99 Bi-pap 100 04/18/17 11:00 104/70 04/18/17 11:00 65 18 104/70 98 Bi-pap 100 Intake and Output 04/18/17 04/19/17 19:00 07:00 Intake Total 1203.5 ml 1312.5 ml Output Total 1 ml Balance 1203.5 ml 1311.5 ml Free Water 80 ml IV Total 1158.5 ml 937.5 ml Tube Feeding 45 ml 295 ml Stool Total 1 ml # Voids 83 185 # Bowel Movements 5 5 Laboratory Tests 04/19/17 05:40: White Blood Count 8.7, Red Blood Count 2.55L, Hemoglobin 9.0L, Hematocrit 26.4L , Mean Corpuscular Volume 103H, Mean Corpuscular Hemoglobin 35.3H, Mean Corpuscular Hemoglobin Concent 34.2, Red Cell Distribution Width 15.2H, Platelet Count 46L, Mean Platelet Volume 10.3H, Neutrophils (%) (Auto) , Lymphocytes (%) (Auto) , Monocytes (%) (Auto) , Eosinophils (%) (Auto) , Basophils (%) (Auto) , Differential Total Cells Counted 100, Neutrophils % ( Manual) 93H, Lymphocytes % (Manual) 7L, Monocytes % (Manual) 0L, Eosinophils % ( Manual) 0, Basophils % (Manual) 0, Band Neutrophils 0, Platelet Estimate DecreasedL, Platelet Morphology Normal, Anisocytosis 1+, Macrocytosis 1+, Prothrombin Time 20.1H, Prothromb Time International Ratio 1.9H, Sodium Level 151H, Potassium Level 3.2L, Chloride Level 113H, Carbon Dioxide Level 19L, Anion Gap 19H, Blood Urea Nitrogen 127H, Creatinine 8.2H, Estimat Glomerular Filtration Rate 6.9, Glucose Level 239H, Calcium Level 7.7L, Total Bilirubin 10.8H, Direct Bilirubin 8.8H, Aspartate Amino Transf (AST/SGOT) 107H, Alanine Aminotransferase (ALT/SGPT) 83H, Alkaline Phosphatase 207H, Ammonia 65H, Total Protein 5.4L, Albumin 1.8L, Globulin 3.6, Albumin/Globulin Ratio 0.5L 04/19/17 08:35: Arterial Blood pH 7.260L, Arterial Blood Partial Pressure CO2 37.9, Arterial Blood Partial Pressure O2 118.7H, Arterial Blood HCO3 16.8L, Arterial Blood Oxygen Saturation 96.9, Arterial Blood Base Excess -9.5, Renny Test Positive Height (Feet): 5 Height (Inches): 7.00 Weight (Pounds): 246 General Appearance: mild distress EENT: other - bipap Respiratory/Chest: decreased breath sounds Abdomen: distended Objective edema ANTON LIZAMA 5, 2018 10:59
--- NOTE | 2017-04-19 11:13 | Diagnostic Imaging Report ---
Indication: Shortness of breath Technique: One view of the chest Comparison: 04/18/2017 Findings: Bilateral interstitial and airspace opacities appear slightly improved. Right-sided pleural effusion persists, unchanged. Normal heart size. Weighted nasogastric feeding tube again demonstrated. Left subclavian central venous catheter again demonstrated Impression: Slightly improved, still persistent and extensive bilateral parenchymal disease, over one day Other stable findings as described
--- NOTE | 2017-04-19 11:59 | GI Progress Note ---
Assessment/Plan Problems: (1) Alcohol intoxication ICD Codes: F10.929 - Alcohol use, unspecified with intoxication, unspecified SNOMED: 55324721 (2) Diabetes mellitus out of control ICD Codes: E11.65 - Type 2 diabetes mellitus with hyperglycemia SNOMED: 43935152, 637611384 (3) encephalopathy,toxic metabolic (4) Liver cirrhosis ICD Codes: K74.60 - Unspecified cirrhosis of liver SNOMED: 36037729 (5) Altered level of consciousness ICD Codes: R40.4 - Transient alteration of awareness SNOMED: 2507294 (6) Alcohol abuse ICD Codes: F10.10 - Alcohol abuse, uncomplicated SNOMED: 16351093 Status: not improved Status Narrative Discussed with Dr. Ramirez. Assessment/Plan OB stool positive dc heparin NGTFs per RD lactulose + xifaxin, repeat ammonia prn transfusions fu labs Subjective Subjective limited Objective Last 24 Hour Vital Signs Date Time Temp Pulse Resp B/P (MAP) Pulse Ox O2 Delivery O2 Flow Rate FiO2 04/19/17 11:00 70 18 104/66 97 Bi-pap 55 04/19/17 10:00 69 18 101/59 97 Bi-pap 55 04/19/17 10:00 101/59 04/19/17 09:19 69 24 97 Full Face 50 04/19/17 09:00 73 21 101/62 95 Bi-pap 55 04/19/17 08:50 55 04/19/17 08:00 60 04/19/17 08:00 98.6 72 20 91/58 98 Bi-pap 60 98.6 04/19/17 08:00 112 04/19/17 07:46 Bi-pap 100 04/19/17 07:44 80 26 95 Full Face 50 04/19/17 07:42 100 Bi-pap 60 04/19/17 07:00 70 18 95/63 98 Bi-pap 60 04/19/17 06:00 71 18 101/58 98 Bi-pap 60 04/19/17 05:19 68 21 97 Full Face 50 04/19/17 05:00 74 20 81/58 98 Bi-pap 60 04/19/17 04:00 97.8 71 20 104/58 98 Bi-pap 70 97.8 04/19/17 04:00 72 04/19/17 03:12 70 26 98 Full Face 60 04/19/17 03:00 71 19 98/61 96 Bi-pap 70 04/19/17 02:30 67 20 100/58 96 Bi-pap 70 04/19/17 02:00 68 19 95/63 98 Bi-pap 70 04/19/17 01:30 66 18 108/61 98 Bi-pap 70 04/19/17 01:26 70 26 96 Full Face 70 04/19/17 01:00 68 20 96/64 98 Bi-pap 70 04/19/17 01:00 70 04/19/17 00:30 61 18 101/58 97 Bi-pap 70 04/19/17 00:00 61 04/19/17 00:00 97.9 61 18 104/59 97 Bi-pap 70 97.9 04/18/17 23:30 61 17 103/64 98 Bi-pap 70 04/18/17 23:28 80 04/18/17 23:26 61 21 99 Full Face 70 04/18/17 23:00 63 17 86/60 98 Bi-pap 80 04/18/17 22:30 64 19 102/56 98 Bi-pap 100 04/18/17 22:00 70 19 106/66 98 Bi-pap 100 04/18/17 21:30 64 18 95/61 98 Bi-pap 100 04/18/17 21:09 71 21 99 Full Face 80 04/18/17 21:00 71 18 101/63 99 Bi-pap 100 04/18/17 20:00 100 04/18/17 20:00 73 04/18/17 20:00 97.6 73 18 102/65 99 Bi-pap 100 97.6 04/18/17 19:31 100 04/18/17 19:28 100 Bi-pap 100 04/18/17 19:28 75 28 100 Full Face 100 04/18/17 19:28 Bi-pap 100 04/18/17 19:00 69 18 101/65 99 Bi-pap 100 04/18/17 19:00 101/65 04/18/17 18:00 65 18 94/63 99 Bi-pap 100 04/18/17 18:00 94/63 04/18/17 17:15 63 23 100 Full Face 100 04/18/17 17:00 67 18 94/65 99 Bi-pap 100 04/18/17 17:00 94/65 04/18/17 16:17 94/60 04/18/17 16:00 98.8 66 18 94/54 99 Bi-pap 100 98.8 04/18/17 16:00 62 04/18/17 15:00 95/65 04/18/17 15:00 65 17 95/60 99 Bi-pap 100 04/18/17 14:57 62 24 100 Full Face 100 04/18/17 14:00 97/67 04/18/17 14:00 64 13 99/63 99 Bi-pap 100 04/18/17 13:35 95/61 04/18/17 13:21 62 20 97 Full Face 100 04/18/17 13:00 92/58 04/18/17 13:00 98.6 63 20 92/54 99 Bi-pap 100 98.6 04/18/17 12:00 65 04/18/17 12:00 103/58 04/18/17 12:00 61 17 103/58 99 Bi-pap 100 Intake and Output 04/18/17 04/19/17 19:00 07:00 Intake Total 1203.5 ml 1312.5 ml Output Total 1 ml Balance 1203.5 ml 1311.5 ml Free Water 80 ml IV Total 1158.5 ml 937.5 ml Tube Feeding 45 ml 295 ml Stool Total 1 ml # Voids 83 185 # Bowel Movements 5 5 Laboratory Tests Test 04/19/17 05:40 04/19/17 08:35 White Blood Count 8.7 K/UL (4.8-10.8) Red Blood Count 2.55 M/UL (4.70-6.10) L Hemoglobin 9.0 G/DL (14.2-18.0) L Hematocrit 26.4 % (42.0-52.0) L Mean Corpuscular Volume 103 FL (80-99) H Mean Corpuscular Hemoglobin 35.3 PG (27.0-31.0) H Mean Corpuscular Hemoglobin Concent 34.2 G/DL (32.0-36.0) Red Cell Distribution Width 15.2 % (11.6-14.8) H Platelet Count 46 K/UL (150-450) L Mean Platelet Volume 10.3 FL (6.5-10.1) H Neutrophils (%) (Auto) % (45.0-75.0) Lymphocytes (%) (Auto) % (20.0-45.0) Monocytes (%) (Auto) % (1.0-10.0) Eosinophils (%) (Auto) % (0.0-3.0) Basophils (%) (Auto) % (0.0-2.0) Differential Total Cells Counted 100 Neutrophils % (Manual) 93 % (45-75) H Lymphocytes % (Manual) 7 % (20-45) L Monocytes % (Manual) 0 % (1-10) L Eosinophils % (Manual) 0 % (0-3) Basophils % (Manual) 0 % (0-2) Band Neutrophils 0 % (0-8) Platelet Estimate Decreased L Platelet Morphology Normal Anisocytosis 1+ Macrocytosis 1+ Prothrombin Time 20.1 SEC (9.30-11.50) H Prothromb Time International Ratio 1.9 (0.9-1.1) H Sodium Level 151 MMOL/L (136-145) H Potassium Level 3.2 MMOL/L (3.5-5.1) L Chloride Level 113 MMOL/L (98-107) H Carbon Dioxide Level 19 MMOL/L (21-32) L Anion Gap 19 mmol/L (5-15) H Blood Urea Nitrogen 127 mg/dL (7-18) H Creatinine 8.2 MG/DL (0.55-1.30) H Estimat Glomerular Filtration Rate 6.9 mL/min (>60) Glucose Level 239 MG/DL (74-106) H Calcium Level 7.7 MG/DL (8.5-10.1) L Total Bilirubin 10.8 MG/DL (0.2-1.0) H Direct Bilirubin 8.8 MG/DL (0.0-0.3) H Aspartate Amino Transf (AST/SGOT) 107 U/L (15-37) H Alanine Aminotransferase (ALT/SGPT) 83 U/L (12-78) H Alkaline Phosphatase 207 U/L (46-116) H Ammonia 65 umol/L (11-32) H Total Protein 5.4 G/DL (6.4-8.2) L Albumin 1.8 G/DL (3.4-5.0) L Globulin 3.6 g/dL Albumin/Globulin Ratio 0.5 (1.0-2.7) L Arterial Blood pH 7.260 (7.350-7.450) Arterial Blood Partial Pressure CO2 37.9 mmHg (35.0-45.0) Arterial Blood Partial Pressure O2 118.7 mmHg (75.0-100.0) H Arterial Blood HCO3 16.8 mmol/L (22.0-26.0) L Arterial Blood Oxygen Saturation 96.9 % (92.0-98.0) Arterial Blood Base Excess -9.5 Renny Test Positive Height (Feet): 5 Height (Inches): 7.00 Weight (Pounds): 246 General Appearance: obese Cardiovascular: normal rate Respiratory/Chest: other - BIPAP Abdominal Exam: other - dobhoff Extremities: non-tender Lianne Damon N.P. Apr 19, 2017 11:59
[2017-04-19] MEDS: Nitroglycerin Patch 0.4mg TDERMAL SCH (13:00)
--- NOTE | 2017-04-19 13:24 | General Progress Note ---
Progress Note Progress Note Surgery: patient in ICU critical condition. receiving HD currently. line functional triple lumen functional. dressings for both lines clean. will follow with recs. thank you Luis Enrique Taylor Apr 19, 2017 13:24
--- NOTE | 2017-04-19 13:44 | General Progress Note ---
Assessment/Plan Status: stable Assessment/Plan 1. Schizophrenia by history. 2. Encephalopathy. PLAN: 1. We will discontinue the sitter at this time. 2. We will continue monitor. 3. Increase antipsychotics and provide the patient with supportive therapy and reality orientation. Subjective Date patient seen: Apr 18, 2017 Neurologic/Psychiatric: Reports: anxiety, depressed, emotional problems Allergies: Coded Allergies: ASPIRIN (Verified Allergy, Unknown, 03/12/17) Subjective the pt is calmer still has episodes of agitation delusion Objective Last 24 Hour Vital Signs Date Time Temp Pulse Resp B/P (MAP) Pulse Ox O2 Delivery O2 Flow Rate FiO2 04/19/17 13:40 50 04/19/17 13:00 60 19 97/55 97 Bi-pap 55 04/19/17 13:00 101/64 04/19/17 12:00 98.8 72 18 103/62 98 Bi-pap 55 98.8 04/19/17 12:00 55 04/19/17 12:00 72 04/19/17 11:20 67 21 96 Full Face 55 04/19/17 11:00 70 18 104/66 97 Bi-pap 55 04/19/17 10:30 Endotracheal Tube 04/19/17 10:00 69 18 101/59 97 Bi-pap 55 04/19/17 10:00 101/59 04/19/17 09:19 69 24 97 Full Face 55 04/19/17 09:00 73 21 101/62 95 Bi-pap 55 04/19/17 08:50 55 04/19/17 08:49 55 04/19/17 08:00 60 04/19/17 08:00 98.6 72 20 91/58 98 Bi-pap 60 98.6 04/19/17 08:00 112 04/19/17 07:46 Bi-pap 100 04/19/17 07:44 80 26 95 Full Face 60 04/19/17 07:42 100 Bi-pap 60 04/19/17 07:00 70 18 95/63 98 Bi-pap 60 04/19/17 06:00 71 18 101/58 98 Bi-pap 60 04/19/17 05:19 68 21 97 Full Face 50 04/19/17 05:00 74 20 81/58 98 Bi-pap 60 04/19/17 04:00 97.8 71 20 104/58 98 Bi-pap 70 97.8 04/19/17 04:00 72 04/19/17 03:12 70 26 98 Full Face 60 04/19/17 03:00 71 19 98/61 96 Bi-pap 70 04/19/17 02:30 67 20 100/58 96 Bi-pap 70 04/19/17 02:00 68 19 95/63 98 Bi-pap 70 04/19/17 01:30 66 18 108/61 98 Bi-pap 70 04/19/17 01:26 70 26 96 Full Face 70 04/19/17 01:00 68 20 96/64 98 Bi-pap 70 04/19/17 01:00 70 04/19/17 00:30 61 18 101/58 97 Bi-pap 70 04/19/17 00:00 61 04/19/17 00:00 97.9 61 18 104/59 97 Bi-pap 70 97.9 04/18/17 23:30 61 17 103/64 98 Bi-pap 70 04/18/17 23:28 80 04/18/17 23:26 61 21 99 Full Face 70 04/18/17 23:00 63 17 86/60 98 Bi-pap 80 04/18/17 22:30 64 19 102/56 98 Bi-pap 100 04/18/17 22:00 70 19 106/66 98 Bi-pap 100 04/18/17 21:30 64 18 95/61 98 Bi-pap 100 04/18/17 21:09 71 21 99 Full Face 80 04/18/17 21:00 71 18 101/63 99 Bi-pap 100 04/18/17 20:00 100 04/18/17 20:00 73 04/18/17 20:00 97.6 73 18 102/65 99 Bi-pap 100 97.6 04/18/17 19:31 100 04/18/17 19:28 100 Bi-pap 100 04/18/17 19:28 75 28 100 Full Face 100 04/18/17 19:28 Bi-pap 100 04/18/17 19:00 69 18 101/65 99 Bi-pap 100 04/18/17 19:00 101/65 04/18/17 18:00 65 18 94/63 99 Bi-pap 100 04/18/17 18:00 94/63 04/18/17 17:15 63 23 100 Full Face 100 04/18/17 17:00 67 18 94/65 99 Bi-pap 100 04/18/17 17:00 94/65 04/18/17 16:17 94/60 04/18/17 16:00 98.8 66 18 94/54 99 Bi-pap 100 98.8 04/18/17 16:00 62 04/18/17 15:00 95/65 04/18/17 15:00 65 17 95/60 99 Bi-pap 100 04/18/17 14:57 62 24 100 Full Face 100 04/18/17 14:00 97/67 04/18/17 14:00 64 13 99/63 99 Bi-pap 100 Intake and Output 04/18/17 04/19/17 19:00 07:00 Intake Total 1203.5 ml 1312.5 ml Output Total 1 ml Balance 1203.5 ml 1311.5 ml Free Water 80 ml IV Total 1158.5 ml 937.5 ml Tube Feeding 45 ml 295 ml Stool Total 1 ml # Voids 83 185 # Bowel Movements 5 5 Laboratory Tests 04/19/17 05:40: White Blood Count 8.7, Red Blood Count 2.55L, Hemoglobin 9.0L, Hematocrit 26.4L , Mean Corpuscular Volume 103H, Mean Corpuscular Hemoglobin 35.3H, Mean Corpuscular Hemoglobin Concent 34.2, Red Cell Distribution Width 15.2H, Platelet Count 46L, Mean Platelet Volume 10.3H, Neutrophils (%) (Auto) , Lymphocytes (%) (Auto) , Monocytes (%) (Auto) , Eosinophils (%) (Auto) , Basophils (%) (Auto) , Differential Total Cells Counted 100, Neutrophils % ( Manual) 93H, Lymphocytes % (Manual) 7L, Monocytes % (Manual) 0L, Eosinophils % ( Manual) 0, Basophils % (Manual) 0, Band Neutrophils 0, Platelet Estimate DecreasedL, Platelet Morphology Normal, Anisocytosis 1+, Macrocytosis 1+, Prothrombin Time 20.1H, Prothromb Time International Ratio 1.9H, Sodium Level 151H, Potassium Level 3.2L, Chloride Level 113H, Carbon Dioxide Level 19L, Anion Gap 19H, Blood Urea Nitrogen 127H, Creatinine 8.2H, Estimat Glomerular Filtration Rate 6.9, Glucose Level 239H, Calcium Level 7.7L, Total Bilirubin 10.8H, Direct Bilirubin 8.8H, Aspartate Amino Transf (AST/SGOT) 107H, Alanine Aminotransferase (ALT/SGPT) 83H, Alkaline Phosphatase 207H, Ammonia 65H, Total Protein 5.4L, Albumin 1.8L, Globulin 3.6, Albumin/Globulin Ratio 0.5L 04/19/17 08:35: Arterial Blood pH 7.260L, Arterial Blood Partial Pressure CO2 37.9, Arterial Blood Partial Pressure O2 118.7H, Arterial Blood HCO3 16.8L, Arterial Blood Oxygen Saturation 96.9, Arterial Blood Base Excess -9.5, Renny Test Positive Height (Feet): 5 Height (Inches): 7.00 Weight (Pounds): 246 General Appearance: no apparent distress, alert Neurologic: alert, oriented x 3, responsive, depressed affect Aly De Santiago M.D. Apr 19, 2017 13:44
--- NOTE | 2017-04-19 13:46 | General Progress Note ---
Assessment/Plan Status: stable Assessment/Plan 1. Schizophrenia cpt 2. Encephalopathy. PLAN: 1. We will discontinue the sitter at this time. 2. We will continue monitor. 3. Increase antipsychotics and provide the patient with supportive therapy and reality orientation. 5. risperdal 2mg qhs Subjective Date patient seen: Apr 19, 2017 Neurologic/Psychiatric: Reports: anxiety, depressed Allergies: Coded Allergies: ASPIRIN (Verified Allergy, Unknown, 03/12/17) Subjective the pt is calmer still has episodes of agitation delusion Objective Last 24 Hour Vital Signs Date Time Temp Pulse Resp B/P (MAP) Pulse Ox O2 Delivery O2 Flow Rate FiO2 04/19/17 13:40 50 04/19/17 13:00 60 19 97/55 97 Bi-pap 55 04/19/17 13:00 101/64 04/19/17 12:00 98.8 72 18 103/62 98 Bi-pap 55 98.8 04/19/17 12:00 55 04/19/17 12:00 72 04/19/17 11:20 67 21 96 Full Face 55 04/19/17 11:00 70 18 104/66 97 Bi-pap 55 04/19/17 10:30 Endotracheal Tube 04/19/17 10:00 69 18 101/59 97 Bi-pap 55 04/19/17 10:00 101/59 04/19/17 09:19 69 24 97 Full Face 55 04/19/17 09:00 73 21 101/62 95 Bi-pap 55 04/19/17 08:50 55 04/19/17 08:49 55 04/19/17 08:00 60 04/19/17 08:00 98.6 72 20 91/58 98 Bi-pap 60 98.6 04/19/17 08:00 112 04/19/17 07:46 Bi-pap 100 04/19/17 07:44 80 26 95 Full Face 60 04/19/17 07:42 100 Bi-pap 60 04/19/17 07:00 70 18 95/63 98 Bi-pap 60 04/19/17 06:00 71 18 101/58 98 Bi-pap 60 04/19/17 05:19 68 21 97 Full Face 50 04/19/17 05:00 74 20 81/58 98 Bi-pap 60 04/19/17 04:00 97.8 71 20 104/58 98 Bi-pap 70 97.8 04/19/17 04:00 72 04/19/17 03:12 70 26 98 Full Face 60 04/19/17 03:00 71 19 98/61 96 Bi-pap 70 04/19/17 02:30 67 20 100/58 96 Bi-pap 70 04/19/17 02:00 68 19 95/63 98 Bi-pap 70 04/19/17 01:30 66 18 108/61 98 Bi-pap 70 04/19/17 01:26 70 26 96 Full Face 70 04/19/17 01:00 68 20 96/64 98 Bi-pap 70 04/19/17 01:00 70 04/19/17 00:30 61 18 101/58 97 Bi-pap 70 04/19/17 00:00 61 04/19/17 00:00 97.9 61 18 104/59 97 Bi-pap 70 97.9 04/18/17 23:30 61 17 103/64 98 Bi-pap 70 04/18/17 23:28 80 04/18/17 23:26 61 21 99 Full Face 70 04/18/17 23:00 63 17 86/60 98 Bi-pap 80 04/18/17 22:30 64 19 102/56 98 Bi-pap 100 04/18/17 22:00 70 19 106/66 98 Bi-pap 100 04/18/17 21:30 64 18 95/61 98 Bi-pap 100 04/18/17 21:09 71 21 99 Full Face 80 04/18/17 21:00 71 18 101/63 99 Bi-pap 100 04/18/17 20:00 100 04/18/17 20:00 73 04/18/17 20:00 97.6 73 18 102/65 99 Bi-pap 100 97.6 04/18/17 19:31 100 04/18/17 19:28 100 Bi-pap 100 04/18/17 19:28 75 28 100 Full Face 100 04/18/17 19:28 Bi-pap 100 04/18/17 19:00 69 18 101/65 99 Bi-pap 100 04/18/17 19:00 101/65 04/18/17 18:00 65 18 94/63 99 Bi-pap 100 04/18/17 18:00 94/63 04/18/17 17:15 63 23 100 Full Face 100 04/18/17 17:00 67 18 94/65 99 Bi-pap 100 04/18/17 17:00 94/65 04/18/17 16:17 94/60 04/18/17 16:00 98.8 66 18 94/54 99 Bi-pap 100 98.8 04/18/17 16:00 62 04/18/17 15:00 95/65 04/18/17 15:00 65 17 95/60 99 Bi-pap 100 04/18/17 14:57 62 24 100 Full Face 100 04/18/17 14:00 97/67 04/18/17 14:00 64 13 99/63 99 Bi-pap 100 Intake and Output 04/18/17 04/19/17 19:00 07:00 Intake Total 1203.5 ml 1312.5 ml Output Total 1 ml Balance 1203.5 ml 1311.5 ml Free Water 80 ml IV Total 1158.5 ml 937.5 ml Tube Feeding 45 ml 295 ml Stool Total 1 ml # Voids 83 185 # Bowel Movements 5 5 Laboratory Tests 04/19/17 05:40: White Blood Count 8.7, Red Blood Count 2.55L, Hemoglobin 9.0L, Hematocrit 26.4L , Mean Corpuscular Volume 103H, Mean Corpuscular Hemoglobin 35.3H, Mean Corpuscular Hemoglobin Concent 34.2, Red Cell Distribution Width 15.2H, Platelet Count 46L, Mean Platelet Volume 10.3H, Neutrophils (%) (Auto) , Lymphocytes (%) (Auto) , Monocytes (%) (Auto) , Eosinophils (%) (Auto) , Basophils (%) (Auto) , Differential Total Cells Counted 100, Neutrophils % ( Manual) 93H, Lymphocytes % (Manual) 7L, Monocytes % (Manual) 0L, Eosinophils % ( Manual) 0, Basophils % (Manual) 0, Band Neutrophils 0, Platelet Estimate DecreasedL, Platelet Morphology Normal, Anisocytosis 1+, Macrocytosis 1+, Prothrombin Time 20.1H, Prothromb Time International Ratio 1.9H, Sodium Level 151H, Potassium Level 3.2L, Chloride Level 113H, Carbon Dioxide Level 19L, Anion Gap 19H, Blood Urea Nitrogen 127H, Creatinine 8.2H, Estimat Glomerular Filtration Rate 6.9, Glucose Level 239H, Calcium Level 7.7L, Total Bilirubin 10.8H, Direct Bilirubin 8.8H, Aspartate Amino Transf (AST/SGOT) 107H, Alanine Aminotransferase (ALT/SGPT) 83H, Alkaline Phosphatase 207H, Ammonia 65H, Total Protein 5.4L, Albumin 1.8L, Globulin 3.6, Albumin/Globulin Ratio 0.5L 04/19/17 08:35: Arterial Blood pH 7.260L, Arterial Blood Partial Pressure CO2 37.9, Arterial Blood Partial Pressure O2 118.7H, Arterial Blood HCO3 16.8L, Arterial Blood Oxygen Saturation 96.9, Arterial Blood Base Excess -9.5, Renny Test Positive Height (Feet): 5 Height (Inches): 7.00 Weight (Pounds): 246 General Appearance: no apparent distress, alert, confused, agitated, combative Aly De Santiago M.D. Apr 19, 2017 13:46
[2017-04-19] MEDS: Thiamine HCl 100 MG in NS 55 ML IVPB SCH (16:17)
[2017-04-19] MEDS ORDERED: Dyna-Hex 2% Top Sol 2oz TOPIC SCH (20:00)
[2017-04-20] VITALS (24 sets, daily range): BP systolic 82–126; BP diastolic 35–66
[2017-04-20] MEDS: Aluminum Hydroxide Gel Susp 15ml NG SCH ×5 (00:02→23:39)
[2017-04-20] MEDS: NovoLOG Insulin Flexpen SUBQ SCH ×4 (00:04→18:31)
[2017-04-20 04:42] LABS: HEMATOCRIT 23.7 % (42.0-52.0); HEMOGLOBIN 8.4 G/DL (14.2-18.0); MEAN CORPUSCULAR VOLUME 100 FL (80-99); PLATELET COUNT 54 K/UL (150-450); RED BLOOD COUNT 2.38 M/UL (4.70-6.10); RED CELL DISTRIBUTION WIDTH 14.2 % (11.6-14.8); WHITE BLOOD COUNT 11.6 K/UL (4.8-10.8)
[2017-04-20 05:17] LABS: ALANINE AMINOTRANSFERASE 82 U/L (12-78); ALBUMIN 1.7 G/DL (3.4-5.0); ALBUMIN/GLOBULIN RATIO 0.6 (1.0-2.7); ALKALINE PHOSPHATASE 255 U/L (46-116); ANION GAP 18 mmol/L (5-15); ASPARTATE AMINO TRANSFERASE 106 U/L (15-37); BLOOD UREA NITROGEN 113 mg/dL (7-18); CALCIUM 7.6 MG/DL (8.5-10.1); CARBON DIOXIDE 22 MMOL/L (21-32); CHLORIDE 108 MMOL/L (98-107); CREATININE 7.6 MG/DL (0.55-1.30); PHOSPHORUS 6.2 MG/DL (2.5-4.9); SODIUM 148 MMOL/L (136-145)
[2017-04-20 05:22] LABS: POTASSIUM 2.6 MMOL/L (3.5-5.1)
[2017-04-20 05:38] LABS: BILIRUBIN,DIRECT 9.2 MG/DL (0.0-0.3)
[2017-04-20] MEDS: Solu-MEDROL 40mg Inj IVP SCH ×3 (05:57→20:32)
--- NOTE | 2017-04-20 06:33 | Pulmonolgy Critical Care Note ---
Critical Care - Asmt/Plan Problems: (1) Acute respiratory failure (2) Pulmonary edema (3) Multiple organ failure (4) Severe sepsis (5) Hypothermia (6) Renal failure (7) Hypotension (8) Alcohol abuse Respiratory: monitor respiratory rate, adjust FIO2, CXR Cardiac: continue to monitor HR/BP Renal: F/U I&O, check electrolytes Infectious Disease: check cultures Gastrointestinal: continue feedings/current rate Endocrine: monitor blood sugar, continue sliding scale insulin Hematologic: monitor H/H Neurologic: PRN Ativan Affect: PRN ativan Prophylaxis: Protonix, Heparin Notes Reviewed: german teacher, cardio, renal Discussed with: nurses, consultants, case management social workerguard manager - Objective Last 24 Hour Vital Signs Date Time Temp Pulse Resp B/P (MAP) Pulse Ox O2 Delivery O2 Flow Rate FiO2 04/20/17 04:44 61 26 97 Full Face 50 04/20/17 04:00 70 04/20/17 03:11 57 24 100 Full Face 50 04/20/17 01:24 69 27 95 Full Face 50 04/20/17 00:00 64 04/19/17 23:11 62 28 97 Full Face 50 04/19/17 21:08 64 29 96 Full Face 50 04/19/17 19:21 95 Bi-pap 50 04/19/17 19:21 Bi-pap 50 04/19/17 19:19 63 28 95 Full Face 50 04/19/17 19:00 60 19 94/58 99 Bi-pap 50 04/19/17 18:00 61 19 98/60 99 Bi-pap 55 04/19/17 17:18 58 19 97 Full Face 50 04/19/17 17:00 98.7 63 18 103/54 98 Bi-pap 50 98.7 04/19/17 16:00 59 19 96/63 98 Bi-pap 55 04/19/17 16:00 58 04/19/17 15:17 60 20 98 Full Face 50 04/19/17 15:00 61 19 97/62 98 Bi-pap 55 04/19/17 14:18 Endotracheal Tube 04/19/17 14:00 61 19 103/65 99 Bi-pap 55 04/19/17 13:40 50 04/19/17 13:33 50 04/19/17 13:22 64 20 100 Full Face 55 04/19/17 13:00 60 19 97/55 97 Bi-pap 55 04/19/17 13:00 101/64 04/19/17 12:00 98.8 72 18 103/62 98 Bi-pap 55 98.8 04/19/17 12:00 55 04/19/17 12:00 72 04/19/17 11:20 67 21 96 Full Face 55 04/19/17 11:00 70 18 104/66 97 Bi-pap 55 04/19/17 10:30 Endotracheal Tube 04/19/17 10:00 69 18 101/59 97 Bi-pap 55 04/19/17 10:00 101/59 04/19/17 09:19 69 24 97 Full Face 55 04/19/17 09:00 73 21 101/62 95 Bi-pap 55 04/19/17 08:50 55 04/19/17 08:49 55 04/19/17 08:00 60 04/19/17 08:00 98.6 72 20 91/58 98 Bi-pap 60 98.6 04/19/17 08:00 112 04/19/17 07:46 Bi-pap 100 04/19/17 07:44 80 26 95 Full Face 60 04/19/17 07:42 100 Bi-pap 60 04/19/17 07:00 70 18 95/63 98 Bi-pap 60 Status: obtunded Condition: critical HEENT: atraumatic Neck: full ROM Lungs: clear, chest wall tender Heart: HR/BP unstable, regular Abdomen: soft Extremities: no C/C/E, edema Micro: Microbiology Date/Time Source Procedure Growth Status 04/17/17 15:00 Sputum Induced Gram Stain - Final Resulted 04/17/17 15:00 Sputum Culture - Preliminary Cynthia Albicans Resulted Accucheck: 262 Critical Care - Subjective ROS Limited/Unobtainable: Yes ICU Day: 1 Interval Events: got dialyzed yesterday, Condition: critical EKG Rhythm: Sinus Rhythm FI02: 50 Vent Support Breath Rate: 14 Vent Support Mode: BiLevel Sputum Amount: None Tube Feeding Amount: 40 I&O: Intake and Output 04/19/17 04/20/17 19:00 07:00 Intake Total 613 ml Output Total 1430 ml Balance -817 ml IV Total 223 ml Tube Feeding 390 ml Output Urine Total 30 ml Hemodialysis UF 1400 ml # Voids 100 # Bowel Movements 10 CXR: no change Labs: Laboratory Tests Test 3/5/18 08:35 04/20/17 03:50 Arterial Blood pH 7.260 (7.350-7.450) Arterial Blood Partial Pressure CO2 37.9 mmHg (35.0-45.0) Arterial Blood Partial Pressure O2 118.7 mmHg (75.0-100.0) H Arterial Blood HCO3 16.8 mmol/L (22.0-26.0) L Arterial Blood Oxygen Saturation 96.9 % (92.0-98.0) Arterial Blood Base Excess -9.5 Renny Test Positive White Blood Count 11.6 K/UL (4.8-10.8) H Red Blood Count 2.38 M/UL (4.70-6.10) L Hemoglobin 8.4 G/DL (14.2-18.0) L Hematocrit 23.7 % (42.0-52.0) L Mean Corpuscular Volume 100 FL (80-99) H Mean Corpuscular Hemoglobin 35.5 PG (27.0-31.0) H Mean Corpuscular Hemoglobin Concent 35.5 G/DL (32.0-36.0) Red Cell Distribution Width 14.2 % (11.6-14.8) Platelet Count 54 K/UL (150-450) L Mean Platelet Volume 11.4 FL (6.5-10.1) H Neutrophils (%) (Auto) % (45.0-75.0) Lymphocytes (%) (Auto) % (20.0-45.0) Monocytes (%) (Auto) % (1.0-10.0) Eosinophils (%) (Auto) % (0.0-3.0) Basophils (%) (Auto) % (0.0-2.0) Sodium Level 148 MMOL/L (136-145) H Potassium Level 2.6 MMOL/L (3.5-5.1) *L Chloride Level 108 MMOL/L (98-107) H Carbon Dioxide Level 22 MMOL/L (21-32) Anion Gap 18 mmol/L (5-15) H Blood Urea Nitrogen 113 mg/dL (7-18) H Creatinine 7.6 MG/DL (0.55-1.30) H Estimat Glomerular Filtration Rate 7.6 mL/min (>60) Glucose Level 245 MG/DL (74-106) H Uric Acid 10.2 MG/DL (2.6-7.2) H Calcium Level 7.6 MG/DL (8.5-10.1) L Phosphorus Level 6.2 MG/DL (2.5-4.9) H Magnesium Level 2.1 MG/DL (1.8-2.4) Total Bilirubin 11.0 MG/DL (0.2-1.0) H Direct Bilirubin 9.2 MG/DL (0.0-0.3) H Gamma Glutamyl Transpeptidase 704 U/L (5-85) H Aspartate Amino Transf (AST/SGOT) 106 U/L (15-37) H Alanine Aminotransferase (ALT/SGPT) 82 U/L (12-78) H Alkaline Phosphatase 255 U/L (46-116) H Ammonia 48 umol/L (11-32) H C-Reactive Protein, Quantitative 8.6 mg/dL (0.00-0.90) H Pro-B-Type Natriuretic Peptide 1754 pg/mL (0-125) H Total Protein 4.7 G/DL (6.4-8.2) L Albumin 1.7 G/DL (3.4-5.0) L Globulin 3.0 g/dL Albumin/Globulin Ratio 0.6 (1.0-2.7) L BECK CEDENO Apr 20, 2017 06:33
[2017-04-20] MEDS ORDERED: Heparin 2000 units/Ns 1000ml INJ PRN (07:30)
[2017-04-20] MEDS ORDERED: Lidocaine 1% MPF 10mg/ml 5ml INJ PRN (07:30)
[2017-04-20] MEDS ORDERED: Vitamin D 50,000 units cap ORAL SCH (09:00)
[2017-04-20] MEDS: Pantoprazole Inj IVP SCH ×2 (09:40→20:32)
[2017-04-20] MEDS: Levemir Flexpen SUBQ SCH ×2 (09:42→18:30)
[2017-04-20] MEDS: Lactulose 20gm/30ml UDC ORAL SCH ×2 (09:43→18:00)
--- NOTE | 2017-04-20 10:50 | Diagnostic Imaging Report ---
APPROVED REPORT CPT Code: 82708 Present Symptoms Comments: R/O DVT BILATERAL: Imaging reveals a patent deep venous system bilaterally. There is no evidence of thrombus within the femoral, popliteal or tibial segments. The greater saphenous veins are also within normal limits. Doppler indicates normal spontaneous flow within these segments.
--- NOTE | 2017-04-20 11:24 | Diagnostic Imaging Report ---
Indication: Dyspnea Comparison: 04/19/2017 A single view chest radiograph was obtained. Findings: Platelike atelectasis demonstrated in the right midlung. Pulmonary edema noted with prominent vascularity and interstitium. Heart is enlarged but may be slightly improved. Feeding tube again noted. IMPRESSION: CHF with suggestion of mild interval improvement. Please correlate clinically.
[2017-04-20] MEDS: Nitroglycerin Patch 0.4mg TDERMAL SCH (12:30)
--- NOTE | 2017-04-20 15:52 | Nephrology Progress Note ---
Assessment/Plan Problem List: (1) Severe sepsis (2) Hypotension (3) Renal failure Assessment: acute on chronic (4) Hypothermia (5) Elevated LFTs (6) Hyperbilirubinemia Assessment Acute renal failure back in ICU Hypotensive ? Underlying CKD Low BP , Septic Shock Acute encephalopathy Lice infestation High LFTs and Jaundice HypoThermia UTI Plan dialysis 04/19 next 04/21 steroids- Fluids D5w Antibiotics pressors NGT NPO Monitor renal parameters avoid Nephrotoxics folate Ergocalciferol Echo 55% EjFx ability to make decisions?? Subjective ROS Limited/Unobtainable: Yes Objective Objective Last 24 Hour Vital Signs Date Time Temp Pulse Resp B/P (MAP) Pulse Ox O2 Delivery O2 Flow Rate FiO2 04/20/17 15:22 76 18 96 12.0 50 04/20/17 15:00 78 22 96/50 96 Venturi Mask 12.0 50 04/20/17 14:00 77 23 91/50 96 Venturi Mask 12.0 50 04/20/17 13:27 80 18 96 12.0 50 04/20/17 13:00 79 21 90/60 96 Venturi Mask 12.0 50 04/20/17 12:30 96/50 04/20/17 12:00 98.7 71 18 126/59 98 Venturi Mask 12.0 50 98.7 04/20/17 12:00 74 04/20/17 11:09 74 18 96 12.0 50 04/20/17 11:00 73 20 96/50 96 Venturi Mask 12.0 50 04/20/17 10:00 68 19 100/46 95 Venturi Mask 12.0 50 04/20/17 10:00 100/46 04/20/17 09:00 69 20 105/60 96 Venturi Mask 12.0 50 04/20/17 08:50 63 20 98 12.0 50 04/20/17 08:25 66 20 97 12.0 50 04/20/17 08:00 56 04/20/17 08:00 50 04/20/17 08:00 98.8 64 20 92/49 97 Bi-pap 50 98.8 04/20/17 07:01 100 Bi-pap 50 04/20/17 07:01 63 17 100 Full Face 45 04/20/17 07:01 Bi-pap 50 04/20/17 07:00 62 23 94/59 97 Bi-pap 50 04/20/17 06:00 61 24 86/66 97 Bi-pap 50 04/20/17 05:00 68 24 86/50 97 Bi-pap 50 04/20/17 04:44 61 26 97 Full Face 50 04/20/17 04:00 50 04/20/17 04:00 70 04/20/17 04:00 98.6 70 24 99/52 97 Bi-pap 50 98.6 04/20/17 03:11 57 24 100 Full Face 50 04/20/17 03:00 67 24 99/51 97 Bi-pap 50 04/20/17 02:00 65 24 87/49 96 Bi-pap 50 04/20/17 01:24 69 27 95 Full Face 50 04/20/17 01:00 68 24 92/56 96 Bi-pap 50 04/20/17 00:00 98.0 65 25 87/49 96 Bi-pap 50 98.0 04/20/17 00:00 64 04/20/17 00:00 50 04/19/17 23:11 62 28 97 Full Face 50 04/19/17 23:00 64 23 95/57 96 Bi-pap 50 04/19/17 22:00 64 22 93/59 96 Bi-pap 50 04/19/17 21:08 64 29 96 Full Face 50 04/19/17 21:00 64 20 94/51 96 Bi-pap 50 04/19/17 20:00 50 04/19/17 20:00 98.2 63 20 86/54 96 Bi-pap 50 98.2 04/19/17 19:21 95 Bi-pap 50 04/19/17 19:21 Bi-pap 50 04/19/17 19:19 63 28 95 Full Face 50 04/19/17 19:00 60 19 94/58 99 Bi-pap 50 04/19/17 18:00 61 19 98/60 99 Bi-pap 55 04/19/17 17:18 58 19 97 Full Face 50 04/19/17 17:00 98.7 63 18 103/54 98 Bi-pap 50 98.7 04/19/17 16:00 59 19 96/63 98 Bi-pap 55 04/19/17 16:00 58 Intake and Output 04/19/17 04/20/17 19:00 07:00 Intake Total 613 ml 730 ml Output Total 1430 ml 145 ml Balance -817 ml 585 ml Free Water 140 ml IV Total 223 ml Tube Feeding 390 ml 590 ml Output Urine Total 30 ml 145 ml Hemodialysis UF 1400 ml # Voids 100 # Bowel Movements 10 14 Laboratory Tests 04/20/17 03:50: White Blood Count 11.6H, Red Blood Count 2.38L, Hemoglobin 8.4L, Hematocrit 23.7L, Mean Corpuscular Volume 100H, Mean Corpuscular Hemoglobin 35.5H, Mean Corpuscular Hemoglobin Concent 35.5, Red Cell Distribution Width 14.2, Platelet Count 54L, Mean Platelet Volume 11.4H, Neutrophils (%) (Auto) , Lymphocytes (%) (Auto) , Monocytes (%) (Auto) , Eosinophils (%) (Auto) , Basophils (%) (Auto) , Sodium Level 148H, Potassium Level 2.6*L, Chloride Level 108H, Carbon Dioxide Level 22, Anion Gap 18H, Blood Urea Nitrogen 113H, Creatinine 7.6H, Estimat Glomerular Filtration Rate 7.6, Glucose Level 245H, Uric Acid 10.2H, Calcium Level 7.6L, Phosphorus Level 6.2H, Magnesium Level 2.1, Total Bilirubin 11.0H, Direct Bilirubin 9.2H, Gamma Glutamyl Transpeptidase 704H, Aspartate Amino Transf (AST/SGOT) 106H, Alanine Aminotransferase (ALT/SGPT) 82H, Alkaline Phosphatase 255H, Ammonia 48H, C-Reactive Protein, Quantitative 8.6H, Pro-B- Type Natriuretic Peptide 1754H, Total Protein 4.7L, Albumin 1.7L, Globulin 3.0, Albumin/Globulin Ratio 0.6L 04/20/17 04:00: Arterial Blood pH 7.339L, Arterial Blood Partial Pressure CO2 39.0, Arterial Blood Partial Pressure O2 96.1, Arterial Blood HCO3 20.5L, Arterial Blood Oxygen Saturation 95.8, Arterial Blood Base Excess -4.8, Renny Test Positive Height (Feet): 5 Height (Inches): 7.00 Weight (Pounds): 252 General Appearance: lethargic Cardiovascular: normal rate Respiratory/Chest: decreased breath sounds Abdomen: distended Objective edema ANTON LIZAMA Apr 20, 2017 15:52
[2017-04-20] MEDS: Thiamine HCl 100 MG in NS 55 ML IVPB SCH (16:12)
--- NOTE | 2017-04-20 17:05 | GI Progress Note ---
Assessment/Plan Problems: (1) Alcohol intoxication ICD Codes: F10.929 - Alcohol use, unspecified with intoxication, unspecified SNOMED: 01520727 (2) Diabetes mellitus out of control ICD Codes: E11.65 - Type 2 diabetes mellitus with hyperglycemia SNOMED: 54983550, 010221631 (3) encephalopathy,toxic metabolic (4) Liver cirrhosis ICD Codes: K74.60 - Unspecified cirrhosis of liver SNOMED: 43336592 (5) Altered level of consciousness ICD Codes: R40.4 - Transient alteration of awareness SNOMED: 6294792 (6) Alcohol abuse ICD Codes: F10.10 - Alcohol abuse, uncomplicated SNOMED: 80308072 Status: unchanged Status Narrative Discussed with Dr. Ramirez. Assessment/Plan OB stool positive dc heparin NGTFs per RD lactulose + xifaxin prn transfusions solu medrol fu labs Subjective Subjective limited Objective Last 24 Hour Vital Signs Date Time Temp Pulse Resp B/P (MAP) Pulse Ox O2 Delivery O2 Flow Rate FiO2 04/20/17 16:00 98.9 75 22 91/55 98 Venturi Mask 12.0 50 98.9 04/20/17 16:00 71 04/20/17 15:22 76 18 96 12.0 50 04/20/17 15:00 78 22 96/50 96 Venturi Mask 12.0 50 04/20/17 14:00 77 23 91/50 96 Venturi Mask 12.0 50 04/20/17 13:27 80 18 96 12.0 50 04/20/17 13:00 79 21 90/60 96 Venturi Mask 12.0 50 04/20/17 12:30 96/50 04/20/17 12:00 98.7 71 18 126/59 98 Venturi Mask 12.0 50 98.7 04/20/17 12:00 74 04/20/17 11:09 74 18 96 12.0 50 04/20/17 11:00 73 20 96/50 96 Venturi Mask 12.0 50 04/20/17 10:00 68 19 100/46 95 Venturi Mask 12.0 50 04/20/17 10:00 100/46 04/20/17 09:00 69 20 105/60 96 Venturi Mask 12.0 50 04/20/17 08:50 63 20 98 12.0 50 04/20/17 08:25 66 20 97 12.0 50 04/20/17 08:00 56 04/20/17 08:00 50 04/20/17 08:00 98.8 64 20 92/49 97 Bi-pap 50 98.8 04/20/17 07:01 100 Bi-pap 50 04/20/17 07:01 63 17 100 Full Face 45 04/20/17 07:01 Bi-pap 50 04/20/17 07:00 62 23 94/59 97 Bi-pap 50 04/20/17 06:00 61 24 86/66 97 Bi-pap 50 04/20/17 05:00 68 24 86/50 97 Bi-pap 50 04/20/17 04:44 61 26 97 Full Face 50 04/20/17 04:00 50 04/20/17 04:00 70 04/20/17 04:00 98.6 70 24 99/52 97 Bi-pap 50 98.6 04/20/17 03:11 57 24 100 Full Face 50 04/20/17 03:00 67 24 99/51 97 Bi-pap 50 04/20/17 02:00 65 24 87/49 96 Bi-pap 50 04/20/17 01:24 69 27 95 Full Face 50 04/20/17 01:00 68 24 92/56 96 Bi-pap 50 04/20/17 00:00 98.0 65 25 87/49 96 Bi-pap 50 98.0 04/20/17 00:00 64 04/20/17 00:00 50 04/19/17 23:11 62 28 97 Full Face 50 04/19/17 23:00 64 23 95/57 96 Bi-pap 50 04/19/17 22:00 64 22 93/59 96 Bi-pap 50 04/19/17 21:08 64 29 96 Full Face 50 04/19/17 21:00 64 20 94/51 96 Bi-pap 50 04/19/17 20:00 50 04/19/17 20:00 98.2 63 20 86/54 96 Bi-pap 50 98.2 04/19/17 19:21 95 Bi-pap 50 04/19/17 19:21 Bi-pap 50 04/19/17 19:19 63 28 95 Full Face 50 04/19/17 19:00 60 19 94/58 99 Bi-pap 50 04/19/17 18:00 61 19 98/60 99 Bi-pap 55 04/19/17 17:18 58 19 97 Full Face 50 Intake and Output 04/19/17 04/20/17 19:00 07:00 Intake Total 613 ml 730 ml Output Total 1430 ml 145 ml Balance -817 ml 585 ml Free Water 140 ml IV Total 223 ml Tube Feeding 390 ml 590 ml Output Urine Total 30 ml 145 ml Hemodialysis UF 1400 ml # Voids 100 # Bowel Movements 10 14 Laboratory Tests Test 04/20/17 03:50 04/20/17 04:00 White Blood Count 11.6 K/UL (4.8-10.8) H Red Blood Count 2.38 M/UL (4.70-6.10) L Hemoglobin 8.4 G/DL (14.2-18.0) L Hematocrit 23.7 % (42.0-52.0) L Mean Corpuscular Volume 100 FL (80-99) H Mean Corpuscular Hemoglobin 35.5 PG (27.0-31.0) H Mean Corpuscular Hemoglobin Concent 35.5 G/DL (32.0-36.0) Red Cell Distribution Width 14.2 % (11.6-14.8) Platelet Count 54 K/UL (150-450) L Mean Platelet Volume 11.4 FL (6.5-10.1) H Neutrophils (%) (Auto) % (45.0-75.0) Lymphocytes (%) (Auto) % (20.0-45.0) Monocytes (%) (Auto) % (1.0-10.0) Eosinophils (%) (Auto) % (0.0-3.0) Basophils (%) (Auto) % (0.0-2.0) Sodium Level 148 MMOL/L (136-145) H Potassium Level 2.6 MMOL/L (3.5-5.1) *L Chloride Level 108 MMOL/L (98-107) H Carbon Dioxide Level 22 MMOL/L (21-32) Anion Gap 18 mmol/L (5-15) H Blood Urea Nitrogen 113 mg/dL (7-18) H Creatinine 7.6 MG/DL (0.55-1.30) H Estimat Glomerular Filtration Rate 7.6 mL/min (>60) Glucose Level 245 MG/DL (74-106) H Uric Acid 10.2 MG/DL (2.6-7.2) H Calcium Level 7.6 MG/DL (8.5-10.1) L Phosphorus Level 6.2 MG/DL (2.5-4.9) H Magnesium Level 2.1 MG/DL (1.8-2.4) Total Bilirubin 11.0 MG/DL (0.2-1.0) H Direct Bilirubin 9.2 MG/DL (0.0-0.3) H Gamma Glutamyl Transpeptidase 704 U/L (5-85) H Aspartate Amino Transf (AST/SGOT) 106 U/L (15-37) H Alanine Aminotransferase (ALT/SGPT) 82 U/L (12-78) H Alkaline Phosphatase 255 U/L (46-116) H Ammonia 48 umol/L (11-32) H C-Reactive Protein, Quantitative 8.6 mg/dL (0.00-0.90) H Pro-B-Type Natriuretic Peptide 1754 pg/mL (0-125) H Total Protein 4.7 G/DL (6.4-8.2) L Albumin 1.7 G/DL (3.4-5.0) L Globulin 3.0 g/dL Albumin/Globulin Ratio 0.6 (1.0-2.7) L Arterial Blood pH 7.339 (7.350-7.450) Arterial Blood Partial Pressure CO2 39.0 mmHg (35.0-45.0) Arterial Blood Partial Pressure O2 96.1 mmHg (75.0-100.0) Arterial Blood HCO3 20.5 mmol/L (22.0-26.0) L Arterial Blood Oxygen Saturation 95.8 % (92.0-98.0) Arterial Blood Base Excess -4.8 Ernny Test Positive Height (Feet): 5 Height (Inches): 7.00 Weight (Pounds): 252 General Appearance: WD/WN, no apparent distress Cardiovascular: normal rate Respiratory/Chest: no respiratory distress, other - venturi mask Abdominal Exam: normal bowel sounds, non tender, soft, other - dobhoff Extremities: non-tender Lianne Damon N.PYuriy Apr 20, 2017 17:05
--- NOTE | 2017-04-20 18:42 | General Progress Note ---
Assessment/Plan Assessment/Plan 1. Schizophrenia cpt 2. Encephalopathy. PLAN: 1. We will discontinue the sitter at this time. 2. We will continue monitor. 3. Increase antipsychotics and provide the patient with supportive therapy and reality orientation. 5. risperdal 2mg qhs Subjective Date patient seen: Apr 20, 2017 Allergies: Coded Allergies: ASPIRIN (Verified Allergy, Unknown, 03/12/17) Subjective the pt is calmer still has episodes of agitation delusion Objective Last 24 Hour Vital Signs Date Time Temp Pulse Resp B/P (MAP) Pulse Ox O2 Delivery O2 Flow Rate FiO2 04/20/17 18:00 77 20 95/50 99 Venturi Mask 12.0 50 04/20/17 17:03 74 17 96 12.0 50 04/20/17 17:00 76 22 92/47 99 Venturi Mask 12.0 50 04/20/17 16:00 98.9 75 22 91/55 98 Venturi Mask 12.0 50 98.9 04/20/17 16:00 71 04/20/17 15:22 76 18 96 12.0 50 04/20/17 15:00 78 22 96/50 96 Venturi Mask 12.0 50 04/20/17 14:00 77 23 91/50 96 Venturi Mask 12.0 50 04/20/17 13:27 80 18 96 12.0 50 04/20/17 13:00 79 21 90/60 96 Venturi Mask 12.0 50 04/20/17 12:30 96/50 04/20/17 12:00 98.7 71 18 126/59 98 Venturi Mask 12.0 50 98.7 04/20/17 12:00 74 04/20/17 11:09 74 18 96 12.0 50 04/20/17 11:00 73 20 96/50 96 Venturi Mask 12.0 50 04/20/17 10:00 68 19 100/46 95 Venturi Mask 12.0 50 04/20/17 10:00 100/46 04/20/17 09:00 69 20 105/60 96 Venturi Mask 12.0 50 04/20/17 08:50 63 20 98 12.0 50 04/20/17 08:25 66 20 97 12.0 50 04/20/17 08:00 56 04/20/17 08:00 50 04/20/17 08:00 98.8 64 20 92/49 97 Bi-pap 50 98.8 04/20/17 07:01 100 Bi-pap 50 04/20/17 07:01 63 17 100 Full Face 45 04/20/17 07:01 Bi-pap 50 04/20/17 07:00 62 23 94/59 97 Bi-pap 50 04/20/17 06:00 61 24 86/66 97 Bi-pap 50 04/20/17 05:00 68 24 86/50 97 Bi-pap 50 04/20/17 04:44 61 26 97 Full Face 50 04/20/17 04:00 50 04/20/17 04:00 70 04/20/17 04:00 98.6 70 24 99/52 97 Bi-pap 50 98.6 04/20/17 03:11 57 24 100 Full Face 50 04/20/17 03:00 67 24 99/51 97 Bi-pap 50 04/20/17 02:00 65 24 87/49 96 Bi-pap 50 04/20/17 01:24 69 27 95 Full Face 50 04/20/17 01:00 68 24 92/56 96 Bi-pap 50 04/20/17 00:00 98.0 65 25 87/49 96 Bi-pap 50 98.0 04/20/17 00:00 64 04/20/17 00:00 50 04/19/17 23:11 62 28 97 Full Face 50 04/19/17 23:00 64 23 95/57 96 Bi-pap 50 04/19/17 22:00 64 22 93/59 96 Bi-pap 50 04/19/17 21:08 64 29 96 Full Face 50 04/19/17 21:00 64 20 94/51 96 Bi-pap 50 04/19/17 20:00 50 04/19/17 20:00 98.2 63 20 86/54 96 Bi-pap 50 98.2 04/19/17 19:21 95 Bi-pap 50 04/19/17 19:21 Bi-pap 50 04/19/17 19:19 63 28 95 Full Face 50 04/19/17 19:00 60 19 94/58 99 Bi-pap 50 Intake and Output 04/19/17 04/20/17 19:00 07:00 Intake Total 613 ml 730 ml Output Total 1430 ml 145 ml Balance -817 ml 585 ml Free Water 140 ml IV Total 223 ml Tube Feeding 390 ml 590 ml Output Urine Total 30 ml 145 ml Hemodialysis UF 1400 ml # Voids 100 # Bowel Movements 10 14 Laboratory Tests 04/20/17 03:50: White Blood Count 11.6H, Red Blood Count 2.38L, Hemoglobin 8.4L, Hematocrit 23.7L, Mean Corpuscular Volume 100H, Mean Corpuscular Hemoglobin 35.5H, Mean Corpuscular Hemoglobin Concent 35.5, Red Cell Distribution Width 14.2, Platelet Count 54L, Mean Platelet Volume 11.4H, Neutrophils (%) (Auto) , Lymphocytes (%) (Auto) , Monocytes (%) (Auto) , Eosinophils (%) (Auto) , Basophils (%) (Auto) , Sodium Level 148H, Potassium Level 2.6*L, Chloride Level 108H, Carbon Dioxide Level 22, Anion Gap 18H, Blood Urea Nitrogen 113H, Creatinine 7.6H, Estimat Glomerular Filtration Rate 7.6, Glucose Level 245H, Uric Acid 10.2H, Calcium Level 7.6L, Phosphorus Level 6.2H, Magnesium Level 2.1, Total Bilirubin 11.0H, Direct Bilirubin 9.2H, Gamma Glutamyl Transpeptidase 704H, Aspartate Amino Transf (AST/SGOT) 106H, Alanine Aminotransferase (ALT/SGPT) 82H, Alkaline Phosphatase 255H, Ammonia 48H, C-Reactive Protein, Quantitative 8.6H, Pro-B- Type Natriuretic Peptide 1754H, Total Protein 4.7L, Albumin 1.7L, Globulin 3.0, Albumin/Globulin Ratio 0.6L 04/20/17 04:00: Arterial Blood pH 7.339L, Arterial Blood Partial Pressure CO2 39.0, Arterial Blood Partial Pressure O2 96.1, Arterial Blood HCO3 20.5L, Arterial Blood Oxygen Saturation 95.8, Arterial Blood Base Excess -4.8, Renny Test Positive Height (Feet): 5 Height (Inches): 7.00 Weight (Pounds): 252 Aly De Santiago M.D. Apr 20, 2017 18:42
[2017-04-20] MEDS: Dyna-Hex 2% Top Sol 2oz TOPIC SCH (20:11)
[2017-04-21] VITALS (24 sets, daily range): BP systolic 80–103; BP diastolic 0–62
[2017-04-21] MEDS: cefTRIAXone 1 GM in NS 55 ML IVPB SCH (00:13)
[2017-04-21] MEDS: NovoLOG Insulin Flexpen SUBQ SCH ×5 (00:15→23:54)
[2017-04-21] MEDS: Aluminum Hydroxide Gel Susp 15ml NG SCH ×4 (06:22→23:51)
--- NOTE | 2017-04-21 06:35 | Pulmonolgy Critical Care Note ---
Critical Care - Asmt/Plan Problems: (1) Acute respiratory failure (2) Pulmonary edema (3) Multiple organ failure (4) Severe sepsis (5) Hypothermia (6) Renal failure (7) Hypotension (8) Alcohol abuse Respiratory: monitor respiratory rate, adjust FIO2, CXR Cardiac: continue to monitor HR/BP Renal: F/U I&O, keep IV fluid, check electrolytes Infectious Disease: check cultures Gastrointestinal: continue feedings/current rate Endocrine: monitor blood sugar, continue sliding scale insulin Hematologic: transfuse if hgb<8.5 Neurologic: PRN Ativan, PRN Morphine, keep patient comfortable Affect: PRN ativan Notes Reviewed: rn postpartum, cardio, renal Discussed with: nurses, consultants, 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 manager - Objective Last 24 Hour Vital Signs Date Time Temp Pulse Resp B/P (MAP) Pulse Ox O2 Delivery O2 Flow Rate FiO2 04/21/17 05:17 83 32 99 Full Face 45 04/21/17 03:14 77 28 97 Full Face 45 04/21/17 02:00 64 21 102/59 98 Bi-pap 45 04/21/17 01:00 70 25 100/45 98 Bi-pap 45 04/21/17 00:53 66 19 98 Full Face 45 04/21/17 00:00 98.4 70 25 100/45 98 Venturi Mask 12.0 50 98.4 04/21/17 00:00 74 04/21/17 00:00 50 04/20/17 23:20 74 34 98 Full Face 50 04/20/17 23:00 73 25 92/45 98 Venturi Mask 12.0 50 04/20/17 22:00 77 25 101/42 98 Venturi Mask 12.0 50 04/20/17 21:00 77 28 82/35 98 Venturi Mask 12.0 50 04/20/17 20:55 78 40 100 Full Face 50 04/20/17 20:00 80 04/20/17 20:00 50 04/20/17 20:00 98.0 81 24 100/51 96 Venturi Mask 12.0 50 98.0 04/20/17 19:30 98 Bi-pap 50 04/20/17 19:30 78 16 96 Full Face 45 04/20/17 19:30 Bi-pap 04/20/17 19:00 70 20 92/55 99 Venturi Mask 12.0 50 04/20/17 18:00 77 20 95/50 99 Venturi Mask 12.0 50 04/20/17 17:03 74 17 96 12.0 50 04/20/17 17:00 76 22 92/47 99 Venturi Mask 12.0 50 04/20/17 16:00 98.9 75 22 91/55 98 Venturi Mask 12.0 50 98.9 04/20/17 16:00 71 04/20/17 15:22 76 18 96 12.0 50 04/20/17 15:00 78 22 96/50 96 Venturi Mask 12.0 50 04/20/17 14:00 77 23 91/50 96 Venturi Mask 12.0 50 04/20/17 13:27 80 18 96 12.0 50 04/20/17 13:00 79 21 90/60 96 Venturi Mask 12.0 50 04/20/17 12:30 96/50 04/20/17 12:00 98.7 71 18 126/59 98 Venturi Mask 12.0 50 98.7 04/20/17 12:00 74 04/20/17 11:09 74 18 96 12.0 50 04/20/17 11:00 73 20 96/50 96 Venturi Mask 12.0 50 04/20/17 10:00 68 19 100/46 95 Venturi Mask 12.0 50 04/20/17 10:00 100/46 04/20/17 09:00 69 20 105/60 96 Venturi Mask 12.0 50 04/20/17 08:50 63 20 98 12.0 50 04/20/17 08:25 66 20 97 12.0 50 04/20/17 08:00 56 04/20/17 08:00 50 04/20/17 08:00 98.8 64 20 92/49 97 Bi-pap 50 98.8 04/20/17 07:01 100 Bi-pap 50 04/20/17 07:01 63 17 100 Full Face 45 04/20/17 07:01 Bi-pap 50 04/20/17 07:00 62 23 94/59 97 Bi-pap 50 Status: awake Condition: critical HEENT: atraumatic Neck: full ROM Lungs: clear, chest wall tender Heart: HR/BP stable Abdomen: soft, non-tender Extremities: no C/C/E, edema Decubiti: location, stage Accucheck: 299 Critical Care - Subjective ROS Limited/Unobtainable: No Condition: critical EKG Rhythm: Sinus Rhythm FI02: 45 Vent Support Breath Rate: 14 Vent Support Mode: BiLevel Sputum Amount: None Tube Feeding Amount: 60 I&O: Intake and Output 04/20/17 04/21/17 19:00 07:00 Intake Total 720 ml 480 ml Output Total 320 ml 48 ml Balance 400 ml 432 ml Free Water 60 ml Tube Feeding 720 ml 420 ml Output Urine Total 20 ml 48 ml Stool Total 300 ml CXR: pulmonary edema Labs: Laboratory Tests Test 04/21/17 05:30 White Blood Count Pending Red Blood Count Pending Hemoglobin Pending Hematocrit Pending Mean Corpuscular Volume Pending Mean Corpuscular Hemoglobin Pending Mean Corpuscular Hemoglobin Concent Pending Red Cell Distribution Width Pending Platelet Count Pending Mean Platelet Volume Pending Neutrophils (%) (Auto) Pending Lymphocytes (%) (Auto) Pending Monocytes (%) (Auto) Pending Eosinophils (%) (Auto) Pending Basophils (%) (Auto) Pending Sodium Level Pending Potassium Level Pending Chloride Level Pending Carbon Dioxide Level Pending Blood Urea Nitrogen Pending Creatinine Pending Estimat Glomerular Filtration Rate Pending Glucose Level Pending Uric Acid Pending Calcium Level Pending Phosphorus Level Pending Magnesium Level Pending Total Bilirubin Pending Aspartate Amino Transf (AST/SGOT) Pending Alanine Aminotransferase (ALT/SGPT) Pending Alkaline Phosphatase Pending Ammonia Pending Troponin I Pending C-Reactive Protein, Quantitative Pending Pro-B-Type Natriuretic Peptide Pending Total Protein Pending Albumin Pending Globulin Pending BECK CEDENO Apr 21, 2017 06:34
[2017-04-21 06:58] LABS: HEMATOCRIT 23.7 % (42.0-52.0); HEMOGLOBIN 8.3 G/DL (14.2-18.0); MEAN CORPUSCULAR VOLUME 101 FL (80-99); PLATELET COUNT 84 K/UL (150-450); RED BLOOD COUNT 2.35 M/UL (4.70-6.10); RED CELL DISTRIBUTION WIDTH 15.2 % (11.6-14.8); WHITE BLOOD COUNT 14.2 K/UL (4.8-10.8)
--- NOTE | 2017-04-21 07:21 | General Progress Note ---
Assessment/Plan Problem List: (1) Diabetes mellitus out of control ICD Codes: E11.65 - Type 2 diabetes mellitus with hyperglycemia SNOMED: 60511689, 375786748 (2) Altered level of consciousness ICD Codes: R40.4 - Transient alteration of awareness SNOMED: 1915218 (3) Elevated LFTs ICD Codes: R79.89 - Other specified abnormal findings of blood chemistry SNOMED: 999504923, 270333682 (4) Lice infestation ICD Codes: B85.2 - Pediculosis, unspecified SNOMED: 205540171 (5) Liver cirrhosis ICD Codes: K74.60 - Unspecified cirrhosis of liver SNOMED: 97816637 Assessment/Plan increase Levemir to 10 units bid continue NISS Subjective Allergies: Coded Allergies: ASPIRIN (Verified Allergy, Unknown, 03/12/17) Subjective events noted - interval notes reviewed lethargic Objective Last 24 Hour Vital Signs Date Time Temp Pulse Resp B/P (MAP) Pulse Ox O2 Delivery O2 Flow Rate FiO2 04/21/17 06:00 71 22 86/44 98 Bi-pap 45 04/21/17 05:17 83 32 99 Full Face 45 04/21/17 05:00 73 22 85/50 98 Bi-pap 45 04/21/17 04:00 78 04/21/17 04:00 98.0 73 22 80/41 98 Bi-pap 45 98.0 04/21/17 03:14 77 28 97 Full Face 45 04/21/17 03:00 78 22 97/48 98 Bi-pap 45 04/21/17 02:00 64 21 102/59 98 Bi-pap 45 04/21/17 01:00 70 25 100/45 98 Bi-pap 45 04/21/17 00:53 66 19 98 Full Face 45 04/21/17 00:00 98.4 70 25 100/45 98 Venturi Mask 12.0 50 98.4 04/21/17 00:00 74 04/21/17 00:00 50 04/20/17 23:20 74 34 98 Full Face 50 04/20/17 23:00 73 25 92/45 98 Venturi Mask 12.0 50 04/20/17 22:00 77 25 101/42 98 Venturi Mask 12.0 50 04/20/17 21:00 77 28 82/35 98 Venturi Mask 12.0 50 04/20/17 20:55 78 40 100 Full Face 50 04/20/17 20:00 80 04/20/17 20:00 50 04/20/17 20:00 98.0 81 24 100/51 96 Venturi Mask 12.0 50 98.0 04/20/17 19:30 98 Bi-pap 50 04/20/17 19:30 78 16 96 Full Face 45 04/20/17 19:30 Bi-pap 04/20/17 19:00 70 20 92/55 99 Venturi Mask 12.0 50 04/20/17 18:00 77 20 95/50 99 Venturi Mask 12.0 50 04/20/17 17:03 74 17 96 12.0 50 04/20/17 17:00 76 22 92/47 99 Venturi Mask 12.0 50 04/20/17 16:00 98.9 75 22 91/55 98 Venturi Mask 12.0 50 98.9 04/20/17 16:00 71 04/20/17 15:22 76 18 96 12.0 50 04/20/17 15:00 78 22 96/50 96 Venturi Mask 12.0 50 04/20/17 14:00 77 23 91/50 96 Venturi Mask 12.0 50 04/20/17 13:27 80 18 96 12.0 50 04/20/17 13:00 79 21 90/60 96 Venturi Mask 12.0 50 04/20/17 12:30 96/50 04/20/17 12:00 98.7 71 18 126/59 98 Venturi Mask 12.0 50 98.7 04/20/17 12:00 74 04/20/17 11:09 74 18 96 12.0 50 04/20/17 11:00 73 20 96/50 96 Venturi Mask 12.0 50 04/20/17 10:00 68 19 100/46 95 Venturi Mask 12.0 50 04/20/17 10:00 100/46 04/20/17 09:00 69 20 105/60 96 Venturi Mask 12.0 50 04/20/17 08:50 63 20 98 12.0 50 04/20/17 08:25 66 20 97 12.0 50 04/20/17 08:00 56 04/20/17 08:00 50 04/20/17 08:00 98.8 64 20 92/49 97 Bi-pap 50 98.8 Intake and Output 04/20/17 04/21/17 19:00 07:00 Intake Total 720 ml 750 ml Output Total 320 ml 688 ml Balance 400 ml 62 ml Free Water 90 ml Tube Feeding 720 ml 660 ml Output Urine Total 20 ml 88 ml Stool Total 300 ml 600 ml Laboratory Tests 04/21/17 05:30: White Blood Count 14.2H, Red Blood Count 2.35L, Hemoglobin 8.3L, Hematocrit 23.7L, Mean Corpuscular Volume 101H, Mean Corpuscular Hemoglobin 35.3H, Mean Corpuscular Hemoglobin Concent 35.0, Red Cell Distribution Width 15.2H, Platelet Count 84#L, Mean Platelet Volume 9.6, Neutrophils (%) (Auto) , Lymphocytes (%) (Auto) , Monocytes (%) (Auto) , Eosinophils (%) (Auto) , Basophils (%) (Auto) , Neutrophils % (Manual) [Pending], Lymphocytes % (Manual) [Pending], Platelet Estimate [Pending], Platelet Morphology [Pending], Sodium Level [Pending], Potassium Level [Pending], Chloride Level [Pending], Carbon Dioxide Level [Pending], Blood Urea Nitrogen [Pending], Creatinine [Pending], Estimat Glomerular Filtration Rate [Pending], Glucose Level [Pending], Uric Acid [Pending], Calcium Level [Pending], Phosphorus Level [Pending], Magnesium Level [Pending], Total Bilirubin [Pending], Aspartate Amino Transf (AST/SGOT) [ Pending], Alanine Aminotransferase (ALT/SGPT) [Pending], Alkaline Phosphatase [ Pending], Ammonia [Pending], Troponin I [Pending], C-Reactive Protein, Quantitative [Pending], Pro-B-Type Natriuretic Peptide [Pending], Total Protein [Pending], Albumin [Pending], Globulin [Pending] Height (Feet): 5 Height (Inches): 7.00 Weight (Pounds): 229 General Appearance: moderate distress EENT: pale conjunctivae Neck: normal alignment Cardiovascular: normal rate Respiratory/Chest: decreased breath sounds Objective Current Medications Medications (Trade) Dose Ordered Sig/Jocelyne Route PRN Reason Start Time Stop Time Status Last Admin Dose Admin Acetaminophen (Tylenol) 650 mg Q4H PRN ORAL fever>100.5 04/13/17 18:30 05/11/17 10:29 04/17/17 06:19 Allopurinol (Allopurinol) 300 mg DAILY ORAL 04/15/17 09:00 05/15/17 08:59 04/20/17 09:41 Aluminum Hydroxide (Amphojel) 1,920 mg Q6HR NG 04/18/17 13:30 05/18/17 13:29 04/21/17 06:22 Ceftriaxone Sodium 1 gm/ Sodium Chloride 55 ml @ 110 mls/hr Q24H IVPB 04/15/17 00:15 04/22/17 00:14 04/21/17 00:13 Chlorhexidine Gluconate (Anika-Hex 2%) 1 applic DAILY@2000 TOPIC 04/20/17 20:00 05/20/17 19:59 04/20/17 20:11 Dextrose (Dextrose 50%) STAT PRN IV Hypoglycemia 04/19/17 08:00 05/19/17 07:59 Ergocalciferol (Drisdol) 50,000 intlu QWEEK ORAL 04/20/17 09:00 05/13/17 08:59 04/20/17 09:00 Folic Acid (Folate) 5 mg DAILY ORAL 04/14/17 09:00 05/13/17 12:59 04/20/17 09:41 Haloperidol Lactate (Haldol) 5 mg Q6H PRN IM Agitation 04/14/17 13:00 05/14/17 12:59 Insulin Aspart (NovoLOG) EVERY 6 HOURS SUBQ 04/18/17 00:00 05/14/17 16:29 04/21/17 06:23 Insulin Detemir (Levemir) 6 units BID SUBQ 04/19/17 09:00 05/19/17 08:59 04/20/17 18:30 Lactulose (Cephulac) 30 gm BID ORAL 04/18/17 18:00 05/16/17 12:59 04/20/17 09:43 Lorazepam (Ativan 2mg/ml 1ml) 1 mg Q6H PRN IV For Anxiety 04/14/17 13:00 04/21/17 12:59 Methylprednisolone Sodium Succinate (Solu-MEDROL) 40 mg Q12HR IVP 04/20/17 21:00 05/15/17 08:59 04/20/17 20:32 Metronidazole 100 ml @ 100 mls/hr Q12HR IVPB 04/15/17 09:00 04/22/17 08:59 04/20/17 20:32 Nitroglycerin (Ntg) 1 patch Q24H TDERMAL 04/14/17 13:00 05/13/17 12:59 04/18/17 13:35 Norepinephrine Bitartrate 4 mg/ Dextrose 250 ml @ 0 mls/hr Q24H IV 04/17/17 10:00 05/17/17 09:59 04/17/17 13:40 Ondansetron HCl (Zofran) 4 mg Q6H PRN IVP Nausea & Vomiting 04/13/17 18:00 05/11/17 17:59 Pantoprazole (Protonix) 40 mg EVERY 12 HOURS IVP 04/18/17 21:00 05/18/17 20:59 04/20/17 20:32 Rifaximin (Xifaxan) 550 mg EVERY 12 HOURS ORAL 04/16/17 21:00 04/23/17 20:59 04/20/17 20:32 Risperidone (RisperDAL) 2 mg BEDTIME ORAL 04/19/17 21:00 05/19/17 20:59 04/20/17 20:32 Sodium Chloride 1,000 ml @ 999 mls/hr Q1H1M ONCE IV 04/21/17 06:45 04/21/17 07:45 Thiamine HCl 100 mg/Sodium Chloride 56 ml @ 123.002 mls/hr Q24HRS IVPB 04/17/17 16:00 05/17/17 15:59 04/20/17 16:12 Item Value Date Time Bedside Blood Glucose 299 mg/dl H 04/21/17 0623 Bedside Blood Glucose 214 mg/dl H 04/21/17 0015 Bedside Blood Glucose 213 mg/dl H 04/20/17 1831 Bedside Blood Glucose 234 mg/dl H 04/20/17 1228 Bedside Blood Glucose 223 mg/dl H 04/20/17 0942 Bedside Blood Glucose 262 mg/dl H 04/20/17 0600 ROSALINDA VELASCO 7, 2018 07:21
[2017-04-21 07:35] LABS: ALANINE AMINOTRANSFERASE 95 U/L (12-78); ALBUMIN 1.6 G/DL (3.4-5.0); ALBUMIN/GLOBULIN RATIO 0.6 (1.0-2.7); ALKALINE PHOSPHATASE 312 U/L (46-116); ANION GAP 19 mmol/L (5-15); ASPARTATE AMINO TRANSFERASE 115 U/L (15-37); BILIRUBIN,TOTAL 13.3 MG/DL (0.2-1.0); BLOOD UREA NITROGEN 151 mg/dL (7-18); CALCIUM 7.7 MG/DL (8.5-10.1); CARBON DIOXIDE 21 MMOL/L (21-32); CHLORIDE 111 MMOL/L (98-107); CREATININE 10.3 MG/DL (0.55-1.30); PHOSPHORUS 8.4 MG/DL (2.5-4.9); SODIUM 151 MMOL/L (136-145)
[2017-04-21 07:36] LABS: BILIRUBIN,DIRECT 10.9 MG/DL (0.0-0.3)
[2017-04-21] MEDS: Pantoprazole Inj IVP SCH ×2 (08:53→21:06)
[2017-04-21] MEDS: Lactulose 20gm/30ml UDC ORAL SCH ×4 (08:53→23:52)
[2017-04-21] MEDS: Solu-MEDROL 40mg Inj IVP SCH (08:53)
--- NOTE | 2017-04-21 09:41 | Nephrology Progress Note ---
Assessment/Plan Problem List: (1) Severe sepsis (2) Hypotension (3) Renal failure Assessment: acute on chronic (4) Hypothermia (5) Elevated LFTs (6) Hyperbilirubinemia Assessment Acute renal failure Hypotensive ? Underlying CKD Low BP , Septic Shock Acute encephalopathy Lice infestation High LFTs and Jaundice HypoThermia UTI Plan dialysis 04/19 next 04/21 on 4 K and 130 Na steroids- taper midodrin Antibiotics NGT NPO Monitor renal parameters avoid Nephrotoxics folate Echo 55% EjFx Subjective ROS Limited/Unobtainable: Yes Objective Objective Last 24 Hour Vital Signs Date Time Temp Pulse Resp B/P (MAP) Pulse Ox O2 Delivery O2 Flow Rate FiO2 04/21/17 08:00 45 04/21/17 08:00 98.7 77 18 101/51 98 Venturi Mask 50 98.7 04/21/17 07:32 Venturi Mask 12.0 50 04/21/17 07:32 98 Venturi Mask 12.0 50 04/21/17 07:00 74 21 100/44 99 Bi-pap 45 04/21/17 06:00 71 22 86/44 98 Bi-pap 45 04/21/17 05:17 83 32 99 Full Face 45 04/21/17 05:00 73 22 85/50 98 Bi-pap 45 04/21/17 04:00 78 04/21/17 04:00 98.0 73 22 80/41 98 Bi-pap 45 98.0 04/21/17 03:14 77 28 97 Full Face 45 04/21/17 03:00 78 22 97/48 98 Bi-pap 45 04/21/17 02:00 64 21 102/59 98 Bi-pap 45 04/21/17 01:00 70 25 100/45 98 Bi-pap 45 04/21/17 00:53 66 19 98 Full Face 45 04/21/17 00:00 98.4 70 25 100/45 98 Venturi Mask 12.0 50 98.4 04/21/17 00:00 74 04/21/17 00:00 50 04/20/17 23:20 74 34 98 Full Face 50 04/20/17 23:00 73 25 92/45 98 Venturi Mask 12.0 50 04/20/17 22:00 77 25 101/42 98 Venturi Mask 12.0 50 04/20/17 21:00 77 28 82/35 98 Venturi Mask 12.0 50 04/20/17 20:55 78 40 100 Full Face 50 04/20/17 20:00 80 04/20/17 20:00 50 04/20/17 20:00 98.0 81 24 100/51 96 Venturi Mask 12.0 50 98.0 04/20/17 19:30 98 Bi-pap 50 04/20/17 19:30 78 16 96 Full Face 45 04/20/17 19:30 Bi-pap 04/20/17 19:00 70 20 92/55 99 Venturi Mask 12.0 50 04/20/17 18:00 77 20 95/50 99 Venturi Mask 12.0 50 04/20/17 17:03 74 17 96 12.0 50 04/20/17 17:00 76 22 92/47 99 Venturi Mask 12.0 50 04/20/17 16:00 98.9 75 22 91/55 98 Venturi Mask 12.0 50 98.9 04/20/17 16:00 71 04/20/17 15:22 76 18 96 12.0 50 04/20/17 15:00 78 22 96/50 96 Venturi Mask 12.0 50 04/20/17 14:00 77 23 91/50 96 Venturi Mask 12.0 50 04/20/17 13:27 80 18 96 12.0 50 04/20/17 13:00 79 21 90/60 96 Venturi Mask 12.0 50 04/20/17 12:30 96/50 04/20/17 12:00 98.7 71 18 126/59 98 Venturi Mask 12.0 50 98.7 04/20/17 12:00 74 04/20/17 11:09 74 18 96 12.0 50 04/20/17 11:00 73 20 96/50 96 Venturi Mask 12.0 50 04/20/17 10:00 68 19 100/46 95 Venturi Mask 12.0 50 04/20/17 10:00 100/46 Intake and Output 04/20/17 04/21/17 19:00 07:00 Intake Total 720 ml 965 ml Output Total 320 ml 693 ml Balance 400 ml 272 ml Free Water 90 ml IV Total 155 ml Tube Feeding 720 ml 720 ml Output Urine Total 20 ml 93 ml Stool Total 300 ml 600 ml Laboratory Tests 04/21/17 05:30: White Blood Count 14.2H, Red Blood Count 2.35L, Hemoglobin 8.3L, Hematocrit 23.7L, Mean Corpuscular Volume 101H, Mean Corpuscular Hemoglobin 35.3H, Mean Corpuscular Hemoglobin Concent 35.0, Red Cell Distribution Width 15.2H, Platelet Count 84#L, Mean Platelet Volume 9.6, Neutrophils (%) (Auto) , Lymphocytes (%) (Auto) , Monocytes (%) (Auto) , Eosinophils (%) (Auto) , Basophils (%) (Auto) , Neutrophils % (Manual) [Pending], Lymphocytes % (Manual) [Pending], Platelet Estimate [Pending], Platelet Morphology [Pending], Sodium Level 151H, Potassium Level 3.0L, Chloride Level 111H, Carbon Dioxide Level 21, Anion Gap 19H, Blood Urea Nitrogen 151H, Creatinine 10.3H, Estimat Glomerular Filtration Rate 5.3, Glucose Level 275H, Uric Acid 11.1H, Calcium Level 7.7L, Phosphorus Level 8.4H, Magnesium Level 2.3, Total Bilirubin 13.3H, Direct Bilirubin 10.9H, Aspartate Amino Transf (AST/SGOT) 115H, Alanine Aminotransferase (ALT/SGPT) 95H, Alkaline Phosphatase 312H, Ammonia 69H, Troponin I 0.046, C-Reactive Protein, Quantitative 5.6H, Pro-B-Type Natriuretic Peptide 1659H, Total Protein 4.5L, Albumin 1.6L, Globulin 2.9, Albumin/Globulin Ratio 0.6L 04/21/17 09:00: Arterial Blood pH 7.265L, Arterial Blood Partial Pressure CO2 41.0, Arterial Blood Partial Pressure O2 112.9H, Arterial Blood HCO3 18.2L, Arterial Blood Oxygen Saturation 96.5, Arterial Blood Base Excess -8.9, Renny Test Positive Height (Feet): 5 Height (Inches): 7.00 Weight (Pounds): 229 General Appearance: no apparent distress EENT: scleral icterus Cardiovascular: tachycardia Respiratory/Chest: decreased breath sounds Abdomen: distended Objective edema ANTON LIZAMA Apr 21, 2017 09:40
[2017-04-21] MEDS: Levemir Flexpen SUBQ SCH ×2 (09:55→21:08)
--- NOTE | 2017-04-21 11:14 | Diagnostic Imaging Report ---
Indication: Dyspnea Comparison: 04/20/2017 A single view chest radiograph was obtained. Findings: Patchy interstitial opacities and prominent vascularity demonstrated with low lung volumes and mild cardiomegaly. Feeding tube projected over the stomach. IMPRESSION: Slightly worsening interstitial edema
--- NOTE | 2017-04-21 12:01 | Infectious Diseases Prog Note ---
Assessment/Plan Assessment/Plan ASSESSMENT AND PLAN: 1. sepsis, shock, hypothermia, leukocytosis, strep uti, etoh, liver failure, steroids, chf/edema > pna - off pressors, on bipap, icu, leukocytosis - rocephin and flagyl x 3 days to complete 10 day plus course abx - check labs and chest x-ray 2. Acute renal failure, elevated creatinine. 3. Anemia. 4. Ethyl alcohol dependency. 5. Anemia. 6. Allergy to aspirin. 7. Social history positive for ethyl alcohol. 8. Family history noncontributory. 9. MAR was noted. 10. Case discussed with RN. 11. Case discussed with Dr. Tai. 12. Continue treatment per primary consultants. 13. Overall poor prognosis. Subjective Constitutional: Reports: other - on bipap Respiratory: Reports: shortness of breath Gastrointestinal/Abdominal: Reports: diarrhea - on lactulose, Denies: nausea, vomiting Allergies: Coded Allergies: ASPIRIN (Verified Allergy, Unknown, 03/12/17) Objective Vital Signs Last 24 Hour Vital Signs Date Time Temp Pulse Resp B/P (MAP) Pulse Ox O2 Delivery O2 Flow Rate FiO2 04/21/17 11:54 97 Venturi Mask 10.0 45 04/21/17 11:00 76 16 99/0 98 Venturi Mask 50 04/21/17 10:00 75 23 103/62 99 Venturi Mask 50 04/21/17 09:55 91/46 04/21/17 09:00 77 19 91/46 99 Venturi Mask 50 04/21/17 08:00 45 04/21/17 08:00 78 04/21/17 08:00 98.7 77 18 101/51 98 Venturi Mask 50 98.7 04/21/17 07:32 Venturi Mask 12.0 50 04/21/17 07:32 98 Venturi Mask 12.0 50 04/21/17 07:00 74 21 100/44 99 Bi-pap 45 04/21/17 06:00 71 22 86/44 98 Bi-pap 45 04/21/17 05:17 83 32 99 Full Face 45 04/21/17 05:00 73 22 85/50 98 Bi-pap 45 04/21/17 04:00 78 04/21/17 04:00 98.0 73 22 80/41 98 Bi-pap 45 98.0 04/21/17 03:14 77 28 97 Full Face 45 04/21/17 03:00 78 22 97/48 98 Bi-pap 45 04/21/17 02:00 64 21 102/59 98 Bi-pap 45 04/21/17 01:00 70 25 100/45 98 Bi-pap 45 04/21/17 00:53 66 19 98 Full Face 45 04/21/17 00:00 98.4 70 25 100/45 98 Venturi Mask 12.0 50 98.4 04/21/17 00:00 74 04/21/17 00:00 50 04/20/17 23:20 74 34 98 Full Face 50 04/20/17 23:00 73 25 92/45 98 Venturi Mask 12.0 50 04/20/17 22:00 77 25 101/42 98 Venturi Mask 12.0 50 04/20/17 21:00 77 28 82/35 98 Venturi Mask 12.0 50 04/20/17 20:55 78 40 100 Full Face 50 04/20/17 20:00 80 04/20/17 20:00 50 04/20/17 20:00 98.0 81 24 100/51 96 Venturi Mask 12.0 50 98.0 04/20/17 19:30 98 Bi-pap 50 04/20/17 19:30 78 16 96 Full Face 45 04/20/17 19:30 Bi-pap 04/20/17 19:00 70 20 92/55 99 Venturi Mask 12.0 50 04/20/17 18:00 77 20 95/50 99 Venturi Mask 12.0 50 04/20/17 17:03 74 17 96 12.0 50 04/20/17 17:00 76 22 92/47 99 Venturi Mask 12.0 50 04/20/17 16:00 98.9 75 22 91/55 98 Venturi Mask 12.0 50 98.9 04/20/17 16:00 71 04/20/17 15:22 76 18 96 12.0 50 04/20/17 15:00 78 22 96/50 96 Venturi Mask 12.0 50 04/20/17 14:00 77 23 91/50 96 Venturi Mask 12.0 50 04/20/17 13:27 80 18 96 12.0 50 04/20/17 13:00 79 21 90/60 96 Venturi Mask 12.0 50 3/6/18 12:30 96/50 04/20/17 12:00 98.7 71 18 126/59 98 Venturi Mask 12.0 50 98.7 04/20/17 12:00 74 Height (Feet): 5 Height (Inches): 7.00 Weight (Pounds): 229 General Appearance: no acute distress HEENT: normocephalic, atraumatic, supple, other - + icterus Respiratory/Chest: crackles/rales, rhonchi - bilaterally Cardiovascular: normal rate, regular rhythm Abdomen: normal bowel sounds, soft, non tender, no organomegaly Objective chest x-ray - no pna (report noted) us abdomen - fatty liver/hm Laboratory Tests Test 04/21/17 05:30 04/21/17 09:00 04/21/17 11:00 White Blood Count 14.2 K/UL (4.8-10.8) H Red Blood Count 2.35 M/UL (4.70-6.10) L Hemoglobin 8.3 G/DL (14.2-18.0) L Hematocrit 23.7 % (42.0-52.0) L Mean Corpuscular Volume 101 FL (80-99) H Mean Corpuscular Hemoglobin 35.3 PG (27.0-31.0) H Mean Corpuscular Hemoglobin Concent 35.0 G/DL (32.0-36.0) Red Cell Distribution Width 15.2 % (11.6-14.8) H Platelet Count 84 K/UL (150-450) #L Mean Platelet Volume 9.6 FL (6.5-10.1) Neutrophils (%) (Auto) % (45.0-75.0) Lymphocytes (%) (Auto) % (20.0-45.0) Monocytes (%) (Auto) % (1.0-10.0) Eosinophils (%) (Auto) % (0.0-3.0) Basophils (%) (Auto) % (0.0-2.0) Differential Total Cells Counted 100 Neutrophils % (Manual) 95 % (45-75) H Lymphocytes % (Manual) 4 % (20-45) L Monocytes % (Manual) 1 % (1-10) Eosinophils % (Manual) 0 % (0-3) Basophils % (Manual) 0 % (0-2) Band Neutrophils 0 % (0-8) Nucleated Red Blood Cells 1 /100 WBC Platelet Estimate Decreased L Platelet Morphology Normal Hypochromasia 2+ Anisocytosis 1+ Macrocytosis 1+ Spherocytes 2+ Sodium Level 151 MMOL/L (136-145) H Potassium Level 3.0 MMOL/L (3.5-5.1) L Chloride Level 111 MMOL/L (98-107) H Carbon Dioxide Level 21 MMOL/L (21-32) Anion Gap 19 mmol/L (5-15) H Blood Urea Nitrogen 151 mg/dL (7-18) H Creatinine 10.3 MG/DL (0.55-1.30) H Estimat Glomerular Filtration Rate 5.3 mL/min (>60) Glucose Level 275 MG/DL (74-106) H Uric Acid 11.1 MG/DL (2.6-7.2) H Calcium Level 7.7 MG/DL (8.5-10.1) L Phosphorus Level 8.4 MG/DL (2.5-4.9) H Magnesium Level 2.3 MG/DL (1.8-2.4) Total Bilirubin 13.3 MG/DL (0.2-1.0) H Direct Bilirubin 10.9 MG/DL (0.0-0.3) H Aspartate Amino Transf (AST/SGOT) 115 U/L (15-37) H Alanine Aminotransferase (ALT/SGPT) 95 U/L (12-78) H Alkaline Phosphatase 312 U/L (46-116) H Ammonia 69 umol/L (11-32) H Troponin I 0.046 ng/mL (0.000-0.056) C-Reactive Protein, Quantitative 5.6 mg/dL (0.00-0.90) H Pro-B-Type Natriuretic Peptide 1659 pg/mL (0-125) H Total Protein 4.5 G/DL (6.4-8.2) L Albumin 1.6 G/DL (3.4-5.0) L Globulin 2.9 g/dL Albumin/Globulin Ratio 0.6 (1.0-2.7) L Arterial Blood pH 7.265 (7.350-7.450) Arterial Blood Partial Pressure CO2 41.0 mmHg (35.0-45.0) Arterial Blood Partial Pressure O2 112.9 mmHg (75.0-100.0) H Arterial Blood HCO3 18.2 mmol/L (22.0-26.0) L Arterial Blood Oxygen Saturation 96.5 % (92.0-98.0) Arterial Blood Base Excess -8.9 Renny Test Positive Folate Pending Current Medications Medications (Trade) Dose Ordered Sig/Jocelyne Route PRN Reason Start Time Stop Time Status Last Admin Dose Admin Acetaminophen (Tylenol) 650 mg Q4H PRN ORAL fever>100.5 04/13/17 18:30 05/11/17 10:29 04/17/17 06:19 Allopurinol (Allopurinol) 300 mg DAILY ORAL 04/15/17 09:00 05/15/17 08:59 04/21/17 08:53 Aluminum Hydroxide (Amphojel) 1,920 mg Q6HR NG 04/18/17 13:30 05/18/17 13:29 04/21/17 06:22 Ceftriaxone Sodium 1 gm/ Sodium Chloride 55 ml @ 110 mls/hr Q24H IVPB 04/15/17 00:15 04/22/17 00:14 04/21/17 00:13 Chlorhexidine Gluconate (Anika-Hex 2%) 1 applic DAILY@2000 TOPIC 04/20/17 20:00 05/20/17 19:59 04/20/17 20:11 Dextrose (Dextrose 50%) STAT PRN IV Hypoglycemia 04/19/17 08:00 05/19/17 07:59 Folic Acid (Folate) 5 mg DAILY ORAL 04/14/17 09:00 05/13/17 12:59 04/21/17 08:53 Haloperidol Lactate (Haldol) 5 mg Q6H PRN IM Agitation 04/14/17 13:00 05/14/17 12:59 Insulin Aspart (NovoLOG) EVERY 6 HOURS SUBQ 04/18/17 00:00 05/14/17 16:29 04/21/17 06:23 Insulin Detemir (Levemir) 10 units Q12HR SUBQ 04/21/17 09:00 05/21/17 08:59 04/21/17 09:55 Lactulose (Cephulac) 30 gm Q6HR ORAL 04/21/17 12:00 05/16/17 12:59 Lorazepam (Ativan 2mg/ml 1ml) 1 mg Q6H PRN IV For Anxiety 04/14/17 13:00 04/21/17 12:59 Methylprednisolone Sodium Succinate (Solu-MEDROL) 40 mg DAILY IVP 04/22/17 09:00 05/15/17 08:59 Metronidazole 100 ml @ 100 mls/hr Q12HR IVPB 04/15/17 09:00 04/22/17 08:59 04/21/17 08:53 Midodrine (Pro-Amatine) 10 mg THREE TIMES A DAY ORAL 04/21/17 13:00 05/21/17 12:59 Nitroglycerin (Ntg) 1 patch Q24H TDERMAL 04/14/17 13:00 05/13/17 12:59 04/18/17 13:35 Norepinephrine Bitartrate 4 mg/ Dextrose 250 ml @ 0 mls/hr Q24H IV 04/17/17 10:00 05/17/17 09:59 04/17/17 13:40 Ondansetron HCl (Zofran) 4 mg Q6H PRN IVP Nausea & Vomiting 04/13/17 18:00 05/11/17 17:59 Pantoprazole (Protonix) 40 mg EVERY 12 HOURS IVP 04/18/17 21:00 05/18/17 20:59 04/21/17 08:53 Rifaximin (Xifaxan) 550 mg EVERY 12 HOURS ORAL 04/16/17 21:00 04/23/17 20:59 04/21/17 08:53 Risperidone (RisperDAL) 2 mg BEDTIME ORAL 04/19/17 21:00 05/19/17 20:59 04/20/17 20:32 Sevelamer Carbonate (Renvela) 1,600 mg THREE TIMES A DAY NG 04/21/17 13:00 05/21/17 12:59 Thiamine HCl 100 mg/Sodium Chloride 56 ml @ 123.002 mls/hr Q24HRS IVPB 04/17/17 16:00 05/17/17 15:59 04/20/17 16:12 NAHUN SAGE 7, 2018 12:01
[2017-04-21] MEDS: Renvela 800mg Pkt NG SCH ×2 (12:08→17:06)
[2017-04-21] MEDS: Midodrine 10mg tab ORAL SCH ×2 (12:08→17:06)
[2017-04-21] MEDS: Nitroglycerin Patch 0.4mg TDERMAL SCH (12:08)
--- NOTE | 2017-04-21 13:23 | GI Progress Note ---
Assessment/Plan Problems: (1) Alcohol intoxication ICD Codes: F10.929 - Alcohol use, unspecified with intoxication, unspecified SNOMED: 36039932 (2) Diabetes mellitus out of control ICD Codes: E11.65 - Type 2 diabetes mellitus with hyperglycemia SNOMED: 25292344, 265770384 (3) encephalopathy,toxic metabolic (4) Liver cirrhosis ICD Codes: K74.60 - Unspecified cirrhosis of liver SNOMED: 07358813 (5) Altered level of consciousness ICD Codes: R40.4 - Transient alteration of awareness SNOMED: 4530600 (6) Alcohol abuse ICD Codes: F10.10 - Alcohol abuse, uncomplicated SNOMED: 05298756 Status: unchanged Status Narrative Discussed with Dr. Ramirez. Assessment/Plan OB stool positive dc heparin NGTFs per RD lactulose + xifaxin prn transfusions solu medrol fu labs Subjective Subjective limited Objective Last 24 Hour Vital Signs Date Time Temp Pulse Resp B/P (MAP) Pulse Ox O2 Delivery O2 Flow Rate FiO2 04/21/17 13:00 82 25 100/59 98 Venturi Mask 45 04/21/17 12:08 98/48 04/21/17 12:00 78 04/21/17 12:00 45 04/21/17 12:00 98.9 74 19 98/48 97 Venturi Mask 45 98.9 04/21/17 11:54 97 Venturi Mask 10.0 45 04/21/17 11:00 76 16 99/40 98 Venturi Mask 50 04/21/17 10:00 75 23 103/62 99 Venturi Mask 50 04/21/17 09:55 91/46 04/21/17 09:00 77 19 91/46 99 Venturi Mask 50 04/21/17 08:00 45 04/21/17 08:00 78 04/21/17 08:00 98.7 77 18 101/51 98 Venturi Mask 50 98.7 04/21/17 07:32 Venturi Mask 12.0 50 04/21/17 07:32 98 Venturi Mask 12.0 50 04/21/17 07:00 74 21 100/44 99 Bi-pap 45 04/21/17 06:00 71 22 86/44 98 Bi-pap 45 04/21/17 05:17 83 32 99 Full Face 45 04/21/17 05:00 73 22 85/50 98 Bi-pap 45 04/21/17 04:00 78 04/21/17 04:00 98.0 73 22 80/41 98 Bi-pap 45 98.0 04/21/17 03:14 77 28 97 Full Face 45 04/21/17 03:00 78 22 97/48 98 Bi-pap 45 04/21/17 02:00 64 21 102/59 98 Bi-pap 45 04/21/17 01:00 70 25 100/45 98 Bi-pap 45 04/21/17 00:53 66 19 98 Full Face 45 04/21/17 00:00 98.4 70 25 100/45 98 Venturi Mask 12.0 50 98.4 04/21/17 00:00 74 04/21/17 00:00 50 04/20/17 23:20 74 34 98 Full Face 50 04/20/17 23:00 73 25 92/45 98 Venturi Mask 12.0 50 04/20/17 22:00 77 25 101/42 98 Venturi Mask 12.0 50 04/20/17 21:00 77 28 82/35 98 Venturi Mask 12.0 50 04/20/17 20:55 78 40 100 Full Face 50 04/20/17 20:00 80 04/20/17 20:00 50 04/20/17 20:00 98.0 81 24 100/51 96 Venturi Mask 12.0 50 98.0 04/20/17 19:30 98 Bi-pap 50 04/20/17 19:30 78 16 96 Full Face 45 04/20/17 19:30 Bi-pap 04/20/17 19:00 70 20 92/55 99 Venturi Mask 12.0 50 04/20/17 18:00 77 20 95/50 99 Venturi Mask 12.0 50 04/20/17 17:03 74 17 96 12.0 50 04/20/17 17:00 76 22 92/47 99 Venturi Mask 12.0 50 04/20/17 16:00 98.9 75 22 91/55 98 Venturi Mask 12.0 50 98.9 04/20/17 16:00 71 04/20/17 15:22 76 18 96 12.0 50 04/20/17 15:00 78 22 96/50 96 Venturi Mask 12.0 50 04/20/17 14:00 77 23 91/50 96 Venturi Mask 12.0 50 04/20/17 13:27 80 18 96 12.0 50 Intake and Output 04/20/17 04/21/17 19:00 07:00 Intake Total 720 ml 965 ml Output Total 320 ml 693 ml Balance 400 ml 272 ml Free Water 90 ml IV Total 155 ml Tube Feeding 720 ml 720 ml Output Urine Total 20 ml 93 ml Stool Total 300 ml 600 ml Laboratory Tests Test 04/21/17 05:30 04/21/17 09:00 04/21/17 11:00 White Blood Count 14.2 K/UL (4.8-10.8) H Red Blood Count 2.35 M/UL (4.70-6.10) L Hemoglobin 8.3 G/DL (14.2-18.0) L Hematocrit 23.7 % (42.0-52.0) L Mean Corpuscular Volume 101 FL (80-99) H Mean Corpuscular Hemoglobin 35.3 PG (27.0-31.0) H Mean Corpuscular Hemoglobin Concent 35.0 G/DL (32.0-36.0) Red Cell Distribution Width 15.2 % (11.6-14.8) H Platelet Count 84 K/UL (150-450) #L Mean Platelet Volume 9.6 FL (6.5-10.1) Neutrophils (%) (Auto) % (45.0-75.0) Lymphocytes (%) (Auto) % (20.0-45.0) Monocytes (%) (Auto) % (1.0-10.0) Eosinophils (%) (Auto) % (0.0-3.0) Basophils (%) (Auto) % (0.0-2.0) Differential Total Cells Counted 100 Neutrophils % (Manual) 95 % (45-75) H Lymphocytes % (Manual) 4 % (20-45) L Monocytes % (Manual) 1 % (1-10) Eosinophils % (Manual) 0 % (0-3) Basophils % (Manual) 0 % (0-2) Band Neutrophils 0 % (0-8) Nucleated Red Blood Cells 1 /100 WBC Platelet Estimate Decreased L Platelet Morphology Normal Hypochromasia 2+ Anisocytosis 1+ Macrocytosis 1+ Spherocytes 2+ Sodium Level 151 MMOL/L (136-145) H Potassium Level 3.0 MMOL/L (3.5-5.1) L Chloride Level 111 MMOL/L (98-107) H Carbon Dioxide Level 21 MMOL/L (21-32) Anion Gap 19 mmol/L (5-15) H Blood Urea Nitrogen 151 mg/dL (7-18) H Creatinine 10.3 MG/DL (0.55-1.30) H Estimat Glomerular Filtration Rate 5.3 mL/min (>60) Glucose Level 275 MG/DL (74-106) H Uric Acid 11.1 MG/DL (2.6-7.2) H Calcium Level 7.7 MG/DL (8.5-10.1) L Phosphorus Level 8.4 MG/DL (2.5-4.9) H Magnesium Level 2.3 MG/DL (1.8-2.4) Total Bilirubin 13.3 MG/DL (0.2-1.0) H Direct Bilirubin 10.9 MG/DL (0.0-0.3) H Aspartate Amino Transf (AST/SGOT) 115 U/L (15-37) H Alanine Aminotransferase (ALT/SGPT) 95 U/L (12-78) H Alkaline Phosphatase 312 U/L (46-116) H Ammonia 69 umol/L (11-32) H Troponin I 0.046 ng/mL (0.000-0.056) C-Reactive Protein, Quantitative 5.6 mg/dL (0.00-0.90) H Pro-B-Type Natriuretic Peptide 1659 pg/mL (0-125) H Total Protein 4.5 G/DL (6.4-8.2) L Albumin 1.6 G/DL (3.4-5.0) L Globulin 2.9 g/dL Albumin/Globulin Ratio 0.6 (1.0-2.7) L Arterial Blood pH 7.265 (7.350-7.450) Arterial Blood Partial Pressure CO2 41.0 mmHg (35.0-45.0) Arterial Blood Partial Pressure O2 112.9 mmHg (75.0-100.0) H Arterial Blood HCO3 18.2 mmol/L (22.0-26.0) L Arterial Blood Oxygen Saturation 96.5 % (92.0-98.0) Arterial Blood Base Excess -8.9 Renny Test Positive Folate 129.8 NG/ML (8.6-58.9) H Height (Feet): 5 Height (Inches): 7.00 Weight (Pounds): 229 General Appearance: WD/WN, no apparent distress, alert Cardiovascular: normal rate Respiratory/Chest: normal breath sounds, no respiratory distress, other - venturi mask Abdominal Exam: normal bowel sounds, non tender, soft, other - dobhoff Extremities: non-tender Lianne Damon N.P. Apr 21, 2017 13:23
[2017-04-21] MEDS: Thiamine HCl 100 MG in NS 55 ML IVPB SCH (17:05)
[2017-04-21] MEDS ORDERED: NS 275ml ONE (17:16)
--- NOTE | 2017-04-21 18:34 | Wound Care Consultation ---
Wound Assessment Wound Assessment #1: Wound Number: 1 Wound Present on Admission: No New Wound: Yes Status Change of Wound: No Wound Location Body Site Modif: right, upper Wound Location Body Site: thigh Wound Type: blister Torey Test: Does not Torey Pressure Ulcer Stage: II Wound Thickness: Partial Thickness Wound Length: 1.0 Wound Width: 1.0 Wound Depth: 0.1 Percent of Wound Gambier/Red: 100 Wound Drainage Description: Serosanguineous Wound Drainage Amount: Scant Wound Drainage Odor: None/Absent Tissue Surrounding Wound: Intact Wound General Appearance: Reddened Wound Assessment #2: Wound Number: 2 Wound Present on Admission: No New Wound: Yes Status Change of Wound: No Wound Location Body Site Modif: right, posterior Wound Location Body Site: back Wound Type: traumatic injury - sheer abrasion Torey Test: Does not Torey Wound Thickness: Partial Thickness Wound Length: 3.0 Wound Width: 7.0 Wound Depth: less than 0.1 Percent of Wound Gambier/Red: 100 Wound Drainage Description: Serosanguineous Wound Drainage Amount: Scant Wound Drainage Odor: None/Absent Tissue Surrounding Wound: Denuded Wound General Appearance: Reddened Wound Assessment #3: Wound Present on Admission: No New Wound: Yes Status Change of Wound: No Wound Location Body Site Modif: left, lower Wound Location Body Site: back Wound Type: traumatic injury - sheer abrasion Torey Test: Does not Torey Wound Thickness: Partial Thickness Wound Length: 2.0 Wound Width: 0.5 Wound Depth: 0.1 Percent of Wound Gambier/Red: 100 Wound Drainage Description: Serosanguineous Wound Drainage Amount: Scant Wound Drainage Odor: None/Absent Tissue Surrounding Wound: Intact Wound General Appearance: Reddened Wound Assessment #4: Wound Number: 4 Wound Present on Admission: No New Wound: Yes Status Change of Wound: No Wound Location Body Site Modif: left Wound Location Body Site: ear Wound Type: blister Torey Test: Does not Torey Pressure Ulcer Stage: II - serous filled Blisters: Blister w/ Intact Cap Wound Thickness: Partial Thickness Wound Length: 3.0 Wound Width: 1.5 Percent of Wound Gambier/Red: 100 Wound Drainage Description: Serous Wound Drainage Amount: None Wound Drainage Odor: None/Absent Tissue Surrounding Wound: Intact Wound General Appearance: Reddened Wound Assessment #5: Wound Number: 5 Wound Present on Admission: No New Wound: Yes Status Change of Wound: No Wound Location Body Site Modif: left Wound Location Body Site: ischial tuberosity Wound Type: pressure ulcer Torey Test: Does not Torey Pressure Ulcer Stage: Deep Tissue Injury Wound Thickness: Full Thickness Wound Length: 2.0 Wound Width: 2.0 Wound Depth: utd Percent of Wound Purple/Maroon: 100 Wound Drainage Amount: None Wound Drainage Odor: None/Absent Tissue Surrounding Wound: Intact Wound General Appearance: Reddened - maroon Wound Assessment #6: Wound Number: 6 Wound Present on Admission: No New Wound: Yes Status Change of Wound: No Wound Location Body Site Modif: right, lateral Wound Location Body Site: malleolus/ankle Wound Type: pressure ulcer Torey Test: Does not Torey Pressure Ulcer Stage: Deep Tissue Injury Wound Thickness: Full Thickness Wound Length: 3.0 Wound Width: 2.0 Wound Depth: utd Percent of Wound Purple/Maroon: 100 Wound Drainage Amount: None Wound Drainage Odor: None/Absent Tissue Surrounding Wound: Intact Wound General Appearance: Reddened - maroon Wound Assessment #7: Wound Number: 7 Wound Present on Admission: No New Wound: Yes Status Change of Wound: No Wound Location Body Site Modif: left, medial Wound Location Body Site: thigh Wound Type: blister - denuded Torey Test: Does not Torey Blisters: Denuded Blister Wound Thickness: Partial Thickness Wound Length: 1.0 Wound Width: 1.0 Wound Depth: 0.1 Percent of Wound Gambier/Red: 100 Wound Drainage Description: Serosanguineous Wound Drainage Amount: Scant Wound Drainage Odor: None/Absent Tissue Surrounding Wound: Denuded Wound General Appearance: Reddened, Draining Wound Assessment #8: Wound Number: 8 Wound Present on Admission: No New Wound: Yes Status Change of Wound: No Wound Location Body Site: nose - bridge of nose Wound Type: scab Torey Test: Does not Torey Wound Thickness: Partial Thickness Wound Length: 1.0 Wound Width: 1.0 Percent of Wound Black/Brown: 100 Wound Drainage Amount: None Wound Drainage Odor: None/Absent Tissue Surrounding Wound: Intact Wound General Appearance: Clean/Dry - dry brown scab Wound Comment #1 Sacrococcygeal unstageable pressure ulcer- reassessment done, no further deterioration present, noted good progress scar tissue appearing to middle of wound bed. #2 Left anterior knee abrasion - noted good progress , appears dry #3 Right anterior Knee Redness- noted good progress intact and dry. #4 right upper thigh blister. #5 right posterior back shear #6 left lower back shear #7 left ear serous filled blister with cap stage 2 #8 left ischial tuberosity deep tissue injury. #9 right lateral malleolus deep tissue injury #10 left inner thigh denuded blister #11 bridge of nose dry scab- apply cushion tape ,keep clean and dry Recommendation -Local wound care per protocol -Keep clean and dry -Optimize nutrition -Turn and reposition -Heel protector on both heels -Offload both heels -Low air loss mattress -Assess and f/u accordingly for any changes RAUDEL CUNNINGHAM Apr 21, 2017 18:34
--- NOTE | 2017-04-21 19:19 | General Progress Note ---
Assessment/Plan Assessment/Plan 1. Schizophrenia cpt 2. Encephalopathy. PLAN: 1. We will discontinue the sitter at this time. 2. We will continue monitor. 3. Increase antipsychotics and provide the patient with supportive therapy and reality orientation. 5. risperdal 2mg qhs Subjective Date patient seen: Apr 21, 2017 Neurologic/Psychiatric: Reports: anxiety, depressed, emotional problems Allergies: Coded Allergies: ASPIRIN (Verified Allergy, Unknown, 03/12/17) Subjective the pt is calmer still has episodes of agitation delusion Objective Last 24 Hour Vital Signs Date Time Temp Pulse Resp B/P (MAP) Pulse Ox O2 Delivery O2 Flow Rate FiO2 04/21/17 19:00 76 22 86/44 95 Venturi Mask 45 04/21/17 18:00 66 19 86/39 100 Venturi Mask 45 04/21/17 17:00 70 18 81/42 100 Venturi Mask 45 04/21/17 16:37 Venturi Mask 10.0 45 04/21/17 16:00 45 04/21/17 16:00 97.1 62 20 82/48 100 Venturi Mask 45 97.1 04/21/17 16:00 61 04/21/17 15:00 74 17 86/42 100 Venturi Mask 45 04/21/17 14:00 71 19 91/49 99 Venturi Mask 45 04/21/17 13:00 82 25 100/59 98 Venturi Mask 45 04/21/17 12:40 Venturi Mask 10.0 45 04/21/17 12:08 98/48 04/21/17 12:00 78 04/21/17 12:00 45 04/21/17 12:00 98.9 74 19 98/48 97 Venturi Mask 45 98.9 04/21/17 11:54 97 Venturi Mask 10.0 45 04/21/17 11:00 76 16 99/40 98 Venturi Mask 50 04/21/17 10:00 75 23 103/62 99 Venturi Mask 50 04/21/17 09:55 91/46 04/21/17 09:00 77 19 91/46 99 Venturi Mask 50 04/21/17 08:00 45 04/21/17 08:00 78 04/21/17 08:00 98.7 77 18 101/51 98 Venturi Mask 50 98.7 04/21/17 07:32 Venturi Mask 12.0 50 04/21/17 07:32 98 Venturi Mask 12.0 50 04/21/17 07:00 74 21 100/44 99 Bi-pap 45 04/21/17 06:00 71 22 86/44 98 Bi-pap 45 04/21/17 05:17 83 32 99 Full Face 45 04/21/17 05:00 73 22 85/50 98 Bi-pap 45 04/21/17 04:00 78 04/21/17 04:00 98.0 73 22 80/41 98 Bi-pap 45 98.0 04/21/17 03:14 77 28 97 Full Face 45 04/21/17 03:00 78 22 97/48 98 Bi-pap 45 04/21/17 02:00 64 21 102/59 98 Bi-pap 45 04/21/17 01:00 70 25 100/45 98 Bi-pap 45 04/21/17 00:53 66 19 98 Full Face 45 04/21/17 00:00 98.4 70 25 100/45 98 Venturi Mask 12.0 50 98.4 04/21/17 00:00 74 04/21/17 00:00 50 04/20/17 23:20 74 34 98 Full Face 50 04/20/17 23:00 73 25 92/45 98 Venturi Mask 12.0 50 04/20/17 22:00 77 25 101/42 98 Venturi Mask 12.0 50 04/20/17 21:00 77 28 82/35 98 Venturi Mask 12.0 50 04/20/17 20:55 78 40 100 Full Face 50 04/20/17 20:00 80 04/20/17 20:00 50 04/20/17 20:00 98.0 81 24 100/51 96 Venturi Mask 12.0 50 98.0 04/20/17 19:30 98 Bi-pap 50 04/20/17 19:30 78 16 96 Full Face 45 04/20/17 19:30 Bi-pap Intake and Output 04/20/17 04/21/17 19:00 07:00 Intake Total 720 ml 965 ml Output Total 320 ml 693 ml Balance 400 ml 272 ml Free Water 90 ml IV Total 155 ml Tube Feeding 720 ml 720 ml Output Urine Total 20 ml 93 ml Stool Total 300 ml 600 ml Laboratory Tests 04/21/17 05:30: White Blood Count 14.2H, Red Blood Count 2.35L, Hemoglobin 8.3L, Hematocrit 23.7L, Mean Corpuscular Volume 101H, Mean Corpuscular Hemoglobin 35.3H, Mean Corpuscular Hemoglobin Concent 35.0, Red Cell Distribution Width 15.2H, Platelet Count 84#L, Mean Platelet Volume 9.6, Neutrophils (%) (Auto) , Lymphocytes (%) (Auto) , Monocytes (%) (Auto) , Eosinophils (%) (Auto) , Basophils (%) (Auto) , Differential Total Cells Counted 100, Neutrophils % ( Manual) 95H, Lymphocytes % (Manual) 4L, Monocytes % (Manual) 1, Eosinophils % ( Manual) 0, Basophils % (Manual) 0, Band Neutrophils 0, Nucleated Red Blood Cells 1, Platelet Estimate DecreasedL, Platelet Morphology Normal, Hypochromasia 2+, Anisocytosis 1+, Macrocytosis 1+, Spherocytes 2+, Sodium Level 151H, Potassium Level 3.0L, Chloride Level 111H, Carbon Dioxide Level 21, Anion Gap 19H, Blood Urea Nitrogen 151H, Creatinine 10.3H, Estimat Glomerular Filtration Rate 5.3, Glucose Level 275H, Uric Acid 11.1H, Calcium Level 7.7L, Phosphorus Level 8.4H, Magnesium Level 2.3, Total Bilirubin 13.3H, Direct Bilirubin 10.9H, Aspartate Amino Transf (AST/SGOT) 115H, Alanine Aminotransferase (ALT/SGPT) 95H, Alkaline Phosphatase 312H, Ammonia 69H, Troponin I 0.046, C-Reactive Protein, Quantitative 5.6H, Pro-B-Type Natriuretic Peptide 1659H, Total Protein 4.5L, Albumin 1.6L, Globulin 2.9, Albumin/Globulin Ratio 0.6L 04/21/17 09:00: Arterial Blood pH 7.265L, Arterial Blood Partial Pressure CO2 41.0, Arterial Blood Partial Pressure O2 112.9H, Arterial Blood HCO3 18.2L, Arterial Blood Oxygen Saturation 96.5, Arterial Blood Base Excess -8.9, Renny Test Positive 04/21/17 11:00: C-Reactive Protein, Quantitative 5.8H, Folate 129.8H Height (Feet): 5 Height (Inches): 7.00 Weight (Pounds): 229 General Appearance: no apparent distress, alert Neurologic: alert, responsive, depressed affect Aly De Santiago M.D. Apr 21, 2017 19:19
[2017-04-21] MEDS: Dyna-Hex 2% Top Sol 2oz TOPIC SCH (19:35)
[2017-04-22] VITALS (24 sets, daily range): BP systolic 85–117; BP diastolic 39–57
[2017-04-22] MEDS ORDERED: cefTRIAXone 1 GM in NS 55 ML IVPB SCH (00:15)
[2017-04-22] MEDS: Aluminum Hydroxide Gel Susp 15ml NG SCH ×4 (05:49→23:34)
[2017-04-22] MEDS: Lactulose 20gm/30ml UDC ORAL SCH (05:49)
[2017-04-22] MEDS: NovoLOG Insulin Flexpen SUBQ SCH ×4 (05:50→23:35)
[2017-04-22 06:16] LABS: HEMATOCRIT 26.1 % (42.0-52.0); HEMOGLOBIN 9.2 G/DL (14.2-18.0); MEAN CORPUSCULAR VOLUME 99 FL (80-99); PLATELET COUNT 127 K/UL (150-450); RED BLOOD COUNT 2.63 M/UL (4.70-6.10); RED CELL DISTRIBUTION WIDTH 14.8 % (11.6-14.8)
[2017-04-22 06:50] LABS: ALANINE AMINOTRANSFERASE 114 U/L (12-78); ALBUMIN 1.6 G/DL (3.4-5.0); ALBUMIN/GLOBULIN RATIO 0.5 (1.0-2.7); ALKALINE PHOSPHATASE 335 U/L (46-116); ANION GAP 13 mmol/L (5-15); ASPARTATE AMINO TRANSFERASE 106 U/L (15-37); BILIRUBIN,TOTAL 15.7 MG/DL (0.2-1.0); BLOOD UREA NITROGEN 123 mg/dL (7-18); CARBON DIOXIDE 27 MMOL/L (21-32); CHLORIDE 105 MMOL/L (98-107); CREATININE 8.7 MG/DL (0.55-1.30); PHOSPHORUS 7.3 MG/DL (2.5-4.9); SODIUM 145 MMOL/L (136-145)
[2017-04-22 07:04] LABS: POTASSIUM 2.6 MMOL/L (3.5-5.1)
--- NOTE | 2017-04-22 07:43 | General Progress Note ---
Assessment/Plan Problem List: (1) Diabetes mellitus out of control ICD Codes: E11.65 - Type 2 diabetes mellitus with hyperglycemia SNOMED: 86099240, 157663925 (2) Altered level of consciousness ICD Codes: R40.4 - Transient alteration of awareness SNOMED: 2717693 (3) Elevated LFTs ICD Codes: R79.89 - Other specified abnormal findings of blood chemistry SNOMED: 107463494, 128579884 (4) Lice infestation ICD Codes: B85.2 - Pediculosis, unspecified SNOMED: 728444056 (5) Liver cirrhosis ICD Codes: K74.60 - Unspecified cirrhosis of liver SNOMED: 72547350 Assessment/Plan increase Levemir to 13 units bid continue NISS Subjective ROS Limited/Unobtainable: Yes Allergies: Coded Allergies: ASPIRIN (Verified Allergy, Unknown, 03/12/17) Subjective events noted - interval notes reviewed still in ICU sitter at bedside Objective Last 24 Hour Vital Signs Date Time Temp Pulse Resp B/P (MAP) Pulse Ox O2 Delivery O2 Flow Rate FiO2 04/22/17 07:00 73 18 103/46 96 Bi-pap 40 04/22/17 07:00 78 23 100/42 93 Bi-pap 40 04/22/17 06:51 95 Venturi Mask 10.0 45 04/22/17 06:51 Venturi Mask 10.0 45 04/22/17 06:00 74 18 103/46 96 Bi-pap 40 04/22/17 05:16 78 23 97 Facial 40 04/22/17 05:00 71 19 104/45 98 Bi-pap 40 04/22/17 04:00 40 04/22/17 04:00 98.6 74 17 105/46 95 Bi-pap 40 98.6 04/22/17 03:49 76 04/22/17 03:22 82 16 100 Facial 40 04/22/17 03:00 66 18 87/39 98 Bi-pap 40 04/22/17 02:00 72 24 110/49 99 Bi-pap 40 04/22/17 01:14 71 17 100 Facial 40 04/22/17 01:00 65 20 100/54 100 Bi-pap 40 04/22/17 00:00 98.6 67 22 98/48 97 Bi-pap 40 98.6 04/21/17 23:54 66 04/21/17 23:30 67 20 100 Facial 40 04/21/17 23:00 65 23 100/45 100 Bi-pap 40 04/21/17 22:00 68 23 90/37 93 Bi-pap 40 04/21/17 21:54 74 28 98 Facial 40 04/21/17 21:54 40 04/21/17 21:00 73 25 93/45 96 Venturi Mask 45 04/21/17 20:00 45 04/21/17 20:00 98.6 66 22 91/52 98 Venturi Mask 45 98.6 04/21/17 19:59 60 04/21/17 19:27 Venturi Mask 10.0 45 04/21/17 19:27 95 Venturi Mask 10.0 45 04/21/17 19:00 76 22 86/44 95 Venturi Mask 45 04/21/17 18:00 66 19 86/39 100 Venturi Mask 45 04/21/17 17:00 70 18 81/42 100 Venturi Mask 45 04/21/17 16:37 Venturi Mask 10.0 45 04/21/17 16:00 45 04/21/17 16:00 97.1 62 20 82/48 100 Venturi Mask 45 97.1 04/21/17 16:00 61 04/21/17 15:00 74 17 86/42 100 Venturi Mask 45 04/21/17 14:00 71 19 91/49 99 Venturi Mask 45 04/21/17 13:00 82 25 100/59 98 Venturi Mask 45 04/21/17 12:40 Venturi Mask 10.0 45 04/21/17 12:08 98/48 04/21/17 12:00 78 04/21/17 12:00 45 04/21/17 12:00 98.9 74 19 98/48 97 Venturi Mask 45 98.9 04/21/17 11:54 97 Venturi Mask 10.0 45 04/21/17 11:00 76 16 99/40 98 Venturi Mask 50 04/21/17 10:00 75 23 103/62 99 Venturi Mask 50 04/21/17 09:55 91/46 04/21/17 09:00 77 19 91/46 99 Venturi Mask 50 04/21/17 08:00 45 04/21/17 08:00 78 04/21/17 08:00 98.7 77 18 101/51 98 Venturi Mask 50 98.7 Intake and Output 04/21/17 04/22/17 19:00 07:00 Intake Total 2076 ml 1085 ml Output Total 2080 ml 1225 ml Balance -4 ml -140 ml Free Water 30 ml IV Total 1156 ml 155 ml Tube Feeding 720 ml 600 ml Other 170 ml 330 ml Output Urine Total 80 ml 25 ml Stool Total 600 ml 1200 ml Hemodialysis UF 1400 ml Laboratory Tests 04/21/17 09:00: Arterial Blood pH 7.265L, Arterial Blood Partial Pressure CO2 41.0, Arterial Blood Partial Pressure O2 112.9H, Arterial Blood HCO3 18.2L, Arterial Blood Oxygen Saturation 96.5, Arterial Blood Base Excess -8.9, Renny Test Positive 04/21/17 11:00: C-Reactive Protein, Quantitative 5.8H, Folate 129.8H 04/22/17 05:40: White Blood Count 18.0H, Red Blood Count 2.63L, Hemoglobin 9.2L, Hematocrit 26.1L, Mean Corpuscular Volume 99, Mean Corpuscular Hemoglobin 34.9H, Mean Corpuscular Hemoglobin Concent 35.2, Red Cell Distribution Width 14.8, Platelet Count 127#L, Mean Platelet Volume 10.8H, Neutrophils (%) (Auto) , Lymphocytes (% ) (Auto) , Monocytes (%) (Auto) , Eosinophils (%) (Auto) , Basophils (%) (Auto) , Neutrophils % (Manual) [Pending], Lymphocytes % (Manual) [Pending], Platelet Estimate [Pending], Platelet Morphology [Pending], Sodium Level 145, Potassium Level 2.6*L, Chloride Level 105, Carbon Dioxide Level 27, Anion Gap 13, Blood Urea Nitrogen 123H, Creatinine 8.7H, Estimat Glomerular Filtration Rate 6.5, Glucose Level 192H, Uric Acid 7.9H, Calcium Level 8.0L, Phosphorus Level 7.3H, Magnesium Level 2.1, Total Bilirubin 15.7H, Direct Bilirubin 13.0H, Gamma Glutamyl Transpeptidase 1063H, Aspartate Amino Transf (AST/SGOT) 106H, Alanine Aminotransferase (ALT/SGPT) 114H, Alkaline Phosphatase 335H, Ammonia 65H, Troponin I 0.091H, Pro-B-Type Natriuretic Peptide 1341H, Total Protein 4.7L, Albumin 1.6L, Globulin 3.1, Albumin/Globulin Ratio 0.5L Height (Feet): 5 Height (Inches): 7.00 Weight (Pounds): 235 General Appearance: no apparent distress Neck: normal alignment Cardiovascular: normal rate Respiratory/Chest: decreased breath sounds Abdomen: normal bowel sounds Edema: 1+ Arm (L), 1+ Arm (R), 1+ Leg (L), 1+ Leg (R), 1+ Pedal (L), 1+ Pedal ( R), 1+ Generalized Objective Current Medications Medications (Trade) Dose Ordered Sig/Jocelyne Route PRN Reason Start Time Stop Time Status Last Admin Dose Admin Acetaminophen (Tylenol) 650 mg Q4H PRN ORAL fever>100.5 04/13/17 18:30 05/11/17 10:29 04/17/17 06:19 Allopurinol (Allopurinol) 300 mg DAILY ORAL 04/15/17 09:00 05/15/17 08:59 04/21/17 08:53 Aluminum Hydroxide (Amphojel) 1,920 mg Q6HR NG 04/18/17 13:30 05/18/17 13:29 04/22/17 05:49 Ceftriaxone Sodium 1 gm/ Sodium Chloride 55 ml @ 110 mls/hr Q24H IVPB 04/22/17 00:15 04/28/17 00:14 04/21/17 23:52 Chlorhexidine Gluconate (Anika-Hex 2%) 1 applic DAILY@2000 TOPIC 04/20/17 20:00 05/20/17 19:59 04/21/17 19:35 Dextrose (Dextrose 50%) STAT PRN IV Hypoglycemia 04/19/17 08:00 05/19/17 07:59 Folic Acid (Folate) 5 mg DAILY ORAL 04/14/17 09:00 05/13/17 12:59 04/21/17 08:53 Haloperidol Lactate (Haldol) 5 mg Q6H PRN IM Agitation 04/14/17 13:00 05/14/17 12:59 Insulin Aspart (NovoLOG) EVERY 6 HOURS SUBQ 04/18/17 00:00 05/14/17 16:29 04/22/17 05:50 Insulin Detemir (Levemir) 10 units Q12HR SUBQ 04/21/17 09:00 05/21/17 08:59 04/21/17 21:08 Lactulose (Cephulac) 30 gm Q6HR ORAL 04/21/17 12:00 05/16/17 12:59 04/22/17 05:49 Methylprednisolone Sodium Succinate (Solu-MEDROL) 40 mg DAILY IVP 04/22/17 09:00 05/15/17 08:59 Metronidazole 100 ml @ 100 mls/hr Q12HR IVPB 04/21/17 21:00 04/28/17 20:59 04/21/17 21:10 Midodrine (Pro-Amatine) 10 mg THREE TIMES A DAY ORAL 04/21/17 13:00 05/21/17 12:59 04/21/17 17:06 Nitroglycerin (Ntg) 1 patch Q24H TDERMAL 04/14/17 13:00 05/13/17 12:59 04/18/17 13:35 Norepinephrine Bitartrate 4 mg/ Dextrose 250 ml @ 0 mls/hr Q24H IV 04/17/17 10:00 05/17/17 09:59 04/17/17 13:40 Ondansetron HCl (Zofran) 4 mg Q6H PRN IVP Nausea & Vomiting 04/13/17 18:00 05/11/17 17:59 Pantoprazole (Protonix) 40 mg EVERY 12 HOURS IVP 04/18/17 21:00 05/18/17 20:59 04/21/17 21:06 Rifaximin (Xifaxan) 550 mg EVERY 12 HOURS ORAL 04/16/17 21:00 04/23/17 20:59 04/21/17 21:06 Risperidone (RisperDAL) 2 mg BEDTIME ORAL 04/19/17 21:00 05/19/17 20:59 04/21/17 21:06 Sevelamer Carbonate (Renvela) 1,600 mg THREE TIMES A DAY NG 04/21/17 13:00 05/21/17 12:59 04/21/17 17:06 Thiamine HCl 100 mg/Sodium Chloride 56 ml @ 123.002 mls/hr Q24HRS IVPB 04/17/17 16:00 05/17/17 15:59 04/21/17 17:05 Item Value Date Time Bedside Blood Glucose 208 mg/dl H 04/22/17 0600 Bedside Blood Glucose 293 mg/dl H 04/21/17 2356 Bedside Blood Glucose 252 mg/dl H 04/21/17 2108 Bedside Blood Glucose 249 mg/dl H 04/21/17 1800 Bedside Blood Glucose 286 mg/dl H 04/21/17 1213 Bedside Blood Glucose 281 mg/dl H 04/21/17 0955 ROSALINDA VELASCO 8, 2018 07:43
[2017-04-22] MEDS: Pantoprazole Inj IVP SCH ×2 (09:00→20:36)
[2017-04-22] MEDS: Solu-MEDROL 40mg Inj IVP SCH (09:01)
[2017-04-22] MEDS: Midodrine 10mg tab ORAL SCH (09:01)
[2017-04-22] MEDS: Renvela 800mg Pkt NG SCH ×3 (09:01→17:36)
[2017-04-22] MEDS: Levemir Flexpen SUBQ SCH ×2 (09:45→20:38)
--- NOTE | 2017-04-22 10:32 | Pulmonolgy Critical Care Note ---
Critical Care - Asmt/Plan Problems: (1) Acute respiratory failure (2) Pulmonary edema (3) Multiple organ failure (4) Severe sepsis (5) Hypothermia (6) Renal failure (7) Hypotension (8) Alcohol abuse Assessment/Plan: pt had end stage liver disease. Has been comatose. Very icteric with Bilirubin of 15. He is renal failure and getting dialysis. There is no change of recovery from this multiorgan failure. I suggest DNR, DNI and comfort care if the rest of the consultants agree. DR narvaez suggested Ethics committee. I contacted our social security assessor to arrange for it Critical Care - Objective Last 24 Hour Vital Signs Date Time Temp Pulse Resp B/P (MAP) Pulse Ox O2 Delivery O2 Flow Rate FiO2 04/22/17 09:00 76 21 117/54 97 Bi-pap 40 04/22/17 08:00 98.8 78 21 104/49 97 Bi-pap 40 98.8 04/22/17 08:00 40 04/22/17 07:00 73 18 103/46 96 Bi-pap 40 04/22/17 07:00 78 23 100/42 93 Bi-pap 40 04/22/17 06:51 95 Venturi Mask 10.0 45 04/22/17 06:51 Venturi Mask 10.0 45 04/22/17 06:00 74 18 103/46 96 Bi-pap 40 04/22/17 05:16 78 23 97 Facial 40 04/22/17 05:00 71 19 104/45 98 Bi-pap 40 04/22/17 04:00 40 04/22/17 04:00 98.6 74 17 105/46 95 Bi-pap 40 98.6 04/22/17 03:49 76 04/22/17 03:22 82 16 100 Facial 40 04/22/17 03:00 66 18 87/39 98 Bi-pap 40 04/22/17 02:00 72 24 110/49 99 Bi-pap 40 04/22/17 01:14 71 17 100 Facial 40 04/22/17 01:00 65 20 100/54 100 Bi-pap 40 04/22/17 00:00 98.6 67 22 98/48 97 Bi-pap 40 98.6 04/21/17 23:54 66 04/21/17 23:30 67 20 100 Facial 40 04/21/17 23:00 65 23 100/45 100 Bi-pap 40 04/21/17 22:00 68 23 90/37 93 Bi-pap 40 04/21/17 21:54 74 28 98 Facial 40 04/21/17 21:54 40 04/21/17 21:00 73 25 93/45 96 Venturi Mask 45 04/21/17 20:00 45 04/21/17 20:00 98.6 66 22 91/52 98 Venturi Mask 45 98.6 04/21/17 19:59 60 04/21/17 19:27 Venturi Mask 10.0 45 04/21/17 19:27 95 Venturi Mask 10.0 45 04/21/17 19:00 76 22 86/44 95 Venturi Mask 45 04/21/17 18:00 66 19 86/39 100 Venturi Mask 45 04/21/17 17:00 70 18 81/42 100 Venturi Mask 45 04/21/17 16:37 Venturi Mask 10.0 45 04/21/17 16:00 45 04/21/17 16:00 97.1 62 20 82/48 100 Venturi Mask 45 97.1 04/21/17 16:00 61 04/21/17 15:00 74 17 86/42 100 Venturi Mask 45 04/21/17 14:00 71 19 91/49 99 Venturi Mask 45 04/21/17 13:00 82 25 100/59 98 Venturi Mask 45 04/21/17 12:40 Venturi Mask 10.0 45 04/21/17 12:08 98/48 04/21/17 12:00 78 04/21/17 12:00 45 04/21/17 12:00 98.9 74 19 98/48 97 Venturi Mask 45 98.9 04/21/17 11:54 97 Venturi Mask 10.0 45 04/21/17 11:00 76 16 99/40 98 Venturi Mask 50 Status: obtunded Condition: critical HEENT: atraumatic Neck: full ROM Heart: HR/BP stable, HR/BP unstable Abdomen: soft, non-tender Extremities: no C/C/E, edema Accucheck: 217 Critical Care - Subjective Condition: critical EKG Rhythm: Sinus Rhythm FI02: 40 Vent Support Breath Rate: 14 Vent Support Mode: BiLevel Sputum Amount: Moderate Fluids: kvo Tube Feeding Amount: 60 I&O: Intake and Output 04/21/17 04/22/17 19:00 07:00 Intake Total 2076 ml 1085 ml Output Total 2080 ml 1225 ml Balance -4 ml -140 ml Free Water 30 ml IV Total 1156 ml 155 ml Tube Feeding 720 ml 600 ml Other 170 ml 330 ml Output Urine Total 80 ml 25 ml Stool Total 600 ml 1200 ml Hemodialysis UF 1400 ml CXR: mild pulmonary edema Labs: Laboratory Tests Test 04/21/17 11:00 04/22/17 05:40 04/22/17 08:51 C-Reactive Protein, Quantitative 5.8 mg/dL (0.00-0.90) H Folate 129.8 NG/ML (8.6-58.9) H White Blood Count 18.0 K/UL (4.8-10.8) H Red Blood Count 2.63 M/UL (4.70-6.10) L Hemoglobin 9.2 G/DL (14.2-18.0) L Hematocrit 26.1 % (42.0-52.0) L Mean Corpuscular Volume 99 FL (80-99) Mean Corpuscular Hemoglobin 34.9 PG (27.0-31.0) H Mean Corpuscular Hemoglobin Concent 35.2 G/DL (32.0-36.0) Red Cell Distribution Width 14.8 % (11.6-14.8) Platelet Count 127 K/UL (150-450) #L Mean Platelet Volume 10.8 FL (6.5-10.1) H Neutrophils (%) (Auto) % (45.0-75.0) Lymphocytes (%) (Auto) % (20.0-45.0) Monocytes (%) (Auto) % (1.0-10.0) Eosinophils (%) (Auto) % (0.0-3.0) Basophils (%) (Auto) % (0.0-2.0) Neutrophils % (Manual) Pending Lymphocytes % (Manual) Pending Platelet Estimate Pending Platelet Morphology Pending Sodium Level 145 MMOL/L (136-145) Potassium Level 2.6 MMOL/L (3.5-5.1) *L Chloride Level 105 MMOL/L (98-107) Carbon Dioxide Level 27 MMOL/L (21-32) Anion Gap 13 mmol/L (5-15) Blood Urea Nitrogen 123 mg/dL (7-18) H Creatinine 8.7 MG/DL (0.55-1.30) H Estimat Glomerular Filtration Rate 6.5 mL/min (>60) Glucose Level 192 MG/DL (74-106) H Uric Acid 7.9 MG/DL (2.6-7.2) H Calcium Level 8.0 MG/DL (8.5-10.1) L Phosphorus Level 7.3 MG/DL (2.5-4.9) H Magnesium Level 2.1 MG/DL (1.8-2.4) Total Bilirubin 15.7 MG/DL (0.2-1.0) H Direct Bilirubin 13.0 MG/DL (0.0-0.3) H Gamma Glutamyl Transpeptidase 1063 U/L (5-85) H Aspartate Amino Transf (AST/SGOT) 106 U/L (15-37) H Alanine Aminotransferase (ALT/SGPT) 114 U/L (12-78) H Alkaline Phosphatase 335 U/L (46-116) H Ammonia 65 umol/L (11-32) H Troponin I 0.091 ng/mL (0.000-0.056) Pro-B-Type Natriuretic Peptide 1341 pg/mL (0-125) H Total Protein 4.7 G/DL (6.4-8.2) L Albumin 1.6 G/DL (3.4-5.0) L Globulin 3.1 g/dL Albumin/Globulin Ratio 0.5 (1.0-2.7) L Arterial Blood pH 7.277 (7.350-7.450) Arterial Blood Partial Pressure CO2 51.3 mmHg (35.0-45.0) H Arterial Blood Partial Pressure O2 104.7 mmHg (75.0-100.0) H Arterial Blood HCO3 23.4 mmol/L (22.0-26.0) Arterial Blood Oxygen Saturation 96.1 % (92.0-98.0) Arterial Blood Base Excess -3.5 Renny Test Positive BECK CEDENO Apr 22, 2017 10:32
--- NOTE | 2017-04-22 10:44 | Nephrology Progress Note ---
Assessment/Plan Problem List: (1) Severe sepsis (2) Hypotension (3) Renal failure Assessment: acute on chronic (4) Hypothermia (5) Elevated LFTs (6) Hyperbilirubinemia Assessment Acute renal failure Hypotensive ? Underlying CKD Low BP , Septic Shock Acute encephalopathy Lice infestation High LFTs and Jaundice HypoThermia UTI Plan dialysis again today on 4 K and 130 Na steroids- taper midodrin Antibiotics NGT NPO Monitor renal parameters avoid Nephrotoxics folate Echo 55% EjFx agree with Bioethics Subjective ROS Limited/Unobtainable: Yes Objective Objective Last 24 Hour Vital Signs Date Time Temp Pulse Resp B/P (MAP) Pulse Ox O2 Delivery O2 Flow Rate FiO2 04/22/17 10:00 74 19 94/44 94 Venturi Mask 45 04/22/17 09:00 76 21 117/54 97 Venturi Mask 45 04/22/17 08:00 98.8 78 21 104/49 97 Venturi Mask 45 98.8 04/22/17 08:00 40 04/22/17 07:28 87 04/22/17 07:00 73 18 103/46 96 Bi-pap 40 04/22/17 07:00 78 23 100/42 93 Bi-pap 40 04/22/17 06:51 95 Venturi Mask 10.0 45 04/22/17 06:51 Venturi Mask 10.0 45 04/22/17 06:00 74 18 103/46 96 Bi-pap 40 04/22/17 05:16 78 23 97 Facial 40 04/22/17 05:00 71 19 104/45 98 Bi-pap 40 04/22/17 04:00 40 04/22/17 04:00 98.6 74 17 105/46 95 Bi-pap 40 98.6 04/22/17 03:49 76 04/22/17 03:22 82 16 100 Facial 40 04/22/17 03:00 66 18 87/39 98 Bi-pap 40 04/22/17 02:00 72 24 110/49 99 Bi-pap 40 04/22/17 01:14 71 17 100 Facial 40 04/22/17 01:00 65 20 100/54 100 Bi-pap 40 04/22/17 00:00 98.6 67 22 98/48 97 Bi-pap 40 98.6 04/21/17 23:54 66 04/21/17 23:30 67 20 100 Facial 40 04/21/17 23:00 65 23 100/45 100 Bi-pap 40 04/21/17 22:00 68 23 90/37 93 Bi-pap 40 04/21/17 21:54 74 28 98 Facial 40 04/21/17 21:54 40 04/21/17 21:00 73 25 93/45 96 Venturi Mask 45 04/21/17 20:00 45 04/21/17 20:00 98.6 66 22 91/52 98 Venturi Mask 45 98.6 04/21/17 19:59 60 04/21/17 19:27 Venturi Mask 10.0 45 04/21/17 19:27 95 Venturi Mask 10.0 45 04/21/17 19:00 76 22 86/44 95 Venturi Mask 45 04/21/17 18:00 66 19 86/39 100 Venturi Mask 45 04/21/17 17:00 70 18 81/42 100 Venturi Mask 45 04/21/17 16:37 Venturi Mask 10.0 45 04/21/17 16:00 45 04/21/17 16:00 97.1 62 20 82/48 100 Venturi Mask 45 97.1 04/21/17 16:00 61 04/21/17 15:00 74 17 86/42 100 Venturi Mask 45 04/21/17 14:00 71 19 91/49 99 Venturi Mask 45 04/21/17 13:00 82 25 100/59 98 Venturi Mask 45 04/21/17 12:40 Venturi Mask 10.0 45 04/21/17 12:08 98/48 04/21/17 12:00 78 04/21/17 12:00 45 04/21/17 12:00 98.9 74 19 98/48 97 Venturi Mask 45 98.9 04/21/17 11:54 97 Venturi Mask 10.0 45 04/21/17 11:00 76 16 99/40 98 Venturi Mask 50 Intake and Output 04/21/17 04/22/17 19:00 07:00 Intake Total 2076 ml 1085 ml Output Total 2080 ml 1225 ml Balance -4 ml -140 ml Free Water 30 ml IV Total 1156 ml 155 ml Tube Feeding 720 ml 600 ml Other 170 ml 330 ml Output Urine Total 80 ml 25 ml Stool Total 600 ml 1200 ml Hemodialysis UF 1400 ml Laboratory Tests 04/21/17 11:00: C-Reactive Protein, Quantitative 5.8H, Folate 129.8H 04/22/17 05:40: White Blood Count 18.0H, Red Blood Count 2.63L, Hemoglobin 9.2L, Hematocrit 26.1L, Mean Corpuscular Volume 99, Mean Corpuscular Hemoglobin 34.9H, Mean Corpuscular Hemoglobin Concent 35.2, Red Cell Distribution Width 14.8, Platelet Count 127#L, Mean Platelet Volume 10.8H, Neutrophils (%) (Auto) , Lymphocytes (% ) (Auto) , Monocytes (%) (Auto) , Eosinophils (%) (Auto) , Basophils (%) (Auto) , Neutrophils % (Manual) [Pending], Lymphocytes % (Manual) [Pending], Platelet Estimate [Pending], Platelet Morphology [Pending], Sodium Level 145, Potassium Level 2.6*L, Chloride Level 105, Carbon Dioxide Level 27, Anion Gap 13, Blood Urea Nitrogen 123H, Creatinine 8.7H, Estimat Glomerular Filtration Rate 6.5, Glucose Level 192H, Uric Acid 7.9H, Calcium Level 8.0L, Phosphorus Level 7.3H, Magnesium Level 2.1, Total Bilirubin 15.7H, Direct Bilirubin 13.0H, Gamma Glutamyl Transpeptidase 1063H, Aspartate Amino Transf (AST/SGOT) 106H, Alanine Aminotransferase (ALT/SGPT) 114H, Alkaline Phosphatase 335H, Ammonia 65H, Troponin I 0.091H, Pro-B-Type Natriuretic Peptide 1341H, Total Protein 4.7L, Albumin 1.6L, Globulin 3.1, Albumin/Globulin Ratio 0.5L 04/22/17 08:51: Arterial Blood pH 7.277L, Arterial Blood Partial Pressure CO2 51.3H, Arterial Blood Partial Pressure O2 104.7H, Arterial Blood HCO3 23.4, Arterial Blood Oxygen Saturation 96.1, Arterial Blood Base Excess -3.5, Renny Test Positive Height (Feet): 5 Height (Inches): 7.00 Weight (Pounds): 235 General Appearance: no apparent distress Cardiovascular: tachycardia Respiratory/Chest: decreased breath sounds Abdomen: distended Objective edema ANTON LIZAMA Apr 22, 2017 10:44
--- NOTE | 2017-04-22 10:49 | Diagnostic Imaging Report ---
Indication: Dyspnea Comparison: 04/21/2017 A single view chest radiograph was obtained. Findings: Interstitial opacities noted centrally and at the right lung base, but overall there is improvement since the last day. Improvement in 24 hours suggests the interstitial densities due to pulmonary edema. Residual densities could be on the basis of residual pulmonary edema or secondary to superimposed pneumonia. Heart size is stable. There is a probable right pleural effusion. Feeding tube noted. The tip is weighted and is projected over the EG junction. IMPRESSION: Weighted feeding tube at the EG junction. Improved interstitial edema. Some residual interstitial disease particularly in the right lung base could be residual interstitial edema or superimposed pneumonia. Suspected right pleural effusion
[2017-04-22] MEDS: Lactulose 20gm/30ml UDC GT SCH ×3 (11:51→23:33)
[2017-04-22] MEDS: Nitroglycerin Patch 0.4mg TDERMAL SCH (11:54)
[2017-04-22] MEDS: Midodrine 10mg tab GT SCH ×2 (11:54→17:36)
--- NOTE | 2017-04-22 12:35 | GI Progress Note ---
Assessment/Plan Problems: (1) Alcohol intoxication ICD Codes: F10.929 - Alcohol use, unspecified with intoxication, unspecified SNOMED: 74108665 (2) Diabetes mellitus out of control ICD Codes: E11.65 - Type 2 diabetes mellitus with hyperglycemia SNOMED: 69066903, 087613774 (3) encephalopathy,toxic metabolic (4) Liver cirrhosis ICD Codes: K74.60 - Unspecified cirrhosis of liver SNOMED: 06584121 (5) Altered level of consciousness ICD Codes: R40.4 - Transient alteration of awareness SNOMED: 7789826 (6) Alcohol abuse ICD Codes: F10.10 - Alcohol abuse, uncomplicated SNOMED: 73858405 Status: not improved, unchanged Status Narrative Discussed with Dr. Ramirez. Assessment/Plan OB stool positive NGTFs per RD lactulose + Xifaxan prn transfusions solu medrol fu labs poor prognosis bioethics tomorrow Subjective Subjective limited Objective Last 24 Hour Vital Signs Date Time Temp Pulse Resp B/P (MAP) Pulse Ox O2 Delivery O2 Flow Rate FiO2 04/22/17 12:00 98.9 76 20 105/51 96 Venturi Mask 45 98.9 04/22/17 12:00 40 04/22/17 11:54 99/49 04/22/17 11:00 72 21 99/49 94 Venturi Mask 45 04/22/17 10:00 74 19 94/44 94 Venturi Mask 45 04/22/17 09:00 76 21 117/54 97 Venturi Mask 45 04/22/17 08:00 98.8 78 21 104/49 97 Venturi Mask 45 98.8 04/22/17 08:00 40 04/22/17 07:28 87 04/22/17 07:00 73 18 103/46 96 Bi-pap 40 04/22/17 07:00 78 23 100/42 93 Bi-pap 40 04/22/17 06:51 95 Venturi Mask 10.0 45 04/22/17 06:51 Venturi Mask 10.0 45 04/22/17 06:00 74 18 103/46 96 Bi-pap 40 04/22/17 05:16 78 23 97 Facial 40 04/22/17 05:00 71 19 104/45 98 Bi-pap 40 04/22/17 04:00 40 04/22/17 04:00 98.6 74 17 105/46 95 Bi-pap 40 98.6 04/22/17 03:49 76 04/22/17 03:22 82 16 100 Facial 40 04/22/17 03:00 66 18 87/39 98 Bi-pap 40 04/22/17 02:00 72 24 110/49 99 Bi-pap 40 04/22/17 01:14 71 17 100 Facial 40 04/22/17 01:00 65 20 100/54 100 Bi-pap 40 04/22/17 00:00 98.6 67 22 98/48 97 Bi-pap 40 98.6 04/21/17 23:54 66 04/21/17 23:30 67 20 100 Facial 40 04/21/17 23:00 65 23 100/45 100 Bi-pap 40 04/21/17 22:00 68 23 90/37 93 Bi-pap 40 04/21/17 21:54 74 28 98 Facial 40 04/21/17 21:54 40 04/21/17 21:00 73 25 93/45 96 Venturi Mask 45 04/21/17 20:00 45 04/21/17 20:00 98.6 66 22 91/52 98 Venturi Mask 45 98.6 04/21/17 19:59 60 04/21/17 19:27 Venturi Mask 10.0 45 04/21/17 19:27 95 Venturi Mask 10.0 45 04/21/17 19:00 76 22 86/44 95 Venturi Mask 45 04/21/17 18:00 66 19 86/39 100 Venturi Mask 45 04/21/17 17:00 70 18 81/42 100 Venturi Mask 45 04/21/17 16:37 Venturi Mask 10.0 45 04/21/17 16:00 45 04/21/17 16:00 97.1 62 20 82/48 100 Venturi Mask 45 97.1 04/21/17 16:00 61 04/21/17 15:00 74 17 86/42 100 Venturi Mask 45 04/21/17 14:00 71 19 91/49 99 Venturi Mask 45 04/21/17 13:00 82 25 100/59 98 Venturi Mask 45 04/21/17 12:40 Venturi Mask 10.0 45 Intake and Output 04/21/17 04/22/17 19:00 07:00 Intake Total 2076 ml 1085 ml Output Total 2080 ml 1225 ml Balance -4 ml -140 ml Free Water 30 ml IV Total 1156 ml 155 ml Tube Feeding 720 ml 600 ml Other 170 ml 330 ml Output Urine Total 80 ml 25 ml Stool Total 600 ml 1200 ml Hemodialysis UF 1400 ml Laboratory Tests Test 04/22/17 05:40 04/22/17 08:51 White Blood Count 18.0 K/UL (4.8-10.8) H Red Blood Count 2.63 M/UL (4.70-6.10) L Hemoglobin 9.2 G/DL (14.2-18.0) L Hematocrit 26.1 % (42.0-52.0) L Mean Corpuscular Volume 99 FL (80-99) Mean Corpuscular Hemoglobin 34.9 PG (27.0-31.0) H Mean Corpuscular Hemoglobin Concent 35.2 G/DL (32.0-36.0) Red Cell Distribution Width 14.8 % (11.6-14.8) Platelet Count 127 K/UL (150-450) #L Mean Platelet Volume 10.8 FL (6.5-10.1) H Neutrophils (%) (Auto) % (45.0-75.0) Lymphocytes (%) (Auto) % (20.0-45.0) Monocytes (%) (Auto) % (1.0-10.0) Eosinophils (%) (Auto) % (0.0-3.0) Basophils (%) (Auto) % (0.0-2.0) Differential Total Cells Counted 100 Neutrophils % (Manual) 93 % (45-75) H Lymphocytes % (Manual) 3 % (20-45) L Monocytes % (Manual) 2 % (1-10) Eosinophils % (Manual) 0 % (0-3) Basophils % (Manual) 0 % (0-2) Band Neutrophils 2 % (0-8) Nucleated Red Blood Cells 1 /100 WBC Platelet Estimate Decreased L Platelet Morphology Normal Macrocytosis 1+ Stomatocytes Occasional Sodium Level 145 MMOL/L (136-145) Potassium Level 2.6 MMOL/L (3.5-5.1) *L Chloride Level 105 MMOL/L (98-107) Carbon Dioxide Level 27 MMOL/L (21-32) Anion Gap 13 mmol/L (5-15) Blood Urea Nitrogen 123 mg/dL (7-18) H Creatinine 8.7 MG/DL (0.55-1.30) H Estimat Glomerular Filtration Rate 6.5 mL/min (>60) Glucose Level 192 MG/DL (74-106) H Uric Acid 7.9 MG/DL (2.6-7.2) H Calcium Level 8.0 MG/DL (8.5-10.1) L Phosphorus Level 7.3 MG/DL (2.5-4.9) H Magnesium Level 2.1 MG/DL (1.8-2.4) Total Bilirubin 15.7 MG/DL (0.2-1.0) H Direct Bilirubin 13.0 MG/DL (0.0-0.3) H Gamma Glutamyl Transpeptidase 1063 U/L (5-85) H Aspartate Amino Transf (AST/SGOT) 106 U/L (15-37) H Alanine Aminotransferase (ALT/SGPT) 114 U/L (12-78) H Alkaline Phosphatase 335 U/L (46-116) H Ammonia 65 umol/L (11-32) H Troponin I 0.091 ng/mL (0.000-0.056) Pro-B-Type Natriuretic Peptide 1341 pg/mL (0-125) H Total Protein 4.7 G/DL (6.4-8.2) L Albumin 1.6 G/DL (3.4-5.0) L Globulin 3.1 g/dL Albumin/Globulin Ratio 0.5 (1.0-2.7) L Arterial Blood pH 7.277 (7.350-7.450) Arterial Blood Partial Pressure CO2 51.3 mmHg (35.0-45.0) H Arterial Blood Partial Pressure O2 104.7 mmHg (75.0-100.0) H Arterial Blood HCO3 23.4 mmol/L (22.0-26.0) Arterial Blood Oxygen Saturation 96.1 % (92.0-98.0) Arterial Blood Base Excess -3.5 Renny Test Positive Height (Feet): 5 Height (Inches): 7.00 Weight (Pounds): 235 Cardiovascular: normal rate Respiratory/Chest: other - venturi mask Abdominal Exam: other - Lianne Brizuela N.PuYriy Apr 22, 2017 12:35
--- NOTE | 2017-04-22 16:23 | General Progress Note ---
Assessment/Plan Assessment/Plan 1. Schizophrenia cpt 2. Encephalopathy. PLAN: 1. We will discontinue the sitter at this time. 2. We will continue monitor. 3. Increase antipsychotics and provide the patient with supportive therapy and reality orientation. 5. risperdal 2mg qhs Subjective Allergies: Coded Allergies: ASPIRIN (Verified Allergy, Unknown, 03/12/17) Subjective the pt is calmer lacks capacity to make decisions. the pt is appropriate for palliative care Objective Last 24 Hour Vital Signs Date Time Temp Pulse Resp B/P (MAP) Pulse Ox O2 Delivery O2 Flow Rate FiO2 04/22/17 15:00 93 19 85/53 91 Venturi Mask 45 04/22/17 14:00 84 20 97/50 96 Venturi Mask 45 04/22/17 13:00 77 17 115/47 95 Venturi Mask 45 04/22/17 12:55 Venturi Mask 45 04/22/17 12:00 98.9 76 20 105/51 96 Venturi Mask 45 98.9 04/22/17 12:00 40 04/22/17 11:54 99/49 04/22/17 11:52 76 04/22/17 11:00 72 21 99/49 94 Venturi Mask 45 04/22/17 10:00 74 19 94/44 94 Venturi Mask 45 04/22/17 09:00 76 21 117/54 97 Venturi Mask 45 04/22/17 08:00 98.8 78 21 104/49 97 Venturi Mask 45 98.8 04/22/17 08:00 40 04/22/17 07:28 87 04/22/17 07:00 73 18 103/46 96 Bi-pap 40 04/22/17 07:00 78 23 100/42 93 Bi-pap 40 04/22/17 06:51 95 Venturi Mask 10.0 45 04/22/17 06:51 Venturi Mask 10.0 45 04/22/17 06:00 74 18 103/46 96 Bi-pap 40 04/22/17 05:16 78 23 97 Facial 40 04/22/17 05:00 71 19 104/45 98 Bi-pap 40 04/22/17 04:00 40 04/22/17 04:00 98.6 74 17 105/46 95 Bi-pap 40 98.6 04/22/17 03:49 76 04/22/17 03:22 82 16 100 Facial 40 04/22/17 03:00 66 18 87/39 98 Bi-pap 40 04/22/17 02:00 72 24 110/49 99 Bi-pap 40 04/22/17 01:14 71 17 100 Facial 40 04/22/17 01:00 65 20 100/54 100 Bi-pap 40 04/22/17 00:00 98.6 67 22 98/48 97 Bi-pap 40 98.6 04/21/17 23:54 66 04/21/17 23:30 67 20 100 Facial 40 04/21/17 23:00 65 23 100/45 100 Bi-pap 40 04/21/17 22:00 68 23 90/37 93 Bi-pap 40 04/21/17 21:54 74 28 98 Facial 40 04/21/17 21:54 40 04/21/17 21:00 73 25 93/45 96 Venturi Mask 45 04/21/17 20:00 45 04/21/17 20:00 98.6 66 22 91/52 98 Venturi Mask 45 98.6 04/21/17 19:59 60 04/21/17 19:27 Venturi Mask 10.0 45 04/21/17 19:27 95 Venturi Mask 10.0 45 04/21/17 19:00 76 22 86/44 95 Venturi Mask 45 04/21/17 18:00 66 19 86/39 100 Venturi Mask 45 04/21/17 17:00 70 18 81/42 100 Venturi Mask 45 04/21/17 16:37 Venturi Mask 10.0 45 Intake and Output 04/21/17 04/22/17 19:00 07:00 Intake Total 2076 ml 1085 ml Output Total 2080 ml 1225 ml Balance -4 ml -140 ml Free Water 30 ml IV Total 1156 ml 155 ml Tube Feeding 720 ml 600 ml Other 170 ml 330 ml Output Urine Total 80 ml 25 ml Stool Total 600 ml 1200 ml Hemodialysis UF 1400 ml Laboratory Tests 04/22/17 05:40: White Blood Count 18.0H, Red Blood Count 2.63L, Hemoglobin 9.2L, Hematocrit 26.1L, Mean Corpuscular Volume 99, Mean Corpuscular Hemoglobin 34.9H, Mean Corpuscular Hemoglobin Concent 35.2, Red Cell Distribution Width 14.8, Platelet Count 127#L, Mean Platelet Volume 10.8H, Neutrophils (%) (Auto) , Lymphocytes (% ) (Auto) , Monocytes (%) (Auto) , Eosinophils (%) (Auto) , Basophils (%) (Auto) , Differential Total Cells Counted 100, Neutrophils % (Manual) 93H, Lymphocytes % (Manual) 3L, Monocytes % (Manual) 2, Eosinophils % (Manual) 0, Basophils % ( Manual) 0, Band Neutrophils 2, Nucleated Red Blood Cells 1, Platelet Estimate DecreasedL, Platelet Morphology Normal, Macrocytosis 1+, Stomatocytes Occasional , Sodium Level 145, Potassium Level 2.6*L, Chloride Level 105, Carbon Dioxide Level 27, Anion Gap 13, Blood Urea Nitrogen 123H, Creatinine 8.7H, Estimat Glomerular Filtration Rate 6.5, Glucose Level 192H, Uric Acid 7.9H, Calcium Level 8.0L, Phosphorus Level 7.3H, Magnesium Level 2.1, Total Bilirubin 15.7H, Direct Bilirubin 13.0H, Gamma Glutamyl Transpeptidase 1063H, Aspartate Amino Transf (AST/SGOT) 106H, Alanine Aminotransferase (ALT/SGPT) 114H, Alkaline Phosphatase 335H, Ammonia 65H, Troponin I 0.091H, Pro-B-Type Natriuretic Peptide 1341H, Total Protein 4.7L, Albumin 1.6L, Globulin 3.1, Albumin/Globulin Ratio 0.5L 04/22/17 08:51: Arterial Blood pH 7.277L, Arterial Blood Partial Pressure CO2 51.3H, Arterial Blood Partial Pressure O2 104.7H, Arterial Blood HCO3 23.4, Arterial Blood Oxygen Saturation 96.1, Arterial Blood Base Excess -3.5, Renny Test Positive Height (Feet): 5 Height (Inches): 7.00 Weight (Pounds): 235 General Appearance: no apparent distress, lethargic, confused Aly De Santiago M.D. Apr 22, 2017 16:23
[2017-04-22] MEDS ORDERED: Thiamine 100mg tab GT SCH (16:30)
--- NOTE | 2017-04-22 16:38 | Infectious Diseases Prog Note ---
Assessment/Plan Assessment/Plan ASSESSMENT AND PLAN: 1. sepsis, shock, hypothermia, leukocytosis, strep uti, etoh, liver failure, steroids, chf/edema > pna - off pressors, on bipap, icu, leukocytosis - zosyn - check labs and chest x-ray - agree with bioethics - poor prognosis 2. Acute renal failure, elevated creatinine. 3. Anemia. 4. Ethyl alcohol dependency. 5. Anemia. 6. Allergy to aspirin. 7. Social history positive for ethyl alcohol. 8. Family history noncontributory. 9. MAR was noted. 10. Case discussed with RN. 11. Case discussed with Dr. Tai. 12. Continue treatment per primary consultants. 13. Overall poor prognosis. Subjective Constitutional: Denies: fever HEENT: Reports: congestion Respiratory: Reports: shortness of breath Cardiovascular: Denies: chest pain Gastrointestinal/Abdominal: Reports: diarrhea - on lactulose , Denies: nausea, vomiting Allergies: Coded Allergies: ASPIRIN (Verified Allergy, Unknown, 03/12/17) Objective Vital Signs Last 24 Hour Vital Signs Date Time Temp Pulse Resp B/P (MAP) Pulse Ox O2 Delivery O2 Flow Rate FiO2 04/22/17 16:00 85 04/22/17 15:00 93 19 85/53 91 Venturi Mask 45 04/22/17 14:00 84 20 97/50 96 Venturi Mask 45 04/22/17 13:00 77 17 115/47 95 Venturi Mask 45 04/22/17 12:55 Venturi Mask 45 04/22/17 12:00 98.9 76 20 105/51 96 Venturi Mask 45 98.9 04/22/17 12:00 40 04/22/17 11:54 99/49 04/22/17 11:52 76 04/22/17 11:00 72 21 99/49 94 Venturi Mask 45 04/22/17 10:00 74 19 94/44 94 Venturi Mask 45 04/22/17 09:00 76 21 117/54 97 Venturi Mask 45 04/22/17 08:00 98.8 78 21 104/49 97 Venturi Mask 45 98.8 04/22/17 08:00 40 04/22/17 07:28 87 04/22/17 07:00 73 18 103/46 96 Bi-pap 40 04/22/17 07:00 78 23 100/42 93 Bi-pap 40 04/22/17 06:51 95 Venturi Mask 10.0 45 04/22/17 06:51 Venturi Mask 10.0 45 04/22/17 06:00 74 18 103/46 96 Bi-pap 40 04/22/17 05:16 78 23 97 Facial 40 04/22/17 05:00 71 19 104/45 98 Bi-pap 40 04/22/17 04:00 40 04/22/17 04:00 98.6 74 17 105/46 95 Bi-pap 40 98.6 04/22/17 03:49 76 04/22/17 03:22 82 16 100 Facial 40 04/22/17 03:00 66 18 87/39 98 Bi-pap 40 04/22/17 02:00 72 24 110/49 99 Bi-pap 40 04/22/17 01:14 71 17 100 Facial 40 04/22/17 01:00 65 20 100/54 100 Bi-pap 40 04/22/17 00:00 98.6 67 22 98/48 97 Bi-pap 40 98.6 04/21/17 23:54 66 04/21/17 23:30 67 20 100 Facial 40 04/21/17 23:00 65 23 100/45 100 Bi-pap 40 04/21/17 22:00 68 23 90/37 93 Bi-pap 40 04/21/17 21:54 74 28 98 Facial 40 04/21/17 21:54 40 04/21/17 21:00 73 25 93/45 96 Venturi Mask 45 04/21/17 20:00 45 04/21/17 20:00 98.6 66 22 91/52 98 Venturi Mask 45 98.6 04/21/17 19:59 60 04/21/17 19:27 Venturi Mask 10.0 45 04/21/17 19:27 95 Venturi Mask 10.0 45 04/21/17 19:00 76 22 86/44 95 Venturi Mask 45 04/21/17 18:00 66 19 86/39 100 Venturi Mask 45 04/21/17 17:00 70 18 81/42 100 Venturi Mask 45 04/21/17 16:37 Venturi Mask 10.0 45 Height (Feet): 5 Height (Inches): 7.00 Weight (Pounds): 235 General Appearance: no acute distress HEENT: normocephalic, atraumatic, no JVD Respiratory/Chest: crackles/rales, rhonchi - bilaterally Cardiovascular: normal rate, regular rhythm Abdomen: distended Genitourinary: other - + woodard Objective chest x-ray - no pna (report noted) us abdomen - fatty liver/hm Laboratory Tests Test 04/22/17 05:40 04/22/17 08:51 White Blood Count 18.0 K/UL (4.8-10.8) H Red Blood Count 2.63 M/UL (4.70-6.10) L Hemoglobin 9.2 G/DL (14.2-18.0) L Hematocrit 26.1 % (42.0-52.0) L Mean Corpuscular Volume 99 FL (80-99) Mean Corpuscular Hemoglobin 34.9 PG (27.0-31.0) H Mean Corpuscular Hemoglobin Concent 35.2 G/DL (32.0-36.0) Red Cell Distribution Width 14.8 % (11.6-14.8) Platelet Count 127 K/UL (150-450) #L Mean Platelet Volume 10.8 FL (6.5-10.1) H Neutrophils (%) (Auto) % (45.0-75.0) Lymphocytes (%) (Auto) % (20.0-45.0) Monocytes (%) (Auto) % (1.0-10.0) Eosinophils (%) (Auto) % (0.0-3.0) Basophils (%) (Auto) % (0.0-2.0) Differential Total Cells Counted 100 Neutrophils % (Manual) 93 % (45-75) H Lymphocytes % (Manual) 3 % (20-45) L Monocytes % (Manual) 2 % (1-10) Eosinophils % (Manual) 0 % (0-3) Basophils % (Manual) 0 % (0-2) Band Neutrophils 2 % (0-8) Nucleated Red Blood Cells 1 /100 WBC Platelet Estimate Decreased L Platelet Morphology Normal Macrocytosis 1+ Stomatocytes Occasional Sodium Level 145 MMOL/L (136-145) Potassium Level 2.6 MMOL/L (3.5-5.1) *L Chloride Level 105 MMOL/L (98-107) Carbon Dioxide Level 27 MMOL/L (21-32) Anion Gap 13 mmol/L (5-15) Blood Urea Nitrogen 123 mg/dL (7-18) H Creatinine 8.7 MG/DL (0.55-1.30) H Estimat Glomerular Filtration Rate 6.5 mL/min (>60) Glucose Level 192 MG/DL (74-106) H Uric Acid 7.9 MG/DL (2.6-7.2) H Calcium Level 8.0 MG/DL (8.5-10.1) L Phosphorus Level 7.3 MG/DL (2.5-4.9) H Magnesium Level 2.1 MG/DL (1.8-2.4) Total Bilirubin 15.7 MG/DL (0.2-1.0) H Direct Bilirubin 13.0 MG/DL (0.0-0.3) H Gamma Glutamyl Transpeptidase 1063 U/L (5-85) H Aspartate Amino Transf (AST/SGOT) 106 U/L (15-37) H Alanine Aminotransferase (ALT/SGPT) 114 U/L (12-78) H Alkaline Phosphatase 335 U/L (46-116) H Ammonia 65 umol/L (11-32) H Troponin I 0.091 ng/mL (0.000-0.056) Pro-B-Type Natriuretic Peptide 1341 pg/mL (0-125) H Total Protein 4.7 G/DL (6.4-8.2) L Albumin 1.6 G/DL (3.4-5.0) L Globulin 3.1 g/dL Albumin/Globulin Ratio 0.5 (1.0-2.7) L Arterial Blood pH 7.277 (7.350-7.450) Arterial Blood Partial Pressure CO2 51.3 mmHg (35.0-45.0) H Arterial Blood Partial Pressure O2 104.7 mmHg (75.0-100.0) H Arterial Blood HCO3 23.4 mmol/L (22.0-26.0) Arterial Blood Oxygen Saturation 96.1 % (92.0-98.0) Arterial Blood Base Excess -3.5 Renny Test Positive Current Medications Medications (Trade) Dose Ordered Sig/Jocelyne Route PRN Reason Start Time Stop Time Status Last Admin Dose Admin Acetaminophen (Tylenol) 650 mg Q4H PRN ORAL fever>100.5 04/13/17 18:30 05/11/17 10:29 04/17/17 06:19 Allopurinol (Allopurinol) 300 mg DAILY GT 04/23/17 09:00 05/15/17 08:59 Aluminum Hydroxide (Amphojel) 1,920 mg Q6HR NG 04/18/17 13:30 05/18/17 13:29 04/22/17 11:53 Chlorhexidine Gluconate (Anika-Hex 2%) 1 applic DAILY@2000 TOPIC 04/20/17 20:00 05/20/17 19:59 04/21/17 19:35 Clotrimazole (Lotrimin) 1 applic THREE TIMES A DAY TOPIC 04/22/17 13:00 05/22/17 12:59 04/22/17 13:56 Dextrose (Dextrose 50%) STAT PRN IV Hypoglycemia 04/19/17 08:00 05/19/17 07:59 Folic Acid (Folate) 5 mg DAILY GT 04/23/17 09:00 05/13/17 12:59 Haloperidol Lactate (Haldol) 5 mg Q6H PRN IM Agitation 04/14/17 13:00 05/14/17 12:59 Insulin Aspart (NovoLOG) EVERY 6 HOURS SUBQ 04/18/17 00:00 05/14/17 16:29 04/22/17 11:51 Insulin Detemir (Levemir) 13 units Q12HR SUBQ 04/22/17 09:00 05/22/17 08:59 04/22/17 09:45 Lactulose (Cephulac) 30 gm Q6HR GT 04/22/17 12:00 05/16/17 12:59 04/22/17 11:51 Methylprednisolone Sodium Succinate (Solu-MEDROL) 40 mg DAILY IVP 04/22/17 09:00 05/15/17 08:59 04/22/17 09:01 Metronidazole 100 ml @ 100 mls/hr Q12HR IVPB 04/21/17 21:00 04/28/17 20:59 04/22/17 09:44 Midodrine (Pro-Amatine) 10 mg THREE TIMES A DAY GT 04/22/17 13:00 05/21/17 12:59 04/22/17 11:54 Nitroglycerin (Ntg) 1 patch Q24H TDERMAL 04/14/17 13:00 05/13/17 12:59 04/18/17 13:35 Norepinephrine Bitartrate 4 mg/ Dextrose 250 ml @ 0 mls/hr Q24H IV 04/17/17 10:00 05/17/17 09:59 04/17/17 13:40 Ondansetron HCl (Zofran) 4 mg Q6H PRN IVP Nausea & Vomiting 04/13/17 18:00 05/11/17 17:59 Pantoprazole (Protonix) 40 mg EVERY 12 HOURS IVP 04/18/17 21:00 05/18/17 20:59 04/22/17 09:00 Piperacillin Sod/ Tazobactam Sod 2.25 gm/Sodium Chloride 55 ml @ 110 mls/hr Q8HR IV 04/22/17 14:00 04/27/17 13:59 Rifaximin (Xifaxan) 550 mg EVERY 12 HOURS GT 04/22/17 21:00 04/23/17 20:59 Risperidone (RisperDAL) 2 mg BEDTIME GT 04/22/17 21:00 05/19/17 20:59 Sevelamer Carbonate (Renvela) 1,600 mg THREE TIMES A DAY NG 04/21/17 13:00 05/21/17 12:59 04/22/17 11:51 Thiamine HCl (Vitamin B1) 100 mg QPM GT 04/22/17 16:30 05/22/17 16:29 NAHUN SAGE 8, 2018 16:38
[2017-04-22] MEDS: Piperacillin/Tazobactam 2.25 GM in NS 55 ML IV SCH ×2 (17:03→22:09)
[2017-04-22] MEDS: Dyna-Hex 2% Top Sol 2oz TOPIC SCH (20:12)
[2017-04-23] VITALS (23 sets, daily range): BP systolic 91–113; BP diastolic 38–55
[2017-04-23] MEDS: Aluminum Hydroxide Gel Susp 15ml NG SCH ×2 (05:32→12:29)
[2017-04-23] MEDS: Lactulose 20gm/30ml UDC GT SCH ×2 (05:32→12:28)
[2017-04-23] MEDS: Piperacillin/Tazobactam 2.25 GM in NS 55 ML IV SCH (05:32)
[2017-04-23] MEDS: NovoLOG Insulin Flexpen SUBQ SCH ×2 (05:35→12:31)
[2017-04-23 05:55] LABS: HEMATOCRIT 24.6 % (42.0-52.0); HEMOGLOBIN 8.7 G/DL (14.2-18.0); MEAN CORPUSCULAR VOLUME 102 FL (80-99); PLATELET COUNT 129 K/UL (150-450); RED BLOOD COUNT 2.42 M/UL (4.70-6.10); RED CELL DISTRIBUTION WIDTH 14.8 % (11.6-14.8); WHITE BLOOD COUNT 14.8 K/UL (4.8-10.8)
[2017-04-23 06:04] LABS: AMMONIA 61 umol/L (11-32)
[2017-04-23 06:22] LABS: ALANINE AMINOTRANSFERASE 123 U/L (12-78); ALBUMIN 1.6 G/DL (3.4-5.0); ALBUMIN/GLOBULIN RATIO 0.6 (1.0-2.7); ALKALINE PHOSPHATASE 320 U/L (46-116); ANION GAP 9 mmol/L (5-15); ASPARTATE AMINO TRANSFERASE 105 U/L (15-37); BILIRUBIN,TOTAL 17.4 MG/DL (0.2-1.0); BLOOD UREA NITROGEN 96 mg/dL (7-18); CALCIUM 7.9 MG/DL (8.5-10.1); CARBON DIOXIDE 33 MMOL/L (21-32); CHLORIDE 107 MMOL/L (98-107); CREATININE 7.4 MG/DL (0.55-1.30); POTASSIUM 2.9 MMOL/L (3.5-5.1); SODIUM 149 MMOL/L (136-145)
[2017-04-23 07:08] LABS: BILIRUBIN,DIRECT 14.5 MG/DL (0.0-0.3)
--- NOTE | 2017-04-23 08:46 | General Progress Note ---
Assessment/Plan Problem List: (1) Diabetes mellitus out of control ICD Codes: E11.65 - Type 2 diabetes mellitus with hyperglycemia SNOMED: 41945426, 711261854 (2) Altered level of consciousness ICD Codes: R40.4 - Transient alteration of awareness SNOMED: 9194785 (3) Elevated LFTs ICD Codes: R79.89 - Other specified abnormal findings of blood chemistry SNOMED: 238445370, 829320729 (4) Lice infestation ICD Codes: B85.2 - Pediculosis, unspecified SNOMED: 734981314 (5) Liver cirrhosis ICD Codes: K74.60 - Unspecified cirrhosis of liver SNOMED: 56104482 Assessment/Plan continue Levemir 13 units bid continue NISS Subjective ROS Limited/Unobtainable: Yes Allergies: Coded Allergies: ASPIRIN (Verified Allergy, Unknown, 03/12/17) Subjective events noted - interval notes reviewed still in ICU sitter at bedside Objective Last 24 Hour Vital Signs Date Time Temp Pulse Resp B/P (MAP) Pulse Ox O2 Delivery O2 Flow Rate FiO2 04/23/17 07:00 85 23 95/45 95 Venturi Mask 50 04/23/17 06:00 78 26 96/39 96 Venturi Mask 50 04/23/17 05:00 77 21 108/38 99 Bi-pap 60 04/23/17 04:00 98.7 83 26 91/44 98 Bi-pap 50 98.7 04/23/17 04:00 50 04/23/17 04:00 74 04/23/17 03:25 79 16 98 Full Face 50 04/23/17 03:00 79 17 105/48 99 Bi-pap 60 04/23/17 02:00 82 16 109/42 98 Bi-pap 60 04/23/17 01:08 85 19 98 Full Face 60 04/23/17 01:00 77 16 104/40 98 Bi-pap 60 04/23/17 00:00 75 04/23/17 00:00 60 04/23/17 00:00 98.9 82 21 102/50 97 Bi-pap 60 98.9 04/22/17 23:11 83 17 97 Full Face 60 04/22/17 23:00 74 22 115/47 96 Bi-pap 60 04/22/17 22:00 76 21 99/57 96 Bi-pap 60 04/22/17 21:00 77 21 96/49 97 Bi-pap 60 04/22/17 20:44 84 23 98 Full Face 60 04/22/17 20:00 64 04/22/17 20:00 98.8 72 23 112/51 97 Bi-pap 60 98.8 04/22/17 20:00 60 04/22/17 19:00 64 23 89/46 95 Bi-pap 60 04/22/17 18:41 97 Bi-pap 60 04/22/17 18:41 Venturi Mask 12.0 50 04/22/17 18:41 73 14 97 Full Face 60 04/22/17 18:00 72 22 91/41 92 Bi-pap 60 04/22/17 17:34 60 04/22/17 17:26 64 19 94 Full Face 40 04/22/17 17:15 63 16 Venturi Mask 10.0 95 04/22/17 17:00 77 17 108/45 92 Venturi Mask 45 04/22/17 16:30 Venturi Mask 45 04/22/17 16:00 85 04/22/17 16:00 45 04/22/17 16:00 83 28 89/45 92 Venturi Mask 45 04/22/17 15:00 93 19 85/53 91 Venturi Mask 45 04/22/17 14:00 84 20 97/50 96 Venturi Mask 45 04/22/17 13:00 77 17 115/47 95 Venturi Mask 45 04/22/17 12:55 Venturi Mask 45 04/22/17 12:00 98.9 76 20 105/51 96 Venturi Mask 45 98.9 04/22/17 12:00 45 04/22/17 11:54 99/49 04/22/17 11:52 76 04/22/17 11:00 72 21 99/49 94 Venturi Mask 45 04/22/17 10:00 74 19 94/44 94 Venturi Mask 45 04/22/17 09:00 76 21 117/54 97 Venturi Mask 45 Intake and Output 04/22/17 04/23/17 19:00 07:00 Intake Total 1135 ml 910 ml Output Total 2485 ml 812 ml Balance -1350 ml 98 ml Free Water 150 ml IV Total 355 ml 110 ml Tube Feeding 630 ml 600 ml Other 200 ml Output Urine Total 25 ml 12 ml Stool Total 1200 ml 800 ml Peritoneal Dialysis UF 1260 ml Laboratory Tests 04/22/17 08:51: Arterial Blood pH 7.277L, Arterial Blood Partial Pressure CO2 51.3H, Arterial Blood Partial Pressure O2 104.7H, Arterial Blood HCO3 23.4, Arterial Blood Oxygen Saturation 96.1, Arterial Blood Base Excess -3.5, Renny Test Positive 04/23/17 05:00: White Blood Count 14.8H, Red Blood Count 2.42L, Hemoglobin 8.7L, Hematocrit 24.6L, Mean Corpuscular Volume 102H, Mean Corpuscular Hemoglobin 35.9H, Mean Corpuscular Hemoglobin Concent 35.4, Red Cell Distribution Width 14.8, Platelet Count 129L, Mean Platelet Volume 10.4H, Neutrophils (%) (Auto) , Lymphocytes (% ) (Auto) , Monocytes (%) (Auto) , Eosinophils (%) (Auto) , Basophils (%) (Auto) , Differential Total Cells Counted 100, Neutrophils % (Manual) 96H, Lymphocytes % (Manual) 2L, Monocytes % (Manual) 2, Eosinophils % (Manual) 0, Basophils % ( Manual) 0, Band Neutrophils 0, Platelet Estimate Adequate, Platelet Morphology Normal, Hypochromasia 1+, Anisocytosis 1+, Macrocytosis 1+, Sodium Level 149H, Potassium Level 2.9L, Chloride Level 107, Carbon Dioxide Level 33H, Anion Gap 9 , Blood Urea Nitrogen 96H, Creatinine 7.4H, Estimat Glomerular Filtration Rate 7.8, Glucose Level 181H, Uric Acid 5.9, Calcium Level 7.9L, Phosphorus Level 7.0H, Magnesium Level 2.1, Total Bilirubin 17.4H, Direct Bilirubin 14.5H, Aspartate Amino Transf (AST/SGOT) 105H, Alanine Aminotransferase (ALT/SGPT) 123H , Alkaline Phosphatase 320H, Ammonia 61H, C-Reactive Protein, Quantitative 3.9H , Pro-B-Type Natriuretic Peptide 1091H, Total Protein 4.5L, Albumin 1.6L, Globulin 2.9, Albumin/Globulin Ratio 0.6L Height (Feet): 5 Height (Inches): 7.00 Weight (Pounds): 240 General Appearance: moderate distress Neck: normal alignment Cardiovascular: normal rate Respiratory/Chest: decreased breath sounds Abdomen: normal bowel sounds Edema: 1+ Arm (L), 1+ Arm (R), 1+ Leg (L), 1+ Leg (R), 1+ Pedal (L), 1+ Pedal ( R), 1+ Generalized Objective Current Medications Medications (Trade) Dose Ordered Sig/Jocelyne Route PRN Reason Start Time Stop Time Status Last Admin Dose Admin Acetaminophen (Tylenol) 650 mg Q4H PRN ORAL fever>100.5 04/13/17 18:30 05/11/17 10:29 04/17/17 06:19 Allopurinol (Allopurinol) 300 mg DAILY GT 04/23/17 09:00 05/15/17 08:59 Aluminum Hydroxide (Amphojel) 1,920 mg Q6HR NG 04/18/17 13:30 05/18/17 13:29 04/23/17 05:32 Chlorhexidine Gluconate (Anika-Hex 2%) 1 applic DAILY@1999 TOPIC 04/20/17 20:00 05/20/17 19:59 04/22/17 20:12 Clotrimazole (Lotrimin) 1 applic THREE TIMES A DAY TOPIC 04/22/17 13:00 05/22/17 12:59 04/22/17 17:38 Dextrose (Dextrose 50%) STAT PRN IV Hypoglycemia 04/19/17 08:00 05/19/17 07:59 Folic Acid (Folate) 5 mg DAILY GT 04/23/17 09:00 05/13/17 12:59 Haloperidol Lactate (Haldol) 5 mg Q6H PRN IM Agitation 04/14/17 13:00 05/14/17 12:59 Insulin Aspart (NovoLOG) EVERY 6 HOURS SUBQ 04/18/17 00:00 05/14/17 16:29 04/23/17 05:35 Insulin Detemir (Levemir) 13 units Q12HR SUBQ 04/22/17 09:00 05/22/17 08:59 04/22/17 20:38 Lactulose (Cephulac) 30 gm Q6HR GT 04/22/17 12:00 05/16/17 12:59 04/23/17 05:32 Methylprednisolone Sodium Succinate (Solu-MEDROL) 40 mg DAILY IVP 04/22/17 09:00 05/15/17 08:59 04/22/17 09:01 Midodrine (Pro-Amatine) 10 mg THREE TIMES A DAY GT 04/22/17 13:00 05/21/17 12:59 04/22/17 17:36 Nitroglycerin (Ntg) 1 patch Q24H TDERMAL 04/14/17 13:00 05/13/17 12:59 04/18/17 13:35 Norepinephrine Bitartrate 4 mg/ Dextrose 250 ml @ 0 mls/hr Q24H IV 04/17/17 10:00 05/17/17 09:59 04/17/17 13:40 Ondansetron HCl (Zofran) 4 mg Q6H PRN IVP Nausea & Vomiting 04/13/17 18:00 05/11/17 17:59 Pantoprazole (Protonix) 40 mg EVERY 12 HOURS IVP 04/18/17 21:00 05/18/17 20:59 04/22/17 20:36 Piperacillin Sod/ Tazobactam Sod 2.25 gm/Sodium Chloride 55 ml @ 110 mls/hr Q8HR IV 04/22/17 14:00 04/27/17 13:59 04/23/17 05:32 Potassium Chloride 30 meq/ Sodium Chloride 565 ml @ 188.333 mls/hr ONCE ONCE IVPB 04/23/17 09:30 04/23/17 12:29 Rifaximin (Xifaxan) 550 mg EVERY 12 HOURS GT 04/22/17 21:00 04/23/17 20:59 04/22/17 20:36 Risperidone (RisperDAL) 2 mg BEDTIME GT 04/22/17 21:00 05/19/17 20:59 04/22/17 20:36 Sevelamer Carbonate (Renvela) 1,600 mg Q6HR NG 04/23/17 12:00 05/21/17 12:59 Thiamine HCl (Vitamin B1) 100 mg QPM GT 04/22/17 16:30 05/22/17 16:29 04/22/17 17:03 Item Value Date Time Bedside Blood Glucose 196 mg/dl H 04/23/17 0600 Bedside Blood Glucose 201 mg/dl H 04/23/17 0000 Bedside Blood Glucose 198 mg/dl H 04/22/17 2038 Bedside Blood Glucose 172 mg/dl H 04/22/17 1738 Bedside Blood Glucose 244 mg/dl H 04/22/17 1151 Bedside Blood Glucose 217 mg/dl H 04/22/17 0945 Bedside Blood Glucose 208 mg/dl H 04/22/17 0600 ROSALINDA VELASCO 9, 2018 08:46
[2017-04-23] MEDS ORDERED: Potassium Chloride 30 MEQ in Sodium Chloride 500ML 550 ML IVPB ONE (09:30)
[2017-04-23] MEDS: Solu-MEDROL 40mg Inj IVP SCH (09:47)
[2017-04-23] MEDS: Midodrine 10mg tab GT SCH ×2 (09:47→12:27)
[2017-04-23] MEDS: Pantoprazole Inj IVP SCH (09:47)
[2017-04-23] MEDS: Levemir Flexpen SUBQ SCH (09:53)
--- NOTE | 2017-04-23 10:26 | Pulmonolgy Critical Care Note ---
Critical Care - Asmt/Plan Problems: (1) Multiple organ failure (2) Acute respiratory failure (3) Severe sepsis (4) Pulmonary edema (5) Hypothermia (6) Renal failure (7) Hypotension (8) Alcohol abuse Assessment/Plan: pt had end stage liver disease. Has been comatose. Very icteric with Bilirubin of 15. He is renal failure and getting dialysis. There is no change of recovery from this multiorgan failure. I suggest DNR, DNI and comfort care if the rest of the consultants agree. DR narvaez suggested Ethics committee. I contacted our social scientist to arrange for it \ ethic today Critical Care - Objective Last 24 Hour Vital Signs Date Time Temp Pulse Resp B/P (MAP) Pulse Ox O2 Delivery O2 Flow Rate FiO2 04/23/17 10:00 95/48 04/23/17 07:33 Venturi Mask 12.0 50 04/23/17 07:32 95 Venturi Mask 12.0 50 04/23/17 07:00 85 23 95/45 95 Venturi Mask 50 04/23/17 06:00 78 26 96/39 96 Venturi Mask 50 04/23/17 05:00 77 21 108/38 99 Bi-pap 60 04/23/17 04:00 98.7 83 26 91/44 98 Bi-pap 50 98.7 04/23/17 04:00 50 04/23/17 04:00 74 04/23/17 03:25 79 16 98 Full Face 50 04/23/17 03:00 79 17 105/48 99 Bi-pap 60 04/23/17 02:00 82 16 109/42 98 Bi-pap 60 04/23/17 01:08 85 19 98 Full Face 60 04/23/17 01:00 77 16 104/40 98 Bi-pap 60 04/23/17 00:00 75 04/23/17 00:00 60 04/23/17 00:00 98.9 82 21 102/50 97 Bi-pap 60 98.9 04/22/17 23:11 83 17 97 Full Face 60 04/22/17 23:00 74 22 115/47 96 Bi-pap 60 04/22/17 22:00 76 21 99/57 96 Bi-pap 60 04/22/17 21:00 77 21 96/49 97 Bi-pap 60 04/22/17 20:44 84 23 98 Full Face 60 04/22/17 20:00 64 04/22/17 20:00 98.8 72 23 112/51 97 Bi-pap 60 98.8 04/22/17 20:00 60 04/22/17 19:00 64 23 89/46 95 Bi-pap 60 04/22/17 18:41 97 Bi-pap 60 04/22/17 18:41 Venturi Mask 12.0 50 04/22/17 18:41 73 14 97 Full Face 60 04/22/17 18:00 72 22 91/41 92 Bi-pap 60 04/22/17 17:34 60 04/22/17 17:26 64 19 94 Full Face 40 04/22/17 17:15 63 16 Venturi Mask 10.0 95 04/22/17 17:00 77 17 108/45 92 Venturi Mask 45 04/22/17 16:30 Venturi Mask 45 04/22/17 16:00 85 04/22/17 16:00 45 04/22/17 16:00 83 28 89/45 92 Venturi Mask 45 04/22/17 15:00 93 19 85/53 91 Venturi Mask 45 04/22/17 14:00 84 20 97/50 96 Venturi Mask 45 04/22/17 13:00 77 17 115/47 95 Venturi Mask 45 04/22/17 12:55 Venturi Mask 45 04/22/17 12:00 98.9 76 20 105/51 96 Venturi Mask 45 98.9 04/22/17 12:00 45 04/22/17 11:54 99/49 04/22/17 11:52 76 04/22/17 11:00 72 21 99/49 94 Venturi Mask 45 Status: obtunded Condition: critical HEENT: atraumatic Neck: full ROM Lungs: chest wall tender Heart: HR/BP stable, regular Abdomen: soft Accucheck: 169 Critical Care - Subjective ROS Limited/Unobtainable: Yes ICU Day: 4 Condition: critical FI02: 50 Vent Support Breath Rate: 14 Vent Support Mode: BiLevel Sputum Amount: Moderate Tube Feeding Amount: 50 I&O: Intake and Output 04/22/17 04/23/17 19:00 07:00 Intake Total 1135 ml 910 ml Output Total 2485 ml 812 ml Balance -1350 ml 98 ml Free Water 150 ml IV Total 355 ml 110 ml Tube Feeding 630 ml 600 ml Other 200 ml Output Urine Total 25 ml 12 ml Stool Total 1200 ml 800 ml Peritoneal Dialysis UF 1260 ml CXR: mild congestion Labs: Laboratory Tests Test 04/23/17 05:00 White Blood Count 14.8 K/UL (4.8-10.8) H Red Blood Count 2.42 M/UL (4.70-6.10) L Hemoglobin 8.7 G/DL (14.2-18.0) L Hematocrit 24.6 % (42.0-52.0) L Mean Corpuscular Volume 102 FL (80-99) H Mean Corpuscular Hemoglobin 35.9 PG (27.0-31.0) H Mean Corpuscular Hemoglobin Concent 35.4 G/DL (32.0-36.0) Red Cell Distribution Width 14.8 % (11.6-14.8) Platelet Count 129 K/UL (150-450) L Mean Platelet Volume 10.4 FL (6.5-10.1) H Neutrophils (%) (Auto) % (45.0-75.0) Lymphocytes (%) (Auto) % (20.0-45.0) Monocytes (%) (Auto) % (1.0-10.0) Eosinophils (%) (Auto) % (0.0-3.0) Basophils (%) (Auto) % (0.0-2.0) Differential Total Cells Counted 100 Neutrophils % (Manual) 96 % (45-75) H Lymphocytes % (Manual) 2 % (20-45) L Monocytes % (Manual) 2 % (1-10) Eosinophils % (Manual) 0 % (0-3) Basophils % (Manual) 0 % (0-2) Band Neutrophils 0 % (0-8) Platelet Estimate Adequate Platelet Morphology Normal Hypochromasia 1+ Anisocytosis 1+ Macrocytosis 1+ Sodium Level 149 MMOL/L (136-145) H Potassium Level 2.9 MMOL/L (3.5-5.1) L Chloride Level 107 MMOL/L (98-107) Carbon Dioxide Level 33 MMOL/L (21-32) H Anion Gap 9 mmol/L (5-15) Blood Urea Nitrogen 96 mg/dL (7-18) H Creatinine 7.4 MG/DL (0.55-1.30) H Estimat Glomerular Filtration Rate 7.8 mL/min (>60) Glucose Level 181 MG/DL (74-106) H Uric Acid 5.9 MG/DL (2.6-7.2) Calcium Level 7.9 MG/DL (8.5-10.1) L Phosphorus Level 7.0 MG/DL (2.5-4.9) H Magnesium Level 2.1 MG/DL (1.8-2.4) Total Bilirubin 17.4 MG/DL (0.2-1.0) H Direct Bilirubin 14.5 MG/DL (0.0-0.3) H Aspartate Amino Transf (AST/SGOT) 105 U/L (15-37) H Alanine Aminotransferase (ALT/SGPT) 123 U/L (12-78) H Alkaline Phosphatase 320 U/L (46-116) H Ammonia 61 umol/L (11-32) H C-Reactive Protein, Quantitative 3.9 mg/dL (0.00-0.90) H Pro-B-Type Natriuretic Peptide 1091 pg/mL (0-125) H Total Protein 4.5 G/DL (6.4-8.2) L Albumin 1.6 G/DL (3.4-5.0) L Globulin 2.9 g/dL Albumin/Globulin Ratio 0.6 (1.0-2.7) L BECK CEDENO Apr 23, 2017 10:25
--- NOTE | 2017-04-23 10:33 | Nephrology Progress Note ---
Assessment/Plan Problem List: (1) Severe sepsis (2) Hypotension (3) Renal failure Assessment: acute on chronic (4) Hypothermia (5) Elevated LFTs (6) Hyperbilirubinemia Assessment Acute renal failure Hypotensive ? Underlying CKD Low BP , Septic Shock Acute encephalopathy Lice infestation High LFTs and Jaundice HypoThermia UTI Plan dialysis again in am on 5 K and 130 Na steroids- taper K IV today midodrin Antibiotics NGT NPO Monitor renal parameters avoid Nephrotoxics folate Echo 55% EjFx agree with Bioethics Subjective ROS Limited/Unobtainable: No Constitutional: Reports: malaise Objective Objective Last 24 Hour Vital Signs Date Time Temp Pulse Resp B/P (MAP) Pulse Ox O2 Delivery O2 Flow Rate FiO2 04/23/17 10:00 95/48 04/23/17 07:33 Venturi Mask 12.0 50 04/23/17 07:32 95 Venturi Mask 12.0 50 04/23/17 07:00 85 23 95/45 95 Venturi Mask 50 04/23/17 06:00 78 26 96/39 96 Venturi Mask 50 04/23/17 05:00 77 21 108/38 99 Bi-pap 60 04/23/17 04:00 98.7 83 26 91/44 98 Bi-pap 50 98.7 04/23/17 04:00 50 04/23/17 04:00 74 04/23/17 03:25 79 16 98 Full Face 50 04/23/17 03:00 79 17 105/48 99 Bi-pap 60 04/23/17 02:00 82 16 109/42 98 Bi-pap 60 04/23/17 01:08 85 19 98 Full Face 60 04/23/17 01:00 77 16 104/40 98 Bi-pap 60 04/23/17 00:00 75 04/23/17 00:00 60 04/23/17 00:00 98.9 82 21 102/50 97 Bi-pap 60 98.9 04/22/17 23:11 83 17 97 Full Face 60 04/22/17 23:00 74 22 115/47 96 Bi-pap 60 04/22/17 22:00 76 21 99/57 96 Bi-pap 60 04/22/17 21:00 77 21 96/49 97 Bi-pap 60 04/22/17 20:44 84 23 98 Full Face 60 04/22/17 20:00 64 04/22/17 20:00 98.8 72 23 112/51 97 Bi-pap 60 98.8 04/22/17 20:00 60 04/22/17 19:00 64 23 89/46 95 Bi-pap 60 04/22/17 18:41 97 Bi-pap 60 04/22/17 18:41 Venturi Mask 12.0 50 04/22/17 18:41 73 14 97 Full Face 60 04/22/17 18:00 72 22 91/41 92 Bi-pap 60 04/22/17 17:34 60 04/22/17 17:26 64 19 94 Full Face 40 04/22/17 17:15 63 16 Venturi Mask 10.0 95 04/22/17 17:00 77 17 108/45 92 Venturi Mask 45 04/22/17 16:30 Venturi Mask 45 04/22/17 16:00 85 04/22/17 16:00 45 04/22/17 16:00 83 28 89/45 92 Venturi Mask 45 04/22/17 15:00 93 19 85/53 91 Venturi Mask 45 04/22/17 14:00 84 20 97/50 96 Venturi Mask 45 04/22/17 13:00 77 17 115/47 95 Venturi Mask 45 04/22/17 12:55 Venturi Mask 45 04/22/17 12:00 98.9 76 20 105/51 96 Venturi Mask 45 98.9 04/22/17 12:00 45 04/22/17 11:54 99/49 04/22/17 11:52 76 04/22/17 11:00 72 21 99/49 94 Venturi Mask 45 Intake and Output 04/22/17 04/23/17 19:00 07:00 Intake Total 1135 ml 910 ml Output Total 2485 ml 812 ml Balance -1350 ml 98 ml Free Water 150 ml IV Total 355 ml 110 ml Tube Feeding 630 ml 600 ml Other 200 ml Output Urine Total 25 ml 12 ml Stool Total 1200 ml 800 ml Peritoneal Dialysis UF 1260 ml Laboratory Tests 04/23/17 05:00: White Blood Count 14.8H, Red Blood Count 2.42L, Hemoglobin 8.7L, Hematocrit 24.6L, Mean Corpuscular Volume 102H, Mean Corpuscular Hemoglobin 35.9H, Mean Corpuscular Hemoglobin Concent 35.4, Red Cell Distribution Width 14.8, Platelet Count 129L, Mean Platelet Volume 10.4H, Neutrophils (%) (Auto) , Lymphocytes (% ) (Auto) , Monocytes (%) (Auto) , Eosinophils (%) (Auto) , Basophils (%) (Auto) , Differential Total Cells Counted 100, Neutrophils % (Manual) 96H, Lymphocytes % (Manual) 2L, Monocytes % (Manual) 2, Eosinophils % (Manual) 0, Basophils % ( Manual) 0, Band Neutrophils 0, Platelet Estimate Adequate, Platelet Morphology Normal, Hypochromasia 1+, Anisocytosis 1+, Macrocytosis 1+, Sodium Level 149H, Potassium Level 2.9L, Chloride Level 107, Carbon Dioxide Level 33H, Anion Gap 9 , Blood Urea Nitrogen 96H, Creatinine 7.4H, Estimat Glomerular Filtration Rate 7.8, Glucose Level 181H, Uric Acid 5.9, Calcium Level 7.9L, Phosphorus Level 7.0H, Magnesium Level 2.1, Total Bilirubin 17.4H, Direct Bilirubin 14.5H, Aspartate Amino Transf (AST/SGOT) 105H, Alanine Aminotransferase (ALT/SGPT) 123H , Alkaline Phosphatase 320H, Ammonia 61H, C-Reactive Protein, Quantitative 3.9H , Pro-B-Type Natriuretic Peptide 1091H, Total Protein 4.5L, Albumin 1.6L, Globulin 2.9, Albumin/Globulin Ratio 0.6L Height (Feet): 5 Height (Inches): 7.00 Weight (Pounds): 240 General Appearance: lethargic Cardiovascular: tachycardia Respiratory/Chest: decreased breath sounds Abdomen: distended Objective edema ANTON LIZAMA Apr 23, 2017 10:33
[2017-04-23] MEDS ORDERED: Renvela 800mg Pkt NG SCH (12:00)
[2017-04-23] MEDS: Nitroglycerin Patch 0.4mg TDERMAL SCH (12:28)
--- NOTE | 2017-04-23 13:11 | Consultation ---
Consult Note Consult Note Pt seen in Bioethics consult, Dr. Tai presented the patient to our committee , with nursing and social work represented. We are asked to evaluate this 51 yo unrepresented patient who was admitted with multiorgan failure at the end of last month. Pt is seen in the ICU, is unresponsive and on hemodialysis and BiPAP. Assessment/Plan A: Multi-organ failure with no likelihood of improvement. At this point, transfer out of the ICU and comfort care measures is reasonable, including discontinuation of antibiotics and dialysis and feedings. Thank you for asking the Bioethics Committee to evaluate this patient. MARY LOU CADENA Apr 23, 2017 13:11
--- NOTE | 2017-04-23 13:18 | GI Progress Note ---
Assessment/Plan Problems: (1) Alcohol intoxication ICD Codes: F10.929 - Alcohol use, unspecified with intoxication, unspecified SNOMED: 56458876 (2) Diabetes mellitus out of control ICD Codes: E11.65 - Type 2 diabetes mellitus with hyperglycemia SNOMED: 07078141, 797328590 (3) encephalopathy,toxic metabolic (4) Liver cirrhosis ICD Codes: K74.60 - Unspecified cirrhosis of liver SNOMED: 84383301 (5) Altered level of consciousness ICD Codes: R40.4 - Transient alteration of awareness SNOMED: 4844482 (6) Alcohol abuse ICD Codes: F10.10 - Alcohol abuse, uncomplicated SNOMED: 01635909 Status: not improved, unchanged, deteriorating Status Narrative Discussed with Dr. Ramirez. Assessment/Plan bioethics today OB stool positive NGTFs per RD lactulose + Xifaxan prn transfusions solu medrol fu labs poor prognosis Subjective Subjective limited Objective Last 24 Hour Vital Signs Date Time Temp Pulse Resp B/P (MAP) Pulse Ox O2 Delivery O2 Flow Rate FiO2 04/23/17 12:28 102/48 04/23/17 12:00 98.4 85 21 107/42 96 Venturi Mask 50 98.4 04/23/17 12:00 50 04/23/17 11:00 82 16 107/42 97 Venturi Mask 50 04/23/17 10:00 84 16 106/55 98 Venturi Mask 50 04/23/17 10:00 95/48 04/23/17 09:00 84 17 95/48 96 Venturi Mask 50 04/23/17 08:00 77 04/23/17 08:00 50 04/23/17 08:00 98.6 83 17 113/43 96 Venturi Mask 50 98.6 04/23/17 07:33 Venturi Mask 12.0 50 04/23/17 07:32 95 Venturi Mask 12.0 50 04/23/17 07:00 85 23 95/45 95 Venturi Mask 50 04/23/17 06:00 78 26 96/39 96 Venturi Mask 50 04/23/17 05:00 77 21 108/38 99 Bi-pap 60 04/23/17 04:00 98.7 83 26 91/44 98 Bi-pap 50 98.7 04/23/17 04:00 50 04/23/17 04:00 74 04/23/17 03:25 79 16 98 Full Face 50 04/23/17 03:00 79 17 105/48 99 Bi-pap 60 04/23/17 02:00 82 16 109/42 98 Bi-pap 60 04/23/17 01:08 85 19 98 Full Face 60 04/23/17 01:00 77 16 104/40 98 Bi-pap 60 04/23/17 00:00 75 04/23/17 00:00 60 04/23/17 00:00 98.9 82 21 102/50 97 Bi-pap 60 98.9 04/22/17 23:11 83 17 97 Full Face 60 04/22/17 23:00 74 22 115/47 96 Bi-pap 60 04/22/17 22:00 76 21 99/57 96 Bi-pap 60 04/22/17 21:00 77 21 96/49 97 Bi-pap 60 04/22/17 20:44 84 23 98 Full Face 60 04/22/17 20:00 64 04/22/17 20:00 98.8 72 23 112/51 97 Bi-pap 60 98.8 04/22/17 20:00 60 04/22/17 19:00 64 23 89/46 95 Bi-pap 60 04/22/17 18:41 97 Bi-pap 60 04/22/17 18:41 Venturi Mask 12.0 50 04/22/17 18:41 73 14 97 Full Face 60 04/22/17 18:00 72 22 91/41 92 Bi-pap 60 04/22/17 17:34 60 04/22/17 17:26 64 19 94 Full Face 40 04/22/17 17:15 63 16 Venturi Mask 10.0 95 04/22/17 17:00 77 17 108/45 92 Venturi Mask 45 04/22/17 16:30 Venturi Mask 45 04/22/17 16:00 85 04/22/17 16:00 45 04/22/17 16:00 83 28 89/45 92 Venturi Mask 45 04/22/17 15:00 93 19 85/53 91 Venturi Mask 45 04/22/17 14:00 84 20 97/50 96 Venturi Mask 45 Intake and Output 04/22/17 04/23/17 19:00 07:00 Intake Total 1135 ml 910 ml Output Total 2485 ml 812 ml Balance -1350 ml 98 ml Free Water 150 ml IV Total 355 ml 110 ml Tube Feeding 630 ml 600 ml Other 200 ml Output Urine Total 25 ml 12 ml Stool Total 1200 ml 800 ml Peritoneal Dialysis UF 1260 ml Laboratory Tests Test 04/23/17 05:00 White Blood Count 14.8 K/UL (4.8-10.8) H Red Blood Count 2.42 M/UL (4.70-6.10) L Hemoglobin 8.7 G/DL (14.2-18.0) L Hematocrit 24.6 % (42.0-52.0) L Mean Corpuscular Volume 102 FL (80-99) H Mean Corpuscular Hemoglobin 35.9 PG (27.0-31.0) H Mean Corpuscular Hemoglobin Concent 35.4 G/DL (32.0-36.0) Red Cell Distribution Width 14.8 % (11.6-14.8) Platelet Count 129 K/UL (150-450) L Mean Platelet Volume 10.4 FL (6.5-10.1) H Neutrophils (%) (Auto) % (45.0-75.0) Lymphocytes (%) (Auto) % (20.0-45.0) Monocytes (%) (Auto) % (1.0-10.0) Eosinophils (%) (Auto) % (0.0-3.0) Basophils (%) (Auto) % (0.0-2.0) Differential Total Cells Counted 100 Neutrophils % (Manual) 96 % (45-75) H Lymphocytes % (Manual) 2 % (20-45) L Monocytes % (Manual) 2 % (1-10) Eosinophils % (Manual) 0 % (0-3) Basophils % (Manual) 0 % (0-2) Band Neutrophils 0 % (0-8) Platelet Estimate Adequate Platelet Morphology Normal Hypochromasia 1+ Anisocytosis 1+ Macrocytosis 1+ Sodium Level 149 MMOL/L (136-145) H Potassium Level 2.9 MMOL/L (3.5-5.1) L Chloride Level 107 MMOL/L (98-107) Carbon Dioxide Level 33 MMOL/L (21-32) H Anion Gap 9 mmol/L (5-15) Blood Urea Nitrogen 96 mg/dL (7-18) H Creatinine 7.4 MG/DL (0.55-1.30) H Estimat Glomerular Filtration Rate 7.8 mL/min (>60) Glucose Level 181 MG/DL (74-106) H Uric Acid 5.9 MG/DL (2.6-7.2) Calcium Level 7.9 MG/DL (8.5-10.1) L Phosphorus Level 7.0 MG/DL (2.5-4.9) H Magnesium Level 2.1 MG/DL (1.8-2.4) Total Bilirubin 17.4 MG/DL (0.2-1.0) H Direct Bilirubin 14.5 MG/DL (0.0-0.3) H Aspartate Amino Transf (AST/SGOT) 105 U/L (15-37) H Alanine Aminotransferase (ALT/SGPT) 123 U/L (12-78) H Alkaline Phosphatase 320 U/L (46-116) H Ammonia 61 umol/L (11-32) H C-Reactive Protein, Quantitative 3.9 mg/dL (0.00-0.90) H Pro-B-Type Natriuretic Peptide 1091 pg/mL (0-125) H Total Protein 4.5 G/DL (6.4-8.2) L Albumin 1.6 G/DL (3.4-5.0) L Globulin 2.9 g/dL Albumin/Globulin Ratio 0.6 (1.0-2.7) L Height (Feet): 5 Height (Inches): 7.00 Weight (Pounds): 240 General Appearance: alert Cardiovascular: normal rate Respiratory/Chest: other - Lianne Avelar NJung Apr 23, 2017 13:18
[2017-04-23] MEDS ORDERED: Haloperidol 5mg/ml Inj IM PRN ×3 (13:45→16:00)
[2017-04-23] MEDS ORDERED: Artificial Tears 1.4% Op Soln BOTH EYES PRN (13:45)
[2017-04-23] MEDS ORDERED: Prochlorperazine 10mg tab ORAL PRN ×2 (13:45→19:45)
[2017-04-23] MEDS ORDERED: Rate Change Narcotic Drip MISC PRN (13:45)
[2017-04-23] MEDS ORDERED: PCA Morphine 1mg/ml 30 ML IV PRN (13:45)
[2017-04-23] MEDS ORDERED: Glycopyrrolate 0.2mg/ml 1ml Vial IV PRN ×2 (13:45→16:00)
[2017-04-23] MEDS ORDERED: Morphine Sulfate 10mg/ml Inj IVP ONE (14:00)
[2017-04-23] MEDS: PCA Morphine 1mg/ml 30 ML IV PRN ×2 (16:38→23:01)
[2017-04-23] MEDS ORDERED: Narcotic Shift Volume MISC SCH (19:00)
[2017-04-23] MEDS: Narcotic Shift Volume MISC SCH (19:00)
--- NOTE | 2017-04-23 21:38 | General Progress Note ---
Assessment/Plan Status: unchanged Assessment/Plan 1. Schizophrenia cpt 2. Encephalopathy. PLAN: 1. comfortncare 2.the pt lacks capacity to make decisions Subjective Allergies: Coded Allergies: ASPIRIN (Verified Allergy, Unknown, 03/12/17) Subjective the pt is calmer lacks capacity to make decisions. the pt is appropriate for palliative care Objective Last 24 Hour Vital Signs Date Time Temp Pulse Resp B/P (MAP) Pulse Ox O2 Delivery O2 Flow Rate FiO2 04/23/17 20:29 97.7 89 20 95/40 93 97.7 86 04/23/17 20:07 Venturi Mask 12.0 50 04/23/17 20:07 95 Venturi Mask 12.0 50 04/23/17 20:00 97.7 89 20 95/40 93 97.7 89 04/23/17 18:59 98.1 81 20 108/50 95 98.1 81 04/23/17 18:00 98.1 81 20 107/49 95 98.1 81 04/23/17 17:00 98.1 81 20 108/50 95 98.1 81 04/23/17 16:00 98.2 82 20 108/48 95 98.2 82 04/23/17 15:00 98.2 81 20 106/46 92 98.2 81 04/23/17 14:00 82 21 100/52 95 Venturi Mask 50 04/23/17 13:00 83 18 100/52 96 04/23/17 12:28 102/48 04/23/17 12:00 82 04/23/17 12:00 98.4 85 21 107/42 96 Venturi Mask 50 98.4 04/23/17 12:00 50 04/23/17 11:00 82 16 107/42 97 Venturi Mask 50 04/23/17 10:00 84 16 106/55 98 Venturi Mask 50 04/23/17 10:00 95/48 04/23/17 09:00 84 17 95/48 96 Venturi Mask 50 04/23/17 08:00 77 04/23/17 08:00 50 04/23/17 08:00 98.6 83 17 113/43 96 Venturi Mask 50 98.6 04/23/17 07:33 Venturi Mask 12.0 50 04/23/17 07:32 95 Venturi Mask 12.0 50 04/23/17 07:00 85 23 95/45 95 Venturi Mask 50 04/23/17 06:00 78 26 96/39 96 Venturi Mask 50 04/23/17 05:00 77 21 108/38 99 Bi-pap 60 04/23/17 04:00 98.7 83 26 91/44 98 Bi-pap 50 98.7 04/23/17 04:00 50 04/23/17 04:00 74 04/23/17 03:25 79 16 98 Full Face 50 04/23/17 03:00 79 17 105/48 99 Bi-pap 60 04/23/17 02:00 82 16 109/42 98 Bi-pap 60 04/23/17 01:08 85 19 98 Full Face 60 04/23/17 01:00 77 16 104/40 98 Bi-pap 60 04/23/17 00:00 75 04/23/17 00:00 60 04/23/17 00:00 98.9 82 21 102/50 97 Bi-pap 60 98.9 04/22/17 23:11 83 17 97 Full Face 60 04/22/17 23:00 74 22 115/47 96 Bi-pap 60 04/22/17 22:00 76 21 99/57 96 Bi-pap 60 Intake and Output 04/22/17 04/23/17 19:00 07:00 Intake Total 1135 ml 910 ml Output Total 2485 ml 812 ml Balance -1350 ml 98 ml Free Water 150 ml IV Total 355 ml 110 ml Tube Feeding 630 ml 600 ml Other 200 ml Output Urine Total 25 ml 12 ml Stool Total 1200 ml 800 ml Peritoneal Dialysis UF 1260 ml Laboratory Tests 04/23/17 05:00: White Blood Count 14.8H, Red Blood Count 2.42L, Hemoglobin 8.7L, Hematocrit 24.6L, Mean Corpuscular Volume 102H, Mean Corpuscular Hemoglobin 35.9H, Mean Corpuscular Hemoglobin Concent 35.4, Red Cell Distribution Width 14.8, Platelet Count 129L, Mean Platelet Volume 10.4H, Neutrophils (%) (Auto) , Lymphocytes (% ) (Auto) , Monocytes (%) (Auto) , Eosinophils (%) (Auto) , Basophils (%) (Auto) , Differential Total Cells Counted 100, Neutrophils % (Manual) 96H, Lymphocytes % (Manual) 2L, Monocytes % (Manual) 2, Eosinophils % (Manual) 0, Basophils % ( Manual) 0, Band Neutrophils 0, Platelet Estimate Adequate, Platelet Morphology Normal, Hypochromasia 1+, Anisocytosis 1+, Macrocytosis 1+, Sodium Level 149H, Potassium Level 2.9L, Chloride Level 107, Carbon Dioxide Level 33H, Anion Gap 9 , Blood Urea Nitrogen 96H, Creatinine 7.4H, Estimat Glomerular Filtration Rate 7.8, Glucose Level 181H, Uric Acid 5.9, Calcium Level 7.9L, Phosphorus Level 7.0H, Magnesium Level 2.1, Total Bilirubin 17.4H, Direct Bilirubin 14.5H, Aspartate Amino Transf (AST/SGOT) 105H, Alanine Aminotransferase (ALT/SGPT) 123H , Alkaline Phosphatase 320H, Ammonia 61H, C-Reactive Protein, Quantitative 3.9H , Pro-B-Type Natriuretic Peptide 1091H, Total Protein 4.5L, Albumin 1.6L, Globulin 2.9, Albumin/Globulin Ratio 0.6L Height (Feet): 5 Height (Inches): 7.00 Weight (Pounds): 240 Aly De Santiago M.D. Apr 23, 2017 21:38
[2017-04-24 00:56] VITALS: BP 85/33
[2017-04-24 04:34] VITALS: BP 69/33
[2017-04-24] MEDS: PCA Morphine 1mg/ml 30 ML IV PRN (05:05)
[2017-04-24] MEDS: Narcotic Shift Volume MISC SCH (07:10)
--- NOTE | 2017-04-24 07:43 | Nephrology Progress Note ---
Assessment/Plan Problem List: (1) Severe sepsis (2) Hypotension (3) Renal failure Assessment: acute on chronic (4) Hypothermia (5) Elevated LFTs (6) Hyperbilirubinemia Assessment comfort care Acute renal failure Hypotensive ? Underlying CKD Low BP , Septic Shock Acute encephalopathy Lice infestation High LFTs and Jaundice HypoThermia UTI Plan comfort care- pre terminal will sign off Subjective ROS Limited/Unobtainable: Yes Objective Objective Last 24 Hour Vital Signs Date Time Temp Pulse Resp B/P (MAP) Pulse Ox O2 Delivery O2 Flow Rate FiO2 04/24/17 07:00 18 04/24/17 06:00 04/24/17 05:35 98.2 04/24/17 05:05 98.2 04/24/17 04:34 98.2 86 15 69/33 86 98.2 88 04/24/17 00:56 98.8 99 22 85/33 90 98.8 99 04/23/17 23:01 97.7 04/23/17 21:00 97.7 89 20 95/40 93 97.7 86 04/23/17 20:29 97.7 89 20 95/40 93 97.7 86 04/23/17 20:07 Venturi Mask 12.0 50 04/23/17 20:07 95 Venturi Mask 12.0 50 04/23/17 20:00 97.7 89 20 95/40 93 97.7 89 04/23/17 18:59 98.1 81 20 108/50 95 98.1 81 04/23/17 18:00 98.1 81 20 107/49 95 98.1 81 04/23/17 17:00 98.1 81 20 108/50 95 98.1 81 04/23/17 16:00 98.2 82 20 108/48 95 98.2 82 04/23/17 15:00 98.2 81 20 106/46 92 98.2 81 04/23/17 14:00 82 21 100/52 95 Venturi Mask 50 04/23/17 13:00 83 18 100/52 96 04/23/17 12:28 102/48 04/23/17 12:00 82 04/23/17 12:00 98.4 85 21 107/42 96 Venturi Mask 50 98.4 04/23/17 12:00 50 04/23/17 11:00 82 16 107/42 97 Venturi Mask 50 04/23/17 10:00 84 16 106/55 98 Venturi Mask 50 04/23/17 10:00 95/48 04/23/17 09:00 84 17 95/48 96 Venturi Mask 50 04/23/17 08:00 77 04/23/17 08:00 50 04/23/17 08:00 98.6 83 17 113/43 96 Venturi Mask 50 98.6 Intake and Output 04/23/17 04/24/17 19:00 07:00 Intake Total 676.666 ml Output Total 90 ml 200 ml Balance 586.666 ml -200 ml IV Total 376.666 ml Tube Feeding 300 ml Output Urine Total 90 ml 200 ml Height (Feet): 5 Height (Inches): 7.00 Weight (Pounds): 248 General Appearance: no apparent distress, lethargic Objective edema ANTON LIZAMA 10, 2018 07:43
[2017-04-24 08:12] VITALS: BP 49/29
[2017-04-24] MEDS ORDERED: D5W 275ml ONE (09:59)
[2017-04-24] MEDS ORDERED: NS 275ml ONE ×2 (09:59)
[2017-04-24] MEDS ORDERED: Tubing IV Secondary IV ONE (09:59)
[2017-04-24] MEDS ORDERED: NS 500ML ONE (09:59)
[2017-04-24] MEDS ORDERED: Sterile Water Irrig 1000ml IRRIG ONE (09:59)
[2017-04-24] MEDS ORDERED: Artificial Tears 1.4% Op Soln BOTH EYES PRN (13:45)
--- NOTE | 2017-04-27 13:36 | Discharge Summary ---
Discharge Summary Hospital Course Date of Admission Apr 11, 2017 at 04:08 Date of Discharge Apr 24, 2017 at 10:00 Admitting Diagnosis ams-renal failure HPI Hari Avendaño is a 51 year old male who was admitted on Apr 11, 2017 at 04:08 for Altered Mental Status/Renal Failure Hospital Course summary #[id number] Discharge Discharge Disposition Patient Discharge Diagnoses: Sagar (Segundoyoel),Kyung STANTON Apr 27, 2017 13:36
--- NOTE | 2017-04-28 10:15 | Discharge Summary 2 SIG ---
SUMMARY DATE OF ADMISSION: 04/11/2017 DATE OF EXPIRATION: 04/24/2017 REASON FOR ADMISSION: 51 years old male with unknown past medical history, was found on the street. According to paramedics, the patient had been seen on the street drinking with cans everywhere. Bystander called 911 , and the patient was brought to the emergency department. The patient was altered and was unable to provide any history, agitated, not cooperative, and moaning frequently. Laboratory workup revealed leukocytosis,WBC -22.[address] of the head revealed no acute intracranial pathology. Lumbar puncture was performed with clear color of cerebrospinal fluid, analysis was not suggestive of bacterial meningitis. The patient with severe hypothermia. Blankets and Arnol Hugger were provided. The patient had been bradycardic, but with normal blood pressure. Although the patient had been altered, he had been protecting his airway. Temperature was 86 degrees. Blood pressure -91/49. EKG showed sinus bradycardia with a rate of 50, no acute ischemic changes, no PVC, no ectopy. Chest x-ray revealed no acute cardiopulmonary pathology. Hemoglobin and hematocrit stable, shift to the left with neutrophils -86%. BUN- 77 and creatinine -5.3. Total bilirubin -16 and direct bilirubin -12.5. Troponin negative. AST- 464 and ALT -299. ProBNP -180. Albumin -2.8. Lactic acid -14.2. Ammonia -27. Serum alcohol less than 3. Salicylate and Tylenol levels negative. Urine toxicology screen was negative. Urinalysis revealed moderate bacteria, 10 to 15 WBC, and +1 leukocyte esterase. Cerebrospinal fluid analysis revealed glucose of 84 and protein of 52. CT of the head revealed no evidence of acute intracranial hemorrhage or mass effect, no midline shift. The patient noted to have multiple lice infestation. Septic workup was initiated. The patient was started on IV antibiotics. The patient was treated for lice infestation. The patient admitted to ICU with admitting diagnoses of severe sepsis, urinary tract infection, renal failure, hypothermia, altered level of consciousness, elevated LFTs, hyperbilirubinemia, bradycardia, and lice infestation. HOSPITAL COURSE: The patient admitted to ICU. Cardiology, Neurology, Infectious Diseases, Nephrology, GI, and Endocrinology consults were requested. Supplemental oxygen provided to keep pulse oximetry above 92%. Pulmonary toilet provided. The patient was closely monitored. Renal parameters, electrolytes, LFTs were closely monitored. Cardiology closely followed. The patient initially was given some fluids and albumin. Supervisor Residential closely followed. The patient was on Arnol Hugger for severe hypothermia. The patient was started on empiric antibiotic. Infectious Diseases closely followed. Pain management and supportive care provided. DVT and GI prophylaxes provided. The patient had persistent encephalopathy, likely multifactorial due to hepatorenal syndrome, sepsis, and later heaptic encephalopathy. For high ammonia, the patient was started on treatment with lactulose and Rifaximin. LP was negative. Toxicology screen negative. CT of the head revealed no acute intracranial pathology. Neurology closely followed. The patient was on antibiotic. Infectious Diseases specialist closely followed. Urine culture revealed Strep species. Blood cultures were negative. Creatinine initially was trending down. Electrolytes were corrected as needed. Nephrotoxins were avoided. Renal ultrasound was negative, possibly underlying chronic renal disease. Flatbed Owner Operator followed for elevated troponin. Echocardiogram revealed preserved ejection fraction of 55%. Per Cardiology, possibly demand ischemia, given elevated troponin and inferolateral ischemia on EKG, however, all other troponin were negative , single episode of elevated troponin was likely due to the renal failure. GI seen the patient and started the patient on lactulose and rifaximin. Thiamine and folic acid were added to existing regimen. Dobbhoff feeding tube was inserted. The patient was started on tube feeding as per registered dietitian recommendations. Strict aspiration and reflux precautions were maintained. Anemia workup initiated. Stool for OB was positive. Counts were closely monitored. On 04/17/2017 early in the morning, the patient became febrile and tachycardic, hypotensive, and hypoxic. Blood pressure did not respond to fluid challenge. The patient was started on the Levophed. At that time, the patient also was hypoxic and required 100% nonrebreathing mask. Subsequently, he was switched to BiPAP. ABG and chest x-ray were followed. Surgeon was consulted to place emergency central line for pressors. Left femoral central venous catheter was inserted on 04/17/2017. Cooling measure initiated. On 04/18/2017, patient was able to be weaned from Levophed. The patient was started on midodrine. Supervisor Residential closely followed. Renal parameters worsened. Creatinine up to 6.8 on 04/18/17. . Per will call order clerk, the patient needed emergent hemodialysis. Surgeon placed temporary hemodialysis catheter via left subclavian vein on 04/18/2017. The patient subsequently underwent hemodialysis. Further dialysis was provided as per Nephrology orders. Midodrine was continued. Endocrinology closely followed the patient. Since the patient initially was not eating, Levemir and pre-meal insulin were stopped and sliding scale was continued. When tube feeding was started, the patient resumed Levemir and sliding scale as needed. Hemoglobin A1c-8.0, not at goal. Psychiatrist closely followed. Psychiatric medication regimen was optimized. Wound care provided as per wound care nurse recommendation for sacral coccyx un-stageable pressure ulcer, present on admission. DVT and GI prophylaxes provided along with supportive care. The patient continued to be unresponsive. Unfortunately, the patient continued to be unresponsive, and all doctors agreed that overall prognosis was poor. The patient was unresponsive with persistent leukocytosis and multiorgan failure including hepatorenal syndrome, anemia, thrombocytopenia, respiratory failure, and shock. Bioethics committee was requested in order to aid with proper ethical decision making. Bioethics committee was held on 04/23/2017. The patient was seen in the ICU. He was unresponsive, on BiPAP and hemodialysis. According to Bioethics recommendations, patient with multiorgan failure with no likelihood of improvement. Committee recommended to transfer the patient out of ICU and initiate comfort care measures including discontinuation of antibiotic, dialysis, and feeding. Subsequently, Code Status was changed to DNR/DNI. Dialysis was stopped. Antibiotics were stopped. The patient was transferred to medical/surgical floor for comfort care. The patient's condition was subsequently deteriorated. The patient was in the morning on 04/24/2017. The patient was pronounced at 10 a.m. on 04/24/2017. Cause of : cardiopulmonary arrest. FINAL DIAGNOSES: : 1. Acute respiratory failure. 2. Sepsis with shock. 3. Possible aspiration pneumonia. 4. Possible healthcare-associated pneumonia. 5. Acute hypoxemic respiratory failure requiring 100% nonrebreathing mask and BiPAP. 6. Persistent acute toxic metabolic encephalopathy (due to hepatorenal syndrome and sepsis). 7. Acute hepatic encephalopathy. 8. Acute renal failure likely on chronic renal insufficiency requiring start of hemodialysis. 9. Alcoholic liver disease with liver cirrhosis. 10. Hepatorenal syndrome. 11. Multiorgan failure. 12. Urinary tract infection with Streptococcus. 13. Elevated troponin, single episode, likely due to renal failure. 14. Alcohol abuse. 15. Diabetes out of control. 16. Anemia. 17. Schizophrenia. 18. Sacral coccyx un-stageable pressure ulcer, present on admission. Lee Tai M.D. Kyung Keith ([facility] N.PYuriy DR: Rossana JOB#: [id number] CC: NITIN
== END 2017-04-24 10:00 | disposition expired | DRG 871 ==
LOC: EDBD 01:16 → EMR 04:01 → ICU 04:08 → EDBD 04:08 → MERGE 04:08 → EDBEDREQ 05:49 → EDBEDREQSVC 05:49 → EDBEDREQ 17:35 → 4E 04-13 11:20 → ICU 04-17 07:29 → 4W 04-23 15:29
PROC: 009U3ZX Drainage of Spinal Canal, Percutaneous Approach, Diagnostic (ICD-10-PCS; principal; 2017-04-11)
PROC: 06HN33Z Insertion of Infusion Device into Left Femoral Vein, Percutaneous Approach (ICD-10-PCS; 2017-04-17)
PROC: 05H633Z Insertion of Infusion Device into Left Subclavian Vein, Percutaneous Approach (ICD-10-PCS; 2017-04-18)
PROC: 5A1D70Z Performance of Urinary Filtration, Intermittent, Less than 6 Hours Per Day (ICD-10-PCS; 2017-04-18)
DX: A41.9 Sepsis, unspecified organism (principal); R65.21 Severe sepsis with septic shock; K76.7 Hepatorenal syndrome; J96.01 Acute respiratory failure with hypoxia; K72.00 Acute and subacute hepatic failure without coma; G93.41 Metabolic encephalopathy; L89.150 Pressure ulcer of sacral region, unstageable; J69.0 Pneumonitis due to inhalation of food and vomit; N17.9 Acute kidney failure, unspecified; R17 Unspecified jaundice; N39.0 Urinary tract infection, site not specified; F20.0 Paranoid schizophrenia; E11.65 Type 2 diabetes mellitus with hyperglycemia; B85.2 Pediculosis, unspecified; D64.9 Anemia, unspecified; R00.1 Bradycardia, unspecified; Z59.0 Homelessness; R79.89 Other specified abnormal findings of blood chemistry; R68.0 Hypothermia, not associated with low environmental temperature; E86.0 Dehydration; N18.9 Chronic kidney disease, unspecified; K70.31 Alcoholic cirrhosis of liver with ascites; F10.129 Alcohol abuse with intoxication, unspecified; Z51.5 Encounter for palliative care; K72.90 Hepatic failure, unspecified without coma
CPT/HCPCS: 36415; 36600; 70450; 71045; 74230; 76700; 76775; 80048; 80053; 80061; 80202; 80307; 80329; 81001; 81003; 82140; 82248; 82270; 82436; 82550; 82607; 82728; 82746; 82803; 82945; 82962; 82977; 83036; 83540; 83550; 83605; 83615; 83735; 83880; 83930; 83935; 84100; 84133; 84157; 84300; 84439; 84443; 84484; 84550; 85007; 85025; 85610; 85651; 85730; 86140; 86705; 86709; 86803; 87040; 87070; 87081; 87086; 87181; 87205; 87340; 89050; 89051; 93005; 93306; 93970; 94660; 94664; 94760; 95819; 99291; J1815; J8499; S5561